=== PATIENT | female | born 1965 | race Caucasian/White ===

== ENCOUNTER 2023-11-15 08:50 | Outpatient (OUT) | payer OTHER, SELFPAY ==
--- NOTE | 2023-11-15 09:02 | XR_ITS ---
[address] [address] Patient Name: CARLINE MATTSON MRN: [id number] date: 1965 Sex: F Assigned Patient Location: [facility] Current Patient Location: [facility] Accession/Order Number: [id number] Exam Date: 11/15/2023 09:15 Report Date: 11/15/2023 09:47 At the request of: DELVIS JAMESON Procedure: XR DEXA axial skeleton EXAM: XR DEXA axial skeleton HISTORY: Age related osteoporosis. COMPARISON: 10/17/2020, 09/18/2017, 04/14/2015 and 10/29/2006. TECHNIQUE: Routine DEXA scan lumbar spine and bilateral hips. FINDINGS: L1-L4: Bone mineral density 1.041 g/sq cm and T score -1.2. Bone mineral density change versus previous -7.5% (statistically significant change). Left femoral neck: Bone mineral density 0.999 g/sq cm and T score -0.3. Left hip total: Bone mineral density 1.065 g/sq cm and T score 0.5. Right femoral neck: Bone mineral density 0.945 g/sq cm and T score -0.7. Right hip total: Bone mineral density 1.023 g/sq cm and T score 0.1. Dual femur neck mean percent change versus previous 2.7%. Dual femur trochanter mean change versus previous 2.0%. Dual femur total mean change versus previous 2.3%. XR/XR DEXA axial skeleton IMPRESSION: Osteopenia. Electronically authenticated by: LENCHO LAI Date: 11/15/2023 09:47
--- NOTE | 2023-11-15 09:18 | MM_ITS ---
Patient Name: CARLINE MATTSON MR#: [id number] : 1965 Exam Date: 11/15/2023 Ordering Doctor: DR Tramaine Lr . RADIOLOGY REPORT PROCEDURE: MM TOMOSYNTHESIS SCREENING BI COMPARISON: MG MAMM SCREEN 3D JOSE CAD, 10/26/2021. MG MAMM SCREEN 3D JOSE CAD, 10/29/2022. INDICATIONS: Screening Calculator Name NCI Breast Cancer Risk Assessment Tool 5 Year Breast Cancer Risk 1.00% Lifetime Breast Cancer Risk 6.30% Personal Breast Cancer No Personal Ovarian Cancer No Treatments None Family Cancers Mother with glioblastoma cancer at age 73; Father with skin cancer at age ~70. LOCATION: [facility] BREAST COMPOSITION: Scattered areas fibroglandular density. FINDINGS: DIAGNOSTIC CATEGORY 1--NEGATIVE. NO CHANGE FROM COMPARISON ASSESSMENT. Scattered benign-appearing lymph nodes are present. RIGHT BREAST: No significant suspicious finding. LEFT BREAST: No significant suspicious finding. RECOMMENDATIONS: ROUTINE MAMMOGRAM AND CLINICAL EVALUATION IN 12 MONTHS. PLEASE NOTE: A NORMAL MAMMOGRAM DOES NOT EXCLUDE THE POSSIBILITY OF BREAST CANCER. A CLINICALLY SUSPICIOUS PALPABLE LUMP SHOULD BE BIOPSIED. Dictated by: Daniel Mercado MD on 11/15/2023 at 12:02 Approved by: Daniel Mercado MD on 11/15/2023 at 12:06
== END 2023-11-15 08:51 | disposition home or self-care (01) ==
LOC: MAMMO 08:50
PROVIDERS: PCP Family Medicine; Visit Provider Family Medicine
DX: Z12.31 Encounter for screening mammogram for malignant neoplasm of breast (principal); M85.80 Other specified disorders of bone density and structure, unspecified site; M81.0 Age-related osteoporosis without current pathological fracture; Z80.8 Family history of malignant neoplasm of other organs or systems
CPT/HCPCS: 77063; 77067; 77080

== ENCOUNTER 2023-12-10 20:31 | Emergency (ER) | payer OTHER, SELFPAY ==
--- OUTSIDE RECORDS SUMMARY | 2023-12-10 20:36 | XMS_ITS | CCD ---
Author Name Unknown Address [id number] [place] [address] Organization [facility] Care Team Providers Care Petrography Teacher Name Role Phone TRINO, DR EDMONDSON Consulting Unavailable TRINO, DR EDMONDSON Primary Care Unavailable TRINO, DR EDMONDSON Admitting Unavailable CHRISTIANEY, DR EDMONDSON Attending Unavailable BENTLEY MONDRAGON Unavailable TRINO, DR EDMONDSON Primary Care Unavailable TRINO, DR EDMONDSON Admitting Unavailable TRINO, DR EDMONDSON Attending Unavailable CHRISTIANEY, DR EDMONDSON Consulting Unavailable ABHINAV, DR BENTLEY Mcnally Consulting Unavailable TRINO, DR EDMONDSON Primary Care Unavailable TRINO, DR EDMONDSON Admitting Unavailable CHRISTIANEY, DR EDMONDSON Attending Unavailable CHRISTIANEY, DR EDMONDSON Consulting Unavailable Wisam Mix Unavailable DELVIS JAMESON Primary Care Unavailable BRYSON GRANDE Attending Unavailable Medications Current Medications Medication Drug Class(es) Dates Sig (Normalized) Sig (Original) liothyronine sodium 0.05 mg oral tablet (1 source) l-Triiodothyronine take 1 tablet by mouth every twenty-four hours Liothyronine Sodium 50 MCG 1 tablet on an empty stomach Orally Once a day Active Problems Active Problems Problem Classification Problem Date Documented Da te Episodic/Chronic Administrative/social admission (1 source) Encounter for pre-employment examination Episodic Calculus of urinary tract (1 source) Calculus of ureter; Translations: [Calculus of ureter] Onset: 11-09-2023 Episodic Other screening for suspected conditions (not mental disorders or infectious disease) (4 sources) Encounter for screening mammogram for malignant neoplasm of breast; Translations: [ENC SCR MAMMO MALIG NEOPLASM BREAST] Onset: 10-29-2022 Episodic Residual codes; unclassified (1 source) Family history of malignant neoplasm of other organs or systems; Translations: [FAM HX MALIG NEOPLASM OTH ORGN/SYS] Onset: 10-31-2022 Episodic Unclassified (3 sources) COUGH, UNSPECIFIED; Translations: [COUGH, UNSPECIFIED] Onset: 12-03-2022 Past or Other Problems Problem Classification Problem Date Documented Da te Episodic/Chronic Unclassified (1 source) COUGH, UNSPECIFIED; Translations: [COUGH, UNSPECIFIED] Onset: 11-30-2022 Results Test Name Value Interpretation Reference Range Facil ity CBCon 11-09-2023 ABSOLUTE BAS 0.1 10*3/uL Normal 0.0-0.2 [facility] Comment on above: Performed By: #### C MPF, ACBC, LIPA2 #### Testing performed at [address] [address] ABSOLUTE EOS 0.2 10*3/uL Normal 0.0-0.7 [facility] Comment on above: Performed By: #### C MPF, ACBC, LIPA2 #### Testing performed at [address] [address] ABSOLUTE NEUTROPHIL COUNT 5.3 10*3/uL Normal 1.4-6.5 [facility] Comment on above: Performed By: #### C MPF, ACBC, LIPA2 #### Testing performed at [address] [address] Basophils/100 WBC (Bld) 0.9 % Normal 0.0-2.0 [facility] Comment on above: Performed By: #### C MPF, ACBC, LIPA2 #### Testing performed at [address] [address] DTYPE AUTO DIFF Normal [facility] Comment on above: Performed By: #### C MPF, ACBC, LIPA2 #### Testing performed at [address] [address] Eosinophils/100 WBC (Bld) 1.9 % Normal 0.0-11.0 [facility] Comment on above: Performed By: #### C MPF, ACBC, LIPA2 #### Testing performed at [address] [address] Lymphocytes (Bld) [#/Vol] 2.6 10*3/uL Normal 1.2-3.4 [facility] Comment on above: Performed By: #### C MPF, ACBC, LIPA2 #### Testing performed at [address] [address] Lymphocytes/100 WBC (Bld) 29.1 % Normal 20.0-55.0 [facility] Comment on above: Performed By: #### C MPF, ACBC, LIPA2 #### Testing performed at [address] [address] Monocytes (Bld) [#/Vol] 0.9 10*3/uL High 0.0-0.7 [facility] Comment on above: Performed By: #### C MPF, ACBC, LIPA2 #### Testing performed at [address] [address] Monocytes/100 WBC (Bld) 10.1 % High 0.0-10.0 [facility] Comment on above: Performed By: #### C MPF, ACBC, LIPA2 #### Testing performed at [address] [address] Neutrophils/100 WBC (Bld) 58.0 % Normal 37.0-75.0 [facility] Comment on above: Performed By: #### C MPF, ACBC, LIPA2 #### Testing performed at [address] [address] Erythrocyte distribution width (RBC) [Ratio] 14.0 % Normal 11.5-14.5 [facility] Comment on above: Performed By: #### C MPF, ACBC, LIPA2 #### Testing performed at [address] [address] Hematocrit (Bld) [Volume fraction] 41.4 % Normal 36.0-48.0 [facility] Comment on above: Performed By: #### C MPF, ACBC, LIPA2 #### Testing performed at [address] [address] Hemoglobin (Bld) [Mass/Vol] 13.3 g/dL Normal 12.0-16.0 [facility] Comment on above: Performed By: #### C MPF, ACBC, LIPA2 #### Testing performed at [address] [address] MCH (RBC) [Entitic mass] 27.3 pg Normal 26.0-35.0 [facility] Comment on above: Performed By: #### C MPF, ACBC, LIPA2 #### Testing performed at [address] [address] MCHC (RBC) [Mass/Vol] 32.2 g/dL Normal 27.0-37.0 [facility] Comment on above: Performed By: #### C MPF, ACBC, LIPA2 #### Testing performed at [address] [address] MCV (RBC) [Entitic vol] 84.7 fL Normal 80.0-100.0 [facility] Comment on above: Performed By: #### C MPF, ACBC, LIPA2 #### Testing performed at [address] [address] Platelet mean volume (Bld) [Entitic vol] 6.9 fL Low 7.4-11.0 [facility] Comment on above: Performed By: #### C MPF, ACBC, LIPA2 #### Testing performed at [address] [address] Platelets (Bld) [#/Vol] 333 10*3/uL Normal 130-400 [facility] Comment on above: Performed By: #### C MPF, ACBC, LIPA2 #### Testing performed at [address] [address] RBC (Bld) [#/Vol] 4.89 10*6/uL Normal 4.0-5.4 [facility] Comment on above: Performed By: #### C MPF, ACBC, LIPA2 #### Testing performed at [address] [address] WBC (Bld) [#/Vol] 9.1 10*3/uL Normal 3.6-11.0 [facility] Comment on above: Performed By: #### C MPF, ACBC, LIPA2 #### Testing performed at [address] [address] CMP FASTINGon 11-09-2023 A:G RATIO 1.4 RATIO Normal [facility] Comment on above: Performed By: #### C MPF, ACBC, LIPA2 #### Testing performed at [address] [address] ALBUMIN 4.5 G/dl Normal 3.5-5.0 [facility] Comment on above: Performed By: #### C MPF, ACBC, LIPA2 #### Testing performed at [address] [address] ALP [Catalytic activity/Vol] 92 U/L Normal 38-126 [facility] Comment on above: Performed By: #### C MPF, ACBC, LIPA2 #### Testing performed at [address] [address] ALT [Catalytic activity/Vol] 64 U/L High <35 [facility] Comment on above: Performed By: #### C MPF, ACBC, LIPA2 #### Testing performed at [address] [address] AST [Catalytic activity/Vol] 51 U/L High 14-36 [facility] Comment on above: Performed By: #### C MPF, ACBC, LIPA2 #### Testing performed at [address] [address] Bilirubin [Mass/Vol] 0.2 mg/dL Normal 0.2-1.3 [facility] Comment on above: Performed By: #### C MPF, ACBC, LIPA2 #### Testing performed at [address] [address] Calcium [Mass/Vol] 9.8 mg/dL Normal 8.4-10.2 [facility] Comment on above: Performed By: #### C MPF, ACBC, LIPA2 #### Testing performed at [address] [address] Chloride [Moles/Vol] 103 mmol/L Normal 98-107 [facility] Comment on above: Result Comment: Ayana pathak note: Triglyceride levels of 600mg/dL or higher may positively bias chloride results by approximately 2.1 mmol Performed By: #### C MPF, ACBC, LIPA2 #### Testing performed at [address] [address] CO2 [Moles/Vol] 24 mmol/L Normal 22-30 [facility] Comment on above: Performed By: #### C MPF, ACBC, LIPA2 #### Testing performed at [address] [address] Creatinine [Mass/Vol] 1.00 mg/dL Normal 0.70-1.20 [facility] Comment on above: Performed By: #### C MPF, ACBC, LIPA2 #### Testing performed at [address] [address] EST. GFR, 73 ml/min/1.73sq.m [facility] Comment on above: Performed By: #### C MPF, ACBC, LIPA2 #### Testing performed at [address] [address] EST. GFR,Non 61 ml/min/1.73sq.m [facility] Comment on above: Performed By: #### C MPF, ACBC, LIPA2 #### Testing performed at [address] [address] GFR Information Average GFR for 50-59 years old = 93. Normal [facility] Comment on above: Result Comment: Manager Steel bren Kidney disease, GFR = <60. Kidney failure, GFR = <15. The GFR estimate is not adjusted for extreme body surface area or acute process, nor has it been validated for women or ethnic groups other than and . Performed By: #### C MPF, ACBC, LIPA2 #### Testing performed at [address] [address] Glucose [Mass/Vol] 121 mg/dL High 70-100 [facility] Comment on above: Result Comment: NORMAL <100 mg/dL PREDIABETES 101-126 mg/dL DIABETES 126 mg/dL or higher Performed By: #### C MPF, ACBC, LIPA2 #### Testing performed at [address] [address] Potassium [Moles/Vol] 3.7 mmol/L Normal 3.5-5.1 [facility] Comment on above: Performed By: #### C MPF, ACBC, LIPA2 #### Testing performed at [address] [address] Protein [Mass/Vol] 7.8 g/dL Normal 6.3-8.2 [facility] Comment on above: Performed By: #### C MPF, ACBC, LIPA2 #### Testing performed at [address] [address] Sodium [Moles/Vol] 137 mmol/L Normal 137-145 [facility] Comment on above: Performed By: #### C MPF, ACBC, LIPA2 #### Testing performed at [address] [address] Urea nitrogen [Mass/Vol] 17 mg/dL Normal 7-20 [facility] Comment on above: Performed By: #### C MPF, ACBC, LIPA2 #### Testing performed at [address] [address] [address] ABDOMEN/PELVIS WITHOUT CO NTRASTon 11-09-2023 CT ABDOMEN/PELVIS WITHOUT CONTRAST EXAMINATION: CT ABDOMEN/PELVIS WITHOUT CONTRAST, 11/09/2023 7:13 PM EST HISTORY: Left flank pain COMPARISON: None. TECHNIQUE: CT scan of the abdomen and pelvis was performed without IV contrast. CT dose reduction technique was used, including Automated Exposure Control. FINDINGS: Lower thorax: Lung bases are clear. No effusions. Liver: Normal. Spleen: Normal. STOMACH: Normal. Gallbladder and bile ducts: Normal. Bowel: No obstruction, free air, or ascites. There is no mucosal thickening. Appendix: Not visualized. Kidneys: There is mild left-sided hydronephrosis due to a 3 mm UPJ stone. No additional renal stones. Incidental note made of a 13 mm right renal cyst. Adrenal glands: Normal. Pancreas: Normal. Lymph nodes: No lymphadenopathy. Vascular: Normal aorta and IVC. CT PELVIS: Normal bladder. Hysterectomy. No adnexal masses. Skeletal: No lytic or sclerotic lesions. There are no fractures. IMPRESSION: 1. Mild left-sided hydronephrosis due to a 3 mm UPJ stone. 2. Small right renal cyst. Normal [facility] LACTATE,BLOODon 11-09-2023 Lactate [Moles/Vol] 3.1 mmol/L Critically high 0.7-2.0 [facility] Comment on above: Result Comment: AYANA PATHAK REPEAT INITIAL CRITICAL IN 3 HOURS IF ED OR INPATIENT SEPSIS PATIENT Result called to read back by: MEL 11/09/2023 @ 19:39 by MARK Performed By: #### L ACTAC #### Testing performed at [address] [address] LIPASE,SERUMon 11-09-2023 LIPASE,SERUM 198 U/L Normal 23-300 [facility] Comment on above: Performed By: #### C MPF, ACBC, LIPA2 #### Testing performed at [address] [address] URINE CULTUREon 11-09-2023 Bacteria identified Cx Nom (U) SPECIMEN DESCRIPTION URINE CLEAN CATCH UA DIPSTICK LEUKOCYTE POSITIVE * Result Note: NITRITE NEGATIVE * CULTURE NO PATHOGENS ISOLATED * Result Note: Testing performed at [place] [address] * REPORT STATUS 11/12/2023 * Result Note: FINAL * Normal [facility] Comment on above: Performed By: #### A URNC #### Testing performed at [address] [place] [address] Testing performed at [address] [address] URINE MACROSCOPICon 11-09-19 24 Bilirubin Ql (U) Negative Normal NEGATIVE [facility] Comment on above: Performed By: #### U MARA, UMAC #### Testing performed at [address] [address] Clarity (U) CLOUDY Abnormal CLEAR [facility] Comment on above: Performed By: #### U MARA, UMAC #### Testing performed at [address] [place] [address] Color (U) YELLOW Normal YELLOW [facility] Comment on above: Performed By: #### U MARA, UMAC #### Testing performed at [address] [address] Glucose Ql (U) Negative Normal NEGATIVE [facility] Comment on above: Performed By: #### U MARA, UMAC #### Testing performed at [address] [address] pH (U) 7.0 [pH] Normal 5.0-7.0 [facility] Comment on above: Performed By: #### U MARA, UMAC #### Testing performed at [address] [address] URINE HEMOGLOBIN LARGE Abnormal NEGATIVE [facility] Comment on above: Performed By: #### U MARA, UMAC #### Testing performed at [address] [address] URINE KETONE Negative Normal NEGATIVE [facility] Comment on above: Performed By: #### U MARA, UMAC #### Testing performed at [address] [address] URINE LEUKOTEST TRACE Abnormal NEGATIVE [facility] Comment on above: Performed By: #### U MARA, UMAC #### Testing performed at [address] [address] URINE NITRATES Negative Normal NEGATIVE [facility] Comment on above: Performed By: #### U MARA, UMAC #### Testing performed at [address] [address] URINE SPEC GRAVITY 1.020 Normal 1.010-1.025 [facility] Comment on above: Performed By: #### U MARA, UMAC #### Testing performed at [address] [address] URINE TOTAL PROTEIN Negative Normal NEGATIVE [facility] Comment on above: Performed By: #### U MARA, UMAC #### Testing performed at [address] [address] Urobilinogen Qn (U) 0.2 {Daphne'U}/dL Normal 0.2-1.0 [facility] Comment on above: Performed By: #### U MARA, UMAC #### Testing performed at [address] [address] URINE MICROSCOPICon 11-09-19 24 BACTERIA 1+ Abnormal NEGATIVE [facility] Comment on above: Performed By: #### U MARA, UMAC #### Testing performed at [address] [address] CASTS NONE Normal NONE [facility] Comment on above: Performed By: #### U MARA, UMAC #### Testing performed at [address] [place] [address] CRYSTAL RARE Abnormal NONE [facility] Comment on above: Result Comment: SUDHA PHOUS URATES Performed By: #### U MARA, UMAC #### Testing performed at [address] [address] Epithelial cells LM Ql (Urine sed) 1 TO 5 Normal [facility] Comment on above: Performed By: #### U MARA, UMAC #### Testing performed at [address] [address] Mucus Ql (Urine sed) TRACE Abnormal NEGATIVE [facility] Comment on above: Performed By: #### U MARA, UMAC #### Testing performed at [address] [address] URINE COMMENT REFLEX CULTURE PER ESTABLISHED CRITERIA. Normal [facility] Comment on above: Performed By: #### U MARA, UMAC #### Testing performed at [address] [address] URINE RBC'S 20 TO 30 Normal NEGATIVE [facility] Comment on above: Performed By: #### U MARA, UMAC #### Testing performed at [address] [address] URINE WBC'S 1 TO 5 Normal NEGATIVE [facility] Comment on above: Performed By: #### U MARA, UMAC #### Testing performed at [address] [address] XR CHEST 2 Von 11-30-2022 XR CHEST 2 V EXAM: XR CHEST 2 V HISTORY: . Persistent cough . COMPARISON: None. TECHNIQUE: Frontal and lateral chest FINDINGS: Heart and vascularity are unremarkable. Lungs are expanded and free of focal infiltrates. No acute bony abnormality is appreciated. IMPRESSION: No acute heart or lung disease identified. Electronically authenticated by: BENTLEY MONDRAGON Date: 2022-11-30 11:45 Normal [facility] MG MAMM SCREEN 3D JOSE CADon 10-29-2022 MG MAMM SCREEN 3D JOSE CAD Patient: CARLINE MATTSON Exam Date: 10/29/2022 : 1965 Gender:F Ordering : DR DELVIS JAMESON . Admission #: [id number] Family : Order #: [id number] CLICK HERE TO VIEW EXAM RADIOLOGY REPORT PROCEDURE: MAMMOGRAM SCREENING 3D BILATERAL CAD COMPARISON: MG MAMM SCREEN 3D JOSE CAD, 10/26/2021. MG MAMM SCREEN JOSE W CAD, 10/17/2020. INDICATIONS: Screening mammography Calculator Name NCI Breast Cancer Risk Assessment Tool 5 Year Breast Cancer Risk 1.00% Lifetime Breast Cancer Risk 6.40% Personal Breast Cancer No Personal Ovarian Cancer No Treatments None Family Cancers Mother with glioblastoma cancer at age 73; Father with skin cancer at age 70. LOCATION: [facility] BREAST COMPOSITION: Scattered areas fibroglandular density. FINDINGS: DIAGNOSTIC CATEGORY 1--NEGATIVE. NO CHANGE FROM COMPARISON ASSESSMENT. Scattered benign-appearing lymph nodes are present. RIGHT BREAST: No significant suspicious finding. LEFT BREAST: No significant suspicious finding. RECOMMENDATIONS: ROUTINE MAMMOGRAM AND CLINICAL EVALUATION IN 12 MONTHS. PLEASE NOTE: A NORMAL MAMMOGRAM DOES NOT EXCLUDE THE POSSIBILITY OF BREAST CANCER. A CLINICALLY SUSPICIOUS PALPABLE LUMP SHOULD BE BIOPSIED. Dictated by: Bentley Mercado MD on 10/30/2022 at 11:12 Approved by: Bentley Mercado MD on 10/30/2022 at 11:13 Normal [facility] CBC AUTO DIFFon 06-21-2022 BASO # 0.1 103/ul Normal 0.0-0.1 [facility] Comment on above: Performed By: #### H FPFCBC #### [facility] [address] [place] [address] Dr. Sonya Strickland Basophils/100 WBC (Bld) 0.7 % Normal 0.2-2.0 [facility] Comment on above: Performed By: #### H FPFCBC #### [facility] [address] [place] [address] Dr. Sonya Strickland EO # 0.1 103/ul Normal 0.0-0.7 [facility] Comment on above: Performed By: #### H FPFCBC #### [facility] [address] [place] [address] Dr. Sonya Strickland Eosinophils/100 WBC (Bld) 1.9 % Normal 0.9-7.0 [facility] Comment on above: Performed By: #### H FPFCBC #### [facility] [address] [place] [address] Dr. Sonya Strickland Erythrocyte distribution width (RBC) [Ratio] 13.1 % Normal 11.0-15.0 [facility] Comment on above: Performed By: #### H FPFCBC #### [facility] [address] [place] [address] Dr. Sonya Strickland Hematocrit (Bld) [Volume fraction] 41.6 % Normal 36.0-48.0 [facility] Comment on above: Performed By: #### H FPFCBC #### [facility] [address] [place] [address] Dr. Sonya Strickland Hemoglobin (Bld) [Mass/Vol] 13.2 g/dL Normal 12.0-16.0 [facility] Comment on above: Performed By: #### H FPFCBC #### [facility] [address] [place] [address] Dr. Sonya Strickland IG # 0.01 10e3/ul Normal 0.00-0.03 [facility] Comment on above: Performed By: #### H FPFCBC #### [facility] [address] [place] [address] Dr. Sonya Strickland IG % 0.1 % Normal 0.0-0.5 [facility] Comment on above: Performed By: #### H FPFCBC #### [facility] [address] [place] [address] Dr. Sonya Strickland LYMPH # 2.2 103/ul Normal 1.2-3.8 [facility] Comment on above: Performed By: #### H FPFCBC #### [facility] [address] [place] [address] Dr. Sonya Strickland Lymphocytes/100 WBC (Bld) 31.3 % Normal 20.5-60.0 [facility] Comment on above: Performed By: #### H FPFCBC #### [facility] [address] [place] [address] Dr. Sonya Strickland MCH (RBC) [Entitic mass] 28.0 pg Normal 26.7-34.0 [facility] Comment on above: Performed By: #### H FPFCBC #### [facility] [address] [address] [address] Sonya Strickland MCHC (RBC) [Mass/Vol] 31.7 g/dL Normal 29.9-35.2 [facility] Comment on above: Performed By: #### H FPFCBC #### [facility] [address] [place] [address] Dr. Sonya Strickland MCV (RBC) [Entitic vol] 88.1 fL Normal 81.0-99.0 [facility] Comment on above: Performed By: #### H FPFCBC #### [facility] [address] [place] [address] Dr. Sonya Strickland MONO # 0.7 103/ul Normal 0.3-0.8 [facility] Comment on above: Performed By: #### H FPFCBC #### [facility] [address] [place] [address] Dr. Sonya Strickland Monocytes/100 WBC (Bld) 9.9 % Normal 1.7-12.0 [facility] Comment on above: Performed By: #### H FPFCBC #### [facility] [address] [place] [address] Dr. Sonya Strickland NEUT # 3.9 103/ul Normal 1.4-6.5 [facility] Comment on above: Performed By: #### H FPFCBC #### [facility] [address] [place] [address] Dr. Soyna Strickland Neutrophils/100 WBC (Bld) 56.1 % Normal 43.0-75.0 [facility] Comment on above: Performed By: #### H FPFCBC #### [facility] [address] [place] [address] Dr. Sonya Strickland Platelet mean volume (Bld) [Entitic vol] 9.7 fL Normal 9.5-13.5 [facility] Comment on above: Performed By: #### H FPFCBC #### [facility] [address] [place] [address] Dr. Sonya Strickland PLT 313 103/ul Normal 150-450 [facility] Comment on above: Performed By: #### H FPFCBC #### [facility] [address] [place] [address] Dr. Sonya Strickland RBC 4.72 106/ul Normal 4.20-5.40 [facility] Comment on above: Performed By: #### H FPFCBC #### [facility] [address] [place] [address] Dr. Sonya Strickland WBC 7.0 103/ul Normal 4.0-11.0 [facility] Comment on above: Performed By: #### H FPFCBC #### [facility] [address] [place] [address] Dr. Sonya Strickland [employer]ALTH[employer] PROFILEon 022 Albumin [Mass/Vol] 3.8 g/dL Normal 3.4-5.0 [facility] Comment on above: Performed By: #### H FPF #### [facility] [address] [place] [address] Dr. Sonya Strickland Albumin/Globulin [Mass ratio] 1.0 {ratio} Normal [facility] Comment on above: Performed By: #### H FPF #### [facility] [address] [place] [address] Dr. Sonya Strickland ALP [Catalytic activity/Vol] 87 U/L Normal 46-116 [facility] Comment on above: Performed By: #### H FPF #### [facility] [address] [place] [address] Dr. Sonya Strickland ALT [Catalytic activity/Vol] 25 U/L Normal 14-59 [facility] Comment on above: Performed By: #### H FPF #### [facility] [address] [place] [address] Dr. Sonya Strickland AST [Catalytic activity/Vol] 14 U/L Critically low 15-37 [facility] Comment on above: Performed By: #### H FPF #### [facility] [address] [place] [address] Dr. Sonya Strickland Bilirubin [Mass/Vol] 0.2 mg/dL Normal 0.2-1.0 [facility] Comment on above: Performed By: #### H FPF #### [facility] [address] [address] [address] Sonya Strickland Calcium [Mass/Vol] 8.8 mg/dL Normal 8.5-10.1 [facility] Comment on above: Performed By: #### H FPF #### [facility] [address] [address] [address] Sonya Strickland Chloride [Moles/Vol] 104 mmol/L Normal 98-107 [facility] Comment on above: Performed By: #### H FPF #### [facility] [address] [address] [address] Sonya Strickalnd CHOL-HDL RATIO NORM SEE BELOW Normal [facility] Comment on above: Result Comment: 3.3 - 4.4 LOW RISK 4.4 - 7.1 AVERAGE RISK 7.1 - 11.0 MODERATE RISK >11.0 HIGH RISK Performed By: #### H FPF #### [facility] [address] [address] [address] Sonya Strickland Cholesterol [Mass/Vol] 207 mg/dL Critically high <=200 [facility] Comment on above: Performed By: #### H FPF #### [facility] [address] [address] [address] Sonya Strickland Cholesterol in HDL [Mass/Vol] 63 mg/dL Critically high 40-60 [facility] Comment on above: Performed By: #### H FPF #### [facility] [address] [address] [address] Sonya Strickland Cholesterol in LDL [Mass/Vol] 121.6 mg/dL Normal [facility] Comment on above: Performed By: #### H FPF #### [facility] [address] [address] [address] Sonya Strickland Cholesterol.total/Ch olesterol in HDL [Mass ratio] 3.3 {ratio} Normal [facility] Comment on above: Performed By: #### H FPF #### [facility] [address] [address] [address] Sonya Strickland CO2 [Moles/Vol] 26.0 mmol/L Normal 21.0-32.0 [facility] Comment on above: Performed By: #### H FPF #### [facility] [address] [address] [address] Sonya Strickland Creatinine [Mass/Vol] 0.85 mg/dL Normal 0.55-1.02 [facility] Comment on above: Performed By: #### H FPF #### [facility] [address] [address] [address] Sonya Strickland Globulin (S) [Mass/Vol] 3.7 g/dL Normal [facility] Comment on above: Performed By: #### H FPF #### [facility] [address] [address] [address] Sonya Strickland Glucose [Mass/Vol] 87 mg/dL Normal 74-106 [facility] Comment on above: Performed By: #### H FPF #### [facility] [address] [address] [address] Sonya Strickland HDL NORMAL > or = 60 mg/dl - LOW CARDIOVASCULAR RISK <40 mg/dl - HIGH CARDIOVASCULAR RISK Normal [facility] Comment on above: Performed By: #### H FPF #### [facility] [address] [address] [address] Sonya Strickland LDL CALC NORMAL SEE BELOW Normal [facility] Comment on above: Result Comment: <100 mg/dl OPTIMAL 100 - 129 mg/dl NEAR OR ABOVE OPTIMAL 130 - 159 mg/dl BORDERLINE HIGH 160 - 189 mg/dl HIGH >190 mg/dl VERY HIGH Performed By: #### H FPF #### [facility] [address] [address] [address] Sonya Strickland Potassium [Moles/Vol] 4.3 mmol/L Normal 3.5-5.1 [facility] Comment on above: Performed By: #### H FPF #### [facility] [address] [address] [address] Sonya Strickland Protein [Mass/Vol] 7.5 g/dL Normal 6.4-8.2 [facility] Comment on above: Performed By: #### H FPF #### [facility] [address] [address] [address] Sonya Strickland Sodium [Moles/Vol] 140 mmol/L Normal 136-145 [facility] Comment on above: Performed By: #### H FPF #### [facility] [address] [address] [address] Sonya Strickland Triglyceride [Mass/Vol] 112 mg/dL Normal <=150 [facility] Comment on above: Performed By: #### H FPF #### [facility] [address] [address] [address] Sonya Strickland TSH 1.111 uIU/mL Normal 0.358-3.[address] [facility] Comment on above: Performed By: #### H FPF #### [facility] [address] [place] [address] Dr. Sonya Strickland Urea nitrogen [Mass/Vol] 21.0 mg/dL Critically high 7.0-18.0 [facility] Comment on above: Performed By: #### H FPF #### [facility] [address] [address] [address] Sonya Strickland Urea nitrogen/Creatinine [Mass ratio] 24.7 mg/mg Normal [facility] Comment on above: Performed By: #### H FPF #### [facility] [address] [place] [address] Dr. Sonya Strickland VLDL CALC 22.4 mg/dL Normal [facility] Comment on above: Performed By: #### H FPF #### [facility] [address] [address] [address] Sonya Strickland Vital Signs Date Time Vital Sign Value Performing Clinician Facility 05-17-2023 11:30-0400 Body height 162.56 cm [facility] Other [facility] Other 05-17-2023 11:30-0400 Body mass index (BMI) [Ratio] 28.9 kg/m2 [facility] Other [facility] Other 05-17-2023 11:30-0400 Body weight 76.39 kg [facility] Other [facility] Other 05-17-2023 11:30-0400 Diastolic blood pressure 84 mm[Hg] [facility] Other [facility] Other 05-17-2023 11:30-0400 Respiratory rate 12 /min [facility] Other [facility] Other 05-17-2023 11:30-0400 Systolic blood pressure 130 mm[Hg] [facility] Other [facility] Other Encounters Encounter Date Encounter Type Care Provider Facility Start: 11-09-2023 End: 11-09-2023 Emergency department patient visit DELVIS JAMESON [facility] Start: 05-17-2023 End: 05-17-2023 ambulatory [facility] Other [facility] Other Start: 05-17-2023 Office outpatient vi sit 10 minutes [facility] Start: 11-30-2022 End: 12-01-[address] DELVIS JAMESON Facility:[facility] Start: 10-29-2022 End: 10-30-[address] DELVIS JAMESON Facility:[facility] Start: 06-21-2022 End: 06-22-[address] DELVIS JAMESON Facility:[facility] Payers Date Payer Category Payer Unknown [id number] 2.16.84 [id number] 1965 Unknown [id number] [id number] [id number] 1965 Unknown [id number] [id number] 1959 Self-pay 1959 Unknown [id number] Unknown [id number] 2.16.84 [id number] Unknown [id number] Social History Date Type Detail Facility Sex Assigned At [facility] Other Evaluation note 05-17-2023 Note Date & Type Note Facility 05-17-2023 Evaluation note Encounter Date Diagnosis Assessment Notes May, Physical exam, pre-employme nt (ICD-10 - Z02.1) 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 [facility] Other History general Narrative - Reported 05-01-2018 Note Date & Type Note Facility 05-01-2018 History general N arrative - Reported Type Medical History Autoimmune thyroiditis Surgical History Appendectomy, JASVIR 05/01/2018 Hospitalization History see surgical history [facility] Other Summary Purpose Family History No Family History Records FoundNo Family History Records Found Advance Directives No Advanced Directives Records FoundNo Advanced Directives Records Found Additional Source Comments INFORMATION SOURCE (unrecogn ized section and content) DATE CREATED AUTHOR 12/04/2022 [facility] DATE CREATED AUTHOR AUTHOR'S ORGANIZ ATION 11/13/2023 [facility] [place] REASON FOR VISIT (unrecogniz ed section and content) [employer] FOR RECORDS PERTAINING TO PATIENTS WHO ARE OR HAVE BEEN ENROLLED IN A CHEMICAL DEPENDENCY/SUBSTANCEABUSE PROGRAM, SOME INFORMATION MAY BE OMITTED. This clinical summary was aggregated from multiple sources. Caution should be exercised in using it in the provision of clinical care. This summary normalizes information from multiple sources, and as a consequence, information in this document may materially change the coding, format and clinical context of patient data. In addition, data may be omitted in some cases. CLINICAL DECISIONS SHOULD BE BASED ON THE PRIMARY CLINICAL RECORDS. [employer] provides no warranty or guarantee of the accuracy or completeness of information in this document.
== END 2023-12-10 20:34 | disposition left against medical advice (07) ==
LOC: ER 20:33
PROVIDERS: Emergency Provider Internal Medicine; PCP Family Medicine
DX: Z53.21 Procedure and treatment not carried out due to patient leaving prior to being seen by health care provider (principal)

== ENCOUNTER 2024-01-22 09:13 | Outpatient (OUT) | payer OTHER, SELFPAY ==
--- NOTE | 2024-01-22 09:16 | US_ITS ---
[id number] Patient Name: CARLINE MATTSON MRN: [id number] date: 1965 Sex: F Assigned Patient Location: [place] Current Patient Location: [place] Accession/Order Number: [id number] Exam Date: 01/22/2024 09:20 Report Date: 01/22/2024 11:17 At the request of: DELVIS JAMESON Procedure: US arterial duplex UE BI EXAMINATION: US arterial duplex UE BI HISTORY: peripheral arterial disease I73.9 COMPARISON: No relevant comparison available. TECHNIQUE: Color duplex Doppler ultrasound evaluation analysis was performed in the usual manner. FINDINGS: LEFT UPPER EXTREMITY ARTERIAL Normal triphasic waveform throughout Subclavian Proximal PSV: 142.7 cm/s Subclavian Proximal EDV: 0.0 cm/s Axillary PSV: 75.3 cm/s Axillary EDV: 0.0 cm/s Brachial Proximal PSV: 81.2 cm/s Proximal EDV: 0.0 cm/s Distal PSV: 87.1 cm/s Distal EDV: 14.2 cm/s Radial Proximal PSV: 63.5 cm/s Proximal PSV: 16.2 cm/s Distal PSV: 53.6 cm/s Distal EDV: 6.3 cm/s Ulnar Proximal PSV: 53.6 cm/s Proximal PSV: 14.2 cm/s Distal PSV: 67.3 cm/s Distal EDV: 18.1 cm/s RIGHT UPPER EXTREMITY ARTERIAL Triphasic waveform in the axillary and proximal brachial artery. Biphasic waveform distal brachial, antecubital radial and ulnar arteries Subclavian Proximal PSV: 143 Subclavian Proximal EDV: 0 Axillary PSV: 75 Axillary EDV: 0 Brachial Proximal PSV: 81 Proximal EDV: 0 Distal PSV: 87 Distal EDV: 14 Radial Proximal PSV:64 Proximal EDV: 16 Distal PSV: 54 Distal EDV: 6 Ulnar Proximal PSV: 54 Proximal EDV: 14 Distal PSV: 67 Distal EDV: 18 VESSEL LUMEN: No significant narrowing or atherosclerotic disease. FLOW VELOCITY: No significantly increased or decreased flow velocity. US/US arterial duplex UE BI IMPRESSION: Normal right arm arterial tree Mild left arm ischemia evidenced by biphasic waveform Electronically authenticated by: BENTLEY [place] Date: 01/22/2024 11:17
--- OUTSIDE RECORDS SUMMARY | 2024-01-22 09:23 | XMS_ITS | CCD ---
Author Organization [facility] Care Team Providers Care Belly Packer Name Role Phone DR DELVIS LR Consulting Unavailable TRINO, DR EDMONDSON Primary Care Unavailable TRINO, DR EDMONDSON Admitting Unavailable TRINO, DR EDMONDSON Attending Unavailable BENTLEY MONDRAGON Consulting Unavailable TRINO, DR EDMONDSON Primary Care Unavailable CHRISTIANEY, DR EDMONDSON Admitting Unavailable TRINO, DR EDMONDSON Attending Unavailable TRINO, DR EDMONDSON Consulting Unavailable ABHINAV, DR BENTLEY Mcnally Consulting Unavailable TRINO, DR EDMONDSON Primary Care Unavailable TRINO, DR EDMONDSON Admitting Unavailable TRINO, DR EDMONDSON Attending Unavailable CHRISTIANEY, DR EDMONDSON Consulting Unavailable Wisam Mix Unavailable DELVIS LR Primary Care Unavailable BRYSON GRANDE Attending Unavailable JINA FOREMAN Attending Unavailable Delvis Lr Referring Unavailable Allergies Allergy Classification Reported Allergen(s) Allergy Type Date of Onset Reaction(s) Facility (1 source) No Known Medication Allergies; Translations: [No Known Medication Allergies] Propensity to adverse reactions (disorder) [facility] Repository Medications Current Medications Medication Drug Class(es) Dates [...] 11-09-2023 ABSOLUTE BAS 0.1 10*3/uL Normal 0.0-0.2 [facility] Comment on above: Performed By: #### C MPF, ACBC, LIPA2 #### Testing performed at [address] [address] ABSOLUTE EOS 0.2 10*3/uL Normal 0.0-0.7 [facility] Comment on above: Performed By: #### C MPF, ACBC, LIPA2 #### Testing performed at [address] [address] ABSOLUTE NEUTROPHIL COUNT 5.3 10*3/uL Normal 1.4-6.5 [facility] Comment on above: Performed By: #### C MPF, ACBC, LIPA2 #### Testing performed at [address] [address] Basophils/100 WBC (Bld) 0.9 % Normal 0.0-2.0 [facility] Comment on above: Performed By: #### C MPF, ACBC, LIPA2 #### Testing performed at [address] [address] DTYPE AUTO DIFF Normal [facility] Comment on above: Performed By: #### C MPF, ACBC, LIPA2 #### Testing performed at [address] [address] Eosinophils/100 WBC (Bld) 1.9 % Normal 0.0-11.0 [facility] Comment on above: Performed By: #### C MPF, ACBC, LIPA2 #### Testing performed at [address] [address] Lymphocytes (Bld) [#/Vol] 2.6 10*3/uL Normal 1.2-3.4 [facility] Comment on above: Performed By: #### C MPF, ACBC, LIPA2 #### Testing performed at [address] [address] Lymphocytes/100 WBC (Bld) 29.1 % Normal 20.0-55.0 [facility] Comment on above: Performed By: #### C MPF, ACBC, LIPA2 #### Testing performed at [address] [address] Monocytes (Bld) [#/Vol] 0.9 10*3/uL High 0.0-0.7 [facility] Comment on above: Performed By: #### C MPF, ACBC, LIPA2 #### Testing performed at [address] [address] Monocytes/100 WBC (Bld) 10.1 % High 0.0-10.0 [facility] Comment on above: Performed By: #### C MPF, ACBC, LIPA2 #### Testing performed at [address] [address] Neutrophils/100 WBC (Bld) 58.0 % Normal 37.0-75.0 [facility] Comment on above: Performed By: #### C MPF, ACBC, LIPA2 #### Testing performed at [address] [address] Erythrocyte distribution width (RBC) [Ratio] 14.0 % Normal 11.5-14.5 [facility] Comment on above: Performed By: #### C MPF, ACBC, LIPA2 #### Testing performed at [address] [address] Hematocrit (Bld) [Volume fraction] 41.4 % Normal 36.0-48.0 [facility] Comment on above: Performed By: #### C MPF, ACBC, LIPA2 #### Testing performed at [address] [address] Hemoglobin (Bld) [Mass/Vol] 13.3 g/dL Normal 12.0-16.0 [facility] Comment on above: Performed By: #### C MPF, ACBC, LIPA2 #### Testing performed at [address] [address] MCH (RBC) [Entitic mass] 27.3 pg Normal 26.0-35.0 [facility] Comment on above: Performed By: #### C MPF, ACBC, LIPA2 #### Testing performed at [address] [address] MCHC (RBC) [Mass/Vol] 32.2 g/dL Normal 27.0-37.0 [facility] Comment on above: Performed By: #### C MPF, ACBC, LIPA2 #### Testing performed at [address] [address] MCV (RBC) [Entitic vol] 84.7 fL Normal 80.0-100.0 [facility] Comment on above: Performed By: #### C MPF, ACBC, LIPA2 #### Testing performed at [address] [address] Platelet mean volume (Bld) [Entitic vol] 6.9 fL Low 7.4-11.0 [facility] Comment on above: Performed By: #### C MPF, ACBC, LIPA2 #### Testing performed at [address] [address] Platelets (Bld) [#/Vol] 333 10*3/uL Normal 130-400 [facility] Comment on above: Performed By: #### C MPF, ACBC, LIPA2 #### Testing performed at [address] [address] RBC (Bld) [#/Vol] 4.89 10*6/uL Normal 4.0-5.4 [facility] Comment on above: Performed By: #### C MPF, ACBC, LIPA2 #### Testing performed at [address] [address] WBC (Bld) [#/Vol] 9.1 10*3/uL Normal 3.6-11.0 [facility] Comment on above: Performed By: #### C MPF, ACBC, LIPA2 #### Testing performed at [address] [address] CMP FASTINGon 11-09-2023 A:G RATIO 1.4 RATIO Normal [facility] Comment on above: Performed By: #### C MPF, ACBC, LIPA2 #### Testing performed at [address] [address] ALBUMIN 4.5 G/dl Normal 3.5-5.0 [facility] Comment on above: Performed By: #### C MPF, ACBC, LIPA2 #### Testing performed at [address] [address] ALP [Catalytic activity/Vol] 92 U/L Normal 38-126 [facility] Comment on above: Performed By: #### C MPF, ACBC, LIPA2 #### Testing performed at [address] [address] ALT [Catalytic activity/Vol] 64 U/L High <35 [facility] Comment on above: Performed By: #### C MPF, ACBC, LIPA2 #### Testing performed at [address] [address] AST [Catalytic activity/Vol] 51 U/L High 14-36 [facility] Comment on above: Performed By: #### C MPF, ACBC, LIPA2 #### Testing performed at [address] [address] Bilirubin [Mass/Vol] 0.2 mg/dL Normal 0.2-1.3 [facility] Comment on above: Performed By: #### C MPF, ACBC, LIPA2 #### Testing performed at [address] [address] Calcium [Mass/Vol] 9.8 mg/dL Normal 8.4-10.2 [facility] Comment on above: Performed By: #### C MPF, ACBC, LIPA2 #### Testing performed at [address] [address] Chloride [Moles/Vol] 103 mmol/L Normal 98-107 [facility] Comment on above: Result Comment: Plea se note: Triglyceride levels of 600mg/dL or higher may positively bias chloride results by approximately 2.1 mmol Performed By: #### C MPF, ACBC, LIPA2 #### [place] [address] CO2 [Moles/Vol] 24 mmol/L Normal 22-30 [facility] Comment on above: Performed By: #### C MPF, ACBC, LIPA2 #### Testing performed at [place] [id number] Creatinine [Mass/Vol] 1.00 mg/dL Normal 0.70-1.20 [facility] Comment on above: Performed By: #### C MPF, ACBC, LIPA2 #### Testing performed at [place] [id number] EST. GFR, 73 ml/min/1.73sq.m [facility] Comment on above: Performed By: #### C MPF, ACBC, LIPA2 #### Testing performed at [place] [id number] EST. GFR,Non 61 ml/min/1.73sq.m [facility] Comment on above: Performed By: #### C MPF, ACBC, LIPA2 #### [place] [address] GFR Information Average GFR for 50-59 years old = 93. Normal [facility] Comment on above: Result Comment: Vice President Of Operations bren Kidney disease, GFR = <60. Kidney failure, GFR = <15. The GFR estimate is not adjusted for extreme body surface area or acute process, nor has it been validated for women or ethnic groups other than and . Performed By: #### C MPF, ACBC, LIPA2 #### Testing performed at [place] [id number] Glucose [Mass/Vol] 121 mg/dL High 70-100 [facility] Comment on above: Result Comment: NORMAL <100 mg/dL PREDIABETES 101-126 mg/dL DIABETES 126 mg/dL or higher Performed By: #### C MPF, ACBC, LIPA2 #### Testing performed at [place] [id number] [place] [address] Potassium [Moles/Vol] 3.7 mmol/L Normal 3.5-5.1 [facility] Comment on above: Performed By: #### C MPF, ACBC, LIPA2 #### Testing performed at [address] [address] Protein [Mass/Vol] 7.8 g/dL Normal 6.3-8.2 [facility] Comment on above: Performed By: #### C MPF, ACBC, LIPA2 #### Testing performed at [address] [address] Sodium [Moles/Vol] 137 mmol/L Normal 137-145 [facility] Comment on above: Performed By: #### C MPF, ACBC, LIPA2 #### Testing performed at [address] [address] Urea nitrogen [Mass/Vol] 17 mg/dL Normal 7-20 [facility] Comment on above: Performed By: #### C MPF, ACBC, LIPA2 #### Testing performed at [address] [address] [address] ABDOMEN/PELVIS WITHOUT CO NTRASTon 11-09-2023 CT [...] stone. 2. Small right renal cyst. Normal [facility] LACTATE,BLOODon 11-09-2023 Lactate [Moles/Vol] 3.1 mmol/L Critically high 0.7-2.0 [facility] Comment on above: Result Comment: AYANA NORMAN REPEAT INITIAL CRITICAL IN 3 HOURS IF ED OR INPATIENT SEPSIS PATIENT Result called to read back by: MEL 11/09/2023 @ 19:39 by MARK Performed By: #### L ACTAC #### Testing performed at [address] [address] LIPASE,SERUMon 11-09-2023 LIPASE,SERUM 198 U/L Normal 23-300 [facility] Comment on above: Performed By: #### C MPF, ACBC, LIPA2 #### Testing performed at [address] [address] URINE CULTUREon 11-09-2023 Bacteria identified Cx Nom (U) SPECIMEN DESCRIPTION URINE CLEAN CATCH UA DIPSTICK LEUKOCYTE POSITIVE * Result Note: NITRITE NEGATIVE * CULTURE NO PATHOGENS ISOLATED * Result Note: Testing performed at [place] [address] * REPORT STATUS 11/12/2023 * Result Note: FINAL * Normal [facility] Comment on above: Performed By: #### A URNC #### Testing performed at [address] [place] [address] Testing performed at [address] [address] URINE MACROSCOPICon 11-09-19 24 Bilirubin Ql (U) Negative Normal NEGATIVE [facility] Comment on above: Performed By: #### U MARA, UMAC #### Testing performed at [address] [address] Clarity (U) CLOUDY Abnormal CLEAR [facility] Comment on above: Performed By: #### U MARA, UMAC #### Testing performed at [address] [address] Color (U) YELLOW Normal YELLOW [facility] Comment on above: Performed By: #### U MARA, UMAC #### Testing performed at [address] [address] Glucose Ql (U) Negative Normal NEGATIVE [facility] Comment on above: Performed By: #### U MARA, UMAC #### Testing performed at [address] [place] [address] pH (U) 7.0 [pH] Normal 5.0-7.0 [facility] Comment on above: Performed By: #### U MARA, UMAC #### Testing performed at [address] [place] [address] URINE HEMOGLOBIN LARGE Abnormal NEGATIVE [facility] Comment on above: Performed By: #### U MARA, UMAC #### Testing performed at [address] [place] [address] URINE KETONE Negative Normal NEGATIVE [facility] Comment on above: Performed By: #### U MARA, UMAC #### Testing performed at [address] [place] [address] URINE LEUKOTEST TRACE Abnormal NEGATIVE [facility] Comment on above: Performed By: #### U MARA, UMAC #### Testing performed at [address] [address] URINE NITRATES Negative Normal NEGATIVE [facility] Comment on above: Performed By: #### U MARA, UMAC #### Testing performed at [address] [address] URINE SPEC GRAVITY 1.020 Normal 1.010-1.025 [facility] Comment on above: Performed By: #### U MARA, UMAC #### Testing performed at [address] [address] URINE TOTAL PROTEIN Negative Normal NEGATIVE [facility] Comment on above: Performed By: #### U MARA, UMAC #### Testing performed at [address] [place] [address] Urobilinogen Qn (U) 0.2 {Daphne'U}/dL Normal 0.2-1.0 [facility] Comment on above: Performed By: #### U MARA, UMAC #### Testing performed at [address] [place] [address] URINE MICROSCOPICon 11-09-19 24 BACTERIA 1+ Abnormal NEGATIVE [facility] Comment on above: Performed By: #### U MARA, UMAC #### Testing performed at [address] [address] CASTS NONE Normal NONE [facility] Comment on above: Performed By: #### U MARA, UMAC #### Testing performed at [address] [address] CRYSTAL RARE Abnormal NONE [facility] Comment on above: Result Comment: SUDHA PHOUS URATES Performed By: #### U MARA, UMAC #### Testing performed at [address] [address] Epithelial cells LM Ql (Urine sed) 1 TO 5 Normal [facility] Comment on above: Performed By: #### U MARA, UMAC #### Testing performed at [address] [address] Mucus Ql (Urine sed) TRACE Abnormal NEGATIVE [facility] Comment on above: Performed By: #### U MARA, UMAC #### Testing performed at [address] [address] URINE COMMENT REFLEX CULTURE PER ESTABLISHED CRITERIA. Normal [facility] Comment on above: Performed By: #### U MARA, UMAC #### Testing performed at [address] [address] URINE RBC'S 20 TO 30 Normal NEGATIVE [facility] Comment on above: Performed By: #### U MARA, UMAC #### Testing performed at [address] [address] URINE WBC'S 1 TO 5 Normal NEGATIVE [facility] Comment on above: Performed By: #### U MARA, UMAC #### Testing performed at [address] [address] XR CHEST 2 Von 11-30-2022 XR CHEST 2 V EXAM: XR CHEST 2 V HISTORY: . Persistent cough . COMPARISON: None. TECHNIQUE: Frontal and lateral chest FINDINGS: Heart and vascularity are unremarkable. Lungs are expanded and free of focal infiltrates. No acute bony abnormality is appreciated. IMPRESSION: No acute heart or lung disease identified. Electronically authenticated by: BENTLEY MONDRAGON Date: 2022-11-30 11:45 Normal [facility] MG MAMM SCREEN 3D JOSE CADon 10-29-2022 MG MAMM SCREEN 3D JOSE CAD Patient: MATTSON CARLINE L. Exam Date: 10/29/2022 : 1965 Gender:F Ordering : DR DELVIS LR . Admission #: [id number] Family : Order #: [id number] CLICK HERE TO VIEW EXAM RADIOLOGY REPORT [...] skin cancer at age 70. LOCATION: [facility] BREAST COMPOSITION: Scattered areas fibroglandular density. [...] MD on 10/30/2022 at 11:13 Normal [facility] CBC AUTO DIFFon 06-21-2022 BASO # 0.1 103/ul Normal 0.0-0.1 [facility] Comment on above: Performed By: #### H FPFCBC #### [facility] [address] [place] [address] Dr. Sonya Strickland Basophils/100 WBC (Bld) 0.7 % Normal 0.2-2.0 [facility] Comment on above: Performed By: #### H FPFCBC #### [facility] [address] [place] [address] [address] Sonya Strickland EO # 0.1 103/ul Normal 0.0-0.7 [facility] Comment on above: Performed By: #### H FPFCBC #### [facility] [address] [place] [address] [address] Sonya Strickland Eosinophils/100 WBC (Bld) 1.9 % Normal 0.9-7.0 [facility] Comment on above: Performed By: #### H FPFCBC #### [facility] [address] [place] [address] Dr. Sonya Strickland Erythrocyte distribution width (RBC) [Ratio] 13.1 % Normal 11.0-15.0 [facility] Comment on above: Performed By: #### H FPFCBC #### [facility] [address] [place] [address] Dr. Sonya Strickland Hematocrit (Bld) [Volume fraction] 41.6 % Normal 36.0-48.0 [facility] Comment on above: Performed By: #### H FPFCBC #### [facility] [address] [place] [address] Dr. Sonya Strickland Hemoglobin (Bld) [Mass/Vol] 13.2 g/dL Normal 12.0-16.0 [facility] Comment on above: Performed By: #### H FPFCBC #### [facility] [address] [place] [address] Dr. Sonya Striclkand IG # 0.01 10e3/ul Normal 0.00-0.03 [facility] Comment on above: Performed By: #### H FPFCBC #### [facility] [address] [place] [address] Dr. Sonya Strickland IG % 0.1 % Normal 0.0-0.5 [facility] Comment on above: Performed By: #### H FPFCBC #### [facility] [address] [place] [address] Dr. Sonya Strickland LYMPH # 2.2 103/ul Normal 1.2-3.8 [facility] Comment on above: Performed By: #### H FPFCBC #### [facility] [address] [place] [address] Dr. Sonya Strickland Lymphocytes/100 WBC (Bld) 31.3 % Normal 20.5-60.0 [facility] Comment on above: Performed By: #### H FPFCBC #### [facility] [address] [place] [address] Dr. Sonya Strickland MCH (RBC) [Entitic mass] 28.0 pg Normal 26.7-34.0 [facility] Comment on above: Performed By: #### H FPFCBC #### [facility] [address] [place] [address] Dr. Sonya Strickland MCHC (RBC) [Mass/Vol] 31.7 g/dL Normal 29.9-35.2 [facility] Comment on above: Performed By: #### H FPFCBC #### [facility] [address] [place] [address] Dr. Sonya Strickland MCV (RBC) [Entitic vol] 88.1 fL Normal 81.0-99.0 [facility] Comment on above: Performed By: #### H FPFCBC #### [facility] [address] [place] [address] Dr. Sonya Strickland MONO # 0.7 103/ul Normal 0.3-0.8 [facility] Comment on above: Performed By: #### H FPFCBC #### [facility] [address] [place] [address] Dr. Sonya Strickland Monocytes/100 WBC (Bld) 9.9 % Normal 1.7-12.0 [facility] Comment on above: Performed By: #### H FPFCBC #### [facility] [address] [place] [address] Dr. Sonya Strickland NEUT # 3.9 103/ul Normal 1.4-6.5 [facility] Comment on above: Performed By: #### H FPFCBC #### [facility] [address] [place] [address] Dr. Sonya Strickland Neutrophils/100 WBC (Bld) 56.1 % Normal 43.0-75.0 [facility] Comment on above: Performed By: #### H FPFCBC #### [facility] [address] [place] [address] Dr. Sonya Strickland Platelet mean volume (Bld) [Entitic vol] 9.7 fL Normal 9.5-13.5 [facility] Comment on above: Performed By: #### H FPFCBC #### [facility] [address] [place] [address] Dr. Sonya Strickland PLT 313 103/ul Normal 150-450 [facility] Comment on above: Performed By: #### H FPFCBC #### [facility] [address] [place] [address] Dr. Sonya Strickland RBC 4.72 106/ul Normal 4.20-5.40 [facility] Comment on above: Performed By: #### H FPFCBC #### [facility] [address] [place] [address] Dr. Sonya Strickland WBC 7.0 103/ul Normal 4.0-11.0 [facility] Comment on above: Performed By: #### H FPFCBC #### [facility] [address] [place] [address] Dr. Sonya Strickland [employer]ALTH[employer] PROFILEon 022 Albumin [Mass/Vol] 3.8 g/dL Normal 3.4-5.0 [facility] Comment on above: Performed By: #### H FPF #### [facility] [address] [place] [address] Dr. Sonya Strickland Albumin/Globulin [Mass ratio] 1.0 {ratio} Normal [facility] Comment on above: Performed By: #### H FPF #### [facility] [address] [place] [address] Dr. Sonya Strickland ALP [Catalytic activity/Vol] 87 U/L Normal 46-116 [facility] Comment on above: Performed By: #### H FPF #### [facility] [address] [place] [address] Dr. Sonya Strickland ALT [Catalytic activity/Vol] 25 U/L Normal 14-59 [facility] Comment on above: Performed By: #### H FPF #### [facility] [address] [place] [address] Dr. Sonya Strickland AST [Catalytic activity/Vol] 14 U/L Critically low 15-37 [facility] Comment on above: Performed By: #### H FPF #### [facility] [address] [place] [address] Dr. Sonya Strickland Bilirubin [Mass/Vol] 0.2 mg/dL Normal 0.2-1.0 [facility] Comment on above: Performed By: #### H FPF #### [facility] [address] [place] [address] [address] Sonya Strickland Calcium [Mass/Vol] 8.8 mg/dL Normal 8.5-10.1 [facility] Comment on above: Performed By: #### H FPF #### [facility] [address] [address] [address] Sonya Strickland Chloride [Moles/Vol] 104 mmol/L Normal 98-107 [facility] Comment on above: Performed By: #### H FPF #### [facility] [address] [place] [address] Dr. Sonya Strickland CHOL-HDL RATIO NORM SEE BELOW Normal [facility] Comment on above: Result Comment: 3.3 - 4.4 LOW RISK 4.4 - 7.1 AVERAGE RISK 7.1 - 11.0 MODERATE RISK >11.0 HIGH RISK Performed By: #### H FPF #### [facility] [address] [address] [address] Sonya Strickland Cholesterol [Mass/Vol] 207 mg/dL Critically high <=200 [facility] Comment on above: Performed By: #### H FPF #### [facility] [address] [place] [address] Dr. Sonya Strickland Cholesterol in HDL [Mass/Vol] 63 mg/dL Critically high 40-60 [facility] Comment on above: Performed By: #### H FPF #### [facility] [address] [address] [address] Sonya Strickland Cholesterol in LDL [Mass/Vol] 121.6 mg/dL Normal [facility] Comment on above: Performed By: #### H FPF #### [facility] [address] [address] [address] Sonya Strickland Cholesterol.total/Ch olesterol in HDL [Mass ratio] 3.3 {ratio} Normal [facility] Comment on above: Performed By: #### H FPF #### [facility] [address] [address] [address] Sonya Strickland CO2 [Moles/Vol] 26.0 mmol/L Normal 21.0-32.0 [facility] Comment on above: Performed By: #### H FPF #### [facility] [address] [address] [address] Sonya Strickland Creatinine [Mass/Vol] 0.85 mg/dL Normal 0.55-1.02 [facility] Comment on above: Performed By: #### H FPF #### [facility] [address] [address] [address] Sonya Strickland Globulin (S) [Mass/Vol] 3.7 g/dL Normal [facility] Comment on above: Performed By: #### H FPF #### [facility] [address] [place] [address] Dr. Sonya Strickland Glucose [Mass/Vol] 87 mg/dL Normal 74-106 [facility] Comment on above: Performed By: #### H FPF #### [facility] [address] [address] [address] Sonya Strickland HDL NORMAL > or = 60 mg/dl - LOW CARDIOVASCULAR RISK <40 mg/dl - HIGH CARDIOVASCULAR RISK Normal [facility] Comment on above: Performed By: #### H FPF #### [facility] [address] [place] [address] Dr. Sonya Strickland LDL CALC NORMAL SEE BELOW Normal [facility] Comment on above: Result Comment: <100 mg/dl OPTIMAL 100 - 129 mg/dl NEAR OR ABOVE OPTIMAL 130 - 159 mg/dl BORDERLINE HIGH 160 - 189 mg/dl HIGH >190 mg/dl VERY HIGH Performed By: #### H FPF #### [facility] [address] [address] [address] Sonya Strickland Potassium [Moles/Vol] 4.3 mmol/L Normal 3.5-5.1 [facility] Comment on above: Performed By: #### H FPF #### [facility] [address] [address] [address] Sonya Strickland Protein [Mass/Vol] 7.5 g/dL Normal 6.4-8.2 [facility] Comment on above: Performed By: #### H FPF #### [facility] [address] [address] [address] Sonya Strickland Sodium [Moles/Vol] 140 mmol/L Normal 136-145 [facility] Comment on above: Performed By: #### H FPF #### [facility] [address] [address] [address] Sonya Strickland Triglyceride [Mass/Vol] 112 mg/dL Normal <=150 [facility] Comment on above: Performed By: #### H FPF #### [facility] [address] [address] [address] Sonya Strickland TSH 1.111 uIU/mL Normal 0.358-3.740 [facility] Comment on above: Performed By: #### H FPF #### [facility] [address] [address] [address] Sonya Strickland Urea nitrogen [Mass/Vol] 21.0 mg/dL Critically high 7.0-18.0 [facility] Comment on above: Performed By: #### H FPF #### [facility] [address] [address] [address] Sonya Strickland Urea nitrogen/Creatinine [Mass ratio] 24.7 mg/mg Normal [facility] Comment on above: Performed By: #### H FPF #### [facility] [address] [address] [address] Sonya Strickland VLDL CALC 22.4 mg/dL Normal [facility] Comment on above: Performed By: #### H FPF #### [facility] [address] [address] [address] Sonya Strickland Vital Signs Date Time Vital Sign Value Performing Clinician Facility 05-17-2023 11:30-0400 Body height 162.56 cm [facility] Other 05-17-2023 11:30-0400 Body mass index (BMI) [Ratio] 28.9 kg/m2 [facility] Other 05-17-2023 11:30-0400 Body weight 76.39 kg [facility] Other 05-17-2023 11:30-0400 Diastolic blood pressure 84 mm[Hg] [facility] Other 05-17-2023 11:30-0400 Respiratory rate 12 /min [facility] Other 05-17-2023 11:30-0400 Systolic blood pressure 130 mm[Hg] [facility] Other Encounters Encounter Date Encounter Type Care Provider Facility Start: 04-07-2024 ambulatory [facility] Start: 12-12-2023 ambulatory JINA FOREMAN Facility :[facility] Start: 11-09-2023 End: 11-09-2023 Emergency department patient visit [facility] Start: 05-17-2023 End: 05-17-2023 ambulatory [facility] Other [facility] Other Start: 05-17-2023 Office outpatient vi sit 10 minutes [facility] Start: 11-30-2022 End: 12-01-[address] [facility] LR Facility[facility] Start: 10-29-2022 End: 10-30-[address] [facility] LR [facility] Start: 06-21-2022 End: 06-22-[address] [facility] Facility:[facility] Payers Date Payer Category Payer Unknown [id number] [id number] 1965 Unknown [id number] 1965 Unknown [id number] 1959 Self-pay 1959 Unknown [id number] Unknown [id number] [id number] Unknown [id number] Social History Date Type Detail Facility Sex Assigned At [facility] Other Evaluation note 05-17-2023 Note Date & Type Note Facility 05-17-2023 Evaluation note Encounter Date Diagnosis Assessment Notes May, Physical exam, pre-employme nt (ICD-10 - Z02.1) 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 [facility] Other History general Narrative - Reported 05-01-2018 Note Date & Type Note Facility 05-01-2018 History general N arrative - Reported Type Medical History Autoimmune thyroiditis Surgical History Appendectomy, JASVIR 05/01/2018 Hospitalization History see surgical history [facility] Other Summary Purpose Family History No Family History Records FoundNo Family History Records FoundNo Family History Records Found Advance Directives No Advanced Directives Records FoundNo Advanced Directives Records FoundNo Advanced Directives Records Found Additional Source Comments INFORMATION SOURCE (unrecogn ized section and content) DATE CREATED AUTHOR 12/04/2022 [facility] DATE CREATED AUTHOR AUTHOR'S ORGANIZ ATION 11/13/2023 [facility] DATE CREATED AUTHOR AUTHOR'S ORGANIZ ATION 12/13/2023 [facility] REASON FOR VISIT (unrecogniz ed section and content) Vertical Punch Operator Physical FOR RECORDS PERTAINING TO PATIENTS WHO [...] BE BASED ON THE PRIMARY CLINICAL RECORDS. [facility] provides no warranty or guarantee of the accuracy or completeness of information in this document.
== END 2024-01-22 09:14 | disposition home or self-care (01) ==
LOC: US 09:13
PROVIDERS: PCP Family Medicine; Visit Provider Family Medicine
DX: I73.9 Peripheral vascular disease, unspecified (principal)
CPT/HCPCS: 93930

== ENCOUNTER 2024-05-27 12:52 | Outpatient (RCR) | payer OTHER, SELFPAY | END 2024-06-09 13:48 | disposition home or self-care (01) | LOC: OT 12:52 | PROVIDERS: PCP Family Medicine | DX: G56.21 Lesion of ulnar nerve, right upper limb (principal) | CPT/HCPCS: 97140; 97165 ==

== ENCOUNTER 2024-09-12 11:00 | Outpatient (OUT) | payer OTHER, SELFPAY ==
--- NOTE | 2024-09-12 11:03 | US_ITS ---
[address] [address] Patient Name: CARLINE MATTSON MRN: [id number] date: 1965 Sex: F Assigned Patient Location: US Current Patient Location: Accession/Order Number: [id number] Exam Date: 09/12/2024 11:10 Report Date: 09/15/2024 07:31 At the request of: NON-STAFF PHYSICIAN Procedure: US extremity nonvascular RT EXAM: US extremity nonvascular RT HISTORY: ULNAR NEURITIS, RIGHT G56.21 COMPARISON: None. TECHNIQUE: Grayscale and color FINDINGS: Normal appearance of the skin, subcutaneous fat and muscle. No focal ultrasound abnormality US/US extremity nonvascular RT IMPRESSION: No ultrasound abnormality observed Electronically authenticated by: BENTLEY LA Date: 09/15/2024 07:31
--- OUTSIDE RECORDS SUMMARY | 2024-09-12 11:03 | XMS_ITS | CCD ---
Author Organization [facility] Care Team Providers Care Spool Carrier Name Role Phone DR DELVIS LR Consulting Unavailable TRINO, DR EDMONDSON Primary Care Unavailable TRINO, DR EDMONDSON Admitting Unavailable TRINO, DR EDMONDSON Attending Unavailable BENTLEY MONDRAGON Consulting Unavailable TRINO, DR EDMONDSON Primary Care Unavailable HOY, DR EDMONDSON Admitting Unavailable CHRISTIANEY, DR EDMONDSON Attending Unavailable CHRISTIANEY, DR EDMONDSON Consulting Unavailable WEST, DR BENTLEY Mcnally Consulting Unavailable TRINO, DR EDMONDSON Primary Care Unavailable CHRISTIANEY, DR EDMONDSON Admitting Unavailable TRINO, DR EDMONDSON Attending Unavailable CHRISTIANEY, DR EDMONDSON Consulting Unavailable Wisam Mix Unavailable DELVIS LR Primary Care Unavailable BRYSON GRANDE Attending Unavailable JINA FOREMAN Attending Unavailable Delvis Lr Referring Unavailable Delvis Lr MD Unavailable Delvis Lr MD Primary Care Provider Delvis Lr MD Primary Care Provider CHAMP TOTH Referring Unavailable DELVIS LR Primary Care Unavailable CHAMP TOTH Attending Unavailable DELVIS LR Primary Care Unavailable TYLER LEVINE Attending UnavailCHAMP Aiken Referring Unavailable DELVIS LR M Primary Care Unavailable TYLER LEVINE Referring UnavailDELVIS Benítez Primary Care Unavailable CHAMP TOTH Attending Unavailable DELVIS LR Primary Care Unavailable CHAMP TOTH Referring Unavailable DELVIS LR Primary Care Unavailable Allergies Allergy Classification Reported Allergen(s) Allergy Type Date of Onset Reaction(s) Facility (1 source) No Known Medication Allergies; Translations: [No Known Medication Allergies] Propensity to adverse reactions (disorder) [facility] Repository (14 sources) Sulfamethoxazole / Trimethoprim; Translations: [SULFAMETHOXAZOLE-TR IMETHOPRIM] Drug Allergy 02-11-20 24 [facility] Medications Current Medications Medication Drug Class(es) Dates Sig (Normalized) Sig (Original) Calcium Carbonate / vitamin D3 (12 sources) calcium carbonate/vitamin D3 (CALCIUM 500 + D ORAL) Take by mouth. Active calcium carbonat e/vitamin D3 (CALCIUM 500 + D ORAL) Take by mouth. 0 Active Comment on above: Take by mouth. levothyroxine sodium 0.075 mg oral capsule (12 sources) l-Thyroxine take 1 capsule by mouth once daily before breakfast levothyroxine 75 mcg cap Take 75 mcg by mouth daily before breakfast. Active Comment on above: Take 75 mcg by mouth daily before breakfast. liothyronine sodium 0.025 mg oral tablet (13 sources) l-Triiodothyronin e liothyronine (CYTOME L) 25 mcg tablet Take 12.5 mcg by mouth once daily. Active take 1 tablet by isi th every twenty-four hours Liothyronine Sodium 50 MCG 1 tablet on a n empty stomach Orally Once a day Active Comment on above: Take 12.5 mcg by isi th once daily. meloxicam 15 mg oral tablet (3 sources) Nonsteroidal Anti-inflammatory Drug Start: take 1 tablet by mouth once daily at mealtime meloxicam (MOBIC) 15 mg tablet Take 1 tablet by mouth once daily. with food 30 tablet 1 09/08/2024 Active omega-3/dha/epa/dpa /fish oil (OMEGA-3, WITH DPA, ORAL) (12 sources) omega-3/dha/epa/ dp a/fish oil (OMEGA-3, WITH DPA, ORAL) Take by mouth. Active omega-3/dha/epa/ dpa/fish oil (OMEGA-3, WITH DPA, ORAL) Take by mouth. 0 Active Comment on above: Take by mouth. TURMERIC, BULK, MISC (12 sources) TURMERIC, BULK, MISC Active TURMERIC, BULK, MISC vit A/vit C/vit E/zinc/coppe r (ICAPS AREDS ORAL) (12 sources) vit A/vit C/vit E/zinc/copper (ICAPS AREDS ORAL) Take by mouth. Active vit A/vit C/vit E/zinc/copper (ICAPS AREDS ORAL) Take by mouth. 0 Active Comment on above: Take by mouth. Problems Active Problems Problem Classification Problem Date Documented Da te Episodic/Chronic Administrative/social admission (3 sources) Encounter for pre-employment examination; Translations: [Patient encounter status] Episodic Calculus of urinary tract (1 source) Calculus of ureter; Translations: [Calculus of ureter] Onset: 11-09-2023 Episodic Nonmalignant breast conditions (12 sources) Fibrocystic disease of breast; Translations: [Diffuse cystic mastopathy of unspecified breast] Onset: 02-11-2024 02-11-2024 Chronic Other nervous system disorders (2 sources) Ulnar neuropathy of right arm; Translations: [Lesion of ulnar nerve, right upper limb] 03-31-2024 Chronic Other nervous system disorders (2 sources) Entrapment of right ulnar nerve; Translations: [Lesion of ulnar nerve, right upper limb] 03-31-2024 Chronic Other nervous system disorders (3 sources) Lesion of ulnar nerve, right upper limb; Translations: [Ulnar neuropathy of right upper extremity] Onset: 03-31-2024 Chronic Other nervous system disorders (2 sources) Neuritis of right ulnar nerve; Translations: [Lesion of ulnar nerve, right upper limb] 05-21-2024 Chronic Other nervous system disorders (2 sources) Numbness; Translations: [Anesthesia of skin] 02-11-2024 Episodic Other nervous system disorders (1 source) Paresthesia; Translations: [Paresthesia of skin] 05-19-2024 Episodic Other screening for suspected conditions (not mental disorders or infectious disease) (4 sources) Encounter for screening mammogram for malignant neoplasm of breast; Translations: [ENC SCR MAMMO MALIG NEOPLASM BREAST] Onset: 10-29-2022 Episodic Peripheral and visceral atherosclerosis (14 sources) Peripheral vascular disease, unspecified; Translations: [Peripheral vascular disease, unspecified] Onset: 02-11-2024 02-11-2024 Chronic Residual codes; unclassified (1 source) Family history of malignant neoplasm of other organs or systems; Translations: [FAM HX MALIG NEOPLASM OTH ORGN/SYS] Onset: 10-31-2022 Episodic Retinal detachments; defects; vascular occlusion; and retinopathy (12 sources) Degenerative disorder of macula ; Translations: [Unspecified macular degeneration] Onset: 02-11-2024 02-11-2024 Chronic Thyroid disorders (14 sources) Hypothyroidism; Translations: [Hypothyroidism, unspecified] Onset: 02-11-2024 02-11-2024 Chronic Unclassified (3 sources) COUGH, UNSPECIFIED; Translations: [COUGH, UNSPECIFIED] Onset: 12-03-2022 Past or Other Problems Problem Classification Problem Date Documented Date Episodic/Chronic Conditions associated with dizziness or vertigo (12 sources) Peripheral vertigo; Translations: [Other peripheral vertigo, unspecified ear] Onset: 02-11-2024 02-11-2024 Episodic Other lower respiratory disease (12 sources) Cough; Translations: [Cough, unspecified] Onset: 11-30-2022 02-11-2024 Episodic Other nervous system disorders (2 sources) Anesthesia of skin; Translations: [Hand numbness] Onset: 03-31-2024 Episodic Spondylosis; intervertebral disc disorders; other back problems (12 sources) Sciatica; Translations: [Sciatica, unspecified side] Onset: 02-11-2024 02-11-2024 Episodic Unclassified (1 source) COUGH, UNSPECIFIED; Translations: [COUGH, UNSPECIFIED] Onset: 11-30-2022 Urinary tract infections (12 sources) Emphysematous pyelonephritis; Translations: [Tubulo-interstitial nephritis, not specified as acute or chronic] Onset: 02-11-2024 02-11-2024 Episodic Results Test Name Value Interpretation Reference Range Facility [facility] 09-08-2024 [facility] Telephone ([facility]) PAT KNOTT ([id number]) 1965 F Date Time Provider Department 09/08/24 TYLER LEVINE During your visit today, we recorded the following information about you: Miller Araya OCCA 09/08/2024 10:14 AM Signed ----- Message from Tyler Levine PA-C sent at 09/08/2024 9:33 AM EST ----- Pt self scheduled with us tomorrow for evaluation. If symptoms are worsening I would like to obtain US of the elbow to evaluate the nerve. I also do not see that the patient scheduled OT as we discussed at her last appointment. Please have her call to schedule OT and US at her earliest convenience. I can reach out to her and guide her on further treatment once I have the results of the US and if she does not improve from the OT. Thanks! Miller Araya OCCA 09/08/2024 10:18 AM Signed Called patient and let her know all this information, patient stated she did therapy outside the clinic and it is scanned into the scanned documents. Patient is aware of the medication at the pharmacy as well that the provider sent over. Patient is inquiring with the hospital next to her in her city to see if she can get the US done there. Patient wants to keep appointment for now, I advised patient that provider is wanting the results of the US so we may need to push the appointment out. Allergies As of Date: 09/08/2024 Noted Allergy Reaction BACTRIM (SULFAMETHOXAZOLE-TRI METH*02/11/2024 4 - Hives Date Reviewed: 05/21/2024 Reviewed by: Miller Araya OCCA - Fully Assessed Prescriptions as of 09/08/2024 - meloxicam (MOBIC) 15 mg tablet Take 1 tablet by mouth once daily. with food - vit A/vit C/vit E/zinc/copper (ICAPS AREDS ORAL) Take by mouth. - omega-3/dha/epa/dpa/f radha oil (OMEGA-3, WITH DPA, ORAL) Take by mouth. - TURMERIC, BULK, MISC - levothyroxine 75 mcg cap Take 75 mcg by mouth daily before breakfast. - liothyronine (CYTOMEL) 25 mcg tablet Take 12.5 mcg by mouth once daily. - calcium carbonate/vitamin D3 (CALCIUM 500 + D ORAL) Take by mouth. Problem List As Of Date 09/08/2024 Noted Resolved Cough, unspecified [R05.9] 11/30/2022 Diagnosed: 02/11/2024 Emphysematous pyelonephritis [N12] 02/11/2024 Diagnosed: 02/11/2024 Fibrocystic breast changes [N60.19] 02/11/2024 Diagnosed: 02/11/2024 Hypothyroidisms [E03.9] 02/11/2024 Diagnosed: 02/11/2024 Macular degeneration [H35.30] 02/11/2024 Diagnosed: 02/11/2024 Peripheral arterial disease (HCC) [I73.9] 02/11/2024 Diagnosed: 02/11/2024 Peripheral vertigo [H81.399] 02/11/2024 Diagnosed: 02/11/2024 Sciatica [M54.30] 02/11/2024 Diagnosed: 02/11/2024 Encounter Status:Closed by MILLER ARAYA on 09/08/24 [facility] CNOVon 05-21-2024 CNOV Office Visit (ORTHAL ) PAT KNOTT ([id number]) 1965 F Date Time Provider Department 05/21/24 2:45 PM TYLER LEVINE During your visit today, we recorded the following information about you: Tyler Levine PA-C 05/21/2024 2:52 PM Signed DEPARTMENT OF ORTHOPAEDICS SUBJECTIVE Pat Knott is a 58 year old female Worker's Compensation and legal considerations: none. Ms. Knott presents for an initial visit for right arm pain Patient reports: Patient presents the office today for evaluation of right arm pain. Patient states she will notice pain, discomfort, numbness/tingling from the right elbow to the fourth and fifth fingers of the right hand. Denies any known direct mechanism of injury to the right upper extremity but states this has been ongoing for many years . On discussion may be related to the patient sleeping with elbow and wrist flexed frequently. Review of Systems: All were reviewed and found to be negative except those present in HPI. Past medical history: ACTIVE PROBLEM LIST Cough, Unspecified Emphysematous Pyelonephritis Fibrocystic Breast Changes Hypothyroidisms Macular Degeneration Peripheral Arterial Disease (Hcc) Peripheral Vertigo Sciatica Past surgical history: No past surgical history on file. Family history: No family history on file. Social History: Medications: Current Outpatient Medications on File Prior to Visit Medication Sig vit A/vit C/vit E/zinc/copper (ICAPS AREDS ORAL) Take by mouth. omega-3/dha/epa/dpa/f radha oil (OMEGA-3, WITH DPA, ORAL) Take by mouth. TURMERIC, BULK, MISC levothyroxine 75 mcg cap Take 75 mcg by mouth daily before breakfast. liothyronine (CYTOMEL) 25 mcg tablet Take 12.5 mcg by mouth once daily. calcium carbonate/vitamin D3 (CALCIUM 500 + D ORAL) Take by mouth. No current facility-administered medications on file prior to visit. Allergies: ALLERGIES Allergen Reactions Bactrim [Sulfametho* Hives OBJECTIVE GENERAL: no acute distress Right Elbow(s): SKIN: intact SWELLING: negative EFFUSION: negative WARMTH: negative TENDERNESS: Mild tenderness over the ulnar groove Pain with use of ECRB: Negative ROM: full ROM STRENGTH: 5/5 him specialist CREPITUS: negative NEUROLOGICAL EXAM: Sensory: sensation intact to light touch Atrophy: none seen in thenar, hypothenar, or first dorsal interosseous. Tinel sign: ulnar nerve negative VASCULAR EXAM: warm with good color, and radial AND brachial pulses present Review of Additional Data/Studies: Study Interpretation Extensive electrodiagnostic study of the right upper extremity is normal. The study performed showed no evidence for median entrapment neuropathy, ulnar entrapment neuropathy, or cervical radiculopathy in the right upper extremity. All images AND studies were reviewed with the patient. ASSESSMENT (G56.21) Ulnar neuritis, right (primary encounter diagnosis) PLAN The following plan was agreed upon: Discussed use of a bath towel to create an ulnar elbow block/cubital tunnel block at nighttime to prevent sleeping with the bent elbow. Start occupational therapy program 1-2 times per week for 4 weeks to instruct ulnar nerve glides and work on him specialist strength and mobility. Follow-up should symptoms persist. Tyler Levine PA-C This note is created with the assistance of a speech-recognition program. Referring Provider: CHAMP TOTH [[id number]] Allergies As of Date: 05/21/2024 Noted Allergy Reaction BACTRIM (SULFAMETHOXAZOLE-TRI METH*02/11/2024 4 - Hives Date Reviewed: 05/21/2024 Reviewed by: Miller Araya OCCA - Fully Assessed Primary Visit Diagnosis:Ulnar neuritis, right [G56.21] Order(s):CONSULT PANEL TO ORTHOPAEDICS [551394] Order #: [id number]: 1 CONSULT TO MISSILE INSPECTOR [347087] Order #: [id number]: 1 FUTURE Prescriptions as of 05/21/2024 - vit A/vit C/vit E/zinc/copper (ICAPS AREDS ORAL) Take by mouth. - omega-3/dha/epa/dpa/f radha oil (OMEGA-3, WITH DPA, ORAL) Take by mouth. - TURMERIC, BULK, MISC - levothyroxine 75 mcg cap Take 75 mcg by mouth daily before breakfast. - liothyronine (CYTOMEL) 25 mcg tablet Take 12.5 mcg by mouth once daily. - calcium carbonate/vitamin D3 (CALCIUM 500 + D ORAL) Take by mouth. Problem List As Of Date 05/21/2024 Noted Resolved Cough, unspecified [R05.9] 11/30/2022 Emphysematous pyelonephritis [N12] 02/11/2024 Fibrocystic breast changes [N60.19] 02/11/2024 Hypothyroidisms [E03.9] 02/11/2024 Macular degeneration [H35.30] 02/11/2024 Peripheral arterial disease (HCC) [I73.9] 02/11/2024 Peripheral vertigo [H81.399] 02/11/2024 Sciatica [M54.30] 02/11/2024 Encounter Status:Closed by TYLER LEVINE on 05/21/24 Normal [facility] EMG(NEURO/NI)on 05-19-2024 Results can be seen in attached scanned documents. If you are a patient reviewing this test result, call the doctor who ordered the test with any questions. [facility] CNOVon 03-31-2024 CNOV Office Visit (VASSAV ) PAT KNOTT ([id number]) 1965 F Date Time Provider Department 03/31/24 1:30 PM CHAMP TOTH During your visit today, we recorded the following information about you: Blood pressure Weight Height 149/97 90.7 kg 1.626 m Champ Toth MD 03/31/2024 2:07 PM Signed [facility] DEPARTMENT OF VASCULAR SURGERY OUTPATIENT VISIT DATE March 31, 2024 OUTPATIENT VISIT TYPE ESTABLISHED SERVICE DATE: 03/31/2024 SERVICE TIME: 1:55 PM PRIMARY CARE PHYSICIAN: Delvis Lr MD HISTORY OF PRESENT ILLNESS: Ms. Knott is a 58 year old female who presents today for a vascular surgery follow-up visit Lif[facility] screen for subclavian disease Complained of RUE digit 4/5 numbness and feelingo f tightness in proximal R forearm.. PMH: Subclavian stenosis PSH: none SOCIAL HISTORY MEDICATIONS: vit A/vit C/vit E/zinc/copper (ICAPS AREDS ORAL) Take by mouth. omega-3/dha/epa/dpa/f radha oil (OMEGA-3, WITH DPA, ORAL) Take by mouth. TURMERIC, BULK, MISC levothyroxine 75 mcg cap Take 75 mcg by mouth daily before breakfast. liothyronine (CYTOMEL) 25 mcg tablet Take 12.5 mcg by mouth once daily. calcium carbonate/vitamin D3 (CALCIUM 500 + D ORAL) Take by mouth. ALLERGIES: ALLERGIES Allergen Reactions Bactrim [Sulfametho* Hives PHYSICAL EXAM: BP 149/97 (BP Site: Left Arm, BP Position: Sitting, BP Cuff Size: Large Adult) Ht 162.6 cm (5' 4 ) Wt 90.7 kg (200 lb) BMI 34.33 kg/m? General: Alert and oriented Vascular: palp bl radial/non palp bl ulnar Diagnostic tests reviewed for today's visit: Most recent labs Most recent imaging 03/31/24 duplex: NAVJOT 0-19%, patent/atengrade vert, LICA 0-19%, patent/antegrade vert 01/22/24 duplex: LUE subclavian ps 142.7, read as mild left arm ischemia evidenced by biphasic waveform . RUE normal right arm arterial tree. IMPRESSION: Ms. Knott is a 58 year old female LUE biphasic waveforms thorughout . PLAN and RECOMMENDATIONS: Referral to hand surgery for ulnar distribution numbness starting in elbow down digits 4/5. This is out of my area of expertise and scope of practice . Ulnar entrapment? Cont optimal medical mgmt Prn fu SIGNATURE: Champ Toth MD PATIENT NAME: Pat Knott DATE: March 31, 2024 TIME: 1:55 PM Nanette Caruso RN 03/31/2024 2:04 PM Signed Consult hand surgery for ulnar neuropathy Referring Provider: SELF [[id number]] Allergies As of Date: 03/31/2024 Noted Allergy Reaction BACTRIM (SULFAMETHOXAZOLE-TRI METH*02/11/2024 4 - Hives Date Reviewed: 03/31/2024 Reviewed by: Nanette Caruso RN - Fully Assessed Reason for Visit: Follow Up [171] Primary Visit Diagnosis:Peripheral arterial disease (HCC) [I73.9] Prescriptions as of 03/31/2024 - vit A/vit C/vit E/zinc/copper (ICAPS AREDS ORAL) Take by mouth. - omega-3/dha/epa/dpa/f radha oil (OMEGA-3, WITH DPA, ORAL) Take by mouth. - TURMERIC, BULK, MISC - levothyroxine 75 mcg cap Take 75 mcg by mouth daily before breakfast. - liothyronine (CYTOMEL) 25 mcg tablet Take 12.5 mcg by mouth once daily. - calcium carbonate/vitamin D3 (CALCIUM 500 + D ORAL) Take by mouth. Problem List As Of Date 03/31/2024 Noted Resolved Cough, unspecified [R05.9] 11/30/2022 Emphysematous pyelonephritis [N12] 02/11/2024 Fibrocystic breast changes [N60.19] 02/11/2024 Hypothyroidisms [E03.9] 02/11/2024 Macular degeneration [H35.30] 02/11/2024 Peripheral arterial disease (HCC) [I73.9] 02/11/2024 Peripheral vertigo [H81.399] 02/11/2024 Sciatica [M54.30] 02/11/2024 Other instructions from your clinician: Consult hand surgery for ulnar neuropathy Disposition: Return if symptoms worsen or fail to improve. Follow-up and Disposition History for Encounter Date Provider Department Center 03/31/2024 [id number] [facility] Encounter Status:Closed by CHAMP TOTH on 03/31/24 Normal [facility] US CAROTID ARTERIES [facility] 03-31-2024 US CAROTID ARTERIES [facility] Non-Invasive Vascular Laboratory [facility] Carotid Duplex Bilateral/Complete Date of service/time: 03/31/2024 12:40:44 PM Name: PAT KNOTT Date of : 1965 Age: 58 years Gender: F Clinical Indication Numbness. TECHNIQUE -------- A carotid duplex ultrasound examination was performed, including grayscale imaging and color Doppler and spectral Doppler examination of the below mentioned arteries. FINDINGS -------- RIGHT SIDE Common carotid artery: Origin: PSV: 140 cm/s. EDV: 23 cm/s. Proximal: PSV: 97 cm/s. EDV: 26 cm/s. Mid: PSV: 76 cm/s. EDV: 26 cm/s. Distal: PSV: 74 cm/s. EDV: 25 cm/s. Internal carotid artery: Origin: PSV: 66 cm/s. EDV: 20 cm/s. Proximal: PSV: 54 cm/s. EDV: 24 cm/s. Mid: PSV: 59 cm/s. EDV: 26 cm/s. Distal: PSV: 52 cm/s. EDV: 26 cm/s. ICA/CCA Ratio: 0.9 External carotid artery: Origin: PSV: 67 cm/s. EDV: 15 cm/s. Subclavian artery: Origin: PSV: 125 cm/s. EDV: 0 cm/s. Innominate artery: PSV: 66 cm/s. EDV: 10 cm/s. Vertebral artery: PSV: 40 cm/s. EDV: 16 cm/s. LEFT SIDE Common carotid artery: Proximal: PSV: 96 cm/s. EDV: 26 cm/s. Mid: PSV: 72 cm/s. EDV: 21 cm/s. Distal: PSV: 64 cm/s. EDV: 26 cm/s. Internal carotid artery: Origin: PSV: 43 cm/s. EDV: 21 cm/s. Proximal: PSV: 65 cm/s. EDV: 27 cm/s. Mid: PSV: 78 cm/s. EDV: 32 cm/s. Distal: PSV: 71 cm/s. EDV: 36 cm/s. ICA/CCA Ratio: 1.2 External carotid artery: Origin: PSV: 49 cm/s. EDV: 14 cm/s. Subclavian artery: Proximal: PSV: 106 cm/s. EDV: 0 cm/s. Vertebral artery: PSV: 52 cm/s. EDV: 21 cm/s. IMPRESSION RIGHT SIDE Internal carotid artery: 0-19% stenosis. Vertebral artery: Patent and antegrade flow noted. LEFT SIDE Internal carotid artery: 0-19% stenosis. Vertebral artery: Patent and antegrade flow noted. Technologist: Jackson Echeverria RVT, [facility] Ordering physician: CHAMP TOTH Interpreting physician: Bentley Whatley MD, RPVI Final CC [employer] : [id number] See Link below for Image Normal [facility] XR HAND 3V PA/LAT/OBL RTon 0 03-31-2024 XR HAND 3V PA/LAT/OBL RT * * *Final Report* * * DATE OF EXAM: Mar 31 2024 2:43PM VHX [id number] - XR HAND 3V PA/LAT/OBL RT / PROCEDURE REASON: multiple diagnoses * * * * Physician Interpretation * * * * HISTORY: 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, right . numbness in her fingers TECHNIQUE: XR HAND 3V PA/LAT/OBL RT Laterality: RIGHT Number of different views (projections): 3 COMPARISON: None RESULT: No acute fracture or dislocation. Joint spaces and alignment are maintained. Tiny triscaphe and first CMC osteophytes. Small first MCP osteophytes. Tiny second and third MCP osteophytes tiny first IP and fifth DIP osteophytes. No marginal erosion. Soft tissues are unremarkable. IMPRESSION: Minimal degenerative changes. Commercial Lawn Specialist: PSCB Transcribe Date/Time: Mar 31 2024 4:36P Dictated by : ALEKSANDR BONDS MD This examination was interpreted and the report reviewed and electronically signed by: AELKSANDR BONDS MD on Mar 31 2024 4:36PM EST [id number] Normal [facility] XR Hand - right PA and Later al and Obliqueon 03-31-2024 IMPRESSION: Minimal degenerative changes. Commercial Lawn Specialist: PSCB Transcribe Date/Time: Mar 31 2024 4:36P Dictated by : ALEKSANDR BONDS MD This examination was interpreted and the report reviewed and electronically signed by: ALEKSANDR BONDS MD on Mar 31 2024 4:36PM EST [facility] * * *Final Report* * * DATE OF EXAM: Mar 31 2024 2:43PM [id number] - XR HAND 3V PA/LAT/OBL RT / PROCEDURE REASON: multiple diagnoses * * * * Physician Interpretation * * * * HISTORY: 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, right . numbness in her fingers TECHNIQUE: XR HAND 3V PA/LAT/OBL RT Laterality: RIGHT Number of different views (projections): 3 COMPARISON: None RESULT: No acute fracture or dislocation. Joint spaces and alignment are maintained. Tiny triscaphe and first CMC osteophytes. Small first MCP osteophytes. Tiny second and third MCP osteophytes tiny first IP and fifth DIP osteophytes. No marginal erosion. Soft tissues are unremarkable. [facility] Provider, [facility] - 03/31/2024 * * *Final Report* * * DATE OF EXAM: Mar 31 2024 2:43PM VHX [id number] - XR HAND 3V PA/LAT/OBL RT / PROCEDURE REASON: multiple diagnoses * * * * Physician Interpretation * * * * HISTORY: 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, right . numbness in her fingers TECHNIQUE: XR HAND 3V PA/LAT/OBL RT Laterality: RIGHT Number of different views (projections): 3 COMPARISON: None RESULT: No acute fracture or dislocation. Joint spaces and alignment are maintained. Tiny triscaphe and first CMC osteophytes. Small first MCP osteophytes. Tiny second and third MCP osteophytes tiny first IP and fifth DIP osteophytes. No marginal erosion. Soft tissues are unremarkable. IMPRESSION IMPRESSION: Minimal degenerative changes. Commercial Lawn Specialist: PSCIsidro Transcribe Date/Time: Mar 31 2024 4:36P Dictated by : ALEKSANDR BONDS MD This examination was interpreted and the report reviewed and electronically signed by: ALEKSANDR BONDS MD on Mar 31 2024 4:36PM EST [facility] Radiology Study observation (narrative) [facility] XR Hand - right PA and Later al and ObliqueOrdered By: [facility] Provider on 03-31-2024 [facility]CO[facility] 02-11-2024 CNCO Letter Text Normal [facility] 02-11-2024 CNOV Office Visit (VASSAV ) PAT KNOTT ([id number]) 1965 F Date Time Provider Department 02/11/24 10:45 AM CHAMP TOTH During your visit today, we recorded the following information about you: Weight Height 89.4 kg 1.626 m Champ Toth MD 02/11/2024 11:26 AM Signed [facility] DEPART[facility] OF VASCULAR SURGERY OUTPATIENT VISIT DATE February 11, 2024 OUTPATIENT VISIT TYPE CONSULTATION SERVICE DATE: 02/11/2024 SERVICE TIME: 11:05 AM PRIMARY CARE PHYSICIAN: Delvis Lr MD REFERRING PROVIDER: No referring provider defined for this encounter. Consult requested for an opinion regarding the evaluation and treatment of the above. My final impression and recommendations will be communicated back to the requesting physician by way of the shared medical record or letter via US mail. CHIEF COMPLAINT: [facility] screen HISTORY OF PRESENT ILLNESS: Vascular consultation at the request of . A copy of this consultation note will be provided to the requesting physician by way of shared Medical record or letter to requesting physician via US mail. Ms. Knott is a 58 year old female who is seen today for [facility] screen for subclavian disease Complained of RUE digit 4/5 numbness and feelingo f tightness in proximal R forearm. No past medical history on file. No past surgical history on file. SOCIAL HISTORY: No family history on file. MEDICATIONS: vit A/vit C/vit E/zinc/copper (ICAPS AREDS ORAL) Take by mouth. omega-3/dha/epa/dpa/f radha oil (OMEGA-3, WITH DPA, ORAL) Take by mouth. TURMERIC, BULK, MISC levothyroxine 75 mcg cap Take 75 mcg by mouth daily before breakfast. liothyronine (CYTOMEL) 25 mcg tablet Take 12.5 mcg by mouth once daily. calcium carbonate/vitamin D3 (CALCIUM 500 + D ORAL) Take by mouth. ALLERGIES: ALLERGIES Allergen Reactions Bactrim [Sulfametho* Hives REVIEW OF SYSTEM: Constitutional: No weight loss, malaise or fevers. HEENT: Negative for frequent or significant headaches Respiratory: Negative for cough, wheezing, or shortness of breath Cardiovascular: Negative for chest pain, leg swelling or palpitations Gatrointestinal: Negative for abdominal discomfort, blood in stools or black stools or change in bowel habits Genitourinary: No history of dysuria, frequency, or incontinence Musculoskeletal: Negative for joint pain or swelling, back pain or muscle pain Endocrine: Negative for cold or heat intolerance, polyuria, polydipsia and goiter Hematology/Lymphatic: Negative for prolonged bleeding, bruising easily or swollen nodes Neurologic: No history or headaches, syncope, paralysis, seizures or tremors Integumentary: Negative for lesions, rash, and itching. PHYSICAL EXAM: VITALS: Ht 5' 4 (1.63m) Wt 197 lb (89.4kg) BMI 33.80 kg/(m2). General: Alert and oriented Integumentary: Normal color, no rash, no lesions. HEENT: EOM, pupils equal, round and reactive. Cardiovascular: Pulse regular. Lungs: No chest deformities or chest wall tenderness. Abdomen: Soft, non-tender, no rigidity. Extremities: No deformity, no edema or tenderness, no joint swelling or clubbing. Neurological: Normal cognition and motor skills. Vascular: palp bl radial/non palp bl ulnar Diagnostic tests reviewed for today's visit: Most recent labs Most recent imaging 01/22/24 duplex: MELBA subclavian ps 142.7, read as mild left arm ischemia evidenced by biphasic waveform . RUE normal right arm arterial tree. IMPRESSION: Ms. Knott is a 58 year old female LUE biphasic waveforms . PLAN and RECOMMENDATIONS: Will get high quality carotid duplex to assess any stenosis contributing to biphasic waveforms in LUE Referral to hand surgery for ulnar distribution numbness. This is out of my area of expertise and scope of practice SIGNATURE: Champ Toth MD PATIENT NAME: Pat Knott DATE: February 11, 2024 TIME: 11:05 AM Nanette Caruso RN 02/11/2024 11:22 AM Signed Carotid duplex follow up with lida Consult hand surgery Allergies As of Date: 02/11/2024 Noted Allergy Reaction BACTRIM (SULFAMETHOXAZOLE-TRI METH*02/11/2024 4 - Hives Date Reviewed: 02/11/2024 Reviewed by: Nanette Caruso RN - Fully Assessed Reason for Visit: New Patient [172] Primary Visit Diagnosis:Peripheral arterial disease (HCC) [I73.9] Prescriptions as of 02/11/2024 - vit A/vit C/vit E/zinc/copper (ICAPS AREDS ORAL) Take by mouth. - omega-3/dha/epa/dpa/f radha oil (OMEGA-3, WITH DPA, ORAL) Take by mouth. - TURMERIC, BULK, MISC - levothyroxine 75 mcg cap Take 75 mcg by mouth daily before breakfast. - liothyronine (CYTOMEL) 25 mcg tablet Take 12.5 mcg by mouth once daily. - calcium carbonate/vitamin D3 (CALCIUM 500 + D ORAL) Take by mouth. Problem List As Of Date 02/11/2024 Noted Resolved Cough, unspecified [R05.9] 11/30/2022 Emphysematous pyelonephritis (more content not included)... Normal [facility] CNPNon 02-07-2024 CNPN Telephone (CARDMN) KNOTTCHARBELPAT ([id number]) 1965 F Date Time Provider Department 02/07/24 SHARLA MCDOWELL (PSS) CARDMN During your visit today, we recorded the following information about you: Sharla Servin 02/07/2024 3:01 PM Signed RP Patient already scheduled with Dr. Champ Moreira at [facility]. Case closed. Allergies As of Date: 02/07/2024 (Not on File) Date Reviewed: Never Reviewed Reason for Visit: Appointment [[id number]] Problem List As Of Date: 02/07/2024 (None) Encounter Status:Closed by SHARLA SERVIN on 02/07/24 Normal [facility] CBCon 11-09-2023 ABSOLUTE BAS 0.1 10*3/uL Normal 0.0-0.2 [facility] Comment on above: Performed By: #### C MPF, ACBC, LIPA2 #### Testing performed at [address] [address] ABSOLUTE EOS 0.2 10*3/uL Normal 0.0-0.7 [facility] Comment on above: Performed By: #### C MPF, ACBC, LIPA2 #### Testing performed at [address] [address] ABSOLUTE NEUTROPHIL COUNT 5.3 10*3/uL Normal 1.4-6.5 [facility] Comment on above: Performed By: #### C MPF, ACBC, LIPA2 #### Testing performed at [address] [address] Basophils/100 WBC (Bld) 0.9 % Normal 0.0-2.0 [facility] Comment on above: Performed By: #### C MPF, ACBC, LIPA2 #### Testing performed at [address] [address] DTYPE AUTO DIFF Normal [facility] Comment on above: Performed By: #### C MPF, ACBC, LIPA2 #### Testing performed at [address] [address] Eosinophils/100 WBC (Bld) 1.9 % Normal 0.0-11.0 [facility] Comment on above: Performed By: #### C MPF, ACBC, LIPA2 #### Testing performed at [address] [address] Lymphocytes (Bld) [#/Vol] 2.6 10*3/uL Normal 1.2-3.4 [facility] Comment on above: Performed By: #### C MPF, ACBC, LIPA2 #### Testing performed at [address] [address] Lymphocytes/100 WBC (Bld) 29.1 % Normal 20.0-55.0 [facility] Comment on above: Performed By: #### C MPF, ACBC, LIPA2 #### Testing performed at [address] [address] Monocytes (Bld) [#/Vol] 0.9 10*3/uL High 0.0-0.7 [facility] Comment on above: Performed By: #### C MPF, ACBC, LIPA2 #### Testing performed at [address] [address] Monocytes/100 WBC (Bld) 10.1 % High 0.0-10.0 [facility] Comment on above: Performed By: #### C MPF, ACBC, LIPA2 #### Testing performed at [address] [address] Neutrophils/100 WBC (Bld) 58.0 % Normal 37.0-75.0 [facility] Comment on above: Performed By: #### C MPF, ACBC, LIPA2 #### Testing performed at [address] [address] Erythrocyte distribution width (RBC) [Ratio] 14.0 % Normal 11.5-14.5 [facility] Comment on above: Performed By: #### C MPF, ACBC, LIPA2 #### Testing performed at [address] [address] Hematocrit (Bld) [Volume fraction] 41.4 % Normal 36.0-48.0 [facility] Comment on above: Performed By: #### C MPF, ACBC, LIPA2 #### Testing performed at [address] [address] Hemoglobin (Bld) [Mass/Vol] 13.3 g/dL Normal 12.0-16.0 [facility] Comment on above: Performed By: #### C MPF, ACBC, LIPA2 #### Testing performed at [address] [address] MCH (RBC) [Entitic mass] 27.3 pg Normal 26.0-35.0 [facility] Comment on above: Performed By: #### C MPF, ACBC, LIPA2 #### Testing performed at [address] [address] MCHC (RBC) [Mass/Vol] 32.2 g/dL Normal 27.0-37.0 [facility] Comment on above: Performed By: #### C MPF, ACBC, LIPA2 #### Testing performed at [address] [address] MCV (RBC) [Entitic vol] 84.7 fL Normal 80.0-100.0 [facility] Comment on above: Performed By: #### C MPF, ACBC, LIPA2 #### Testing performed at [address] [address] Platelet mean volume (Bld) [Entitic vol] 6.9 fL Low 7.4-11.0 [facility] Comment on above: Performed By: #### C MPF, ACBC, LIPA2 #### Testing performed at [address] [address] Platelets (Bld) [#/Vol] 333 10*3/uL Normal 130-400 [facility] Comment on above: Performed By: #### C MPF, ACBC, LIPA2 #### Testing performed at [address] [address] RBC (Bld) [#/Vol] 4.89 10*6/uL Normal 4.0-5.4 [facility] Comment on above: Performed By: #### C MPF, ACBC, LIPA2 #### Testing performed at [address] [address] WBC (Bld) [#/Vol] 9.1 10*3/uL Normal 3.6-11.0 [facility] Comment on above: Performed By: #### C MPF, ACBC, LIPA2 #### Testing performed at [address] [address] CMP FASTINGon 11-09-2023 A:G RATIO 1.4 RATIO Normal [facility] Comment on above: Performed By: #### C MPF, ACBC, LIPA2 #### Testing performed at [address] [address] ALBUMIN 4.5 G/dl Normal 3.5-5.0 [facility] Comment on above: Performed By: #### C MPF, ACBC, LIPA2 #### Testing performed at [address] [address] ALP [Catalytic activity/Vol] 92 U/L Normal 38-126 [facility] Comment on above: Performed By: #### C MPF, ACBC, LIPA2 #### Testing performed at [address] [address] ALT [Catalytic activity/Vol] 64 U/L High <35 [facility] Comment on above: Performed By: #### C MPF, ACBC, LIPA2 #### Testing performed at [address] [address] AST [Catalytic activity/Vol] 51 U/L High 14-36 [facility] Comment on above: Performed By: #### C MPF, ACBC, LIPA2 #### Testing performed at [address] [address] Bilirubin [Mass/Vol] 0.2 mg/dL Normal 0.2-1.3 [facility] Comment on above: Performed By: #### C MPF, ACBC, LIPA2 #### Testing performed at [address] [address] Calcium [Mass/Vol] 9.8 mg/dL Normal 8.4-10.2 [facility] Comment on above: Performed By: #### C MPF, ACBC, LIPA2 #### Testing performed at [address] [address] Chloride [Moles/Vol] 103 mmol/L Normal 98-107 [facility] Comment on above: Result Comment: Ayana norman note: Triglyceride levels of 600mg/dL or higher may positively bias chloride results by approximately 2.1 mmol Performed By: #### C MPF, ACBC, LIPA2 #### Testing performed at [address] [address] CO2 [Moles/Vol] 24 mmol/L Normal 22-30 [facility] Comment on above: Performed By: #### C MPF, ACBC, LIPA2 #### Testing performed at [address] [address] Creatinine [Mass/Vol] 1.00 mg/dL Normal 0.70-1.20 [facility] Comment on above: Performed By: #### C MPF, ACBC, LIPA2 #### Testing performed at [address] [address] EST. GFR, 73 ml/min/1.73sq.m [facility] Comment on above: Performed By: #### C MPF, ACBC, LIPA2 #### Testing performed at [address] [address] EST. GFR,Non 61 ml/min/1.73sq.m [facility] Comment on above: Performed By: #### C MPF, ACBC, LIPA2 #### Testing performed at [address] [address] GFR Information Average GFR for 50-5 9 years old = 93. Normal [facility] Comment on above: Result Comment: Cdc Associate bren Kidney disease, GFR = <60. Kidney failure, GFR = <15. The GFR estimate is not adjusted for extreme body surface area or acute process, nor has it been validated for women or ethnic groups other than and . Performed By: #### C MPF, ACBC, LIPA2 #### Testing performed at [address] [address] Glucose [Mass/Vol] 121 mg/dL High 70-100 [facility] Comment on above: Result Comment: NORMAL <100 mg/dL PREDIABETES 101-126 mg/dL DIABETES 126 mg/dL or higher Performed By: #### C MPF, ACBC, LIPA2 #### Testing performed at [address] [address] Potassium [Moles/Vol] 3.7 mmol/L Normal 3.5-5.1 [facility] Comment on above: Performed By: #### C MPF, ACBC, LIPA2 #### Testing performed at [address] [address] Protein [Mass/Vol] 7.8 g/dL Normal 6.3-8.2 [facility] Comment on above: Performed By: #### C MPF, ACBC, LIPA2 #### Testing performed at [address] [address] Sodium [Moles/Vol] 137 mmol/L Normal 137-145 [facility] Comment on above: Performed By: #### C MPF, ACBC, LIPA2 #### Testing performed at [address] [address] Urea nitrogen [Mass/Vol] 17 mg/dL Normal 7-20 [facility] Comment on above: Performed By: #### C MPF, ACBC, LIPA2 #### Testing performed at [address] [address] [address] ABDOMEN/PELVIS WITHOUT CO NTRASTon 11-09-2023 CT [...] stone. 2. Small right renal cyst. Normal [facility] LACTATE,BLOODon 11-09-2023 Lactate [Moles/Vol] 3.1 mmol/L Critically high 0.7-2.0 [facility] Comment on above: Result Comment: AYANA NORMAN REPEAT INITIAL CRITICAL IN 3 HOURS IF ED OR INPATIENT SEPSIS PATIENT Result called to read back by: MEL 11/09/2023 @ 19:39 by MARK Performed By: #### L ACTAC #### Testing performed at [address] [address] LIPASE,SERUMon 11-09-2023 LIPASE,SERUM 198 U/L Normal 23-300 [facility] Comment on above: Performed By: #### C MPF, ACBC, LIPA2 #### Testing performed at [address] [address] URINE CULTUREon 11-09-2023 Bacteria identified Cx Nom (U) SPECIMEN DESCRIPTION URINE CLEAN CATCH UA DIPSTICK LEUKOCYTE POSITIVE * Result Note: NITRITE NEGATIVE * CULTURE NO PATHOGENS ISOLATED * Result Note: Testing performed at [place] [address] * REPORT STATUS 11/12/2023 * Result Note: FINAL * Normal [facility] Comment on above: Performed By: #### A URNC #### Testing performed at [address] [address] Testing performed at [address] [address] URINE MACROSCOPICon 11-09-19 24 Bilirubin Ql (U) Negative Normal NEGATIVE [facility] Comment on above: Performed By: #### U MARA, UMAC #### Testing performed at [address] [address] Clarity (U) CLOUDY Abnormal CLEAR [facility] Comment on above: Performed By: #### U MARA, UMAC #### Testing performed at [address] [place] [address] Color (U) YELLOW Normal YELLOW [facility] Comment on above: Performed By: #### U MARA, UMAC #### Testing performed at [address] [address] Glucose Ql (U) Negative Normal NEGATIVE [facility] Comment on above: Performed By: #### U MARA, UMAC #### Testing performed at [address] [address] pH (U) 7.0 [pH] Normal 5.0-7.0 [facility] Comment on above: Performed By: #### U MARA, UMAC #### Testing performed at [address] [address] URINE HEMOGLOBIN LARGE Abnormal NEGATIVE [facility] Comment on above: Performed By: #### U MARA, UMAC #### Testing performed at [address] [address] URINE KETONE Negative Normal NEGATIVE [facility] Comment on above: Performed By: #### U MARA, UMAC #### Testing performed at [address] [address] URINE LEUKOTEST TRACE Abnormal NEGATIVE [facility] Comment on above: Performed By: #### U MARA, UMAC #### Testing performed at [address] [address] URINE NITRATES Negative Normal NEGATIVE [facility] Comment on above: Performed By: #### U MARA, UMAC #### Testing performed at [address] [address] URINE SPEC GRAVITY 1.020 Normal 1.010-1.025 [facility] Comment on above: Performed By: #### U MARA, UMAC #### Testing performed at [address] [address] URINE TOTAL PROTEIN Negative Normal NEGATIVE [facility] Comment on above: Performed By: #### U MRAA, UMAC #### Testing performed at [address] [address] Urobilinogen Qn (U) 0.2 {Daphne'U}/dL Normal 0.2-1.0 [facility] Comment on above: Performed By: #### U MARA, UMAC #### Testing performed at [address] [address] URINE MICROSCOPICon 11-09-19 24 BACTERIA 1+ Abnormal NEGATIVE [facility] Comment on above: Performed By: #### U MARA, UMAC #### Testing performed at [address] [address] CASTS NONE Normal NONE [facility] Comment on above: Performed By: #### U MARA, UMAC #### Testing performed at [address] [address] CRYSTAL RARE Abnormal NONE [facility] Comment on above: Result Comment: SUDHA PHOUS URATES Performed By: #### U MARA, UMAC #### Testing performed at [address] [address] Epithelial cells LM Ql (Urine sed) 1 TO 5 Normal [facility] Comment on above: Performed By: #### U MARA, UMAC #### Testing performed at [address] [address] Mucus Ql (Urine sed) TRACE Abnormal NEGATIVE [facility] Comment on above: Performed By: #### U MARA, UMAC #### Testing performed at [address] [address] URINE COMMENT REFLEX CULTURE PER ESTABLISHED CRITERIA. Normal [facility] Comment on above: Performed By: #### U MARA, UMAC #### Testing performed at [address] [address] URINE RBC'S 20 TO 30 Normal NEGATIVE [facility] Comment on above: Performed By: #### U MARA, UMAC #### Testing performed at [address] [address] URINE WBC'S 1 TO 5 Normal NEGATIVE [facility] Comment on above: Performed By: #### U MARA, UMAC #### Testing performed at [address] [address] XR CHEST 2 Von 11-30-2022 XR CHEST 2 V EXAM: XR CHEST 2 V HISTORY: . Persistent cough . COMPARISON: None. TECHNIQUE: Frontal and lateral chest FINDINGS: Heart and vascularity are unremarkable. Lungs are expanded and free of focal infiltrates. No acute bony abnormality is appreciated. IMPRESSION: No acute heart or lung disease identified. Electronically authenticated by: BENTLEY MONDRAGON Date: 2022-11-30 11:45 Normal [facility] MAMM SCREEN 3D JOSE CADon 10-29-2022 MG MAMM SCREEN 3D JOSE CAD Patient: PAT KNOTT Exam Date: 10/29/2022 : 1965 Gender:F Ordering : DR DELVIS LR . Admission #: [id number] Family : Order #: [id number] CLICK HERE TO VIEW EXAM RADIOLOGY REPORT [...] skin cancer at age 70. LOCATION: [facility] BREAST COMPOSITION: Scattered areas fibroglandular density. FINDINGS: [...] MD on 10/30/2022 at 11:13 Normal [facility] CBC AUTO DIFFon 06-21-2022 BASO # 0.1 103/ul Normal 0.0-0.1 [facility] Comment on above: Performed By: #### H FPFCBC #### [facility] [address] [address] [address] Sonya Strickland Basophils/100 WBC (Bld) 0.7 % Normal 0.2-2.0 [facility] Comment on above: Performed By: #### H FPFCBC #### [facility] [address] [address] [address] Sonya Strickland EO # 0.1 103/ul Normal 0.0-0.7 [facility] Comment on above: Performed By: #### H FPFCBC #### [facility] [address] [place] [address] Dr. Sonya Strickland Eosinophils/100 WBC (Bld) 1.9 % Normal 0.9-7.0 [facility] Comment on above: Performed By: #### H FPFCBC #### [facility] [address] [place] [address] Dr. Sonya Strickland Erythrocyte distribution width (RBC) [Ratio] 13.1 % Normal 11.0-15.0 [facility] Comment on above: Performed By: #### H FPFCBC #### [facility] [address] [place] [address] Dr. Sonya Strickland Hematocrit (Bld) [Volume fraction] 41.6 % Normal 36.0-48.0 [facility] Comment on above: Performed By: #### H FPFCBC #### [facility] [address] [place] [address] Dr. Sonya Strickland Hemoglobin (Bld) [Mass/Vol] 13.2 g/dL Normal 12.0-16.0 [facility] Comment on above: Performed By: #### H FPFCBC #### [facility] [address] [place] [address] Dr. Sonya Stricklnad IG # 0.01 10e3/ul Normal 0.00-0.03 [facility] Comment on above: Performed By: #### H FPFCBC #### [facility] [address] [place] [address] Dr. Sonya Strickland IG % 0.1 % Normal 0.0-0.5 [facility] Comment on above: Performed By: #### H FPFCBC #### [facility] [address] [place] [address] Dr. Sonya Strickland LYMPH # 2.2 103/ul Normal 1.2-3.8 [facility] Comment on above: Performed By: #### H FPFCBC #### [facility] [address] [place] [address] Dr. Sonya Strickland Lymphocytes/100 WBC (Bld) 31.3 % Normal 20.5-60.0 [facility] Comment on above: Performed By: #### H FPFCBC #### [facility] [address] [place] [address] Dr. Sonya Strickland MCH (RBC) [Entitic mass] 28.0 pg Normal 26.7-34.0 [facility] Comment on above: Performed By: #### H FPFCBC #### [facility] [address] [place] [address] Dr. Sonya Strickland MCHC (RBC) [Mass/Vol] 31.7 g/dL Normal 29.9-35.2 [facility] Comment on above: Performed By: #### H FPFCBC #### [facility] [address] [place] [address] Dr. Sonya Strickland MCV (RBC) [Entitic vol] 88.1 fL Normal 81.0-99.0 [facility] Comment on above: Performed By: #### H FPFCBC #### [facility] [address] [place] [address] Dr. Sonya Strickland MONO # 0.7 103/ul Normal 0.3-0.8 [facility] Comment on above: Performed By: #### H FPFCBC #### [facility] [address] [place] [address] Dr. Sonya Strickland Monocytes/100 WBC (Bld) 9.9 % Normal 1.7-12.0 [facility] Comment on above: Performed By: #### H FPFCBC #### [facility] [address] [place] [address] Dr. Sonya Strickland NEUT # 3.9 103/ul Normal 1.4-6.5 [facility] Comment on above: Performed By: #### H FPFCBC #### [facility] [address] [place] [address] Dr. Sonya Strickland Neutrophils/100 WBC (Bld) 56.1 % Normal 43.0-75.0 [facility] Comment on above: Performed By: #### H FPFCBC #### [facility] [address] [place] [address] Dr. Sonya Strickland Platelet mean volume (Bld) [Entitic vol] 9.7 fL Normal 9.5-13.5 [facility] Comment on above: Performed By: #### H FPFCBC #### [facility] [address] [place] [address] Dr. Sonya Strickland PLT 313 103/ul Normal 150-450 [facility] Comment on above: Performed By: #### H FPFCBC #### [facility] [address] [place] [address] Dr. Sonya Strickland RBC 4.72 106/ul Normal 4.20-5.40 [facility] Comment on above: Performed By: #### H FPFCBC #### [facility] [address] [place] [address] Dr. Sonya Strickland WBC 7.0 103/ul Normal 4.0-11.0 [facility] Comment on above: Performed By: #### H FPFCBC #### [facility] [address] [place] [address] Dr. Sonya Strickland [employer]ALTH[employer] PROFILEon 022 Albumin [Mass/Vol] 3.8 g/dL Normal 3.4-5.0 [facility] Comment on above: Performed By: #### H FPF #### [facility] [address] [place] [address] Dr. Sonya Strickland Albumin/Globulin [Mass ratio] 1.0 {ratio} Normal [facility] Comment on above: Performed By: #### H FPF #### [facility] [address] [place] [address] Dr. Sonya Strickland ALP [Catalytic activity/Vol] 87 U/L Normal 46-116 [facility] Comment on above: Performed By: #### H FPF #### [facility] [address] [place] [address] Dr. Sonya Strickland ALT [Catalytic activity/Vol] 25 U/L Normal 14-59 [facility] Comment on above: Performed By: #### H FPF #### [facility] [address] [address] [address] Sonya Strickland AST [Catalytic activity/Vol] 14 U/L Critically low 15-37 [facility] Comment on above: Performed By: #### H FPF #### [facility] [address] [address] [address] Sonay Strickland Bilirubin [Mass/Vol] 0.2 mg/dL Normal 0.2-1.0 [facility] Comment on above: Performed By: #### H FPF #### [facility] [address] [address] [address] Sonya Strickland Calcium [Mass/Vol] 8.8 mg/dL Normal 8.5-10.1 [facility] Comment on above: Performed By: #### H FPF #### [facility] [address] [place] [address] Dr. Sonya Strickland Chloride [Moles/Vol] 104 mmol/L Normal 98-107 [facility] Comment on above: Performed By: #### H FPF #### [facility] [address] [address] [address] Sonya Strickland CHOL-HDL RATIO NORM SEE BELOW Normal [facility] Comment on above: Result Comment: 3.3 - 4.4 LOW RISK 4.4 - 7.1 AVERAGE RISK 7.1 - 11.0 MODERATE RISK >11.0 HIGH RISK Performed By: #### H FPF #### [facility] [address] [address] [address] Sonya Strickland Cholesterol [Mass/Vol] 207 mg/dL Critically high <=200 [facility] Comment on above: Performed By: #### H FPF #### [facility] [address] [address] [address] Sonya Strickland Cholesterol in HDL [Mass/Vol] 63 mg/dL Critically high 40-60 [facility] Comment on above: Performed By: #### H FPF #### [facility] [address] [address] [address] Sonya Strickland Cholesterol in LDL [Mass/Vol] 121.6 mg/dL Normal [facility] Comment on above: Performed By: #### H FPF #### [facility] [address] [address] [address] Sonya Strickland Cholesterol.total/C holesterol in HDL [Mass ratio] 3.3 {ratio} Normal [facility] Comment on above: Performed By: #### H FPF #### [facility] [address] [address] [address] Sonya Strickland CO2 [Moles/Vol] 26.0 mmol/L Normal 21.0-32.0 [facility] Comment on above: Performed By: #### H FPF #### [facility] [address] [address] [address] Sonya Strickland Creatinine [Mass/Vol] 0.85 mg/dL Normal 0.55-1.02 [facility] Comment on above: Performed By: #### H FPF #### [facility] [address] [address] [address] Sonya Strickland Globulin (S) [Mass/Vol] 3.7 g/dL Normal [facility] Comment on above: Performed By: #### H FPF #### [facility] [address] [address] [address] Sonya Strickland Glucose [Mass/Vol] 87 mg/dL Normal 74-106 [facility] Comment on above: Performed By: #### H FPF #### [facility] [address] [address] [address] Sonya Strickland HDL NORMAL > or = 60 mg/dl - LO W CARDIOVASCULAR RISK <40 mg/dl - HIGH CARDIOVASCULAR RISK Normal [facility] Comment on above: Performed By: #### H FPF #### [facility] [address] [address] [address] Sonya Strickland LDL CALC NORMAL SEE BELOW Normal [facility] Comment on above: Result Comment: <100 mg/dl OPTIMAL 100 - 129 mg/dl NEAR OR ABOVE OPTIMAL 130 - 159 mg/dl BORDERLINE HIGH 160 - 189 mg/dl HIGH >190 mg/dl VERY HIGH Performed By: #### H FPF #### [facility] [address] [address] [address] Sonya Strickland Potassium [Moles/Vol] 4.3 mmol/L Normal 3.5-5.1 [facility] Comment on above: Performed By: #### H FPF #### [facility] [address] [address] [address] Sonya Strickland Protein [Mass/Vol] 7.5 g/dL Normal 6.4-8.[address] [facility] Comment on above: Performed By: #### H FPF #### [facility] [address] [address] [address] Sonya Strickland Sodium [Moles/Vol] 140 mmol/L Normal 136-[address] [facility] Comment on above: Performed By: #### H FPF #### [facility] [address] [address] [address] Snoya Strickland Triglyceride [Mass/Vol] 112 mg/dL Normal <=150 [facility] Comment on above: Performed By: #### H FPF #### [facility] [address] [address] [address] Sonya Strickland TSH 1.111 uIU/mL Normal 0.358-3.740 [facility] Comment on above: Performed By: #### H FPF #### [facility] [address] [address] [address] Sonya Strickland Urea nitrogen [Mass/Vol] 21.0 mg/dL Critically high 7.0-18.0 [facility] Comment on above: Performed By: #### H FPF #### [facility] [address] [address] [address] Sonya Strickland Urea nitrogen/Creatinine [Mass ratio] 24.7 mg/mg Normal [facility] Comment on above: Performed By: #### H FPF #### [facility] [address] [address] [address] Sonya Strickland VLDL CALC 22.4 mg/dL Normal [facility] Comment on above: Performed By: #### H FPF #### [facility] [address] [address] [address] Sonya Striclkand Vital Signs Date Time Vital Sign Value Performing Clinician Facility 05-06-2024 09:[id number] Body height 162.56 cm [facility] 05-06-2024 09:23-0400 Body mass index (BMI) [Ratio] 34.7 kg/m2 [facility] 05-06-2024 [id number] Body weight 91.85 kg [facility] 05-06-2024 09:23-0400 Diastolic blood pressure 90 mm[Hg] [facility] 05-06-2024 09:23-0400 Heart rate 80 /min [facility] 05-06-2024 09:23-0400 Respiratory rate 12 /min [facility] 05-06-2024 09:23-0400 Systolic blood pressure 129 mm[Hg] [facility] 03-31-2024 13:49-0400 Body height 162.6 cm Champ Toth MD Work Phone: [facility] 03-31-2024 13:49-0400 Body mass index (BMI) [Ratio] 34.33 kg/m2 Champ Toth MD Work Phone: [facility] 03-31-2024 13:49-0400 Body weight 90.72 kg Champ Toth MD Work Phone: [facility] 03-31-2024 13:49-0400 Diastolic blood pressure 97 mm[Hg] Champ Toth MD Work Phone: [facility] 03-31-2024 13:49-0400 Systolic blood pressure 149 mm[Hg] Champ Toth MD Work Phone: [facility] 02-11-2024 11:02-0400 Body height 162.6 cm Champ Toth MD Work Phone: [facility] 02-11-2024 11:02-0400 Body weight 89.36 kg Champ Toth MD Work Phone: [facility] 05-17-2023 11:30-0400 Body height 162.56 cm Wisam Ball Other [employer] Other 05-17-2023 11:30-0400 Body mass index (BMI) [Ratio] 28.9 kg/m2 Wisam Ball Other [employer] Other 05-17-2023 11:30-0400 Body weight 76.39 kg Wisam Ball Other [employer] Other 05-17-2023 11:30-0400 Diastolic blood pressure 84 mm[Hg] Wisam Ball Other [employer] Other 05-17-2023 11:30-0400 Respiratory rate 12 /min Wisam Ball Other [employer] Other 05-17-2023 11:30-0400 Systolic blood pressure 130 mm[Hg] Wisam Ball Other [employer] Other Encounters Encounter Date Encounter Type Care Provider Facility Start: 09-08-2024 End: 09-09-2024 Orders Only Tyler Leivne PA-C Work Phone: Orthopaedics Comment on above: Regarding ultrasound Ulnar neuritis, righ t (Primary Dx) Start: 05-21-2024 End: 05-21-2024 ambulatory TYLER LEVINE Facility:[facility] Start: 05-21-2024 End: 05-21-2024 Patient encounter procedure Tyler Levine PA-C Work Phone: Orthopaedics Comment on above: Ulnar neuritis, righ t (Primary Dx) Start: 05-19-2024 End: 05-19-2024 ambulatory TYLER LEVINE Neurology Comment on above: EMG Start: 05-19-2024 End: 05-19-2024 Patient encounter procedure Emg 2 Neur [facility] (Max Weight:400) Work Phone: Neurology Start: 05-06-2024 End: 05-06-2024 ambulatory [facility] Work Phone: Start: 05-06-2024 End: 05-06-2024 Patient encounter procedure [facility] Work Phone: Start: 04-07-2024 ambulatory JINA FOREMAN Facili ty:[facility] Start: 04-01-2024 E-mail encounter luan m caregiver Tyler Levine PA-C Work Phone: Orthopaedics Start: 04-01-2024 Patient encounter procedure Tyler Levine PA-C Work Phone: Orthopaedics Comment on above: Regarding EMG Start: 03-31-2024 ambulatory [facility] Facility:[facility] Start: 03-31-2024 End: 03-31-2024 Subsequent hospital visit by physician Zara [facility] Work Phone: [facility] General Comment on above: 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] Start: 03-31-2024 End: 03-31-2024 Patient encounter procedure Champ Toth MD Work Phone: Vascular Surgery Comment on above: Peripheral arterial disease (HCC) (Primary Dx) 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); Ulnar nerve compression, right Start: 03-31-2024 End: 03-31-2024 ambulatory [facility] Facility:[facility] Start: 02-11-2024 End: 02-11-2024 Orders Only Champ Toth MD Work Phone: Vascular Surgery Comment on above: Numbness (Primary Dx ) Peripheral arterial disease (HCC) (Primary Dx) Start: 02-07-2024 Telephone encounter Sharla (Pss) [facility] Cardiology Comment on above: Appointment Start: 12-12-2023 ambulatory JINA FOREMAN Facility :[facility] Start: 11-09-2023 End: 11-09-2023 Emergency department patient visit DEL[facility] Start: 05-17-2023 End: 05-17-2023 ambulatory Wisam Mix Other [employer] Other Start: 05-17-2023 Office outpatient visit 10 minutes Wisam Mix [facility] Start: 11-30-2022 End: 12-01-[address] DELVIS LR Facility:[facility] Start: 10-29-2022 End: 10-30-[address] DELVIS LR Facility:[facility] Start: 06-21-2022 End: 06-22-[address] DELVIS LR Facility:[facility] Procedures Date Procedure Procedure Detail Performing Clinician Start: 05-19-2024 Nerve conduction мария dies 5-6 studies Tyler Levine PA-C Work Phone: Start: 03-31-2024 Radex hand minimum 3 views Champ Toth MD Work Phone: Plan of Treatment Date Care Activity Detail Author Start: 11-09-2026 Diabetes Screening Diabetes Screenin g [facility] Start: 07-05-2024 Covid-19 Vaccine ( season) Covid-19 Vaccine ( season) [facility] Start: 07-05-2024 Influenza vaccination [facility] Start: 05-21-2024 End: 05-21-2024 Patient encounter procedure 05/21/2024 2:45 PM EDT Office Visit Orthopaedics [address] [place] [address] Tylre Levine PA-C [address] [place] [address] 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] (EMG NORMAL) Orthopaedics Comment on above: 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] (EMG NORMAL) Start: 04-15-2024 End: 04-15-2024 Patient encounter procedure 04/15/2024 1:00 PM EDT Office Visit Orth[facility]ics [address] [place] [address] Tyler Levine PA-C [address] [place] [address] 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] (EMG order placed) Orthopaedics Comment on above: 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] (EMG order placed) Start: 11-04-2023 Behavioral Health Screening Behavioral Health Screening [facility] Start: 07-05-2023 Covid-19 Vaccine ( season) Covid-19 Vaccine () [facility] Start: 2015 Shingrix Vaccine (1 of 2) Shingrix Vaccine (1 of 2) [facility] Start: 2010 Diabetes Screening Diabetes Screenin g [facility] Start: 2010 Lipid panel Lipid Screening [facility] Start: 2010 Screening for malign ant neoplasm of colon [facility] Start: 2005 Screening for malign ant neoplasm of breast Mammogram Screening [facility] Start: 1995 Screening for malign ant neoplasm of cervix HPV Testing [facility] Start: 1986 Screening for malign ant neoplasm of cervix [facility] Start: 1984 Hepatitis B Vaccine (1 of 3 - 19+ 3-dose series) Hepatitis B Vaccine (1 of 3 - 19+ 3-dose series) [facility] Start: 1984 Urine microalbumin profile DTaP,Tdap,Td Vaccine (1 - Tdap) [facility] Start: 1983 Annual PCP Team Cdc Associate bren Disease Visit Annual PCP Team Chronic Disease Visit [facility] Start: 1983 Anxiety Screening Anxiety Screening [facility] Start: 1983 Depression Screening Depression Scre ening [facility] Start: 1983 Hepatitis C screening Hepatitis C Sc gracie [facility] Start: 1983 HIV screening HIV Screening [facility] Unlisted procedure hands/fingers HAND/FINGER SURGERY UNLISTED Procedures Routine Numbness Ordered: 02/11/2024 [facility] Work Phone: Comment on above: Ordered: 02/11/2024 End: 02-10-2025 US Carotid arteries - bilateral US CAROTID ARTERIES [facility] V[facility] Lab Routine Numbness 1 Occurrences starting 02/11/2024 until 02/10/2025 [facility] Work Phone: Comment on above: 1 Occurrences starti ng 02/11/2024 until 02/10/2025 End: 10-08-2025 US Upper extremity - right US ELBOW RIGHT Radiology Routine Ulnar neuritis, right 1 Occurrences starting 09/09/2024 until 10/08/2025 [facility] Work Phone: Comment on above: 1 Occurrences starti ng 09/09/2024 until 10/08/2025 [facility] Immunization Date Immunization Notes Care Provider Sameer paula 07-25-2023 influenza virus vacc ine, unspecified formulation Emg Weight:400) Work Phone: [facility] Payers Date Payer Category Payer Unknown MMO MMO [employer] PPO [id number] 2023-Present [phone] [address] [place] [address] PPO [id number] 1965 Unknown [id number] 1965 Unknown [id number] 1965 Unknown [id number] 1959 Self-pay 1959 Unknown [id number] Unknown [id number] Unknown [id number] Unknown MMO [id number] Unknown [facility] [id number] Social History Date Type Detail Facility Start: 02-11-2024 End: 05-14-2024 Sex Assigned At [facility] consumption unknown [facility] Start: 1965 Sex Assigned At Female [facility] Start: 02-06-2024 Gender identity Identifies as female gender (finding) [facility] Start: 02-06-2024 Sexual orientation Heterosexual (melchor rosemarie) [facility] Start: 02-11-2024 End: 05-14-2024 History of Social function [facility] National Score (1-10 0), lower number is lower risk 60 [facility] Goals Date Patient Goal Desired Activity /State Personal health goal Clinical Notes 05-01-2018 to 09-08-2024 Telephone Encounter - Miller Araya OCCA - 09/08/2024 10:15 AM ESTTelephone Encounter - Miller Araya OCCA - 09/08/2024 10:15 AM Tyler Sharp PA-C - 05/21/2024 2:49 PM EDT Note Date & Type Note Facility 09-08-2024 Telephone encounter Note Called patient and let her know all this information, patient stated she did therapy outside the clinic and it is scanned into the scanned documents. Patient is aware of the medication at the pharmacy as well that the provider sent over. Patient is inquiring with the hospital next to her in her city to see if she can get the US done there. Patient wants to keep appointment for now, I advised patient that provider is wanting the results of the US so we may need to push the appointment out. [facility] 09-08-2024 Miscellaneous Notes Called patient and let her know all this information, patient stated she did therapy outside the clinic and it is scanned into the scanned documents. Patient is aware of the medication at the pharmacy as well that the provider sent over. Patient is inquiring with the hospital next to her in her city to see if she can get the US done there. Patient wants to keep appointment for now, I advised patient that provider is wanting the results of the US so we may need to push the appointment out. ----- Message from Tyler Levine PA-C sent at 09/08/2024 9:33 AM EST ----- Pt self scheduled with us tomorrow for evaluation. If symptoms are worsening I would like to obtain US of the elbow to evaluate the nerve. I also do not see that the patient scheduled OT as we discussed at her last appointment. Please have her call to schedule OT and US at her earliest convenience. I can reach out to her and guide her on further treatment once I have the results of the US and if she does not improve from the OT. Thanks! documented in this encounter [facility] 09-08-2024 Telephone encounter Note ----- Message from Tyler Levine PA-C sent at 09/08/2024 9:33 AM EST ----- Pt self scheduled with us tomorrow for evaluation. If symptoms are worsening I would like to obtain US of the elbow to evaluate the nerve. I also do not see that the patient scheduled OT as we discussed at her last appointment. Please have her call to schedule OT and US at her earliest convenience. I can reach out to her and guide her on further treatment once I have the results of the US and if she does not improve from the OT. Thanks! [facility] 05-21-2024 Note HNO ID: [id number] Author: TYLER LEVINE PA-C Service: ? Author Type: [employer] Type: Progress Notes Filed: 05/21/2024 14:52 Note Text: DEPARTMENT OF ORTHOPAEDICS SUBJECTIVE Pat Knott is a 58 year old female Worker's Compensation and legal considerations: none. Ms. Knott presents for an initial visit for right arm pain Patient reports: Patient presents the office today for evaluation of right arm pain. Patient states she will notice pain, discomfort, numbness/tingling from the right elbow to the fourth and fifth fingers of the right hand. Denies any known direct mechanism of injury to the right upper extremity but states this has been ongoing for many years . On discussion may be related to the patient sleeping with elbow and wrist flexed frequently. Review of Systems: All were reviewed and found to be negative except those present in HPI. Past medical history: ACTIVE PROBLEM LIST Cough, Unspecified Emphysematous Pyelonephritis Fibrocystic Breast Changes Hypothyroidisms Macular Degeneration Peripheral Arterial Disease (Hcc) Peripheral Vertigo Sciatica Past surgical history: No past surgical history on file. Family history: No family history on file. Social History: Medications: Current Outpatient Medications on File Prior to Visit Medication Sig vit A/vit C/vit E/zinc/copper (ICAPS AREDS ORAL) Take by mouth. omega-3/dha/epa/dpa/fish oil (OMEGA-3, WITH DPA, ORAL) Take by mouth. TURMERIC, BULK, MISC levothyroxine 75 mcg cap Take 75 mcg by mouth daily before breakfast. liothyronine (CYTOMEL) 25 mcg tablet Take 12.5 mcg by mouth once daily. calcium carbonate/vitamin D3 (CALCIUM 500 + D ORAL) Take by mouth. No current facility-administered medications on file prior to visit. Allergies: ALLERGIES Allergen Reactions Bactrim [Sulfametho* Hives OBJECTIVE GENERAL: no acute distress Right Elbow(s): SKIN: intact SWELLING: negative EFFUSION: negative WARMTH: negative TENDERNESS: Mild tenderness over the ulnar groove Pain with use of ECRB: Negative ROM: full ROM STRENGTH: 5/5 him specialist CREPITUS: negative NEUROLOGICAL EXAM: Sensory: sensation intact to light touch Atrophy: none seen in thenar, hypothenar, or first dorsal interosseous. Tinel sign: ulnar nerve negative VASCULAR EXAM: warm with good color, and radial AND brachial pulses present Review of Additional Data/Studies: Study Interpretation Extensive electrodiagnostic study of the right upper extremity is normal. The study performed showed no evidence for median entrapment neuropathy, ulnar entrapment neuropathy, or cervical radiculopathy in the right upper extremity. All images AND studies were reviewed with the patient. ASSESSMENT (G56.21) Ulnar neuritis, right (primary encounter diagnosis) PLAN The following plan was agreed upon: Discussed use of a bath towel to create an ulnar elbow block/cubital tunnel block at nighttime to prevent sleeping with the bent elbow. Start occupational therapy program 1-2 times per week for 4 weeks to instruct ulnar nerve glides and work on him specialist strength and mobility. Follow-up should symptoms persist. Tyler Levine PA-C This note is created with the assistance of a speech-recognition program. [facility] 05-21-2024 History of Presen t illness Narrative Images from the original note were not included. DEPARTMENT OF ORTHOPAEDICS SUBJECTIVE Pat Knott is a 58 year old female Worker's Compensation and legal considerations: none. Ms. Knott presents for an initial visit for right arm pain Patient reports: Patient presents the office today for evaluation of right arm pain. Patient states she will notice pain, discomfort, numbness/tingling from the right elbow to the fourth and fifth fingers of the right hand. Denies any known direct mechanism of injury to the right upper extremity but states this has been ongoing for many years . On discussion may be related to the patient sleeping with elbow and wrist flexed frequently. Review of Systems: All were reviewed and found to be negative except those present in HPI. Past medical history: ACTIVE PROBLEM LIST Cough, Unspecified Emphysematous Pyelonephritis Fibrocystic Breast Changes Hypothyroidisms Macular Degeneration Peripheral Arterial Disease (Hcc) Peripheral Vertigo Sciatica Past surgical history: No past surgical history on file. Family history: No family history on file. Social History: Medications: Current Outpatient Medications on File Prior to Visit Medication Sig vit A/vit C/vit E/zinc/copper (ICAPS AREDS ORAL) Take by mouth. omega-3/dha/epa/dpa/fish oil (OMEGA-3, WITH DPA, ORAL) Take by mouth. TURMERIC, BULK, MISC levothyroxine 75 mcg cap Take 75 mcg by mouth daily before breakfast. liothyronine (CYTOMEL) 25 mcg tablet Take 12.5 mcg by mouth once daily. calcium carbonate/vitamin D3 (CALCIUM 500 + D ORAL) Take by mouth. No current facility-administered medications on file prior to visit. Allergies: ALLERGIES Allergen Reactions Bactrim [Sulfametho* Hives OBJECTIVE GENERAL: no acute distress Right Elbow(s): SKIN: intact SWELLING: negative EFFUSION: negative WARMTH: negative TENDERNESS: Mild tenderness over the ulnar groove Pain with use of ECRB: Negative ROM: full ROM STRENGTH: 5/5 him specialist CREPITUS: negative NEUROLOGICAL EXAM: Sensory: sensation intact to light touch Atrophy: none seen in thenar, hypothenar, or first dorsal interosseous. Tinel sign: ulnar nerve negative VASCULAR EXAM: warm with good color, and radial & brachial pulses present Review of Additional Data/Studies: Study Interpretation Extensive electrodiagnostic study of the right upper extremity is normal. The study performed showed no evidence for median entrapment neuropathy, ulnar entrapment neuropathy, or cervical radiculopathy in the right upper extremity. All images & studies were reviewed with the patient. ASSESSMENT (G56.21) Ulnar neuritis, right (primary encounter diagnosis) PLAN The following plan was agreed upon: Discussed use of a bath towel to create an ulnar elbow block/cubital tunnel block at nighttime to prevent sleeping with the bent elbow. Start occupational therapy program 1-2 times per week for 4 weeks to instruct ulnar nerve glides and work on him specialist strength and mobility. Follow-up should symptoms persist. Tyler Levine PA-C This note is created with the assistance of a speech-recognition program. documented in this encounter [facility] 05-19-2024 Note HNO ID: [id number] Author: VAN GARCIA MD Service: ? Author Type: Physician Type: Progress Notes Filed: 05/19/2024 14:04 Note Text: UNIVERSAL PROTOCOL / SAFETY CHECKLIST Procedure to be Performed: EMG Sign In: A Moment of CARE was completed. Personnel directly involved with the procedure wore the appropriate PPE (Personal Protective Equipment). Patient/Surrogate Stated/Verified: PATIENT VERIFIED(optional for EMERGENT procedures): Patient name, Date of , Relevant allergies, and The intended procedure Time Out Communication: Intended patient and procedure match the source documents. Correct side/site marked and visible. Sign Out: SIGN OUT (optional for EMERGENT procedures): Post-procedure follow-up management communicated and Plan of Care Visit completed when applicable. Emilia Ortiz EMG Tech Van Garcia MD (sign out) [facility] 05-19-2024 History of Presen t illness Narrative UNIVERSAL PROTOCOL / SAFETY CHECKLIST Procedure to be Performed: EMG Sign In: A Moment of CARE was completed. Personnel directly involved with the procedure wore the appropriate PPE (Personal Protective Equipment). Patient/Surrogate Stated/Verified: PATIENT VERIFIED(optional for EMERGENT procedures): Patient name, Date of , Relevant allergies, and The intended procedure Time Out Communication: Intended patient and procedure match the source documents. Correct side/site marked and visible. Sign Out: SIGN OUT (optional for EMERGENT procedures): Post-procedure follow-up management communicated and Plan of Care Visit completed when applicable. Emilia Ortiz [facility] Van Garcia MD (sign out) documented in this encounter [facility] 04-01-2024 Telephone encounter Note Patient was working and didn't have anything to write with so they wanted a mychart message instead. [facility] 04-01-2024 Miscellaneous Notes Patient was working and didn't have anything to write with so they wanted a mychart message instead. documented in this encounter [facility] 03-31-2024 Note HNO ID: [id number] Author: DEBI OCAMPO RT(Yonatan) Service: Radiology Author Type: Technologist Type: Progress Notes Filed: 03/31/2024 14:45 Note Text: Radiology Service Progress Note PATIENT NAME: Pat Knott DATE OF SERVICE: March 31, 2024 TIME: 2:44 PM PATIENT IDENTITY VERIFICATION COMPLETED USING TWO (2) IDENTIFIERS: Name and Date of confirmed by patient verbally. FALL SCREENING: Has the patient had 2 falls in the last year or 1 fall with injury or currently using an Ambulatory Assistive Device (Walker, Cane, Wheelchair, Crutches, etc.)? No PATIENT GENDER DATA: Female. status: : No status: NO. PATIENT RELEVANT IMPLANT DATA REVIEWED: Not Applicable PATIENT PRESENTS WITH AN IMPLANTABLE OR ATTACHED CHIEF CLERK SHELTER: No RADIOLOGY DEPARTMENT: General X-ray: Exam(s) Completed: Upper Extremity X-Ray(s): Hand, right PERIPHERAL IV DATA: Not applicable SIGNED BY: RT Rosalie(R) March 31, 2024 2:44 PM [facility] 03-31-2024 History of Presen t illness Narrative Radiology Service Progress Note PATIENT NAME: Pat Knott DATE OF SERVICE: March 31, 2024 TIME: 2:44 PM PATIENT IDENTITY VERIFICATION COMPLETED USING TWO (2) IDENTIFIERS: Name and Date of confirmed by patient verbally. FALL SCREENING: Has the patient had 2 falls in the last year or 1 fall with injury or currently using an Ambulatory Assistive Device (Walker, Cane, Wheelchair, Crutches, etc.)? No PATIENT GENDER DATA: Female. status: : No status: NO. PATIENT RELEVANT IMPLANT DATA REVIEWED: Not Applicable PATIENT PRESENTS WITH AN IMPLANTABLE OR ATTACHED CHIEF CLERK SHELTER: No RADIOLOGY DEPARTMENT: General X-ray: Exam(s) Completed: Upper Extremity X-Ray(s): Hand, right PERIPHERAL IV DATA: Not applicable SIGNED BY: RT Rosalie(R) March 31, 2024 2:44 PM documented in this encounter [facility] 03-31-2024 Instructions Nanette Caruso RN - 03/31/2024 2:04 PM EDT Consult hand surgery for ulnar neuropathy documented in this encounter [facility] 03-31-2024 Note HNO ID: [id number] Author: CHAMP TOTH MD Service: ? Author Type: Physician Type: Progress Notes Filed: 03/31/2024 14:07 Note Text: [facility] DEPARTMENT OF VASCULAR SURGERY OUTPATIENT VISIT DATE March 31, 2024 OUTPATIENT VISIT TYPE ESTABLISHED SERVICE DATE: 03/31/2024 SERVICE TIME: 1:55 PM PRIMARY CARE PHYSICIAN: Delvis Lr MD HISTORY OF PRESENT ILLNESS: Ms. Knott is a 58 year old female who presents today for a vascular surgery follow-up visit Lif[facility] screen for subclavian disease Complained of RUE digit 4/5 numbness and feelingo f tightness in proximal R forearm.. PMH: Subclavian stenosis PSH: none SOCIAL HISTORY MEDICATIONS: vit A/vit C/vit E/zinc/copper (ICAPS AREDS ORAL) Take by mouth. omega-3/dha/epa/dpa/fish oil (OMEGA-3, WITH DPA, ORAL) Take by mouth. TURMERIC, BULK, MISC levothyroxine 75 mcg cap Take 75 mcg by mouth daily before breakfast. liothyronine (CYTOMEL) 25 mcg tablet Take 12.5 mcg by mouth once daily. calcium carbonate/vitamin D3 (CALCIUM 500 + D ORAL) Take by mouth. ALLERGIES: ALLERGIES Allergen Reactions Bactrim [Sulfametho* Hives PHYSICAL EXAM: BP 149/97 (BP Site: Left Arm, BP Position: Sitting, BP Cuff Size: Large Adult) Ht 162.6 cm (5' 4 ) Wt 90.7 kg (200 lb) BMI 34.33 kg/m? General: Alert and oriented Vascular: palp bl radial/non palp bl ulnar Diagnostic tests reviewed for today's visit: Most recent labs Most recent imaging 03/31/24 duplex: NAVJOT 0-19%, patent/atengrade vert, LICA 0-19%, patent/antegrade vert 01/22/24 duplex: LUE subclavian ps 142.7, read as mild left arm ischemia evidenced by biphasic waveform . RUE normal right arm arterial tree. IMPRESSION: Ms. Knott is a 58 year old female LUE biphasic waveforms thorughout . PLAN and RECOMMENDATIONS: Referral to hand surgery for ulnar distribution numbness starting in elbow down digits 4/5. This is out of my area of expertise and scope of practice . Ulnar entrapment? Cont optimal medical mgmt Prn fu SIGNATURE: Champ Toth MD PATIENT NAME: Pat Knott DATE: March 31, 2024 TIME: 1:55 PM [facility] 03-31-2024 History of Presen t illness Narrative Images from the original note were not included. [facility] DEPARTMENT OF VASCULAR SURGERY OUTPATIENT VISIT DATE March 31, 2024 OUTPATIENT VISIT TYPE ESTABLISHED SERVICE DATE: 03/31/2024 SERVICE TIME: 1:55 PM PRIMARY CARE PHYSICIAN: Delvis Lr MD HISTORY OF PRESENT ILLNESS: Ms. Knott is a 58 year old female who presents today for a vascular surgery follow-up visit Lifeline screen for subclavian disease Complained of RUE digit 4/5 numbness and feelingo f tightness in proximal R forearm.. PMH: Subclavian stenosis PSH: none SOCIAL HISTORY MEDICATIONS: vit A/vit C/vit E/zinc/copper (ICAPS AREDS ORAL) Take by mouth. omega-3/dha/epa/dpa/fish oil (OMEGA-3, WITH DPA, ORAL) Take by mouth. TURMERIC, BULK, MISC levothyroxine 75 mcg cap Take 75 mcg by mouth daily before breakfast. liothyronine (CYTOMEL) 25 mcg tablet Take 12.5 mcg by mouth once daily. calcium carbonate/vitamin D3 (CALCIUM 500 + D ORAL) Take by mouth. ALLERGIES: ALLERGIES Allergen Reactions Bactrim [Sulfametho* Hives PHYSICAL EXAM: BP 149/97 (BP Site: Left Arm, BP Position: Sitting, BP Cuff Size: Large Adult) Ht 162.6 cm (5' 4 ) Wt 90.7 kg (200 lb) BMI 34.33 kg/m General: Alert and oriented Vascular: palp bl radial/non palp bl ulnar Diagnostic tests reviewed for today's visit: Most recent labs Most recent imaging 03/31/24 duplex: NAVJOT 0-19%, patent/atengrade vert, LICA 0-19%, patent/antegrade vert 01/22/24 duplex: LUE subclavian ps 142.7, read as mild left arm ischemia evidenced by biphasic waveform . RUE normal right arm arterial tree. IMPRESSION: Ms. Knott is a 58 year old female LUE biphasic waveforms thorughout . PLAN and RECOMMENDATIONS: Referral to hand surgery for ulnar distribution numbness starting in elbow down digits 4/5. This is out of my area of expertise and scope of practice . Ulnar entrapment? Cont optimal medical mgmt Prn fu SIGNATURE: Champ Toth MD PATIENT NAME: Pat Knott DATE: March 31, 2024 TIME: 1:55 PM documented in this encounter [facility] 02-11-2024 Instructions Nanette Caruso RN - 02/11/2024 11:22 AM EDT Carotid duplex follow up with lida Consult hand surgery documented in this encounter [facility] 02-11-2024 Note HNO ID: [id number] Author: CHAMP TOTH MD Service: ? Author Type: Physician Type: Progress Notes Filed: 02/11/2024 11:26 Note Text: [facility] DEPARTMENT OF VASCULAR SURGERY OUTPATIENT VISIT DATE February 11, 2024 OUTPATIENT VISIT TYPE CONSULTATION SERVICE DATE: 02/11/2024 SERVICE TIME: 11:05 AM PRIMARY CARE PHYSICIAN: Delvis Lr MD REFERRING PROVIDER: No referring provider defined for this encounter. Consult requested for an opinion regarding the evaluation and treatment of the above. My final impression and recommendations will be communicated back to the requesting physician by way of the shared medical record or letter via US mail. CHIEF COMPLAINT: [facility] screen HISTORY OF PRESENT ILLNESS: Vascular consultation at the request of . A copy of this consultation note will be provided to the requesting physician by way of shared Medical record or letter to requesting physician via US mail. Ms. Knott is a 58 year old female who is seen today for Lif[facility] screen for subclavian disease Complained of RUE digit 4/5 numbness and feelingo f tightness in proximal R forearm. No past medical history on file. No past surgical history on file. SOCIAL HISTORY: No family history on file. MEDICATIONS: vit A/vit C/vit E/zinc/copper (ICAPS AREDS ORAL) Take by mouth. omega-3/dha/epa/dpa/fish oil (OMEGA-3, WITH DPA, ORAL) Take by mouth. TURMERIC, BULK, MISC levothyroxine 75 mcg cap Take 75 mcg by mouth daily before breakfast. liothyronine (CYTOMEL) 25 mcg tablet Take 12.5 mcg by mouth once daily. calcium carbonate/vitamin D3 (CALCIUM 500 + D ORAL) Take by mouth. ALLERGIES: ALLERGIES Allergen Reactions Bactrim [Sulfametho* Hives REVIEW OF SYSTEM: Constitutional: No weight loss, malaise or fevers. HEENT: Negative for frequent or significant headaches Respiratory: Negative for cough, wheezing, or shortness of breath Cardiovascular: Negative for chest pain, leg swelling or palpitations Gatrointestinal: Negative for abdominal discomfort, blood in stools or black stools or change in bowel habits Genitourinary: No history of dysuria, frequency, or incontinence Musculoskeletal: Negative for joint pain or swelling, back pain or muscle pain Endocrine: Negative for cold or heat intolerance, polyuria, polydipsia and goiter Hematology/Lymphatic: Negative for prolonged bleeding, bruising easily or swollen nodes Neurologic: No history or headaches, syncope, paralysis, seizures or tremors Integumentary: Negative for lesions, rash, and itching. PHYSICAL EXAM: VITALS: Ht 5' 4 (1.63m) Wt 197 lb (89.4kg) BMI 33.80 kg/(m2). General: Alert and oriented Integumentary: Normal color, no rash, no lesions. HEENT: EOM, pupils equal, round and reactive. Cardiovascular: Pulse regular. Lungs: No chest deformities or chest wall tenderness. Abdomen: Soft, non-tender, no rigidity. Extremities: No deformity, no edema or tenderness, no joint swelling or clubbing. Neurological: Normal cognition and motor skills. Vascular: palp bl radial/non palp bl ulnar Diagnostic tests reviewed for today's visit: Most recent labs Most recent imaging 01/22/24 duplex: LUE subclavian ps 142.7, read as mild left arm ischemia evidenced by biphasic waveform . RUE normal right arm arterial tree. IMPRESSION: Ms. Knott is a 58 year old female LUE biphasic waveforms . PLAN and RECOMMENDATIONS: Will get high quality carotid duplex to assess any stenosis contributing to biphasic waveforms in LUE Referral to hand surgery for ulnar distribution numbness. This is out of my area of expertise and scope of practice SIGNATURE: Champ Toth MD PATIENT NAME: Pat Knott DATE: February 11, 2024 TIME: 11:05 AM [facility] 02-11-2024 History of Presen t illness Narrative Images from the original note were not included. [facility] DEPARTMENT OF VASCULAR SURGERY OUTPATIENT VISIT DATE February 11, 2024 OUTPATIENT VISIT TYPE CONSULTATION SERVICE DATE: 02/11/2024 SERVICE TIME: 11:05 AM PRIMARY CARE PHYSICIAN: Delvis Lr MD REFERRING PROVIDER: No referring provider defined for this encounter. Consult requested for an opinion regarding the evaluation and treatment of the above. My final impression and recommendations will be communicated back to the requesting physician by way of the shared medical record or letter via US mail. CHIEF COMPLAINT: [facility] screen HISTORY OF PRESENT ILLNESS: Vascular consultation at the request of . A copy of this consultation note will be provided to the requesting physician by way of shared Medical record or letter to requesting physician via US mail. Ms. Knott is a 58 year old female who is seen today for [facility] screen for subclavian disease Complained of RUE digit 4/5 numbness and feelingo f tightness in proximal R forearm. No past medical history on file. No past surgical history on file. SOCIAL HISTORY: No family history on file. MEDICATIONS: vit A/vit C/vit E/zinc/copper (ICAPS AREDS ORAL) Take by mouth. omega-3/dha/epa/dpa/fish oil (OMEGA-3, WITH DPA, ORAL) Take by mouth. TURMERIC, BULK, MISC levothyroxine 75 mcg cap Take 75 mcg by mouth daily before breakfast. liothyronine (CYTOMEL) 25 mcg tablet Take 12.5 mcg by mouth once daily. calcium carbonate/vitamin D3 (CALCIUM 500 + D ORAL) Take by mouth. ALLERGIES: ALLERGIES Allergen Reactions Bactrim [Sulfametho* Hives REVIEW OF SYSTEM: Constitutional: No weight loss, malaise or fevers. HEENT: Negative for frequent or significant headaches Respiratory: Negative for cough, wheezing, or shortness of breath Cardiovascular: Negative for chest pain, leg swelling or palpitations Gatrointestinal: Negative for abdominal discomfort, blood in stools or black stools or change in bowel habits Genitourinary: No history of dysuria, frequency, or incontinence Musculoskeletal: Negative for joint pain or swelling, back pain or muscle pain Endocrine: Negative for cold or heat intolerance, polyuria, polydipsia and goiter Hematology/Lymphatic: Negative for prolonged bleeding, bruising easily or swollen nodes Neurologic: No history or headaches, syncope, paralysis, seizures or tremors Integumentary: Negative for lesions, rash, and itching. PHYSICAL EXAM: VITALS: Ht 5' 4 (1.63m) Wt 197 lb (89.4kg) BMI 33.80 kg/(m^2). General: Alert and oriented Integumentary: Normal color, no rash, no lesions. HEENT: EOM, pupils equal, round and reactive. Cardiovascular: Pulse regular. Lungs: No chest deformities or chest wall tenderness. Abdomen: Soft, non-tender, no rigidity. Extremities: No deformity, no edema or tenderness, no joint swelling or clubbing. Neurological: Normal cognition and motor skills. Vascular: palp bl radial/non palp bl ulnar Diagnostic tests reviewed for today's visit: Most recent labs Most recent imaging 01/22/24 duplex: MELBA subclavian ps 142.7, read as mild left arm ischemia evidenced by biphasic waveform . RUE normal right arm arterial tree. IMPRESSION: Ms. Knott is a 58 year old female LUE biphasic waveforms . PLAN and RECOMMENDATIONS: Will get high quality carotid duplex to assess any stenosis contributing to biphasic waveforms in LUE Referral to hand surgery for ulnar distribution numbness. This is out of my area of expertise and scope of practice SIGNATURE: Champ Toth MD PATIENT NAME: Pat Knott DATE: February 11, 2024 TIME: 11:05 AM documented in this encounter [facility] 02-07-2024 Miscellaneous Notes RP Patient already scheduled with Dr. Champ Moreira at [facility]. Case closed. 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[employer] Other 06-28-2018 History general Narrative - Reported* Type Description Date Medical History Autoimmune thyroiditis Surgical History Appendectomy, JASVIR 05/01/2018 Hospitalization History see surgical history [employer] Other Evaluation note* Diagnosis Numbness- Primary Disturbance of skin sensation [facility] Diagnosis Peripheral arterial disease (HCC)- Primary Peripheral vascular disease, unspecified [facility] Diagnosis Peripheral arterial disease (HCC)- Primary Peripheral vascular disease, unspecified [facility] [place] [facility] Diagnosis 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 Lesion of ulnar nerve Ulnar nerve compression, right Ulnar neuropathy of right upper extremity Lesion of ulnar nerve Ulnar nerve compression, right [facility] [place] [facility]* Diagnosis Ulnar neuropathy of right upper extremity Lesion of ulnar nerve Ulnar nerve compression, right [facility] [place] [facility]* Diagnosis Onset Date Resolution Status Hypothyroid acute Pre-employment examination a [facility] Work Phone: Evaluation note* Diagnosis Numbness- Primary Disturbance of skin sensation Tingling Disturbance of skin sensation [facility] [place] [facility] Diagnosis Ulnar neuritis, right- Primary [facility] [place] [facility]* Diagnosis Ulnar neuritis, right- Primary documented in this encounter [facility] for referral (narrative)* Outpatient Procedure (Routine) - Authorized Specialty Diagnoses / Procedures Referred By Nathan lomax Referred To [facility] Diagnoses Numbness Procedures US CAROTID ARTERIES JOSE VAS LAB DUPLEX SCAN EXTRACRANIAL [place] [id number] [place] [address] [facility] [address] [place], [place] [id number] Referral ID Status Reason Start Date Expiration Date Visits Requested Visits Authorized [id number] Authorized Auto-Generat ed Referral 02/11/2024 02/10/2025 1 1 [facility] for referral (narrative)* Diagnostic Procedure Only (Routine) - Closed Specialty Diagnoses / Procedures Referred By Nathan lomax Referred To Contact XR IMAGING Diagnoses 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, right Procedures XR HAND GENERAL 3V PA/LAT/OBL RIGHT RADEX HAND MINIMUM [address] [place] [address] [place] [address] [place] [address] Referral ID Status Reason Start Date Expiration Date V isits Requested Visits Authorized [id number] Closed Auto-Generate d Referral 03/31/2024 04/30/2025 1 1 [facility] for referral (narrative)* Diagnostic Procedure Only (Routine) - New Request Specialty Diagnoses / Procedures Referred By Nathan lomax Referred To Contact US IMAGING Diagnoses Ulnar neuritis, right Procedures US ELBOW RIGHT US LMTD JOINT/OTH NONVASC XTR STRUX R-T W/IMG Tyler Levine PA-C [address] [place] [address] [place] [address] Referral ID Status Reason Start Date Expiration Date Visits Requested Visits Authorized [id number] New Request Auto-Generat ed Referral 09/09/2024 10/08/2025 1 1 [facility] for visit Narrative* Diagnostic Procedure Only (Routine) - Closed Specialty Diagnoses / Procedures Referred By Nathan lomax Referred To Contact XR IMAGING Diagnoses 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, right Procedures XR HAND GENERAL 3V PA/LAT/OBL RIGHT RADEX HAND MINIMUM [address] [place] [address] [place] [address] [place] [address] Referral ID Status Reason Start Date Expiration Date V isits Requested Visits Authorized [id number] Closed Auto-Generate d Referral 03/31/2024 04/30/2025 1 1 [facility] Summary Purpose Family History Relationship Condition Age at Onset Recorded Date/T marcy father Arthritis Unknown Advance Directives Advance Directive Response Recorded Date/ Time Advance Directives No May 06 8:58am Reason for Referral Specialty Diagnoses / Procedures Referred By Nathan lomax Referred To Contact [facility] Diagnoses Ulnar neuritis, right Procedures CONSULT TO MISSILE INSPECTOR OCCUPATIONAL THERAPY EVAL HIGH COMPLEX 60 MINS Tyler Levine PA-C [address] [place] [address] [facility] [address] [place] [address] Referral ID Status Reason Start Date Expiration Date Visits Requested Visits Authorized [id number] Pending Review Auto-Generat ed Referral 05/21/2024 05/21/2025 1 1 Specialty Diagnoses / Procedures Referred By Nathan lomax Referred To Contact Orthopedics Diagnoses Ulnar neuropathy of right upper extremity Procedures CONSULT PANEL TO ORTHOPAEDICS OFFICE/OUTPATIENT NEW HIGH MDM 60 [place] [address] [place] [address] Referral ID Status Reason Start Date Expiration Date Visits Requested Visits Authorized [id number] Authorized PCP Requested Referral 03/31/2024 03/31/2025 1 1 Specialty Diagnoses / Procedures Referred By Contac t Referred To Contact XR IMAGING Diagnoses 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, right Procedures XR HAND GENERAL 3V PA/LAT/OBL RIGHT RADEX HAND MINIMUM [address] [place] [address] [place] [address] [place] [address] Referral ID Status Reason Start Date Expiration Date V isits Requested Visits Authorized [id number] Closed Auto-Generate d Referral 03/31/2024 04/30/2025 1 1 Chief Complaint and Reason for Visit 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 Hypothyroid Pre-employment examination Additional Source Comments INFORMATION SOURCE (unrecogn ized section and content) DATE CREATED AUTHOR 12/04/2022 [facility] DATE CREATED AUTHOR AUTHOR'S ORGANIZ ATION 11/13/2023 [facility] DATE CREATED AUTHOR AUTHOR'S ORGANIZ ATION 12/13/2023 [facility] DATE CREATED AUTHOR AUTHOR'S ORGANIZ ATION 04/01/2024 [facility] DATE CREATED AUTHOR AUTHOR'S ORGANIZ ATION 09/09/2024 [facility] REASON FOR VISIT (unrecogniz ed section and content) Reason Comments Appointment Reason Comments New Patient Reason Comments Follow Up Reason Onset Date Comments EMG 05/19/2024 Specialty Diagnoses / Procedures Referred By Contact Referred To Contact [facility] Diagnoses Hand numbness Procedures EMG(NEURO/NI) NERVE CONDUCTION STUDIES 9-10 STUDIES Tyler Levine, PA-C [address] [place] [address] [facility] [address] [place] [address] Referral ID Status Reason Start Date Expiration Date V isits Requested Visits Authorized [id number] Closed Auto-Generate d Referral 03/31/2024 03/31/2025 1 1 Specialty Diagnoses / Procedures Referred By Contac t Referred To Contact Orthopedics Diagnoses Ulnar neuropathy of right upper extremity Procedures CONSULT PANEL TO ORTHOPAEDICS OFFICE/OUTPATIENT [facility] [address] [place] [id number] [place] [address] Referral ID Status Reason Start Date Expiration Date V isits Requested Visits Authorized [id number] Closed PCP Requested Referral 03/31/2024 03/31/2025 1 1 Source Comments (unrecognize d section and content) In the event this informatio n is protected by the Federal Confidentiality of Alcohol and Drug Abuse Patient Records regulations: The Federal rules restrict any use of the information to criminally investigate or prosecute any alcohol or drug abuse patient.[facility] Center[facility] the event this information is protected by the Federal Confidentiality of Alcohol and Drug Abuse Patient Records regulations: The Federal rules restrict any use of the information to criminally investigate or prosecute any alcohol or drug abuse patient.[facility] CenterIn the event this information is protected by the Federal Confidentiality of Alcohol and Drug Abuse Patient Records regulations: The Federal rules restrict any use of the information to criminally investigate or prosecute any alcohol or drug abuse patient.[facility] CenterIn the event this information is protected by the Federal Confidentiality of Alcohol and Drug Abuse Patient Records regulations: The Federal rules restrict any use of the information to criminally investigate or prosecute any alcohol or drug abuse patient.[facility] CenterIn the event this information is protected by the Federal Confidentiality of Alcohol and Drug Abuse Patient Records regulations: The Federal rules restrict any use of the information to criminally investigate or prosecute any alcohol or drug abuse patient.[facility] CenterIn the event this information is protected by the Federal Confidentiality of Alcohol and Drug Abuse Patient Records regulations: The Federal rules restrict any use of the information to criminally investigate or prosecute any alcohol or drug abuse patient.[facility] CenterIn the event this information is protected by the Federal Confidentiality of Alcohol and Drug Abuse Patient Records regulations: The Federal rules restrict any use of the information to criminally investigate or prosecute any alcohol or drug abuse patient.[facility] CenterIn the event this information is protected by the Federal Confidentiality of Alcohol and Drug Abuse Patient Records regulations: The Federal rules restrict any use of the information to criminally investigate or prosecute any alcohol or drug abuse patient.[facility] CenterIn the event this information is protected by the Federal Confidentiality of Alcohol and Drug Abuse Patient Records regulations: The Federal rules restrict any use of the information to criminally investigate or prosecute any alcohol or drug abuse patient.[facility] CenterIn the event this information is protected by the Federal Confidentiality of Alcohol and Drug Abuse Patient Records regulations: The Federal rules restrict any use of the information to criminally investigate or prosecute any alcohol or drug abuse patient.[facility] CenterIn the event this information is protected by the Federal Confidentiality of Alcohol and Drug Abuse Patient Records regulations: The Federal rules restrict any use of the information to criminally investigate or prosecute any alcohol or drug abuse patient.[facility] CenterIn the event this information is protected by the Federal Confidentiality of Alcohol and Drug Abuse Patient Records regulations: The Federal rules restrict any use of the information to criminally investigate or prosecute any alcohol or drug abuse patient.[facility] CenterIn the event this information is protected by the Federal Confidentiality of Alcohol and Drug Abuse Patient Records regulations: The Federal rules restrict any use of the information to criminally investigate or prosecute any alcohol or drug abuse patient.[facility] Care Teams (unrecognized sec tion and content) Spool Carrier Relationship Specialty Start Date End Date Delvis Lr MD [address] [id number] PCP - General Family Medicine 02/07/24 Delvis Lr MD [address] [place] [address] Referring Family Medicine 01/27/24 Spool Carrier Relationship Specialty Start Date End Date Delvis Lr MD [address] [place] [address] PCP - General Family Medicine 02/07/24 Delvis Lr MD [address] [facility] [address] Referring Family Medicine 01/27/24 Spool Carrier Relationship Specialty Start Date End Date Delvis Lr MD [address] [facility] [place] [address] PCP - General Family Medicine 02/07/24 Delvis Lr MD [address] [facility] [place] [address] Referring Family Medicine 01/27/24 Spool Carrier Relationship Specialty Start Date End Date Delvis Lr MD [address] [facility] [place] [address] PCP - General Family Medicine 02/07/24 Delvis Lr MD [address] [facility] [place] [address] Referring Family Medicine 01/27/24 Spool Carrier Relationship Specialty Start Date End Date Delvis Lr MD [address] [facility] [place] [address] PCP - General Family Medicine 02/07/24 Delvis Lr MD [address] [facility] [place] [address] Referring Family Medicine 01/27/24 Spool Carrier Relationship Specialty Start Date End Date Delvis Lr MD [address] [facility] [place] [address] PCP - General Family Medicine 02/07/24 Delvis Lr MD [address] [facility] [place] [address] Referring Family Medicine 01/27/24 Spool Carrier Relationship Specialty Start Date End Date Delvis Lr MD [address] [facility] [place] [address] PCP - General Family Medicine 02/07/24 Delvis Lr MD [address] [facility] [place] [address] Referring Family Medicine 01/27/24 Team Status: Active Member Role Status Dates Delvis Lr MD Primary Care Provider Active Team Status: Inactive Member Role Status Dates Delvis Lr MD Primary Care Provider Active Start: May 06, 2024 End: May 06, 2024 Wisam Mix DO Attending Provider Active Sta rt: May 06, 2024 End: May 06, 2024 Spool Carrier Relationship Specialty Start Date End Date Delvis Lr MD [address] [facility] [address] PCP - General Family Medicine 02/07/24 Delvis Lr MD [address] [facility] [place] [address] Referring Family Medicine 01/27/24 Spool Carrier Relationship Specialty Start Date End Date Delvis Lr MD [address] [facility] [place] [address] PCP - General Family Medicine 02/07/24 Delvis Lr MD [address] [facility] [place] [address] Referring Family Medicine 01/27/24 Spool Carrier Relationship Specialty Start Date End Date Delvis Lr MD [address] [place] [address] PCP - General Family Medicine 02/07/24 Delvis Lr MD [address] [place] [address] Referring Family Medicine 01/27/24 Spool Carrier Relationship Specialty Start Date End Date Delvis Lr MD [address] [place] [address] PCP - General Family Medicine 02/07/24 Delvis Lr MD [address] [place] [address] Referring Family Medicine 01/27/24 Goals (unrecognized section and content) Goals may be documented in a n alternate section FOR RECORDS PERTAINING TO PATIENTS WHO ARE [...] BE BASED ON THE PRIMARY CLINICAL RECORDS. [employer] provides no warranty or guarantee of the accuracy or completeness of information in this document.
== END 2024-09-12 11:01 | disposition home or self-care (01) ==
LOC: US 11:00
PROVIDERS: PCP Family Medicine
DX: G56.21 Lesion of ulnar nerve, right upper limb (principal)
CPT/HCPCS: 76882

== ENCOUNTER 2024-12-01 20:38 | Outpatient (OUT) | payer OTHER, SELFPAY ==
--- OUTSIDE RECORDS SUMMARY | 2024-12-01 20:41 | XMS_ITS | CCD ---
Author Organization [facility] [place] [facility] Care Team Providers Care Furnace Converter Name Role Phone DR DELVIS LR Consulting Unavailable TRINO, DR EDMONDSON Primary Care Unavailable TRINO, DR EDMONDSON Admitting Unavailable CHRISTIANEY, DR EDMONDSON Attending Unavailable BENTLEY MONDRAGON Consulting [...] LR Primary Care Unavailable TYLER LEVINE Attending Unavaila CHAMP Childers Referring Unavailable DELVIS LR Primary Care Unavailable TYLER LEVINE Referring Unavaila DELVIS Patino Primary Care Unavailable CHAMP TOTH Attending Unavailable DELVIS LR Primary Care Unavailable CHAMP TOTH Referring Unavailable DELVIS LR Primary Care Unavailable Allergies Allergy Classification Reported Allergen(s) Allergy Type Date of Onset Reaction(s) Facility (1 source) No Known Medication Allergies; Translations: [No Known Medication Allergies] Propensity to adverse reactions (disorder) [facility] Repository (16 sources) Sulfamethoxazole / Trimethoprim; Translations: [SULFAMETHOXAZOLE-TR IMETHOPRIM] Drug Allergy 02-11-20 [facility] Medications Current Medications Medication Drug Class(es) Dates Sig (Normalized) Sig (Original) Calcium Carbonate / vitamin D3 (14 sources) calcium carbonate/vitamin D3 (CALCIUM 500 + D ORAL) Take by mouth. Active calcium carbonat e/vitamin D3 (CALCIUM 500 + D ORAL) Take by mouth. 0 Active Comment on above: Take by mouth. levothyroxine sodium 0.075 mg oral capsule (14 sources) l-Thyroxine take 1 capsule by mouth once daily before breakfast levothyroxine 75 mcg cap Take 75 mcg by mouth daily before breakfast. Active Comment on above: Take 75 mcg by mouth daily before breakfast. liothyronine sodium 0.025 mg oral tablet (15 sources) l-Triiodothyronin e liothyronine (CYTOME L) 25 mcg tablet Take 12.5 mcg by mouth once daily. Active take 1 tablet by isi th every twenty-four hours Liothyronine Sodium 50 MCG 1 tablet on a n empty stomach Orally Once a day Active Comment on above: Take 12.5 mcg by isi th once daily. meloxicam 15 mg oral tablet (5 sources) Nonsteroidal Anti-inflammatory Drug Start: take 1 tablet by mouth once daily at mealtime meloxicam (MOBIC) 15 mg tablet Take 1 tablet by mouth once daily. with food 30 tablet 1 09/08/2024 Active omega-3/dha/epa/dpa /fish oil (OMEGA-3, WITH DPA, ORAL) (14 sources) omega-3/dha/epa/ dp a/fish oil (OMEGA-3, WITH DPA, ORAL) Take by mouth. Active omega-3/dha/epa/ dpa/fish oil (OMEGA-3, WITH DPA, ORAL) Take by mouth. 0 Active Comment on above: Take by mouth. TURMERIC, BULK, MISC (14 sources) TURMERIC, BULK, MISC Active TURMERIC, BULK, MISC vit A/vit C/vit E/zinc/coppe r (ICAPS AREDS ORAL) (14 sources) vit A/vit C/vit E/zinc/copper (ICAPS AREDS [...] ureter] Onset: 11-09-2023 Episodic Nonmalignant breast conditions (14 sources) Fibrocystic disease of breast; Translations: [Diffuse [...] Onset: 10-29-2022 Episodic Peripheral and visceral atherosclerosis (16 sources) Peripheral vascular disease, unspecified; Translations: [Peripheral vascular disease, unspecified] Onset: 02-11-2024 02-11-2024 Chronic Residual codes; unclassified (1 source) Family history of malignant neoplasm of other organs or systems; Translations: [FAM HX MALIG NEOPLASM OTH ORGN/SYS] Onset: 10-31-2022 Episodic Retinal detachments; defects; vascular occlusion; and retinopathy (14 sources) Degenerative disorder of macula ; Translations: [Unspecified macular degeneration] Onset: 02-11-2024 02-11-2024 Chronic Thyroid disorders (16 sources) Hypothyroidism; Translations: [Hypothyroidism, unspecified] Onset: 02-11-2024 02-11-2024 Chronic Unclassified (3 sources) COUGH, UNSPECIFIED; Translations: [COUGH, UNSPECIFIED] Onset: 12-03-2022 Past or Other Problems Problem Classification Problem Date Documented Date Episodic/Chronic Conditions associated with dizziness or vertigo (14 sources) Peripheral vertigo; Translations: [Other peripheral vertigo, unspecified ear] Onset: 02-11-2024 02-11-2024 Episodic Other lower respiratory disease (14 sources) Cough; Translations: [Cough, unspecified] Onset: 11-30-2022 02-11-2024 Episodic Other nervous system disorders (2 sources) Anesthesia of skin; Translations: [Hand numbness] Onset: 03-31-2024 Episodic Spondylosis; intervertebral disc disorders; other back problems (14 sources) Sciatica; Translations: [Sciatica, unspecified side] Onset: 02-11-2024 02-11-2024 Episodic Unclassified (1 source) COUGH, UNSPECIFIED; Translations: [COUGH, UNSPECIFIED] Onset: 11-30-2022 Urinary tract infections (14 sources) Emphysematous pyelonephritis; Translations: [Tubulo-interstitial nephritis, not specified as acute or chronic] Onset: 02-11-2024 02-11-2024 Episodic Results Test Name Value Interpretation Reference Range Facility [facility] 09-21-2024 [facility] Telephone (ORQ) PAT KNOTT ([id number]) 1965 F Date Time Provider Department 09/21/24 TYLER LEVINE ORHarvey During your visit today, we recorded the following information about you: Jocelyn Schaeffer 09/21/2024 12:07 PM Signed Miller Araya OCCA 09/22/2024 8:05 AM Signed I called and left messages in regards to receiving the patients ultrasound. It was normal and the provider wants the patient to get set up with a hand specialist due to the ongoing pain. She can schedule with Pat Ashraf PA-C or Flora Valente PA-C Allergies As of Date: 09/21/2024 Noted Allergy Reaction BACTRIM (SULFAMETHOXAZOLE-TRI METH*02/11/2024 4 - Hives Date Reviewed: 05/21/2024 Reviewed by: Miller Araya OCCA - Fully Assessed Reason for Visit: Type Mapper - Other [[id number]] Cmt: [facility] IMAGING REPORT Prescriptions as of 09/22/2024 - meloxicam (MOBIC) 15 mg tablet Take [...] by mouth. 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] 02/11/2024 Diagnosed: 02/11/2024 Fibrocystic breast changes [N60.19] 02/11/2024 Diagnosed: 02/11/2024 Hypothyroidisms [E03.9] 02/11/2024 Diagnosed: 02/11/2024 Macular degeneration [H35.30] 02/11/2024 Diagnosed: 02/11/2024 Peripheral arterial disease (HCC) [I73.9] 02/11/2024 Diagnosed: 02/11/2024 Peripheral vertigo [H81.399] 02/11/2024 Diagnosed: 02/11/2024 Sciatica [M54.30] 02/11/2024 Diagnosed: 02/11/2024 Encounter Status:Closed by JOCELYN SCHAEFFER on 09/21/24 Normal [facility] Telephone ([facility]) PAT KNOTT ([id number]) 1965 F Date Time Provider Department 09/21/24 TYLER LEVINE During your visit today, we recorded the following information about you: Miller Araya OCCA 09/21/2024 4:17 PM Signed I called and left messages in regards to receiving the patients ultrasound. It was normal and the provider wants the patient to get set up with a hand specialist due to the ongoing pain. She can schedule with Pat Ashraf PA-C or Flora Valente PA-C Allergies As of Date: 09/21/2024 Noted Allergy Reaction BACTRIM (SULFAMETHOXAZOLE-TRI METH*02/11/2024 4 - Hives Date Reviewed: 05/21/2024 Reviewed by: Miller Araya OCCA - Fully Assessed Reason for Visit: Appointment [186] Cmt: Scheduling with a hand specialist. Prescriptions as of 09/21/2024 - meloxicam (MOBIC) 15 mg tablet Take [...] by mouth. 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] 02/11/2024 Diagnosed: 02/11/2024 Fibrocystic breast changes [N60.19] 02/11/2024 Diagnosed: 02/11/2024 Hypothyroidisms [E03.9] 02/11/2024 Diagnosed: 02/11/2024 Macular degeneration [H35.30] 02/11/2024 Diagnosed: 02/11/2024 Peripheral arterial disease (HCC) [I73.9] 02/11/2024 Diagnosed: 02/11/2024 Peripheral vertigo [H81.399] 02/11/2024 Diagnosed: 02/11/2024 Sciatica [M54.30] 02/11/2024 Diagnosed: 02/11/2024 Encounter Status:Closed by MILLER ARAYA on 09/21/24 [facility] [place] 09-08-2024 [facility] Telephone (GUS) PAT KNOTT ([id number]) 1965 F Date Time Provider Department 09/08/24 [...] Encounter Status:Closed by MILLER ARAYA on 09/08/24 [facility] CNOVon 05-21-2024 CNOV Office Visit (ORTHAL ) PAT KNOTT ([id number]) 1965 F Date Time Provider Department 05/21/24 2:45 PM TYLER LEVINE ORTHAL During your visit today, we recorded the [...] ECRB: Negative ROM: full ROM STRENGTH: 5/5 physiologist CREPITUS: negative NEUROLOGICAL EXAM: Sensory: sensation intact [...] instruct ulnar nerve glides and work on physiologist strength and mobility. Follow-up should symptoms persist. Tyler Levine PA-C This note is created with the assistance of a speech-recognition program. Referring Provider: CHAMP TOTH [[id number]] Allergies As of Date: 05/21/2024 Noted Allergy Reaction BACTRIM (SULFAMETHOXAZOLE-TRI METH*02/11/2024 4 - Hives Date Reviewed: 05/21/2024 Reviewed by: Miller Araya OCCA - Fully Assessed Primary Visit Diagnosis:Ulnar neuritis, right [G56.21] Order(s):CONSULT PANEL TO ORTHOPAEDICS [387215] Order #: [id number]: 1 CONSULT TO DEFENSE ANALYST [513634] Order #: [id number]: 1 FUTURE Prescriptions as of 05/21/2024 - [...] Status:Closed by TYLER LEVINE on 05/21/24 Normal [facility] EMG(NEURO/NI)on 05-19-2024 Results can be seen in attached scanned documents. If you are a patient reviewing this test result, call the doctor who ordered the test with any questions. [facility] [place] [facility] CNOVon 03-31-2024 CNOV Office Visit (STEPHANE ) PAT KNOTT ([id number]) 1965 F Date Time Provider Department 03/31/24 1:30 PM CHAMP TOTH During your visit today, we recorded the following information about you: Blood pressure Weight Height 149/97 90.7 kg 1.626 m Champ Toth MD 03/31/2024 2:07 PM Signed [facility] [place] DEPARTMENT OF VASCULAR SURGERY OUTPATIENT VISIT DATE [...] for Encounter Date Provider Department Center 03/31/2024 [id number]-DEARUCHAMP TOTH [facility] Encounter Status:Closed by CHAMP TOTH on 03/31/24 Normal [facility] CAROTID ARTERIES [facility]SE [facility]AS LABon 03-31-2024 US CAROTID ARTERIES JOSE [facility] LAB Non-Invasive Vascular Laboratory [facility] Carotid Duplex Bilateral/Complete Date of service/time: 03/31/2024 [...] antegrade flow noted. Technologist: Jackson Echeverria RVT, [facility] Ordering physician: CHAMP TOTH Interpreting physician: Bentley Whatley MD, RPVI Final CC [facility] Image : [id number] See Link below for Image Normal [facility] XR HAND 3V PA/LAT/OBL RTon 0 [...] tissues are unremarkable. IMPRESSION: Minimal degenerative changes. Layout Operator: SHE Transcribe Date/Time: Mar 31 2024 4:36P Dictated by : ALEKSANDR BONDS MD This examination was interpreted and the report reviewed and electronically signed by: ALEKSANDR BONDS MD on Mar 31 2024 4:36PM EST [id number] Normal [facility] XR Hand - right PA and Later al and Obliqueon 05-28-2024 IMPRESSION: Minimal degenerative changes. Layout Operator: SHE Transcribe Date/Time: Mar 31 2024 4:36P Dictated by : ALESKANDR BONDS MD This examination was interpreted and the report reviewed and electronically signed by: ALEKSANDR BONDS MD on Mar 31 2024 4:36PM EST [facility] * * *Final Report* * * [...] No marginal erosion. Soft tissues are unremarkable. [facility] Provider, [facility] - 03/31/2024 * * *Final Report* [...] are unremarkable. IMPRESSION IMPRESSION: Minimal degenerative changes. Layout Operator: SHE Transcribe Date/Time: Mar 31 2024 4:36P Dictated by : ALEKSANDR BONDS MD This examination was interpreted and the report reviewed and electronically signed by: ALEKSANDR BONDS MD on Mar 31 2024 4:36PM EST [facility] Radiology Study observation (narrative) [facility] XR Hand - right PA and Later al and ObliqueOrdered By: Ccf Provider on 03-31-2024 [facility] CNCOon 02-11-2024 CNCO Letter Text Normal [place] [facility] [place] CNOVon 02-11-2024 CNOV Office Visit (VASSAV ) NIKOSPAT ([id number]) 1965 F Date Time Provider Department 02/11/24 10:45 AM CHAMP TOTH During your visit today, we recorded the following information about you: Weight Height 89.4 kg 1.626 m Champ Toth MD 02/11/2024 11:26 AM Signed [facility] [place] DEPARTMENT OF VASCULAR SURGERY OUTPATIENT VISIT DATE [...] AM Signed Carotid duplex follow up with [facility] surgery Allergies As of Date: 02/11/2024 Noted [...] Emphysematous pyelonephritis (more content not included)... Normal [facility] CNPNon 02-07-2024 CNPN Telephone (CARDMN) PAT KNOTT ([id number]) 1965 F Date Time Provider Department 02/07/24 SHARLA MCDOWELL ([facility]) CARDMN During your visit today, we recorded the following information about you: Sharla Servin 02/07/2024 3:01 PM Signed RP Patient already scheduled with Dr. Champ Moreira at [facility]. Case closed. Allergies As of Date: 02/07/2024 (Not on File) Date Reviewed: Never Reviewed Reason for Visit: Appointment [186] Problem List As Of Date: 02/07/2024 (None) Encounter Status:Closed by SHARLA SERVIN on 02/07/24 Normal [facility] CBCon 11-09-2023 ABSOLUTE BAS 0.1 10*3/uL Normal 0.0-0.2 [facility] Comment on above: Performed By: #### C MPF, ACBC, LIPA2 #### Testing performed at [address] [address] ABSOLUTE EOS 0.2 10*3/uL Normal 0.0-0.7 [facility] Comment on above: Performed By: #### C MPF, ACBC, LIPA2 #### Testing performed at [address] [address] ABSOLUTE NEUTROPHIL COUNT 5.3 10*3/uL Normal 1.4-6.5 [facility] Comment on above: Performed By: #### C MPF, ACBC, LIPA2 #### Testing performed at [address] [address] Basophils/100 WBC (Bld) 0.9 % Normal 0.0-2.0 [facility] Comment on above: Performed By: #### C MPF, ACBC, LIPA2 #### Testing performed at [address] [address] DTYPE AUTO DIFF Normal [facility] Comment on above: Performed By: #### C MPF, ACBC, LIPA2 #### Testing performed at [address] [address] Eosinophils/100 WBC (Bld) 1.9 % Normal 0.0-11.0 [facility] Comment on above: Performed By: #### C MPF, ACBC, LIPA2 #### Testing performed at [address] [address] Lymphocytes (Bld) [#/Vol] 2.6 10*3/uL Normal 1.2-3.4 [facility] Comment on above: Performed By: #### C MPF, ACBC, LIPA2 #### Testing performed at [address] [address] Lymphocytes/100 WBC (Bld) 29.1 % Normal 20.0-55.0 [facility] Comment on above: Performed By: #### C MPF, ACBC, LIPA2 #### Testing performed at [address] [address] Monocytes (Bld) [#/Vol] 0.9 10*3/uL High 0.0-0.7 [facility] Comment on above: Performed By: #### C MPF, ACBC, LIPA2 #### Testing performed at [address] [address] Monocytes/100 WBC (Bld) 10.1 % High 0.0-10.0 [facility] Comment on above: Performed By: #### C MPF, ACBC, LIPA2 #### Testing performed at [address] [address] Neutrophils/100 WBC (Bld) 58.0 % Normal 37.0-75.0 [facility] Comment on above: Performed By: #### C MPF, ACBC, LIPA2 #### Testing performed at [address] [address] Erythrocyte distribution width (RBC) [Ratio] 14.0 % Normal 11.5-14.5 [facility] Comment on above: Performed By: #### C MPF, ACBC, LIPA2 #### Testing performed at [address] [address] Hematocrit (Bld) [Volume fraction] 41.4 % Normal 36.0-48.0 [facility] Comment on above: Performed By: #### C MPF, ACBC, LIPA2 #### Testing performed at [address] [address] Hemoglobin (Bld) [Mass/Vol] 13.3 g/dL Normal 12.0-16.0 [facility] Comment on above: Performed By: #### C MPF, ACBC, LIPA2 #### Testing performed at [address] [address] MCH (RBC) [Entitic mass] 27.3 pg Normal 26.0-35.0 [facility] Comment on above: Performed By: #### C MPF, ACBC, LIPA2 #### Testing performed at [address] [address] MCHC (RBC) [Mass/Vol] 32.2 g/dL Normal 27.0-37.0 [facility] Comment on above: Performed By: #### C MPF, ACBC, LIPA2 #### Testing performed at [address] [address] MCV (RBC) [Entitic vol] 84.7 fL Normal 80.0-100.0 [facility] Comment on above: Performed By: #### C MPF, ACBC, LIPA2 #### Testing performed at [address] [address] Platelet mean volume (Bld) [Entitic vol] 6.9 fL Low 7.4-11.0 [facility] Comment on above: Performed By: #### C MPF, ACBC, LIPA2 #### Testing performed at [address] [address] Platelets (Bld) [#/Vol] 333 10*3/uL Normal 130-400 [facility] Comment on above: Performed By: #### C MPF, ACBC, LIPA2 #### Testing performed at [address] [address] RBC (Bld) [#/Vol] 4.89 10*6/uL Normal 4.0-5.4 [facility] Comment on above: Performed By: #### C MPF, ACBC, LIPA2 #### Testing performed at [address] [address] WBC (Bld) [#/Vol] 9.1 10*3/uL Normal 3.6-11.0 [facility] Comment on above: Performed By: #### C MPF, ACBC, LIPA2 #### Testing performed at [address] [address] CMP FASTINGon 11-09-2023 A:G RATIO 1.4 RATIO Normal [facility] Comment on above: Performed By: #### C MPF, ACBC, LIPA2 #### Testing performed at [address] [address] ALBUMIN 4.5 G/dl Normal 3.5-5.0 [facility] Comment on above: Performed By: #### C MPF, ACBC, LIPA2 #### Testing performed at [address] [address] ALP [Catalytic activity/Vol] 92 U/L Normal 38-126 [facility] Comment on above: Performed By: #### C MPF, ACBC, LIPA2 #### Testing performed at [address] [address] ALT [Catalytic activity/Vol] 64 U/L High <35 [facility] Comment on above: Performed By: #### C MPF, ACBC, LIPA2 #### Testing performed at [address] [address] AST [Catalytic activity/Vol] 51 U/L High 14-36 [facility] Comment on above: Performed By: #### C MPF, ACBC, LIPA2 #### Testing performed at [address] [address] Bilirubin [Mass/Vol] 0.2 mg/dL Normal 0.2-1.3 [facility] Comment on above: Performed By: #### C MPF, ACBC, LIPA2 #### Testing performed at [address] [address] Calcium [Mass/Vol] 9.8 mg/dL Normal 8.4-10.2 [facility] Comment on above: Performed By: #### C MPF, ACBC, LIPA2 #### Testing performed at [address] [address] Chloride [Moles/Vol] 103 mmol/L Normal 98-107 [facility] Comment on above: Result Comment: Chato pathak note: Triglyceride levels of 600mg/dL or higher may positively bias chloride results by approximately 2.1 mmol Performed By: #### C MPF, ACBC, LIPA2 #### Testing performed at [address] [address] CO2 [Moles/Vol] 24 mmol/L Normal 22-30 [facility] Comment on above: Performed By: #### C MPF, ACBC, LIPA2 #### Testing performed at [address] [address] Creatinine [Mass/Vol] 1.00 mg/dL Normal 0.70-1.20 [facility] Comment on above: Performed By: #### C MPF, ACBC, LIPA2 #### Testing performed at [address] [address] EST. GFR, 73 ml/min/1.73sq.m [facility] Comment on above: Performed By: #### C MPF, ACBC, LIPA2 #### Testing performed at [address] [address] EST. GFR,Non 61 ml/min/1.73sq.m [facility] Comment on above: Performed By: #### C MPF, ACBC, LIPA2 #### Testing performed at [address] [address] GFR Information Average GFR for 50-5 9 years old = 93. Normal [facility] Comment on above: Result Comment: Knurling Machine Operator bren Kidney disease, GFR = <60. Kidney failure, GFR = <15. The GFR estimate is not adjusted for extreme body surface area or acute process, nor has it been validated for women or ethnic groups other than and . Performed By: #### C MPF, ACBC, LIPA2 #### Testing performed at [address] [address] Glucose [Mass/Vol] 121 mg/dL High 70-100 [facility] Comment on above: Result Comment: NORMAL <100 mg/dL PREDIABETES 101-126 mg/dL DIABETES 126 mg/dL or higher Performed By: #### C MPF, ACBC, LIPA2 #### Testing performed at [address] [address] Potassium [Moles/Vol] 3.7 mmol/L Normal 3.5-5.1 [facility] Comment on above: Performed By: #### C MPF, ACBC, LIPA2 #### Testing performed at [facility] [address] [place] [address] Protein [Mass/Vol] 7.8 g/dL Normal 6.3-8.2 [facility] Comment on above: Performed By: #### C MPF, ACBC, LIPA2 #### Testing performed at [facility] [address] [place] [address] Sodium [Moles/Vol] 137 mmol/L Normal 137-145 [facility] Comment on above: Performed By: #### C MPF, ACBC, LIPA2 #### Testing performed at [address] [address] Urea nitrogen [Mass/Vol] 17 mg/dL Normal 7-20 [facility] Comment on above: Performed By: #### C MPF, ACBC, LIPA2 #### Testing performed at [address] [address] [address] ABDOMEN/PELVIS WITHOUT CO NTRASTon 11-09-2023 CT [...] stone. 2. Small right renal cyst. Normal [facility] LACTATE,BLOODon 11-09-2023 Lactate [Moles/Vol] 3.1 mmol/L Critically high 0.7-2.0 [facility] Comment on above: Result Comment: PLEA SE REPEAT INITIAL CRITICAL IN 3 HOURS IF ED OR INPATIENT SEPSIS PATIENT Result called to read back by: MEL 11/09/2023 @ 19:39 by MARK Performed By: #### L ACTAC #### Testing performed at [address] [address] LIPASE,SERUMon 11-09-2023 LIPASE,SERUM 198 U/L Normal 23-300 [facility] Comment on above: Performed By: #### C MPF, ACBC, LIPA2 #### Testing performed at [address] [place] [address] URINE CULTUREon 11-09-2023 Bacteria identified Cx Nom (U) SPECIMEN DESCRIPTION URINE CLEAN CATCH UA DIPSTICK LEUKOCYTE POSITIVE * Result Note: NITRITE NEGATIVE * CULTURE NO PATHOGENS ISOLATED * Result Note: Testing performed at [place] [address] * REPORT STATUS 11/12/2023 * Result Note: FINAL * Normal [facility] Comment on above: Performed By: #### A URNC #### Testing performed at [address] [place] [address] Testing performed at [address] [address] URINE MACROSCOPICon 11-09-19 24 Bilirubin Ql (U) Negative Normal NEGATIVE [facility] Comment on above: Performed By: #### U MARA, UMAC #### Testing performed at [address] [place] [address] Clarity (U) CLOUDY Abnormal CLEAR [facility] Comment on above: Performed By: #### U MARA, UMAC #### Testing performed at [address] [place] [address] Color (U) YELLOW Normal YELLOW [facility] Comment on above: Performed By: #### U MARA, UMAC #### Testing performed at [address] [address] Glucose Ql (U) Negative Normal NEGATIVE [facility] Comment on above: Performed By: #### U MARA, UMAC #### Testing performed at [address] [place] [address] pH (U) 7.0 [pH] Normal 5.0-7.0 [facility] Comment on above: Performed By: #### U MARA, UMAC #### Testing performed at [address] [place] [address] URINE HEMOGLOBIN LARGE Abnormal NEGATIVE [facility] Comment on above: Performed By: #### U MARA, UMAC #### Testing performed at [address] [place] [address] URINE KETONE Negative Normal NEGATIVE [facility] Comment on above: Performed By: #### U MARA, UMAC #### Testing performed at [address] [place] [address] URINE LEUKOTEST TRACE Abnormal NEGATIVE [facility] Comment on above: Performed By: #### U MARA, UMAC #### Testing performed at [address] [place] [address] URINE NITRATES Negative Normal NEGATIVE [facility] Comment on above: Performed By: #### U MARA, UMAC #### Testing performed at [address] [place] [address] URINE SPEC GRAVITY 1.020 Normal 1.010-1.025 [facility] Comment on above: Performed By: #### U MARA, UMAC #### Testing performed at [address] [place] [address] URINE TOTAL PROTEIN Negative Normal NEGATIVE [facility] Comment on above: Performed By: #### U MARA, UMAC #### Testing performed at [address] [place] [address] Urobilinogen Qn (U) 0.2 {Daphne'U}/dL Normal 0.2-1.0 [facility] Comment on above: Performed By: #### U MARA, UMAC #### Testing performed at [address] [place] [address] URINE MICROSCOPICon 11-09-19 24 BACTERIA 1+ Abnormal NEGATIVE [facility] Comment on above: Performed By: #### U MARA, UMAC #### Testing performed at [address] [place] [address] CASTS NONE Normal NONE [facility] Comment on above: Performed By: #### U MARA, UMAC #### Testing performed at [address] [place] [address] CRYSTAL RARE Abnormal NONE [facility] Comment on above: Result Comment: SUDHA PHOUS URATES Performed By: #### U MARA, UMAC #### Testing performed at [address] [address] Epithelial cells LM Ql (Urine sed) 1 TO 5 Normal [facility] Comment on above: Performed By: #### U MARA, UMAC #### Testing performed at [address] [address] Mucus Ql (Urine sed) TRACE Abnormal NEGATIVE [facility] Comment on above: Performed By: #### U MARA, UMAC #### Testing performed at [address] [address] URINE COMMENT REFLEX CULTURE PER ESTABLISHED CRITERIA. Normal [facility] Comment on above: Performed By: #### U MARA, UMAC #### [place] [address] URINE RBC'S 20 TO 30 Normal NEGATIVE [facility] Comment on above: Performed By: #### U MARA, UMAC #### Testing performed at [address] [address] URINE WBC'S 1 TO 5 Normal NEGATIVE [facility] Comment on above: Performed By: #### U MARA, UMAC #### Testing performed at [address] [address] XR CHEST 2 Von 11-30-2022 XR CHEST 2 V EXAM: XR CHEST 2 V HISTORY: . Persistent cough . COMPARISON: None. TECHNIQUE: Frontal and lateral chest FINDINGS: Heart and vascularity are unremarkable. Lungs are expanded and free of focal infiltrates. No acute bony abnormality is appreciated. IMPRESSION: No acute heart or lung disease identified. Electronically authenticated by: BENTLEY MONDRAGON Date: 2022-11-30 11:45 Normal [facility] MG MAMM SCREEN 3D JOSE CADon 10-29-2022 MG MAMM SCREEN 3D JOSE CAD Patient: PAT KNOTT Exam Date: 10/29/2022 : 1965 Gender:F Ordering : DR DELVIS LR . Admission #: [id number] Family : Order #: [id number] CLICK HERE TO VIEW EXAM RADIOLOGY REPORT [...] skin cancer at age 70. LOCATION: [facility] BREAST COMPOSITION: Scattered areas fibroglandular density. [...] MD on 10/30/2022 at 11:13 Normal [facility] CBC AUTO DIFFon 06-21-2022 BASO # 0.1 103/ul Normal 0.0-0.1 [facility] Comment on above: Performed By: #### H FPFCBC #### [facility] [address] [place] [address] Dr. Sonya Strickland Basophils/100 WBC (Bld) 0.7 % Normal 0.2-2.0 [facility] Comment on above: Performed By: #### H FPFCBC #### [facility] [address] [place] [address] Dr. Sonya Strickland EO # 0.1 103/ul Normal 0.0-0.7 [facility] Comment on above: Performed By: #### H FPFCBC #### [facility] [address] [place] [address] Dr. Sonya Strickland Eosinophils/100 WBC (Bld) 1.9 % Normal 0.9-7.0 [facility] Comment on above: Performed By: #### H FPFCBC #### [facility] [address] [place] [address] Dr. Sonya Strickland Erythrocyte distribution width (RBC) [Ratio] 13.1 % Normal 11.0-15.0 [facility] Comment on above: Performed By: #### H FPFCBC #### [facility] [address] [place] [address] Dr. Sonya Strickland Hematocrit (Bld) [Volume fraction] 41.6 % Normal 36.0-48.0 [facility] Comment on above: Performed By: #### H FPFCBC #### [facility] [address] [place] [address] Dr. Sonya Strickland Hemoglobin (Bld) [Mass/Vol] 13.2 g/dL Normal 12.0-16.0 [facility] Comment on above: Performed By: #### H FPFCBC #### [facility] [address] [place] [address] Dr. Sonya Strickland IG # 0.01 10e3/ul Normal 0.00-0.03 [facility] Comment on above: Performed By: #### H FPFCBC #### [facility] [address] [place] [address] Dr. Sonya Strickland IG % 0.1 % Normal 0.0-0.5 [facility] Comment on above: Performed By: #### H FPFCBC #### [facility] [address] [place] [address] Dr. Sonya Strickland LYMPH # 2.2 103/ul Normal 1.2-3.8 [facility] Comment on above: Performed By: #### H FPFCBC #### [facility] [address] [place] [address] Dr. Sonya Strickland Lymphocytes/100 WBC (Bld) 31.3 % Normal 20.5-60.0 [facility] Comment on above: Performed By: #### H FPFCBC #### [facility] [address] [place] [address] Dr. Sonya Strickland MCH (RBC) [Entitic mass] 28.0 pg Normal 26.7-34.0 [facility] Comment on above: Performed By: #### H FPFCBC #### [facility] [address] [place] [address] Dr. Sonya Strickland MCHC (RBC) [Mass/Vol] 31.7 g/dL Normal 29.9-35.2 [facility] Comment on above: Performed By: #### H FPFCBC #### [facility] [address] [address] [address] Sonya Strickland MCV (RBC) [Entitic vol] 88.1 fL Normal 81.0-99.0 [facility] Comment on above: Performed By: #### H FPFCBC #### [facility] [address] [address] [address] Sonya Strickland MONO # 0.7 103/ul Normal 0.3-0.8 [facility] Comment on above: Performed By: #### H FPFCBC #### [facility] [address] [place] [address] Dr. Sonya Strickland Monocytes/100 WBC (Bld) 9.9 % Normal 1.7-12.0 [facility] Comment on above: Performed By: #### H FPFCBC #### [facility] [address] [place] [address] Dr. Sonya Strickland NEUT # 3.9 103/ul Normal 1.4-6.5 [facility] Comment on above: Performed By: #### H FPFCBC #### [facility] [address] [place] [address] Dr. Sonya Strickland Neutrophils/100 WBC (Bld) 56.1 % Normal 43.0-75.0 [facility] Comment on above: Performed By: #### H FPFCBC #### [facility] [address] [address] [address] Sonya Strickland Platelet mean volume (Bld) [Entitic vol] 9.7 fL Normal 9.5-13.5 [facility] Comment on above: Performed By: #### H FPFCBC #### [facility] [address] [place] [address] Dr. Sonya Strickland PLT 313 103/ul Normal 150-450 [facility] Comment on above: Performed By: #### H FPFCBC #### [facility] [address] [place] [address] Dr. Sonya Strickland RBC 4.72 106/ul Normal 4.20-5.40 [facility] Comment on above: Performed By: #### H FPFCBC #### [facility] [address] [place] [address] Dr. Sonya Strickland WBC 7.0 103/ul Normal 4.0-11.0 [facility] Comment on above: Performed By: #### H FPFCBC #### [facility] [address] [place] [address] Dr. Sonya Strickland [facility] PROFILEon 022 Albumin [Mass/Vol] 3.8 g/dL Normal 3.4-5.0 [facility] Comment on above: Performed By: #### H FPF #### [facility] [address] [place] [address] Dr. Sonya Strickland Albumin/Globulin [Mass ratio] 1.0 {ratio} Normal [facility] Comment on above: Performed By: #### H FPF #### [facility] [address] [place] [address] Dr. Sonya Strickland ALP [Catalytic activity/Vol] 87 U/L Normal 46-116 [facility] Comment on above: Performed By: #### H FPF #### [facility] [address] [place] [address] Dr. Sonya Strickland ALT [Catalytic activity/Vol] 25 U/L Normal 14-59 [facility] Comment on above: Performed By: #### H FPF #### [facility] [address] [place] [address] Dr. Sonya Strickland AST [Catalytic activity/Vol] 14 U/L Critically low 15-37 [facility] Comment on above: Performed By: #### H FPF #### [facility] [address] [place] [address] Dr. Sonya Strickland Bilirubin [Mass/Vol] 0.2 mg/dL Normal 0.2-1.0 [facility] Comment on above: Performed By: #### H FPF #### [facility] [address] [address] [address] Sonya Strickland Calcium [Mass/Vol] 8.8 mg/dL Normal 8.5-10.1 [facility] Comment on above: Performed By: #### H FPF #### [facility] [address] [address] [address] Sonya Strickland Chloride [Moles/Vol] 104 mmol/L Normal 98-107 [facility] Comment on above: Performed By: #### H FPF #### [facility] [address] [address] [address] Sonya Strickland CHOL-HDL RATIO NORM SEE BELOW Normal [facility] Comment on above: Result Comment: 3.3 - 4.4 LOW RISK 4.4 - 7.1 AVERAGE RISK 7.1 - 11.0 MODERATE RISK >11.0 HIGH RISK Performed By: #### H FPF #### [facility] [address] [place] [address] Dr. Sonya Strickland Cholesterol [Mass/Vol] 207 mg/dL Critically high <=200 [facility] Comment on above: Performed By: #### H FPF #### [facility] [address] [address] [address] Sonya Strickland Cholesterol in HDL [Mass/Vol] 63 mg/dL Critically high 40-60 [facility] Comment on above: Performed By: #### H FPF #### [facility] [address] [address] [address] Sonya Strickland Cholesterol in LDL [Mass/Vol] 121.6 mg/dL Normal [facility] Comment on above: Performed By: #### H FPF #### [facility] [address] [address] [address] Sonya Strickland Cholesterol.total/C holesterol in HDL [Mass ratio] 3.3 {ratio} Normal [facility] Comment on above: Performed By: #### H FPF #### [facility] [address] [address] [address] Sonya Strickland CO2 [Moles/Vol] 26.0 mmol/L Normal 21.0-32.0 [facility] Comment on above: Performed By: #### H FPF #### [facility] [address] [address] [address] Sonya Strickland Creatinine [Mass/Vol] 0.85 mg/dL Normal 0.55-1.02 [facility] Comment on above: Performed By: #### H FPF #### [facility] [address] [address] [address] Sonya Strickland Globulin (S) [Mass/Vol] 3.7 g/dL Normal [facility] Comment on above: Performed By: #### H FPF #### [facility] [address] [address] [address] Sonya Strickland Glucose [Mass/Vol] 87 mg/dL Normal 74-106 [facility] Comment on above: Performed By: #### H FPF #### [facility] [address] [place] [address] Dr. Sonya Strickland HDL NORMAL > or = 60 mg/dl - LO W CARDIOVASCULAR RISK <40 mg/dl - HIGH CARDIOVASCULAR RISK Normal [facility] Comment on above: Performed By: #### H FPF #### [facility] [address] [address] [address] Sonya Strickland LDL CALC NORMAL SEE BELOW Normal [facility] Comment on above: Result Comment: <100 mg/dl OPTIMAL 100 - 129 mg/dl NEAR OR ABOVE OPTIMAL 130 - 159 mg/dl BORDERLINE HIGH 160 - 189 mg/dl HIGH >190 mg/dl VERY HIGH Performed By: #### H FPF #### [facility] [address] [address] [address] Sonya Strickland Potassium [Moles/Vol] 4.3 mmol/L Normal 3.5-5.1 [facility] Comment on above: Performed By: #### H FPF #### [facility] [address] [address] [address] Sonya Strickland Protein [Mass/Vol] 7.5 g/dL Normal 6.4-8.2 [facility] Comment on above: Performed By: #### H FPF #### [facility] [address] [address] [address] Sonya Strickland Sodium [Moles/Vol] 140 mmol/L Normal 136-145 [facility] Comment on above: Performed By: #### H FPF #### [facility] [address] [address] [address] Sonya Strickland Triglyceride [Mass/Vol] 112 mg/dL Normal <=150 [facility] Comment on above: Performed By: #### H FPF #### [facility] [address] [address] [address] Sonya Strickland TSH 1.111 uIU/mL Normal 0.358-3.740 [facility] Comment on above: Performed By: #### H FPF #### [facility] [address] [address] [address] Sonya Strickland Urea nitrogen [Mass/Vol] 21.0 mg/dL Critically high 7.0-18.0 [facility] Comment on above: Performed By: #### H FPF #### [facility] [address] [address] [address] Sonya Strickland Urea nitrogen/Creatinine [Mass ratio] 24.7 mg/mg Normal [facility] Comment on above: Performed By: #### H FPF #### [facility] [address] [address] [address] Sonya Strickland VLDL CALC 22.4 mg/dL Normal [facility] Comment on above: Performed By: #### H FPF #### [facility] [address] [place] [address] Dr. Sonya Strickland Vital Signs Date Time Vital Sign Value Performing Clinician Facility 05-06-2024 09: Body height 162.56 cm [facility] 05-06-2024 09: Body mass index (BMI) [Ratio] 34.7 kg/m2 [facility] 05-06-2024 09: Body weight 91.85 kg [facility] 05-06-2024 09:040 Diastolic blood pressure 90 mm[Hg] [facility] 05-06-2024 09: Heart rate 80 /min [facility] 05-06-2024 09:23-0400 Respiratory rate 12 /min [facility] 05-06-2024 09:23-0400 Systolic blood pressure 129 mm[Hg] [facility] 03-31-2024 13:49-0400 Body height 162.6 cm Champ Toth MD Work Phone: [facility] 03-31-2024 13:49-0400 Body mass index (BMI) [Ratio] 34.33 kg/m2 Champ Toth MD Work Phone: [facility] 03-31-2024 13:49-0400 Body weight 90.72 kg Champ Toth MD Work Phone: [facility] 03-31-2024 13:49-0400 Diastolic blood pressure 97 mm[Hg] Champ Toth MD Work Phone: [facility] 03-31-2024 13:49-0400 Systolic blood pressure 149 mm[Hg] Champ Toth MD Work Phone: [facility] 02-11-2024 11:02-0400 Body height 162.6 cm Champ Toth MD Work Phone: [facility] 02-11-2024 11:02-0400 Body weight 89.36 kg Champ Toth MD Work Phone: [facility] 05-17-2023 11:30-0400 Body height 162.56 cm Wisam Ball Other [facility] Other 05-17-2023 11:30-0400 Body mass index (BMI) [Ratio] 28.9 kg/m2 Wisam Ball Other [facility] Other 05-17-2023 11:30-0400 Body weight 76.39 kg Wisam Ball Other [facility] Other 05-17-2023 11:30-0400 Diastolic blood pressure 84 mm[Hg] Wisam Ball Other [facility] Other 05-17-2023 11:30-0400 Respiratory rate 12 /min Wisam Mix Other [facility] Other 05-17-2023 11:30-0400 Systolic blood pressure 130 mm[Hg] Wisam Mix Other [facility] Other Encounters Encounter Date Encounter Type Care Provider Facility Start: 09-21-2024 End: 09-21-2024 Telephone encounter Tyler Levine PA-C Work Phone: [facility] [place] Comment on above: Type Mapper - O keron ([facility]) Appointment (Schedul ing with a hand specialist. ) Start: 09-08-2024 End: 09-09-2024 Orders Only Tyler EASON-C Work Phone: Orthopaedics Comment on above: Regarding ultrasound Ulnar neuritis, righ t (Primary Dx) Start: 05-21-2024 End: 05-21-2024 ambulatory TYLER LEVINE Facility:[facility] Start: 05-21-2024 End: 05-21-2024 Patient encounter procedure Tyler Levine PA-C Work Phone: Orthopaedics Comment on above: Ulnar neuritis, righ t (Primary Dx) Start: 05-19-2024 End: 05-19-2024 ambulatory TYLER LEVINE Neurology Comment on above: EMG Start: 05-19-2024 End: 05-19-2024 Patient encounter procedure Emg 2 Neur [facility] (Max Weight:400) Work Phone: Neurology Start: 05-06-2024 End: 05-06-2024 ambulatory [facility] Work Phone: Start: 05-06-2024 End: 05-06-2024 Patient encounter procedure [facility] Work Phone: Start: 04-07-2024 ambulatory JINA Gunn ty:[place] Deleon Start: 04-01-2024 E-mail encounter fro m caregiver Tyler Levine PA-C Work Phone: Orthopaedics Start: 04-01-2024 Patient encounter procedure Tyler Levine PA-C Work Phone: Orthopaedics Comment on above: Regarding EMG Start: 03-31-2024 ambulatory CHAMP TOTH Facility:[facility] Start: 03-31-2024 End: 03-31-2024 Subsequent hospital visit by physician [facility] Work Phone: [facility] General Comment on above: 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] Start: 03-31-2024 End: 03-31-2024 Patient encounter procedure Champ Toth MD Work Phone: Vascular Surgery Comment on above: Peripheral arterial disease (HCC) (Primary Dx) 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); Ulnar nerve compression, right Start: 03-31-2024 End: 03-31-2024 [facility] Start: 02-11-2024 End: 02-11-2024 Orders Only Champ Toth MD Work Phone: Vascular Surgery Comment on above: Numbness (Primary Dx ) Peripheral arterial disease (HCC) (Primary Dx) Start: 02-07-2024 Telephone encounter Sharla (Pss) Mi tra Cardiology Comment on above: Appointment Start: 12-12-2023 ambulatory JINA FOREMAN Facility :[facility] [place] Start: 11-09-2023 End: 11-09-2023 Emergency department patient visit DELVIS LR [facility] Start: 05-17-2023 End: 05-17-2023 ambulatory Wisam Mix Other [facility] Other Start: 05-17-2023 Office outpatient visit 10 minutes [facility] Start: 11-30-2022 End: 12-01-[address] DELVIS LR Facility:[facility] Start: 10-29-2022 End: 10-30-[address] DELVIS LR Facility:[facility] Start: 06-21-2022 End: 06-22-[address] DELVIS HOY Facility:[facility] Procedures Date Procedure Procedure Detail Performing Clinician Start: 05-19-2024 Nerve conduction мария dies 5-6 studies Tyler Levine PA-C Work Phone: Start: 03-31-2024 Radex hand minimum 3 views Champ Toth MD Work Phone: Plan of Treatment Date Care Activity Detail Author Start: 11-09-2026 Diabetes Screening Diabetes Screenin g [facility] Start: 07-05-2024 Covid-19 Vaccine ( season) Covid-19 Vaccine ( season) [facility] Start: 07-05-2024 Influenza vaccination C [facility] Start: 05-21-2024 End: 05-21-2024 Patient encounter procedure 05/21/2024 2:45 PM EDT Office Visit Orthopaedics [address] [place] [address] Tyler Levine PA-C [address] [place] [address] 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] (EMG NORMAL) Orthopaedics Comment on above: 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] (EMG NORMAL) Start: 04-15-2024 End: 04-15-2024 Patient encounter procedure 04/15/2024 1:00 PM EDT Office Visit Orthopaedics [address] [place] [id number] Tyler Levine PA-C [address] [place] [address] 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] (EMG order placed) Orthopaedics Comment on above: 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] (EMG order placed) Start: 11-04-2023 Behavioral Health Screening Behavioral Health Screening [facility] Start: 07-05-2023 Covid-19 Vaccine ( season) Covid-19 Vaccine ( season) [facility] Start: 2015 Shingrix Vaccine (1 of 2) Shingrix Vaccine (1 of 2) [facility] Start: 2010 Diabetes Screening Diabetes Screenin g [facility] Start: 2010 Lipid panel Lipid Screening [facility] Start: 2010 Screening for malign ant neoplasm of colon [facility] Start: 2005 Screening for malign ant neoplasm of breast Mammogram Screening [facility] Start: 1995 Screening for malign ant neoplasm of cervix HPV Testing [facility] Start: 1986 Screening for malign ant neoplasm of cervix [facility] Start: 1984 Hepatitis B Vaccine (1 of 3 - 19+ 3-dose series) Hepatitis B Vaccine (1 of 3 - 19+ 3-dose series) [facility] Start: 1984 Urine microalbumin profile DTaP,Tdap,Td Vaccine (1 - Tdap) [facility] Start: 1983 Annual PCP Team [employer] bren Disease Visit Annual PCP Team Chronic Disease Visit [facility] Start: 1983 Anxiety Screening Anxiety Screening [facility] Start: 1983 Depression Screening Depression Scre ening [facility] Start: 1983 Hepatitis C screening Hepatitis C Sc reening [facility] Start: 1983 HIV screening HIV Screening [facility] Unlisted procedure hands/fingers HAND/FINGER SURGERY UNLISTED Procedures Routine Numbness Ordered: 02/11/2024 [facility] Work Phone: Comment on above: Ordered: 02/11/2024 End: 02-10-2025 US Carotid arteries - bilateral US CAROTID ARTERIES [facility] V[facility] Lab Routine Numbness 1 Occurrences starting 02/11/2024 until 02/10/2025 [facility] Work Phone: Comment on above: 1 Occurrences starti ng 02/11/2024 until 02/10/2025 End: 10-08-2025 US Upper extremity - right US ELBOW RIGHT Radiology Routine Ulnar neuritis, right 1 Occurrences starting 09/09/2024 until 10/08/2025 [facility] Work Phone: Comment on above: 1 Occurrences starti ng 09/09/2024 until 10/08/2025 [facility] Immunizations Immunization Date Immunization Notes Care Provider Sameer paula 07-25-2023 influenza virus vacc ine, unspecified formulation Emg Weight:400) Work Phone: [facility] Payers Date Payer Category Payer Unknown [employer]MO [employer] PPO [id number] 2023-Present [phone] [address] [place] [address] PPO [id number] 1965 Unknown [id number] 1965 Unknown [id number] 1965 Unknown [id number] 1959 Self-pay 1959 Unknown [id number] Unknown [id number] Unknown [id number] Unknown MMO [id number] Unknown [facility] [id number] Social History Date Type Detail Facility Start: 02-11-2024 End: 05-14-2024 Sex Assigned At [facility] Start: 1965 Sex Assigned At Female [facility] Start: 02-06-2024 Gender identity Identifies as female gender (finding) [facility] Start: 02-06-2024 Sexual orientation Heterosexual (fin rosemarie) [facility] Start: 02-11-2024 End: 05-14-2024 History of Social function [facility] National Score (1-10 0), lower number is lower risk 60 [facility] Goals Date Patient Goal Desired Activity /State Personal health goal Clinical Notes 05-01-2018 to 09-21-2024 Telephone Encounter - Miller Araya OCCA - 09/21/2024 4:15 PM ESTTelephone Encounter - Miller Araya OCCA - 09/21/2024 4:15 PM ESTTelephone Encounter - Jocelyn Schaeffer - 09/21/2024 12:05 PM EST Note Date & Type Note Facility 09-21-2024 Telephone encounter Note I called and left messages in regards to receiving the patients ultrasound. It was normal and the provider wants the patient to get set up with a hand specialist due to the ongoing pain. She can schedule with Pat Ashraf PA-C or Flora Valente PA-C [facility] 09-21-2024 Miscellaneous Notes I called and left messages in regards to receiving the patients ultrasound. It was normal and the provider wants the patient to get set up with a hand specialist due to the ongoing pain. She can schedule with Pat Ashraf PA-C or Flora Valente PA-C documented in this encounter [facility] 09-21-2024 Telephone encounter Note Images from the original note were not included. [facility] 09-21-2024 Miscellaneous Notes Images from the original note were not included. documented in this encounter [facility] 09-08-2024 Telephone encounter Note Called patient and [...] may need to push the appointment out. [facility] 09-08-2024 Miscellaneous Notes Called patient and let [...] the OT. Thanks! documented in this encounter [facility] 09-08-2024 Telephone encounter Note ----- Message from [...] does not improve from the OT. Thanks! [facility] 05-21-2024 Note HNO ID: [id number] Author: TYLER LEVINE PA-C Service: ? Author Type: Physician Manual Control Auger Press Operator Type: Progress Notes Filed: 05/21/2024 14:52 Note [...] ECRB: Negative ROM: full ROM STRENGTH: 5/5 physiologist CREPITUS: negative NEUROLOGICAL EXAM: Sensory: sensation intact [...] instruct ulnar nerve glides and work on physiologist strength and mobility. Follow-up should symptoms persist. Tyler Levine PA-C This note is created with the assistance of a speech-recognition program. [facility] 05-21-2024 History of Presen t illness [...] ECRB: Negative ROM: full ROM STRENGTH: 5/5 physiologist CREPITUS: negative NEUROLOGICAL EXAM: Sensory: sensation intact [...] instruct ulnar nerve glides and work on physiologist strength and mobility. Follow-up should symptoms persist. Tyler Levine PA-C This note is created with the assistance of a speech-recognition program. documented in this encounter [facility] 05-19-2024 Note HNO ID: [id number] Author: VAN GARCIA MD Service: ? Author [...] EMG Tech Van Garcia MD (sign out) [facility] 05-19-2024 History of Presen t illness [...] Visit completed when applicable. Emilia Ortiz EMG Nery Garcia MD (sign out) documented in this encounter [facility] 04-01-2024 Telephone encounter Note Patient was working and didn't have anything to write with so they wanted a mychart message instead. [facility] 04-01-2024 Miscellaneous Notes Patient was working and didn't have anything to write with so they wanted a mychart message instead. documented in this encounter [facility] 03-31-2024 Note HNO ID: [id number] Author: DEBI OCAMPO RT(Yonatan) Service: Radiology Author [...] PATIENT PRESENTS WITH AN IMPLANTABLE OR ATTACHED GENERAL FOREMAN: No RADIOLOGY DEPARTMENT: General X-ray: Exam(s) Completed: Upper Extremity X-Ray(s): Hand, right PERIPHERAL IV DATA: Not applicable SIGNED BY: RT Rosalie(Yonatan) March 31, 2024 2:44 PM [facility] 03-31-2024 History of Presen t [...] PATIENT PRESENTS WITH AN IMPLANTABLE OR ATTACHED GENERAL FOREMAN: No RADIOLOGY DEPARTMENT: General X-ray: Exam(s) Completed: Upper Extremity X-Ray(s): Hand, right PERIPHERAL IV DATA: Not applicable SIGNED BY: RT Rosalie(Yonatan) March 31, 2024 2:44 PM documented in this encounter [facility] 03-31-2024 Instructions Nanette Caruso RN - 03/31/2024 2:04 PM EDT Consult hand surgery for ulnar neuropathy documented in this encounter [facility] 03-31-2024 Note HNO ID: [id number] Author: CHAMP TOTH MD Service: ? Author Type: Physician Type: Progress Notes Filed: 03/31/2024 14:07 Note Text: [facility] [place] [facility]PARTMENT OF VASCULAR SURGERY OUTPATIENT VISIT DATE [...] DATE: March 31, 2024 TIME: 1:55 PM [facility] 03-31-2024 History of Presen t illness Narrative Images from the original note were not included. [facility] [place] [facility]PARTMENT OF VASCULAR SURGERY OUTPATIENT VISIT DATE [...] TIME: 1:55 PM documented in this encounter [facility] 02-11-2024 Instructions Nanette Caruso RN - 02/11/2024 11:22 AM EDT Carotid duplex follow up with lida Consult hand surgery documented in this encounter [facility] 02-11-2024 Note HNO ID: [id number] Author: CHAMP TOTH MD Service: ? Author Type: Physician Type: Progress Notes Filed: 02/11/2024 11:26 Note Text: [facility] [place] DEPARTMENT OF VASCULAR SURGERY OUTPATIENT VISIT DATE [...] DATE: February 11, 2024 TIME: 11:05 AM [facility] 02-11-2024 History of Presen t illness Narrative Images from the original note were not included. [facility] [place] DEPARTMENT OF VASCULAR SURGERY OUTPATIENT VISIT DATE [...] TIME: 11:05 AM documented in this encounter [facility] 02-07-2024 Miscellaneous Notes RP Patient already scheduled with Dr. Champ Moreira at [facility]. Case closed. 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[employer] Other 06-28-2018 History general Narrative - Reported* Type Description Date Medical History Autoimmune thyroiditis Surgical History Appendectomy, JASVIR 05/01/2018 Hospitalization History see surgical history [employer] Other Evaluation note* Diagnosis Numbness- Primary Disturbance of skin sensation [facility] Diagnosis Peripheral arterial disease (HCC)- Primary Peripheral vascular disease, unspecified documented in this encounter [facility] note* Diagnosis Peripheral arterial disease (HCC)- Primary Peripheral vascular disease, unspecified [facility] Diagnosis 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 Lesion of ulnar nerve Ulnar nerve compression, right Ulnar neuropathy of right upper extremity Lesion of ulnar nerve Ulnar nerve compression, right [facility] Diagnosis Ulnar neuropathy of right upper extremity Lesion of ulnar nerve Ulnar nerve compression, right [facility] Diagnosis Onset Date Resolution Status Hypothyroid acute Pre-employment examination a [employer] Work Phone: Evaluation note* Diagnosis Numbness- Primary Disturbance of skin sensation Tingling Disturbance of skin sensation [facility] Diagnosis Ulnar neuritis, right- Primary [facility]* Diagnosis Ulnar neuritis, right- Primary [facility] Outpatient Procedure (Routine) - Authorized Specialty Diagnoses / Procedures Referred By Nathan t Referred To Contact [facility] Diagnoses Numbness Procedures US CAROTID ARTERIES JOSE VAS LAB DUPLEX SCAN EXTRACRANIAL [place] [address] [place] [address] [facility] [place] [address] [place] [address] Referral ID Status Reason Start Date Expiration Date Visits Requested Visits Authorized [id number] Authorized Auto-Generat ed Referral 02/11/2024 02/10/2025 1 1 [facility] for referral (narrative)* Diagnostic Procedure Only (Routine) - Closed Specialty Diagnoses / Procedures Referred By Nathan lomax Referred To Contact XR IMAGING Diagnoses 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, right Procedures XR HAND GENERAL 3V PA/LAT/OBL RIGHT RADEX HAND MINIMUM [address] [place] [address] [place] [address] [place] [address] Referral ID Status Reason Start Date Expiration Date V isits Requested Visits Authorized [id number] Closed Auto-Generate d Referral 03/31/2024 04/30/2025 1 1 [facility] for referral (narrative)* Diagnostic Procedure Only (Routine) - New Request Specialty Diagnoses / Procedures Referred By Nathan lomax Referred To Contact US IMAGING Diagnoses Ulnar neuritis, right Procedures US ELBOW RIGHT US LMTD JOINT/OTH NONVASC XTR STRUX R-T W/IMG Tyler Levine PA-C [address] [place] [address] [place] [address] Referral ID Status Reason Start Date Expiration Date Visits Requested Visits Authorized [id number] New Request Auto-Generat ed Referral 09/09/2024 10/08/2025 1 1 [facility] for visit Narrative* Diagnostic Procedure Only (Routine) - Closed Specialty Diagnoses / Procedures Referred By Nathan t Referred To Contact XR IMAGING Diagnoses 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, right Procedures XR HAND GENERAL 3V PA/LAT/OBL RIGHT RADEX HAND MINIMUM [address] [place] [address] [place] [address] [place] [address] Referral ID Status Reason Start Date Expiration Date V isits Requested Visits Authorized [id number] Closed Auto-Generate d Referral 03/31/2024 04/30/2025 1 1 [facility] Summary Purpose Family History No Family History Records Found Relationship Condition Age at Onset Recorded Date/T marcy father Arthritis Unknown Advance Directives No Advanced Directives Records Found Advance Directive Response Recorded Date/ Time Advance Directives No May 06 8:58am Reason for Referral Specialty Diagnoses / Procedures Referred By Contac t Referred To Contact [facility] Diagnoses Ulnar neuritis, right Procedures CONSULT TO DEFENSE ANALYST OCCUPATIONAL THERAPY [facility] 60 MINS Tyler Levine PA-C [address] [place] [address] [facility] [place] [address] [place] [address] Referral ID Status Reason Start Date Expiration Date Visits Requested Visits Authorized [id number] Pending Review Auto-Generat ed Referral 05/21/2024 05/21/2025 1 1 Specialty Diagnoses / Procedures Referred By Contac t Referred To Contact Orthopedics Diagnoses Ulnar neuropathy of right upper extremity Procedures CONSULT PANEL TO ORTHOPAEDICS OFFICE/OUTPATIENT [facility] MDM [address] [place] [address] [place] [address] Referral ID Status Reason Start Date Expiration Date Visits Requested Visits Authorized [id number] Authorized PCP Requested Referral 03/31/2024 03/31/2025 1 1 Specialty Diagnoses / Procedures Referred By Contac t Referred To Contact XR IMAGING Diagnoses 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, right Procedures XR HAND GENERAL 3V PA/LAT/OBL RIGHT RADEX HAND MINIMUM [address] [place] [address] [place] [address] Xr Imaging [facility] Referral ID Status Reason Start Date Expiration Date V isits Requested Visits Authorized [id number] Closed Auto-Generate d Referral 03/31/2024 04/30/2025 1 1 Chief Complaint and Reason for Visit 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 Reason for Visit Hypothyroid Pre-employment examination Additional Source Comments INFORMATION SOURCE (unrecogn ized section and content) DATE CREATED AUTHOR 12/04/2022 [facility] DATE CREATED AUTHOR AUTHOR'S ORGANIZ ATION 11/13/2023 [facility] DATE CREATED AUTHOR AUTHOR'S ORGANIZ ATION 12/13/2023 Bryce Hussein [facility] DATE CREATED AUTHOR AUTHOR'S ORGANIZ ATION 04/01/2024 [facility] DATE CREATED AUTHOR AUTHOR'S ORGANIZ ATION 09/23/2024 [facility] REASON FOR VISIT (unrecogniz ed section and content) Reason Comments Appointment Reason Comments New Patient Reason Comments Follow Up Reason Onset Date Comments [facility] 05/19/2024 Specialty Diagnoses / Procedures Referred By Contact Referred To Contact [facility] Diagnoses Hand numbness Procedures [facility](NEURO/NI) NERVE CONDUCTION STUDIES 9-10 STUDIES Tyler Levine, [place]LO [address] [place] [address] [facility] [place] [address] [place] [address] Referral ID Status Reason Start Date Expiration Date V isits Requested Visits Authorized [id number] Closed Auto-Generate d Referral 03/31/2024 03/31/2025 1 1 Specialty Diagnoses / Procedures Referred By Contac t Referred To Contact Orthopedics Diagnoses Ulnar neuropathy of right upper extremity Procedures CONSULT PANEL TO ORTHOPAEDICS OFFICE/OUTPATIENT [facility] [address] [place] [address] [place] [address] Referral ID Status Reason Start Date Expiration Date V isits Requested Visits Authorized [id number] Closed PCP Requested Referral 03/31/2024 03/31/2025 1 1 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 Source Comments (unrecognize d section and content) In the event this informatio n is protected by the Federal Confidentiality of Alcohol and Drug Abuse Patient Records regulations: The Federal rules restrict any use of the information to criminally investigate or prosecute any alcohol or drug abuse patient.[facility] the event this information is protected by the Federal Confidentiality of Alcohol and Drug Abuse Patient Records regulations: The Federal rules restrict any use of the information to criminally investigate or prosecute any alcohol or drug abuse patient.[facility] the event this information is protected by the Federal Confidentiality of Alcohol and Drug Abuse Patient Records regulations: The Federal rules restrict any use of the information to criminally investigate or prosecute any alcohol or drug abuse patient.[facility] the event this information is protected by the Federal Confidentiality of Alcohol and Drug Abuse Patient Records regulations: The Federal rules restrict any use of the information to criminally investigate or prosecute any alcohol or drug abuse patient.[facility] the event this information is protected by the Federal Confidentiality of Alcohol and Drug Abuse Patient Records regulations: The Federal rules restrict any use of the information to criminally investigate or prosecute any alcohol or drug abuse patient.[facility] the event this information is protected by the Federal Confidentiality of Alcohol and Drug Abuse Patient Records regulations: The Federal rules restrict any use of the information to criminally investigate or prosecute any alcohol or drug abuse patient.[facility] the event this information is protected by the Federal Confidentiality of Alcohol and Drug Abuse Patient Records regulations: The Federal rules restrict any use of the information to criminally investigate or prosecute any alcohol or drug abuse patient.[facility] the event this information is protected by the Federal Confidentiality of Alcohol and Drug Abuse Patient Records regulations: The Federal rules restrict any use of the information to criminally investigate or prosecute any alcohol or drug abuse patient.[facility] the event this information is protected by the Federal Confidentiality of Alcohol and Drug Abuse Patient Records regulations: The Federal rules restrict any use of the information to criminally investigate or prosecute any alcohol or drug abuse patient.[facility] the event this information is protected by the Federal Confidentiality of Alcohol and Drug Abuse Patient Records regulations: The Federal rules restrict any use of the information to criminally investigate or prosecute any alcohol or drug abuse patient.[facility] the event this information is protected by the Federal Confidentiality of Alcohol and Drug Abuse Patient Records regulations: The Federal rules restrict any use of the information to criminally investigate or prosecute any alcohol or drug abuse patient.[facility] the event this information is protected by the Federal Confidentiality of Alcohol and Drug Abuse Patient Records regulations: The Federal rules restrict any use of the information to criminally investigate or prosecute any alcohol or drug abuse patient.[facility] the event this information is protected by the Federal Confidentiality of Alcohol and Drug Abuse Patient Records regulations: The Federal rules restrict any use of the information to criminally investigate or prosecute any alcohol or drug abuse patient.[facility] the event this information is protected by the Federal Confidentiality of Alcohol and Drug Abuse Patient Records regulations: The Federal rules restrict any use of the information to criminally investigate or prosecute any alcohol or drug abuse patient.[facility] the event this information is protected by the Federal Confidentiality of Alcohol and Drug Abuse Patient Records regulations: The Federal rules restrict any use of the information to criminally investigate or prosecute any alcohol or drug abuse patient.[facility] Care Teams (unrecognized sec tion and content) Furnace Converter Relationship Specialty Start Date End Date Delvis Lr MD [address] [place] [address] PCP - General Family Medicine 02/07/24 Delvis Lr MD [address] [place] [address] Referring Family Medicine 01/27/24 Furnace Converter Relationship Specialty Start Date End Date Delvis Lr MD [address] [place] [place] [place] [address] PCP - General Family Medicine 02/07/24 Delvis Lr MD [address] [place] [place] [address] Referring Family Medicine 01/27/24 Furnace Converter Relationship Specialty Start Date End Date Delvis Lr MD [address] [place] [place] [address] PCP - General Family Medicine 02/07/24 Delvis Lr MD [address] [place] [place] [address] Referring Family Medicine 01/27/24 Furnace Converter Relationship Specialty Start Date End Date Delvis Lr MD [address] [place] [place] [address] PCP - General Family Medicine 02/07/24 Delvis Lr MD [address] [place] [place] [address] Referring Family Medicine 01/27/24 Furnace Converter Relationship Specialty Start Date End Date Delvis Lr MD [address] [place] [address] PCP - General Family Medicine 02/07/24 Delvis Lr MD [address] [place] [place] [address] Referring Family Medicine 01/27/24 Furnace Converter Relationship Specialty Start Date End Date Delvis Lr MD [address] [place] [address] PCP - General Family Medicine 02/07/24 Delvis Lr MD [address] [place] [address] Referring Family Medicine 01/27/24 Furnace Converter Relationship Specialty Start Date End Date Delvis Lr MD [address] [place] [address] PCP - General Family Medicine 02/07/24 Delvis Lr MD [address] [place] [address] Referring Family Medicine 01/27/24 Team Status: Active Member Role Status Dates Delvis Lr MD Primary Care Provider Active Team Status: Inactive Member Role Status Dates Delvis Lr MD Primary Care Provider Active Start: May 06, 2024 End: May 06, 2024 Wisam Mix DO Attending Provider Active Sta rt: May 06, 2024 End: May 06, 2024 Furnace Converter Relationship Specialty Start Date End Date Delvis Lr MD [address] [place] [id number] PCP - General Family Medicine 02/07/24 Delvis Lr MD [address] [place] [address] Referring Family Medicine 01/27/24 Furnace Converter Relationship Specialty Start Date End Date Delvis Lr MD [address] [place] [address] PCP - General Family Medicine 02/07/24 Delvis Lr MD [address] [place] [address] Referring Family Medicine 01/27/24 Furnace Converter Relationship Specialty Start Date End Date Delvis Lr MD [address] [place] [address] PCP - General Family Medicine 02/07/24 Delvis Lr MD [address] [place] [address] Referring Family Medicine 01/27/24 Furnace Converter Relationship Specialty Start Date End Date Delvis Lr MD [address] [place] [address] PCP - General Family Medicine 02/07/24 Delvis Lr MD [address] [place] [id number] Referring Family Medicine 01/27/24 Furnace Converter Relationship Specialty Start Date End Date Delvis Lr MD [address] [place] [address] PCP - General Family Medicine 02/07/24 Delvis Lr MD [address] [place] [id number] Referring Family Medicine 01/27/24 Goals (unrecognized section [...] BE BASED ON THE PRIMARY CLINICAL RECORDS. [facility] [employer] [facility]. provides no warranty or guarantee of the accuracy or completeness of information in this document.
== END 2024-12-01 20:39 | disposition home or self-care (01) ==
LOC: SLEEP 20:39
PROVIDERS: PCP Family Medicine; Visit Provider Family Medicine
DX: G47.33 Obstructive sleep apnea (adult) (pediatric) (principal)
CPT/HCPCS: 95810

== ENCOUNTER 2024-12-21 20:47 | Outpatient (OUT) | payer OTHER, SELFPAY ==
--- OUTSIDE RECORDS SUMMARY | 2024-12-21 20:49 | XMS_ITS | CCD ---
Author Organization [facility] Care Team Providers Care Millinery Worker Name Role Phone DR DELVIS LR Consulting [...] Medication Allergies] Propensity to adverse reactions (disorder) [facility] Repository (16 sources) Sulfamethoxazole / Trimethoprim; Translations: [SULFAMETHOXAZOLE-TR IMETHOPRIM] Drug All[facility] 02-[facility]-20 [facility] Medications Current Medications Medication Drug Class(es) Dates [...] Test Name Value Interpretation Reference Range Facility [facility] 09-21-2024 [facility] Telephone (ORQ) PAT KNOTT ([id number]) 1965 F Date Time Provider Department 09/21/24 [...] OCCA - Fully Assessed Reason for Visit: Rehabilitation Technician - Other [3602] Cmt: [facility] IMAGING REPORT Prescriptions as of 09/22/2024 [...] Status:Closed by JOCELYN SCHAEFFER on 09/21/24 Normal [facility] Telephone ([facility]) PAT KNOTT ([id number]) 1965 F Date Time Provider Department 09/21/24 [...] Encounter Status:Closed by MILLER ARAYA on 09/21/24 [facility] 09-08-2024 [facility] Telephone (GUS) PAT KNOTT ([id number]) 1965 F Date Time Provider Department 09/08/24 [...] Encounter Status:Closed by MILLER ARAYA on 09/08/24 [facility] CNOVon 05-21-2024 CNOV Office Visit (ORTHAL ) PAT KNOTT ([id number]) 1965 F Date Time Provider Department 05/21/24 [...] ECRB: Negative ROM: full ROM STRENGTH: 5/5 certified teacher assistant CREPITUS: negative NEUROLOGICAL EXAM: Sensory: sensation intact [...] instruct ulnar nerve glides and work on certified teacher assistant strength and mobility. Follow-up should symptoms persist. Tyler Levine PA-C This note is created with the assistance of a speech-recognition program. Referring Provider: CHAMP TOTH [[id number]] Allergies As of Date: 05/21/2024 Noted Allergy Reaction BACTRIM (SULFAMETHOXAZOLE-TRI METH*02/11/2024 4 - Hives Date Reviewed: 05/21/2024 Reviewed by: Miller Araya OCCA - Fully Assessed Primary Visit Diagnosis:Ulnar neuritis, right [G56.21] Order(s):CONSULT PANEL TO ORTHOPAEDICS [[id number]] Order #: [id number]: 1 CONSULT TO WINDOWS AND DOORS INSTALLER [[id number]] Order #: [id number]: 1 FUTURE Prescriptions as of 05/21/2024 - [...] Status:Closed by TYLER LEVINE on 05/21/24 Normal [facility] EMG(NEURO/NI)on 05-19-2024 Results can be seen in attached scanned documents. If you are a patient reviewing this test result, call the doctor who ordered the test with any questions. [facility] CNOVon 03-31-2024 CNOV Office Visit (STEPHANE ) PAT KNOTT ([id number]) 1965 F Date Time Provider Department 03/31/24 1:30 PM CHAMP TOTH During your visit today, we recorded the following information about you: Blood pressure Weight Height 149/97 90.7 kg 1.626 m Champ Toth MD 03/31/2024 2:07 PM Signed [facility] [place] DEPARTMENT OF VASCULAR SURGERY OUTPATIENT VISIT DATE [...] for Encounter Date Provider Department Center 03/31/2024 [id number] TOTH [facility] Encounter Status:Closed by CHAMP TOTH on 03/31/24 Normal [facility] CAROTID ARTERIES [facility] 03-31-2024 US CAROTID ARTERIES [facility] Non-Invasive Vascular Laboratory [facility] Carotid Duplex Bilateral/Complete Date of service/time: [...] antegrade flow noted. Technologist: Jackson Echeverria RVT, [facility] Ordering physician: CHAMP TOTH Interpreting physician: Bentley Whatley MD, RPVI Final CC [employer] Medical Image : [id number] See Link below for Image Normal [facility] XR HAND 3V PA/LAT/OBL RTon 0 [...] tissues are unremarkable. IMPRESSION: Minimal degenerative changes. Sap Basis: SHE Transcribe Date/Time: Mar 31 2024 4:36P Dictated by : ALEKSANDR BONDS MD This examination was interpreted and the report reviewed and electronically signed by: ALEKSANDR BONDS MD on Mar 31 2024 4:36PM EST [id number] Normal [facility] XR Hand - right PA and Later al and Obliqueon 05-28-2024 IMPRESSION: Minimal degenerative changes. Sap Basis: SHE Transcribe Date/Time: Mar 31 2024 4:36P Dictated by : ALEKSANDR BONDS MD This examination was interpreted and the report reviewed and electronically signed by: ALEKSANDR BONDS MD on Mar 31 2024 4:36PM EST [facility] * * *Final Report* * * [...] Soft tissues are unremarkable. [facility] Provider, [facility] - 03/31/2024 * * *Final Report* * [...] are unremarkable. IMPRESSION IMPRESSION: Minimal degenerative changes. Sap Basis: SEH Transcribe Date/Time: Mar 31 2024 4:36P Dictated by : ALEKSANDR BONDS MD This examination was interpreted and the report reviewed and electronically signed by: ALEKSANDR BONDS MD on Mar 31 2024 4:36PM EST [facility] Radiology Study observation (narrative) [facility] XR Hand - right PA and Later al and ObliqueOrdered By: Ccf Provider on 03-31-2024 [facility] CNCOon 02-11-2024 CNCO Letter Text Normal [facility] [place] CNOVon 02-11-2024 CNOV Office Visit (VASSAV ) NIKOSPAT ([id number]) 1965 F Date Time Provider Department 02/11/24 10:45 AM CHAMP TOTH During your visit today, we recorded the following information about you: Weight Height 89.4 kg 1.626 m Champ Toth MD 02/11/2024 11:26 AM Signed [facility] [place] DEPARTMENT OF VASCULAR SURGERY OUTPATIENT VISIT DATE [...] normal right arm arterial tree. IMPRESSION: Ms. Kntot is a 58 year old female LUE [...] AM Signed Carotid duplex follow up with [facility] surgery Allergies As of Date: 02/11/2024 Noted [...] Emphysematous pyelonephritis (more content not included)... Normal [facility] CNPNon 02-07-2024 CNPN Telephone (CARDMN) PAT KNOTT ([id number]) 1965 F Date Time Provider Department 02/07/24 SHARLA MCDOWELL ([facility]) CARDMN During your visit today, we recorded the following information about you: Sharla Servin 02/07/2024 3:01 PM Signed RP Patient already scheduled with Dr. Champ Moreira at [facility]. Case closed. Allergies As of Date: 02/07/2024 (Not on File) Date Reviewed: Never Reviewed Reason for Visit: Appointment [[id number]] Problem List As Of Date: 02/07/2024 (None) Encounter Status:Closed by SHARLA SERVIN on 02/07/24 Normal [facility] CBCon 11-09-2023 ABSOLUTE BAS 0.1 10*3/uL Normal 0.0-0.2 [facility] Comment on above: Performed By: #### C MPF, ACBC, LIPA2 #### Testing performed at [address] [address] ABSOLUTE EOS 0.2 10*3/uL Normal 0.0-0.7 [facility] Comment on above: Performed By: #### C MPF, ACBC, LIPA2 #### Testing performed at [address] [address] ABSOLUTE NEUTROPHIL COUNT 5.3 10*3/uL Normal 1.4-6.5 [facility] Comment on above: Performed By: #### C MPF, ACBC, LIPA2 #### Testing performed at [address] [address] Basophils/100 WBC (Bld) 0.9 % Normal 0.0-2.0 [facility] Comment on above: Performed By: #### C MPF, ACBC, LIPA2 #### Testing performed at [address] [address] DTYPE AUTO DIFF Normal [facility] Comment on above: Performed By: #### C MPF, ACBC, LIPA2 #### Testing performed at [address] [address] Eosinophils/100 WBC (Bld) 1.9 % Normal 0.0-11.0 [facility] Comment on above: Performed By: #### C MPF, ACBC, LIPA2 #### Testing performed at [address] [address] Lymphocytes (Bld) [#/Vol] 2.6 10*3/uL Normal 1.2-3.4 [facility] Comment on above: Performed By: #### C MPF, ACBC, LIPA2 #### Testing performed at [address] [address] Lymphocytes/100 WBC (Bld) 29.1 % Normal 20.0-55.0 [facility] Comment on above: Performed By: #### C MPF, ACBC, LIPA2 #### Testing performed at [address] [address] Monocytes (Bld) [#/Vol] 0.9 10*3/uL High 0.0-0.7 [facility] Comment on above: Performed By: #### C MPF, ACBC, LIPA2 #### Testing performed at [address] [address] Monocytes/100 WBC (Bld) 10.1 % High 0.0-10.0 [facility] Comment on above: Performed By: #### C MPF, ACBC, LIPA2 #### Testing performed at [address] [address] Neutrophils/100 WBC (Bld) 58.0 % Normal 37.0-75.0 [facility] Comment on above: Performed By: #### C MPF, ACBC, LIPA2 #### Testing performed at [address] [address] Erythrocyte distribution width (RBC) [Ratio] 14.0 % Normal 11.5-14.5 [facility] Comment on above: Performed By: #### C MPF, ACBC, LIPA2 #### Testing performed at [address] [address] Hematocrit (Bld) [Volume fraction] 41.4 % Normal 36.0-48.0 [facility] Comment on above: Performed By: #### C MPF, ACBC, LIPA2 #### Testing performed at [address] [address] Hemoglobin (Bld) [Mass/Vol] 13.3 g/dL Normal 12.0-16.0 [facility] Comment on above: Performed By: #### C MPF, ACBC, LIPA2 #### Testing performed at [address] [address] MCH (RBC) [Entitic mass] 27.3 pg Normal 26.0-35.0 [facility] Comment on above: Performed By: #### C MPF, ACBC, LIPA2 #### Testing performed at [address] [address] MCHC (RBC) [Mass/Vol] 32.2 g/dL Normal 27.0-37.0 [facility] Comment on above: Performed By: #### C MPF, ACBC, LIPA2 #### Testing performed at [address] [address] MCV (RBC) [Entitic vol] 84.7 fL Normal 80.0-100.0 [facility] Comment on above: Performed By: #### C MPF, ACBC, LIPA2 #### Testing performed at [address] [address] Platelet mean volume (Bld) [Entitic vol] 6.9 fL Low 7.4-11.0 [facility] Comment on above: Performed By: #### C MPF, ACBC, LIPA2 #### Testing performed at [address] [address] Platelets (Bld) [#/Vol] 333 10*3/uL Normal 130-400 [facility] Comment on above: Performed By: #### C MPF, ACBC, LIPA2 #### Testing performed at [address] [address] RBC (Bld) [#/Vol] 4.89 10*6/uL Normal 4.0-5.4 [facility] Comment on above: Performed By: #### C MPF, ACBC, LIPA2 #### Testing performed at [address] [address] WBC (Bld) [#/Vol] 9.1 10*3/uL Normal 3.6-11.0 [facility] Comment on above: Performed By: #### C MPF, ACBC, LIPA2 #### Testing performed at [address] [address] CMP FASTINGon 11-09-2023 A:G RATIO 1.4 RATIO Normal [facility] Comment on above: Performed By: #### C MPF, ACBC, LIPA2 #### Testing performed at [address] [address] ALBUMIN 4.5 G/dl Normal 3.5-5.0 [facility] Comment on above: Performed By: #### C MPF, ACBC, LIPA2 #### Testing performed at [address] [address] ALP [Catalytic activity/Vol] 92 U/L Normal 38-126 [facility] Comment on above: Performed By: #### C MPF, ACBC, LIPA2 #### Testing performed at [address] [address] ALT [Catalytic activity/Vol] 64 U/L High <35 [facility] Comment on above: Performed By: #### C MPF, ACBC, LIPA2 #### Testing performed at [address] [address] AST [Catalytic activity/Vol] 51 U/L High 14-36 [facility] Comment on above: Performed By: #### C MPF, ACBC, LIPA2 #### Testing performed at [address] [address] Bilirubin [Mass/Vol] 0.2 mg/dL Normal 0.2-1.3 [facility] Comment on above: Performed By: #### C MPF, ACBC, LIPA2 #### Testing performed at [address] [address] Calcium [Mass/Vol] 9.8 mg/dL Normal 8.4-10.2 [facility] Comment on above: Performed By: #### C MPF, ACBC, LIPA2 #### Testing performed at [address] [address] Chloride [Moles/Vol] 103 mmol/L Normal 98-107 [facility] Comment on above: Result Comment: Chato pathak note: Triglyceride levels of 600mg/dL or higher may positively bias chloride results by approximately 2.1 mmol Performed By: #### C MPF, ACBC, LIPA2 #### Testing performed at [address] [address] CO2 [Moles/Vol] 24 mmol/L Normal 22-30 [facility] Comment on above: Performed By: #### C MPF, ACBC, LIPA2 #### Testing performed at [address] [address] Creatinine [Mass/Vol] 1.00 mg/dL Normal 0.70-1.20 [facility] Comment on above: Performed By: #### C MPF, ACBC, LIPA2 #### Testing performed at [address] [address] EST. GFR, 73 ml/min/1.73sq.m [facility] Comment on above: Performed By: #### C MPF, ACBC, LIPA2 #### Testing performed at [address] [address] EST. GFR,Non 61 ml/min/1.73sq.m [facility] Comment on above: Performed By: #### C MPF, ACBC, LIPA2 #### Testing performed at [address] [address] GFR Information Average GFR for 50-5 9 years old = 93. Normal [facility] Comment on above: Result Comment: Solder Making Supervisor bren Kidney disease, GFR = <60. Kidney failure, GFR = <15. The GFR estimate is not adjusted for extreme body surface area or acute process, nor has it been validated for women or ethnic groups other than and . Performed By: #### C MPF, ACBC, LIPA2 #### Testing performed at [address] [address] Glucose [Mass/Vol] 121 mg/dL High 70-100 [facility] Comment on above: Result Comment: NORMAL <100 mg/dL PREDIABETES 101-126 mg/dL DIABETES 126 mg/dL or higher Performed By: #### C MPF, ACBC, LIPA2 #### Testing performed at [address] [address] Potassium [Moles/Vol] 3.7 mmol/L Normal 3.5-5.1 [facility] Comment on above: Performed By: #### C MPF, ACBC, LIPA2 #### Testing performed at [facility] [address] [place] [address] Protein [Mass/Vol] 7.8 g/dL Normal 6.3-8.2 [facility] Comment on above: Performed By: #### C MPF, ACBC, LIPA2 #### Testing performed at [facility] [address] [place] [address] Sodium [Moles/Vol] 137 mmol/L Normal 137-145 [facility] Comment on above: Performed By: #### C MPF, ACBC, LIPA2 #### Testing performed at [address] [address] Urea nitrogen [Mass/Vol] 17 mg/dL Normal 7-20 [facility] Comment on above: Performed By: #### C MPF, ACBC, LIPA2 #### Testing performed at [address] [address] [address] ABDOMEN/PELVIS WITHOUT CO NTRASTon 11-09-2023 CT [...] stone. 2. Small right renal cyst. Normal [facility] LACTATE,BLOODon 11-09-2023 Lactate [Moles/Vol] 3.1 mmol/L Critically high 0.7-2.0 [facility] Comment on above: Result Comment: PLEA SE REPEAT INITIAL CRITICAL IN 3 HOURS IF ED OR INPATIENT SEPSIS PATIENT Result called to read back by: MEL 11/09/2023 @ 19:39 by MARK Performed By: #### L ACTAC #### Testing performed at [address] [address] LIPASE,SERUMon 11-09-2023 LIPASE,SERUM 198 U/L Normal 23-300 [facility] Comment on above: Performed By: #### C MPF, ACBC, LIPA2 #### Testing performed at [address] [place] [address] URINE CULTUREon 11-09-2023 Bacteria identified Cx Nom (U) SPECIMEN DESCRIPTION URINE CLEAN CATCH UA DIPSTICK LEUKOCYTE POSITIVE * Result Note: NITRITE NEGATIVE * CULTURE NO PATHOGENS ISOLATED * Result Note: Testing performed at [place] [address] * REPORT STATUS 11/12/2023 * Result Note: FINAL * Normal [facility] Comment on above: Performed By: #### A URNC #### Testing performed at [address] [place] [address] Testing performed at [address] [address] URINE MACROSCOPICon 11-09-19 24 Bilirubin Ql (U) Negative Normal NEGATIVE [facility] Comment on above: Performed By: #### U MARA, UMAC #### Testing performed at [address] [place] [address] Clarity (U) CLOUDY Abnormal CLEAR [facility] Comment on above: Performed By: #### U MARA, UMAC #### Testing performed at [address] [place] [address] Color (U) YELLOW Normal YELLOW [facility] Comment on above: Performed By: #### U MARA, UMAC #### Testing performed at [address] [address] Glucose Ql (U) Negative Normal NEGATIVE [facility] Comment on above: Performed By: #### U MARA, UMAC #### Testing performed at [address] [place] [address] pH (U) 7.0 [pH] Normal 5.0-7.0 [facility] Comment on above: Performed By: #### U MARA, UMAC #### Testing performed at [address] [place] [address] URINE HEMOGLOBIN LARGE Abnormal NEGATIVE [facility] Comment on above: Performed By: #### U MARA, UMAC #### Testing performed at [address] [place] [address] URINE KETONE Negative Normal NEGATIVE [facility] Comment on above: Performed By: #### U MARA, UMAC #### Testing performed at [address] [place] [address] URINE LEUKOTEST TRACE Abnormal NEGATIVE [facility] Comment on above: Performed By: #### U MARA, UMAC #### Testing performed at [address] [place] [address] URINE NITRATES Negative Normal NEGATIVE [facility] Comment on above: Performed By: #### U MARA, UMAC #### Testing performed at [address] [place] [address] URINE SPEC GRAVITY 1.020 Normal 1.010-1.025 [facility] Comment on above: Performed By: #### U MARA, UMAC #### Testing performed at [address] [place] [address] URINE TOTAL PROTEIN Negative Normal NEGATIVE [facility] Comment on above: Performed By: #### U MARA, UMAC #### Testing performed at [address] [place] [address] Urobilinogen Qn (U) 0.2 {Daphne'U}/dL Normal 0.2-1.0 [facility] Comment on above: Performed By: #### U MARA, UMAC #### Testing performed at [address] [place] [address] URINE MICROSCOPICon 11-09-19 24 BACTERIA 1+ Abnormal NEGATIVE [facility] Comment on above: Performed By: #### U MARA, UMAC #### Testing performed at [address] [place] [address] CASTS NONE Normal NONE [facility] Comment on above: Performed By: #### U MARA, UMAC #### Testing performed at [address] [place] [address] CRYSTAL RARE Abnormal NONE [facility] Comment on above: Result Comment: SUDHA PHOUS URATES Performed By: #### U MARA, UMAC #### Testing performed at [address] [address] Epithelial cells LM Ql (Urine sed) 1 TO 5 Normal [facility] Comment on above: Performed By: #### U MARA, UMAC #### Testing performed at [address] [address] Mucus Ql (Urine sed) TRACE Abnormal NEGATIVE [facility] Comment on above: Performed By: #### U MARA, UMAC #### Testing performed at [address] [address] URINE COMMENT REFLEX CULTURE PER ESTABLISHED CRITERIA. Normal [facility] Comment on above: Performed By: #### U MARA, UMAC #### [place] [address] URINE RBC'S 20 TO 30 Normal NEGATIVE [facility] Comment on above: Performed By: #### U MARA, UMAC #### Testing performed at [address] [address] URINE WBC'S 1 TO 5 Normal NEGATIVE [facility] Comment on above: Performed By: #### U MARA, UMAC #### Testing performed at [address] [address] XR CHEST 2 Von 11-30-2022 XR CHEST 2 V EXAM: XR CHEST 2 V HISTORY: . Persistent cough . COMPARISON: None. TECHNIQUE: Frontal and lateral chest FINDINGS: Heart and vascularity are unremarkable. Lungs are expanded and free of focal infiltrates. No acute bony abnormality is appreciated. IMPRESSION: No acute heart or lung disease identified. Electronically authenticated by: BENTLEY MONDRAGON Date: 2022-11-30 11:45 Normal [facility] MG MAMM SCREEN 3D JOSE CADon 10-29-2022 MG MAMM SCREEN 3D JOSE CAD Patient: PAT KNOTT Exam Date: 10/29/2022 : 1965 Gender:F Ordering : DR DELVIS LR . Admission #: [id number] Family : Order #: [id number] CLICK HERE TO VIEW EXAM RADIOLOGY REPORT [...] skin cancer at age 70. LOCATION: [facility] BREAST COMPOSITION: Scattered areas fibroglandular density. [...] 06-21-2022 BASO # 0.1 103/ul Normal 0.0-0.1 [facility] Comment on above: Performed By: #### H FPFCBC #### [facility] [address] [place] [address] Dr. Sonya Strickland Basophils/100 WBC (Bld) 0.7 % Normal 0.2-2.0 [facility] Comment on above: Performed By: #### H FPFCBC #### [facility] [address] [place] [address] Dr. Sonya Strickland EO # 0.1 103/ul Normal 0.0-0.7 [facility] Comment on above: Performed By: #### H FPFCBC #### [facility] [address] [place] [address] Dr. Sonya Strickland Eosinophils/100 WBC (Bld) 1.9 % Normal 0.9-7.0 [facility] Comment on above: Performed By: #### H FPFCBC #### [facility] [address] [place] [address] Dr. Sonya Strickland Erythrocyte distribution width (RBC) [Ratio] 13.1 % Normal 11.0-15.0 [facility] Comment on above: Performed By: #### H FPFCBC #### [facility] [address] [place] [address] Dr. Sonya Strickland Hematocrit (Bld) [Volume fraction] 41.6 % Normal 36.0-48.0 [facility] Comment on above: Performed By: #### H FPFCBC #### [facility] [address] [place] [address] Dr. Sonya Strickland Hemoglobin (Bld) [Mass/Vol] 13.2 g/dL Normal 12.0-16.0 [facility] Comment on above: Performed By: #### H FPFCBC #### [facility] [address] [place] [address] Dr. Sonya Strickland IG # 0.01 10e3/ul Normal 0.00-0.03 [facility] Comment on above: Performed By: #### H FPFCBC #### [facility] [address] [place] [address] Dr. Sonya Strickland IG % 0.1 % Normal 0.0-0.5 [facility] Comment on above: Performed By: #### H FPFCBC #### [facility] [address] [place] [address] Dr. Sonya Strickland LYMPH # 2.2 103/ul Normal 1.2-3.8 [facility] Comment on above: Performed By: #### H FPFCBC #### [facility] [address] [place] [address] Dr. Sonya Strickland Lymphocytes/100 WBC (Bld) 31.3 % Normal 20.5-60.0 [facility] Comment on above: Performed By: #### H FPFCBC #### [facility] [address] [place] [address] Dr. Sonya Strickland MCH (RBC) [Entitic mass] 28.0 pg Normal 26.7-34.0 [facility] Comment on above: Performed By: #### H FPFCBC #### [facility] [address] [place] [address] Dr. Sonya Strickland MCHC (RBC) [Mass/Vol] 31.7 g/dL Normal 29.9-35.2 [facility] Comment on above: Performed By: #### H FPFCBC #### [facility] [address] [place] [address] [address] Sonya Strickland MCV (RBC) [Entitic vol] 88.1 fL Normal 81.0-99.0 [facility] Comment on above: Performed By: #### H FPFCBC #### [facility] [address] [place] [address] [address] Sonya Strickland MONO # 0.7 103/ul Normal 0.3-0.8 [facility] Comment on above: Performed By: #### H FPFCBC #### [facility] [address] [place] [address] Dr. Sonya Strickland Monocytes/100 WBC (Bld) 9.9 % Normal 1.7-12.0 [facility] Comment on above: Performed By: #### H FPFCBC #### [facility] [address] [place] [address] Dr. Sonya Strickland NEUT # 3.9 103/ul Normal 1.4-6.5 [facility] Comment on above: Performed By: #### H FPFCBC #### [facility] [address] [place] [address] Dr. Sonya Strickland Neutrophils/100 WBC (Bld) 56.1 % Normal 43.0-75.0 [facility] Comment on above: Performed By: #### H FPFCBC #### [facility] [address] [address] [address] Sonya Strickland Platelet mean volume (Bld) [Entitic vol] 9.7 fL Normal 9.5-13.5 [facility] Comment on above: Performed By: #### H FPFCBC #### [facility] [address] [place] [address] Dr. Sonya Strickland PLT 313 103/ul Normal 150-450 [facility] Comment on above: Performed By: #### H FPFCBC #### [facility] [address] [place] [address] Dr. Sonya Strickland RBC 4.72 106/ul Normal 4.20-5.40 [facility] Comment on above: Performed By: #### H FPFCBC #### [facility] [address] [place] [address] Dr. Sonya Strickland WBC 7.0 103/ul Normal 4.0-11.0 [facility] Comment on above: Performed By: #### H FPFCBC #### [facility] [address] [place] [address] Dr. Sonya Strickland [facility] PROFILEon 022 Albumin [Mass/Vol] 3.8 g/dL Normal 3.4-5.0 [facility] Comment on above: Performed By: #### H FPF #### [facility] [address] [place] [address] Dr. Sonya Strickland Albumin/Globulin [Mass ratio] 1.0 {ratio} Normal [facility] Comment on above: Performed By: #### H FPF #### [facility] [address] [place] [address] Dr. Sonya Strickland ALP [Catalytic activity/Vol] 87 U/L Normal 46-116 [facility] Comment on above: Performed By: #### H FPF #### [facility] [address] [place] [address] Dr. Sonya Strickland ALT [Catalytic activity/Vol] 25 U/L Normal 14-59 [facility] Comment on above: Performed By: #### H FPF #### [facility] [address] [place] [address] Dr. Sonya Strickland AST [Catalytic activity/Vol] 14 U/L Critically low 15-37 [facility] Comment on above: Performed By: #### H FPF #### [facility] [address] [place] [address] Dr. Sonya Strickland Bilirubin [Mass/Vol] 0.2 mg/dL Normal 0.2-1.0 [facility] Comment on above: Performed By: #### H FPF #### [facility] [address] [address] [address] Sonya Strickland Calcium [Mass/Vol] 8.8 mg/dL Normal 8.5-10.1 [facility] Comment on above: Performed By: #### H FPF #### [facility] [address] [address] [address] Sonya Strickland Chloride [Moles/Vol] 104 mmol/L Normal 98-107 [facility] Comment on above: Performed By: #### H FPF #### [facility] [address] [address] [address] Sonya Strickland CHOL-HDL RATIO NORM SEE BELOW Normal [facility] Comment on above: Result Comment: 3.3 - 4.4 LOW RISK 4.4 - 7.1 AVERAGE RISK 7.1 - 11.0 MODERATE RISK >11.0 HIGH RISK Performed By: #### H FPF #### [facility] [address] [place] [address] Dr. Sonya Strickland Cholesterol [Mass/Vol] 207 mg/dL Critically high <=200 [facility] Comment on above: Performed By: #### H FPF #### [facility] [address] [address] [address] Sonya Strickland Cholesterol in HDL [Mass/Vol] 63 mg/dL Critically high 40-60 [facility] Comment on above: Performed By: #### H FPF #### [facility] [address] [address] [address] Sonya Strickland Cholesterol in LDL [Mass/Vol] 121.6 mg/dL Normal [facility] Comment on above: Performed By: #### H FPF #### [facility] [address] [address] [address] Sonya Strickland Cholesterol.total/C holesterol in HDL [Mass ratio] 3.3 {ratio} Normal [facility] Comment on above: Performed By: #### H FPF #### [facility] [address] [address] [address] Sonya Strickland CO2 [Moles/Vol] 26.0 mmol/L Normal 21.0-32.0 [facility] Comment on above: Performed By: #### H FPF #### [facility] [address] [address] [address] Sonya Strickland Creatinine [Mass/Vol] 0.85 mg/dL Normal 0.55-1.02 [facility] Comment on above: Performed By: #### H FPF #### [facility] [address] [address] [address] Sonya Strickland Globulin (S) [Mass/Vol] 3.7 g/dL Normal [facility] Comment on above: Performed By: #### H FPF #### [facility] [address] [address] [address] Sonya Strickland Glucose [Mass/Vol] 87 mg/dL Normal 74-106 [facility] Comment on above: Performed By: #### H FPF #### [facility] [address] [place] [address] Dr. Sonya Strickland HDL NORMAL > or = 60 mg/dl - LO W CARDIOVASCULAR RISK <40 mg/dl - HIGH CARDIOVASCULAR RISK Normal [facility] Comment on above: Performed By: #### H FPF #### [facility] [address] [address] [address] Sonya Strickland LDL CALC NORMAL SEE BELOW Normal [facility] Comment on above: Result Comment: <100 mg/dl OPTIMAL 100 - 129 mg/dl NEAR OR ABOVE OPTIMAL 130 - 159 mg/dl BORDERLINE HIGH 160 - 189 mg/dl HIGH >190 mg/dl VERY HIGH Performed By: #### H FPF #### [facility] [address] [address] [address] Sonya Strickland Potassium [Moles/Vol] 4.3 mmol/L Normal 3.5-5.1 [facility] Comment on above: Performed By: #### H FPF #### [facility] [address] [address] [address] Sonya Strickland Protein [Mass/Vol] 7.5 g/dL Normal 6.4-8.2 [facility] Comment on above: Performed By: #### H FPF #### [facility] [address] [address] [address] Sonya Strickland Sodium [Moles/Vol] 140 mmol/L Normal 136-145 [facility] Comment on above: Performed By: #### H FPF #### [facility] [address] [address] [address] Sonya Strickland Triglyceride [Mass/Vol] 112 mg/dL Normal <=150 [facility] Comment on above: Performed By: #### H FPF #### [facility] [address] [address] [address] Sonya Strickland TSH 1.111 uIU/mL Normal 0.358-3.740 [facility] Comment on above: Performed By: #### H FPF #### [facility] [address] [address] [address] Sonya Strickland Urea nitrogen [Mass/Vol] 21.0 mg/dL Critically high 7.0-18.0 [facility] Comment on above: Performed By: #### H FPF #### [facility] [address] [address] [address] Sonya Strickland Urea nitrogen/Creatinine [Mass ratio] 24.7 mg/mg Normal [facility] Comment on above: Performed By: #### H FPF #### [facility] [address] [address] [address] Sonya Strickland VLDL CALC 22.4 mg/dL Normal [facility] Comment on above: Performed By: #### H FPF #### [facility] [address] [place] [address] Dr. Sonya Strickland Vital Signs Date Time Vital Sign Value Performing Clinician Facility 05-06-2024 09: Body height 162.56 cm [facility] 05-06-2024 09: Body mass index (BMI) [Ratio] 34.7 kg/m2 [facility] 05-06-2024 09: Body weight 91.85 kg [facility] 05-06-2024 09:040 Diastolic blood pressure 90 mm[Hg] [facility] 05-06-2024 09: Heart rate 80 /min [facility] 05-06-2024 09:23-0400 Respiratory rate 12 /min [facility] 05-06-2024 09:23-0400 Systolic blood pressure 129 mm[Hg] [facility] 03-31-2024 13:49-0400 Body height 162.6 cm Champ Toth MD Work Phone: [facility] 03-31-2024 13:49-0400 Body mass index (BMI) [Ratio] 34.33 kg/m2 Champ Toth MD Work Phone: [facility] 03-31-2024 13:49-0400 Body weight 90.72 kg Champ Toth MD Work Phone: [facility] 03-31-2024 13:49-0400 Diastolic blood pressure 97 mm[Hg] Champ Toth MD Work Phone: [facility] 03-31-2024 13:49-0400 Systolic blood pressure 149 mm[Hg] Champ Toth MD Work Phone: [facility] 02-11-2024 11:02-0400 Body height 162.6 cm Champ Toth MD Work Phone: [facility] 02-11-2024 11:02-0400 Body weight 89.36 kg Champ Toth MD Work Phone: [facility] 05-17-2023 11:30-0400 Body height 162.56 cm Wisam Ball Other depict Other 05-17-2023 11:30-0400 Body mass index (BMI) [Ratio] 28.9 kg/m2 Wisam Ball Other depict Other 05-17-2023 11:30-0400 Body weight 76.39 kg Wisam Ball Other depict Other 05-17-2023 11:30-0400 Diastolic blood pressure 84 mm[Hg] Wisam Ball Other depict Other 05-17-2023 11:30-0400 Respiratory rate 12 /min Wisam Mix Other depict Other 05-17-2023 11:30-0400 Systolic blood pressure 130 mm[Hg] Wisam Mix Other depict Other Encounters Encounter Date Encounter Type Care Provider Facility Start: 09-21-2024 End: 09-21-2024 Telephone encounter Tyler Levine PA-C Work Phone: [facility] [place] Comment on above: Rehabilitation Technician - O keron ([facility]) Appointment (Schedul ing with a hand specialist. ) Start: 09-08-2024 End: 09-09-2024 Orders Only Tyler EASON-C Work Phone: Orthopaedics Comment on above: Regarding ultrasound Ulnar neuritis, righ t (Primary Dx) Start: 05-21-2024 End: 05-21-2024 ambulatory TYLER LEVINE Facility:[facility] Start: 05-21-2024 End: 05-21-2024 Patient encounter procedure Tyler Levine PA-C Work Phone: Orthopaedics Comment on above: Ulnar neuritis, righ t (Primary Dx) Start: 05-19-2024 End: 05-19-2024 ambulatory TYLER LEVINE Neurology Comment on above: EMG Start: 05-19-2024 End: 05-19-2024 Patient encounter procedure Emg 2 Neur [facility] (Max Weight:400) Work Phone: Neurology Start: 05-06-2024 End: 05-06-2024 ambulatory [facility] Work Phone: Start: 05-06-2024 End: 05-06-2024 Patient encounter procedure [facility] Work Phone: Start: 04-07-2024 ambulatory JINA Gunn ty:DALLAS Deleon Start: 04-01-2024 E-mail encounter fro m caregiver Tyler Levine PA-C Work Phone: Orthopaedics Start: 04-01-2024 Patient encounter procedure Tyler Levine PA-C Work Phone: Orthopaedics Comment on above: Regarding EMG Start: 03-31-2024 ambulatory CHAMP TOTH Facility:[facility] Start: 03-31-2024 End: 03-31-2024 Subsequent hospital visit by physician Xr [facility] Work Phone: [facility] Comment on above: 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] Start: 03-31-2024 End: 03-31-2024 Patient encounter procedure Champ Toth MD Work Phone: Vascular Surgery Comment on above: Peripheral arterial disease (HCC) (Primary Dx) 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); Ulnar nerve compression, right Start: 03-31-2024 End: 03-31-2024 ambulatory [facility] Facility:[facility] Start: 02-11-2024 End: 02-11-2024 Orders Only Champ Toth MD Work Phone: Vascular Surgery Comment on above: Numbness (Primary Dx ) Peripheral arterial disease (HCC) (Primary Dx) Start: 02-07-2024 Telephone encounter Sharla (Pss) Mi tra Cardiology Comment on above: Appointment Start: 12-12-2023 ambulatory JINA FOREMAN Facility :[facility] Start: 11-09-2023 End: 11-09-2023 Emergency department patient visit DELVIS LR [facility] Start: 05-17-2023 End: 05-17-2023 ambulatory Wisam Mix Other depict Other Start: 05-17-2023 Office outpatient visit 10 minutes Wisam Mix [facility] Start: 11-30-2022 End: 12-01-[address] DELVIS [...] Start: 11-09-2026 Diabetes Screening Diabetes Screenin g [facility] Start: 07-05-2024 Covid-19 Vaccine ( season) Covid-19 Vaccine ( season) [facility] Start: 07-05-2024 Influenza vaccination [facility] Start: 05-21-2024 End: 05-21-2024 Patient encounter procedure 05/21/2024 2:45 PM EDT Office Visit Orthopaedics [address] [place] [address] Tyler Levine PA-C [address] [place] [address] 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] (EMG NORMAL) Orthopaedics Comment on above: 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] (EMG NORMAL) Start: 04-15-2024 End: 04-15-2024 Patient encounter procedure 04/15/2024 1:00 PM EDT Office Visit Orthopaedics [address] [place] [id number] Tyler Levine PA-C [address] [place] [address] 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] (EMG order placed) Orthopaedics Comment on above: 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] (EMG order placed) Start: 11-04-2023 Behavioral Health Screening Behavioral Health Screening [facility] Start: 07-05-2023 Covid-19 Vaccine ( season) Covid-19 Vaccine ( season) [facility] Start: 2015 Shingrix Vaccine (1 of 2) Shingrix Vaccine (1 of 2) [facility] Start: 2010 Diabetes Screening Diabetes Screenin g [facility] Start: 2010 Lipid panel Lipid Screening [facility] Start: 2010 Screening for malign ant neoplasm of colon [facility] Start: 2005 Screening for malign ant neoplasm of breast Mammogram Screening [facility] Start: 1995 Screening for malign ant neoplasm of cervix HPV Testing [facility] Start: 1986 Screening for malign ant neoplasm of cervix [facility] Start: 1984 Hepatitis B Vaccine (1 of 3 - 19+ 3-dose series) Hepatitis B Vaccine (1 of 3 - 19+ 3-dose series) [facility] Start: 1984 Urine microalbumin profile DTaP,Tdap,Td Vaccine (1 - Tdap) [facility] Start: 1983 Annual PCP Team Solder Making Supervisor bren Disease Visit Annual PCP Team Chronic Disease Visit [facility] Start: 1983 Anxiety Screening Anxiety Screening [facility] Start: 1983 Depression Screening Depression Scre ening [facility] Start: 1983 Hepatitis C screening Hepatitis C Sc reening [facility] Start: 1983 HIV screening HIV Screening [facility] Unlisted procedure hands/fingers HAND/FINGER SURGERY UNLISTED Procedures Routine Numbness Ordered: 02/11/2024 [facility] Work Phone: Comment on above: Ordered: 02/11/2024 End: 02-10-2025 US Carotid arteries - bilateral US CAROTID ARTERIES [facility] V[facility] Lab Routine Numbness 1 Occurrences starting 02/11/2024 until 02/10/2025 [facility] Work Phone: Comment on above: 1 Occurrences starti ng 02/11/2024 until 02/10/2025 End: 10-08-2025 US Upper extremity - right US ELBOW RIGHT Radiology Routine Ulnar neuritis, right 1 Occurrences starting 09/09/2024 until 10/08/2025 [facility] Work Phone: Comment on above: 1 Occurrences starti ng 09/09/2024 until 10/08/2025 [facility] Immunizations Immunization Date Immunization Notes Care Provider Sameer paula 07-25-2023 influenza virus vacc ine, unspecified formulation Emg Weight:400) Work Phone: [facility] Payers Date Payer Category Payer Unknown MMO M[employer] PPO [id number] 2023-Present [phone] [address] [place] [address] PPO [id number] 1965 Unknown [id number] 1965 Unknown [id number] 1965 Unknown [id number] 1959 Self-pay 1959 Unknown [id number] Unknown [id number] Unknown [id number] Unknown MMO [id number] Unknown [facility] [id number] Social History Date Type Detail Facility Start: 02-11-2024 End: 05-14-2024 [facility] Assigned At [facility] Start: 1965 Sex Assigned At Female [facility] Start: 02-06-2024 Gender identity Identifies as female gender (finding) [facility] Start: 02-06-2024 Sexual orientation Heterosexual (fin rosemarie) [facility] Start: 02-11-2024 End: 05-14-2024 History of Social function [facility] National Score (1-10 0), lower number is lower risk 60 [facility] Goals Date Patient Goal Desired Activity /State Personal health goal Clinical Notes 05-01-2018 to 09-21-2024 Telephone Encounter - Miller Araay OCCA - 09/21/2024 4:15 PM ESTTelephone Encounter [...] Pat Ashraf PA-C or Flora Valente PA-C [facility] 09-21-2024 Miscellaneous Notes I called and left messages in regards to receiving the patients ultrasound. It was normal and the provider wants the patient to get set up with a hand specialist due to the ongoing pain. She can schedule with Pat Ashraf PA-C or Flora Valente PA-C documented in this encounter [facility] 09-21-2024 Telephone encounter Note Images from the original note were not included. [facility] 09-21-2024 Miscellaneous Notes Images from the original note were not included. documented in this encounter [facility] 09-08-2024 Telephone encounter Note Called patient and [...] may need to push the appointment out. [facility] 09-08-2024 Miscellaneous Notes Called patient and let [...] the OT. Thanks! documented in this encounter [facility] 09-08-2024 Telephone encounter Note ----- Message from [...] does not improve from the OT. Thanks! [facility] 05-21-2024 Note HNO ID: [id number] Author: TYLER LEVINE PA-C Service: ? Author Type: Physician Assistant Director Type: Progress Notes Filed: 05/21/2024 14:52 Note [...] ECRB: Negative ROM: full ROM STRENGTH: 5/5 certified teacher assistant CREPITUS: negative NEUROLOGICAL EXAM: Sensory: sensation intact [...] instruct ulnar nerve glides and work on certified teacher assistant strength and mobility. Follow-up should symptoms persist. Tyler Levine PA-C This note is created with the assistance of a speech-recognition program. [facility] 05-21-2024 History of Presen t illness [...] ECRB: Negative ROM: full ROM STRENGTH: 5/5 certified teacher assistant CREPITUS: negative NEUROLOGICAL EXAM: Sensory: sensation intact [...] instruct ulnar nerve glides and work on certified teacher assistant strength and mobility. Follow-up should symptoms persist. Tyler Levine PA-C This note is created with the assistance of a speech-recognition program. documented in this encounter [facility] 05-19-2024 Note HNO ID: [id number] Author: VAN GARCIA MD Service: ? Author [...] EMG Tech Van Garcia MD (sign out) [facility] 05-19-2024 History of Presen t illness [...] MD (sign out) documented in this encounter [facility] 04-01-2024 Telephone encounter Note Patient was working and didn't have anything to write with so they wanted a mychart message instead. [facility] 04-01-2024 Miscellaneous Notes Patient was working and didn't have anything to write with so they wanted a mychart message instead. documented in this encounter [facility] 03-31-2024 Note HNO ID: [id number] Author: DEBI OCAMPO RT(Yonatan) Service: Radiology Author [...] PATIENT PRESENTS WITH AN IMPLANTABLE OR ATTACHED SHOOTER HELPER: No RADIOLOGY DEPARTMENT: General X-ray: Exam(s) Completed: Upper Extremity X-Ray(s): Hand, right PERIPHERAL IV DATA: Not applicable SIGNED BY: RT Rosalie(Yonatan) March 31, 2024 2:44 PM [facility] 03-31-2024 History of Presen t illness Narrative [...] PATIENT PRESENTS WITH AN IMPLANTABLE OR ATTACHED SHOOTER HELPER: No RADIOLOGY DEPARTMENT: General X-ray: Exam(s) Completed: Upper Extremity X-Ray(s): Hand, right PERIPHERAL IV DATA: Not applicable SIGNED BY: RT Rosalie(Yonatan) March 31, 2024 2:44 PM documented in this encounter [facility] 03-31-2024 Instructions Nanette Caruso RN - 03/31/2024 2:04 PM EDT Consult hand surgery for ulnar neuropathy documented in this encounter [facility] 03-31-2024 Note HNO ID: [id number] Author: CHAMP TOTH MD Service: ? Author Type: Physician Type: Progress Notes Filed: 03/31/2024 14:07 Note Text: [facility] [place] DEPARTMENT OF VASCULAR SURGERY OUTPATIENT VISIT DATE [...] DATE: March 31, 2024 TIME: 1:55 PM [facility] 03-31-2024 History of Presen t illness Narrative Images from the original note were not included. [facility] [place] DEPARTMENT OF VASCULAR SURGERY OUTPATIENT VISIT DATE [...] TIME: 1:55 PM documented in this encounter [facility] 02-11-2024 Instructions Nanette Caruso RN - 02/11/2024 11:22 AM EDT Carotid duplex follow up with liad Consult hand surgery documented in this encounter [facility] 02-11-2024 Note HNO ID: [id number] Author: CHAMP TOTH MD Service: ? Author Type: Physician Type: Progress Notes Filed: 02/11/2024 11:26 Note Text: [facility] [place] DEPARTMENT OF VASCULAR SURGERY OUTPATIENT VISIT DATE [...] DATE: February 11, 2024 TIME: 11:05 AM [facility] 02-11-2024 History of Presen t illness Narrative Images from the original note were not included. [facility] [place] DEPARTMENT OF VASCULAR SURGERY OUTPATIENT VISIT DATE [...] TIME: 11:05 AM documented in this encounter [facility] 02-07-2024 Miscellaneous Notes RP Patient already scheduled with Dr. Champ Moreira at [facility]. Case closed. 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 06-28-2018 History general Narrative - Reported* Type Description Date Medical History Autoimmune thyroiditis Surgical History Appendectomy, JASVIR 05/01/2018 Hospitalization History see surgical history depict Other Evaluation note* Diagnosis Numbness- Primary Disturbance of skin sensation [facility] Diagnosis Peripheral arterial disease (HCC)- Primary Peripheral vascular disease, unspecified documented in this encounter [facility] note* Diagnosis Peripheral arterial disease (HCC)- Primary Peripheral vascular disease, unspecified [facility]* Diagnosis 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 Lesion of ulnar nerve Ulnar nerve compression, right Ulnar neuropathy of right upper extremity Lesion of ulnar nerve Ulnar nerve compression, right [facility]* Diagnosis Ulnar neuropathy of right upper extremity Lesion of ulnar nerve Ulnar nerve compression, right [facility]* Diagnosis Onset Date Resolution Status Hypothyroid acute Pre-employment examination a [employer] Work Phone: Evaluation note* Diagnosis Numbness- Primary Disturbance of skin sensation Tingling Disturbance of skin sensation [facility]* Diagnosis Ulnar neuritis, right- Primary [facility]* Diagnosis Ulnar neuritis, right- Primary [facility] Outpatient Procedure (Routine) - Authorized Specialty Diagnoses / Procedures Referred By Nathan t Referred To [facility] Diagnoses Numbness Procedures US CAROTID ARTERIES [facility] DUPLEX SCAN EXTRACRANIAL [place] [address] [place] [address] [facility] [place] [address] [place] [address] Referral ID Status Reason Start Date Expiration Date Visits Requested Visits Authorized [id number] Authorized Auto-Generat ed Referral 02/11/2024 02/10/2025 1 1 [facility] referral (narrative)* Diagnostic Procedure Only (Routine) - Closed Specialty Diagnoses / Procedures Referred By Nathan lomax Referred To Contact XR IMAGING Diagnoses 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, right Procedures XR HAND GENERAL 3V PA/LAT/OBL RIGHT RADEX HAND MINIMUM [address] [place] [address] [place] [address] [place] [address] Referral ID Status Reason Start Date Expiration Date V isits Requested Visits Authorized [id number] Closed Auto-Generate d Referral 03/31/2024 04/30/2025 1 1 [facility] for referral (narrative)* Diagnostic Procedure Only (Routine) - New Request Specialty Diagnoses / Procedures Referred By Nathan lomax Referred To Contact US IMAGING Diagnoses Ulnar neuritis, right Procedures US ELBOW RIGHT US LMTD JOINT/OTH NONVASC XTR STRUX R-T W/IMG Tyler Levine PA-C [address] [place] [address] [place] [id number] Referral ID Status Reason Start Date Expiration Date Visits Requested Visits Authorized [id number] New Request Auto-Generat ed Referral 09/09/2024 10/08/2025 1 1 [facility] for visit Narrative* Diagnostic Procedure Only (Routine) - Closed Specialty Diagnoses / Procedures Referred By Nathan t Referred To Contact XR IMAGING Diagnoses 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, right Procedures XR HAND GENERAL 3V PA/LAT/OBL RIGHT RADEX HAND MINIMUM [address] [place] [address] [place] [address] [place] [id number] Referral ID Status Reason Start Date Expiration Date V isits Requested Visits Authorized [id number] Closed Auto-Generate d Referral 03/31/2024 04/30/2025 1 1 [facility] Summary Purpose Family History No Family History [...] Diagnoses Ulnar neuritis, right Procedures CONSULT TO WINDOWS AND DOORS INSTALLER OCC[facility]ATIONAL [facility]ERAPY [facility] 60 MINS Tyler Levine PA-C [address] [place] [address] [facility] [place] [address] [place] [address] Referral ID Status Reason Start Date Expiration Date Visits Requested Visits Authorized [id number] Pending Review Auto-Generat ed Referral 05/21/2024 05/21/2025 1 1 Specialty Diagnoses / Procedures Referred By Contac t Referred To Contact Orthopedics Diagnoses Ulnar neuropathy of right upper extremity Procedures CONSULT PANEL TO ORTHOPAEDICS OFFICE/OUTPATIENT [facility] MDM 60 [place] [address] [place] [address] Referral ID Status Reason Start Date Expiration Date Visits Requested Visits Authorized [id number] Authorized PCP Requested Referral 03/31/2024 03/31/2025 1 1 Specialty Diagnoses / Procedures Referred By Contac t Referred To Contact XR IMAGING Diagnoses 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, right Procedures XR HAND GENERAL 3V PA/LAT/OBL RIGHT RADEX HAND MINIMUM [address] [place] [address] [place] [address] Xr Imaging [facility] Referral ID Status Reason Start Date Expiration Date V isits Requested Visits Authorized [id number] Closed Auto-Generate d Referral 03/31/2024 04/30/2025 1 1 Chief Complaint and 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 Hypothyroid Pre-employment examination Additional Source Comments INFORMATION SOURCE (unrecogn ized section and content) DATE CREATED AUTHOR 12/04/2022 [facility] DATE CREATED AUTHOR AUTHOR'S ORGANIZ ATION 11/13/2023 [facility] DATE CREATED AUTHOR AUTHOR'S ORGANIZ ATION 12/13/2023 Bryce Hussein [facility] DATE CREATED AUTHOR AUTHOR'S ORGANIZ ATION 04/01/2024 [facility] DATE CREATED AUTHOR AUTHOR'S ORGANIZ ATION 09/23/2024 [facility] REASON FOR VISIT (unrecogniz ed section and content) Reason Comments Appointment Reason Comments New Patient Reason Comments Follow Up Reason Onset Date Comments EMG 05/19/2024 Specialty Diagnoses / Procedures Referred By Contact Referred To Contact [facility] Diagnoses Hand numbness Procedures EMG(NEURO/NI) NERVE CONDUCTION STUDIES 9-10 STUDIES Tyler Levine, ELO [address] [place] [address] [facility] [place] [address] [place] [address] Referral ID Status Reason Start Date Expiration Date V isits Requested Visits Authorized [id number] Closed Auto-Generate d Referral 03/31/2024 03/31/2025 1 1 Specialty Diagnoses / Procedures Referred By Contac t Referred To Contact Orthopedics Diagnoses Ulnar neuropathy of right upper extremity Procedures CONSULT PANEL TO ORTHOPAEDICS OFFICE/OUTPATIENT [facility] [address] [place] [address] [place] [address] Referral ID Status Reason Start Date Expiration Date V isits Requested Visits Authorized [id number] Closed PCP Requested Referral 03/31/2024 03/31/2025 1 1 Reason Comments Rehabilitation Technician - Other [facility] REPORT Reason Comments Appointment Scheduling with a souza nd specialist. Source Comments (unrecognize d section and content) In the event this informatio n is protected by the Federal Confidentiality of Alcohol and Drug Abuse Patient Records regulations: The Federal rules restrict any use of the information to criminally investigate or prosecute any alcohol or drug abuse patient.[facility] the event this information is protected by the Federal Confidentiality of Alcohol and Drug Abuse Patient Records regulations: The Federal rules restrict any use of the information to criminally investigate or prosecute any alcohol or drug abuse patient.[facility] the event this information is protected by the Federal Confidentiality of Alcohol and Drug Abuse Patient Records regulations: The Federal rules restrict any use of the information to criminally investigate or prosecute any alcohol or drug abuse patient.[facility] the event this information is protected by the Federal Confidentiality of Alcohol and Drug Abuse Patient Records regulations: The Federal rules restrict any use of the information to criminally investigate or prosecute any alcohol or drug abuse patient.[facility] the event this information is protected by the Federal Confidentiality of Alcohol and Drug Abuse Patient Records regulations: The Federal rules restrict any use of the information to criminally investigate or prosecute any alcohol or drug abuse patient.[facility] the event this information is protected by the Federal Confidentiality of Alcohol and Drug Abuse Patient Records regulations: The Federal rules restrict any use of the information to criminally investigate or prosecute any alcohol or drug abuse patient.[facility] the event this information is protected by the Federal Confidentiality of Alcohol and Drug Abuse Patient Records regulations: The Federal rules restrict any use of the information to criminally investigate or prosecute any alcohol or drug abuse patient.[facility] the event this information is protected by the Federal Confidentiality of Alcohol and Drug Abuse Patient Records regulations: The Federal rules restrict any use of the information to criminally investigate or prosecute any alcohol or drug abuse patient.[facility] the event this information is protected by the Federal Confidentiality of Alcohol and Drug Abuse Patient Records regulations: The Federal rules restrict any use of the information to criminally investigate or prosecute any alcohol or drug abuse patient.[facility] the event this information is protected by the Federal Confidentiality of Alcohol and Drug Abuse Patient Records regulations: The Federal rules restrict any use of the information to criminally investigate or prosecute any alcohol or drug abuse patient.[facility] the event this information is protected by the Federal Confidentiality of Alcohol and Drug Abuse Patient Records regulations: The Federal rules restrict any use of the information to criminally investigate or prosecute any alcohol or drug abuse patient.[facility] the event this information is protected by the Federal Confidentiality of Alcohol and Drug Abuse Patient Records regulations: The Federal rules restrict any use of the information to criminally investigate or prosecute any alcohol or drug abuse patient.[facility] the event this information is protected by the Federal Confidentiality of Alcohol and Drug Abuse Patient Records regulations: The Federal rules restrict any use of the information to criminally investigate or prosecute any alcohol or drug abuse patient.[facility] the event this information is protected by the Federal Confidentiality of Alcohol and Drug Abuse Patient Records regulations: The Federal rules restrict any use of the information to criminally investigate or prosecute any alcohol or drug abuse patient.[facility] the event this information is protected by the Federal Confidentiality of Alcohol and Drug Abuse Patient Records regulations: The Federal rules restrict any use of the information to criminally investigate or prosecute any alcohol or drug abuse patient.[facility] Care Teams (unrecognized sec tion and content) Millinery Worker Relationship Specialty Start Date End Date Delvis Lr MD [address] [place] [address] PCP - General Family Medicine 02/07/24 Delvis Lr MD [address] [place] [address] Referring Family Medicine 01/27/24 Millinery Worker Relationship Specialty Start Date End Date Delvis Lr MD [address] [place] [facility] [address] PCP - General Family Medicine 02/07/24 Delvis Lr MD [address] [place] [facility] [place] [address] Referring Family Medicine 01/27/24 Millinery Worker Relationship Specialty Start Date End Date Delvis Lr MD [address] [place] [facility] [place] [address] PCP - General Family Medicine 02/07/24 Delvis Lr MD [address] [place] [facility] [place] [address] Referring Family Medicine 01/27/24 Millinery Worker Relationship Specialty Start Date End Date Delvis Lr MD [address] [place] [facility] [place] [address] PCP - General Family Medicine 02/07/24 Delvis Lr MD [address] [place] [facility] [place] [address] Referring Family Medicine 01/27/24 Millinery Worker Relationship Specialty Start Date End Date Delvis Lr MD [address] [place] [facility] [place] [place] [address] PCP - General Family Medicine 02/07/24 Delvis Lr MD [address] [place] [facility] [place] [address] Referring Family Medicine 01/27/24 Millinery Worker Relationship Specialty Start Date End Date Delvis Lr MD [address] [place] [address] PCP - General Family Medicine 02/07/24 Delvis Lr MD [address] [place] [address] Referring Family Medicine 01/27/24 Millinery Worker Relationship Specialty Start Date End Date Delvis Lr MD [address] [place] [address] PCP - General Family Medicine 02/07/24 Delvis Lr MD [address] [place] [address] Referring Family Medicine 01/27/24 Team Status: Active Member Role Status Dates Delvis Lr MD Primary Care Provider Active Team Status: Inactive Member Role Status Dates Delvis Lr MD Primary Care Provider Active Start: May 06, 2024 End: May 06, 2024 Wisam Mix DO Attending Provider Active Sta rt: May 06, 2024 End: May 06, 2024 Millinery Worker Relationship Specialty Start Date End Date Delvis Lr MD [address] [place] [id number] PCP - General Family Medicine 02/07/24 Delvis Lr MD [address] [place] [address] Referring Family Medicine 01/27/24 Millinery Worker Relationship Specialty Start Date End Date Delvis Lr MD [address] [place] [address] PCP - General Family Medicine 02/07/24 Delvis Lr MD [address] [place] [address] Referring Family Medicine 01/27/24 Millinery Worker Relationship Specialty Start Date End Date Delvis Lr MD [address] [place] [address] PCP - General Family Medicine 02/07/24 Delvis Lr MD [address] [place] [address] Referring Family Medicine 01/27/24 Millinery Worker Relationship Specialty Start Date End Date Delvis Lr MD [address] [place] [address] PCP - General Family Medicine 02/07/24 Delvis Lr MD [address] [place] [id number] Referring Family Medicine 01/27/24 Millinery Worker Relationship Specialty Start Date End Date Delvis Lr MD [address] [place] [address] PCP - General Family Medicine 02/07/24 Delvis Lr MD [address] [place] [id number] Referring Family Medicine 01/27/24 Goals (unrecognized section [...] BE BASED ON THE PRIMARY CLINICAL RECORDS. [facility] [employer] [facility]. provides no warranty or guarantee of the accuracy or completeness of information in this document.
== END 2024-12-21 20:48 | disposition home or self-care (01) ==
LOC: SLEEP 20:47
PROVIDERS: PCP Family Medicine; Visit Provider Family Medicine
DX: G47.33 Obstructive sleep apnea (adult) (pediatric) (principal)
CPT/HCPCS: 95811

== ENCOUNTER 2025-01-26 09:52 | Outpatient (OUT) | payer OTHER, SELFPAY ==
--- NOTE | 2025-01-26 09:54 | MM_ITS ---
Patient Name: CARLINE MATSTON MR#: [id number] : 1965 Exam Date: 01/26/2025 Ordering Doctor: DR DELVIS JAMESON . RADIOLOGY REPORT PROCEDURE: MM TOMOSYNTHESIS SCREENING BI COMPARISON: MM TOMOSYNTHESIS SCREENING BI, 11/15/2023. MG MAMM SCREEN 3D JOSE CAD, 10/29/2022. MG MAMM SCREEN 3D JOSE CAD, 10/26/2021. MAMMO LT DX, 11/03/2012. INDICATIONS: Screening Calculator Name NCI Breast Cancer Risk Assessment Tool 5 Year Breast Cancer Risk 1.10% Lifetime Breast Cancer Risk 6.00% Personal Breast Cancer No Personal Ovarian Cancer No Treatments None Family Cancers Mother with glioblastoma cancer at age 73; Father with skin cancer at age ~70. LOCATION: [facility] BREAST COMPOSITION: There are scattered areas of fibroglandular density. FINDINGS: DIAGNOSTIC CATEGORY 1--NEGATIVE. RIGHT BREAST: No significant suspicious finding. LEFT BREAST: No significant suspicious finding. RECOMMENDATIONS: ROUTINE MAMMOGRAM AND CLINICAL EVALUATION IN 12 MONTHS. PLEASE NOTE: A NORMAL MAMMOGRAM DOES NOT EXCLUDE THE POSSIBILITY OF BREAST CANCER. A CLINICALLY SUSPICIOUS PALPABLE LUMP SHOULD BE BIOPSIED. Dictated by: Zoran Blanc DO on 01/26/2025 at 12:43 Approved by: Zoran Blanc DO on 01/26/2025 at 12:49
--- OUTSIDE RECORDS SUMMARY | 2025-01-26 10:10 | XMS_ITS | CCD ---
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 Name Role Phone DR DELVIS LR [...] Attending Unavailable TRINO, DR EDMONDSON Consulting Unavailable Wisam Mix Unavailable [...] Care Unavailable CHAMP TOTH Attending Unavailable DELVIS RL Primary Care Unavailable CHAMP TOTH Referring Unavailable DELVIS LR Primary Care Unavailable KENNETH ZEPEDA Attending Unavailable Allergies Allergy Classification Reported Allergen(s) Allergy Type Date of Onset Reaction(s) Facility (1 source) No Known Medication Allergies; Translations: [No Known Medication Allergies] Propensity to adverse reactions (disorder) [facility] Repository (16 sources) Sulfamethoxazole / Trimethoprim; Translations: [SULFAMETHOXAZOLE-TR IMETHOPRIM] Drug Allergy 02-11-20 [facility] Medications Current Medications Medication Drug Class(es) Dates [...] Test Name Value Interpretation Reference Range Facility [facility] 09-21-2024 [facility] Telephone (ORQ) PAT KNOTT ([id number]) 1965 F Date Time Provider Department 09/21/24 [...] OCCA - Fully Assessed 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 During your visit today, we recorded the [...] Encounter Status:Closed by MILLER ARAYA on 09/21/24 [facility] 09-08-2024 CNPN Telephone (NUBIAORRM) PAT KNOTT ([id number]) 1965 F Date Time Provider Department 09/08/24 [...] Encounter Status:Closed by MILLER ARAYA on 09/08/24 Normal [facility] CNOVon 05-21-2024 CNOV Office Visit (ORTHAL ) PAT KNOTT ([id number]) 1965 F Date Time Provider Department 05/21/24 [...] ECRB: Negative ROM: full ROM STRENGTH: 5/5 librarian head CREPITUS: negative NEUROLOGICAL EXAM: Sensory: sensation intact [...] instruct ulnar nerve glides and work on librarian head strength and mobility. Follow-up should symptoms persist. Tyler Levine PA-C This note is created with the assistance of a speech-recognition program. Referring Provider: CHAMP TOTH [[id number]] Allergies As of Date: 05/21/2024 Noted Allergy Reaction BACTRIM (SULFAMETHOXAZOLE-TRI METH*02/11/2024 4 - Hives Date Reviewed: 05/21/2024 Reviewed by: Miller Araya OCCA - Fully Assessed Primary Visit Diagnosis:Ulnar neuritis, right [G56.21] Order(s):CONSULT PANEL TO ORTHOPAEDICS [396742] Order #: [id number]: 1 CONSULT TO NURSE SANE [222922] Order #: [id number]: 1 FUTURE Prescriptions as of 05/21/2024 - [...] Status:Closed by TYLER LEVINE on 05/21/24 Normal [facility] EMG(NEURO/NI)on 05-19-2024 Results can be seen in attached scanned documents. If you are a patient reviewing this test result, call the doctor who ordered the test with any questions. [facility] CNOVon 03-31-2024 CNOV Office Visit (STEPHANE ) PAT KNOTT ([id number]) 1965 F Date Time Provider Department 03/31/24 1:30 PM CHAMP TOTH During your visit today, we recorded the following information about you: Blood pressure Weight Height 149/97 90.7 kg 1.626 m Champ Toth MD 03/31/2024 2:07 PM Signed [facility] [place] DEPARTMENT OF VASCULAR SURGERY OUTPATIENT VISIT DATE [...] for Encounter Date Provider Department Center 03/31/2024 [id number] TOTH Encounter Status:Closed by CHAMP TOTH on 03/31/24 Normal [facility] US CAROTID ARTERIES JOSE VAS LABon 03-31-2024 US CAROTID ARTERIES JOSE VAS LAB Non-Invasive Vascular Laboratory [facility] Carotid Duplex Bilateral/Complete Date of [...] antegrade flow noted. Technologist: Jackson Echeverria RVT, [facility] Ordering physician: CHAMP TOTH Interpreting physician: Bentley Whatley MD, SHRUTHI Final CC [employer] Medical Image : [id number] See Link below for Image Normal [facility] XR HAND 3V PA/LAT/OBL RTon 0 [...] tissues are unremarkable. IMPRESSION: Minimal degenerative changes. Hypoid Gear Generator: SHE Transcribe Date/Time: Mar 31 2024 4:36P Dictated by : ALEKSANDR BONDS MD This examination was interpreted and the report reviewed and electronically signed by: ALEKSANDR BONDS MD on Mar 31 2024 4:36PM EST [id number] Normal [facility] XR Hand - right PA and Later al and Obliqueon 03-31-2024 IMPRESSION: Minimal degenerative changes. Hypoid Gear Generator: SHE Transcribe Date/Time: Mar 31 2024 4:36P Dictated by : ALEKSANDR BONDS MD This examination was interpreted and the report reviewed and electronically signed by: ALEKSANDR BONDS MD on Mar 31 2024 4:36PM EST [facility] * * *Final Report* * * [...] No marginal erosion. Soft tissues are unremarkable. [facility] Provider, [facility] Sara [facility] - 03/31/2024 * * *Final Report* [...] are unremarkable. IMPRESSION IMPRESSION: Minimal degenerative changes. Hypoid Gear Generator: SHE Transcribe Date/Time: Mar 31 2024 4:36P Dictated by : ALEKSANDR BONDS MD This examination was interpreted and the report reviewed and electronically signed by: ALEKSANDR BONDS MD on Mar 31 2024 4:36PM EST [facility] Radiology Study observation (narrative) [facility] XR Hand - right PA and Later al and ObliqueOrdered By: Ccf Provider on 03-31-2024 [facility] CNCOon 02-11-2024 CNCO Letter Text Normal [facility] CNOVon 02-11-2024 CNOV Office Visit (VASSAV ) TWILAPAT ([id number]) 1965 F Date Time Provider Department 02/11/24 10:45 AM CHAMP TOTH During your visit today, we recorded the following information about you: Weight Height 89.4 kg 1.626 m Champ Toth MD 02/11/2024 11:26 AM Signed [facility] [place] DEPARTMENT OF VASCULAR SURGERY OUTPATIENT VISIT DATE [...] Emphysematous pyelonephritis (more content not included)... Normal [facility] 02-07-2024 CNPN Telephone (CARDMN) PAT KNOTT ([id number]) 1965 F Date Time Provider Department 02/07/[facility] CARDM[facility] During your visit today, we recorded the following information about you: Sharla Servin 02/07/2024 3:01 PM Signed RP Patient already scheduled with Dr. Champ Moreira at [facility]. Case closed. Allergies As of Date: 02/07/2024 (Not on File) Date Reviewed: Never Reviewed Reason for Visit: Appointment [186] Problem List As Of Date: 02/07/2024 (None) Encounter Status:Closed by SHARLA SERVIN on 02/07/24 [facility] ABSOLUTE BAS 0.1 10*3/uL Normal 0.0-0.2 [facility] Comment on above: Performed By: #### C MPF, ACBC, LIPA2 #### Testing performed at [address] [address] ABSOLUTE EOS 0.2 10*3/uL Normal 0.0-0.7 [facility] Comment on above: Performed By: #### C MPF, ACBC, LIPA2 #### Testing performed at [address] [address] ABSOLUTE NEUTROPHIL COUNT 5.3 10*3/uL Normal 1.4-6.5 [facility] Comment on above: Performed By: #### C MPF, ACBC, LIPA2 #### Testing performed at [address] [address] Basophils/100 WBC (Bld) 0.9 % Normal 0.0-2.0 [facility] Comment on above: Performed By: #### C MPF, ACBC, LIPA2 #### Testing performed at [address] [address] DTYPE AUTO DIFF Normal [facility] Comment on above: Performed By: #### C MPF, ACBC, LIPA2 #### Testing performed at [address] [address] Eosinophils/100 WBC (Bld) 1.9 % Normal 0.0-11.0 [facility] Comment on above: Performed By: #### C MPF, ACBC, LIPA2 #### Testing performed at [address] [address] Lymphocytes (Bld) [#/Vol] 2.6 10*3/uL Normal 1.2-3.4 [facility] Comment on above: Performed By: #### C MPF, ACBC, LIPA2 #### Testing performed at [address] [address] Lymphocytes/100 WBC (Bld) 29.1 % Normal 20.0-55.0 [facility] Comment on above: Performed By: #### C MPF, ACBC, LIPA2 #### Testing performed at [address] [address] Monocytes (Bld) [#/Vol] 0.9 10*3/uL High 0.0-0.7 [facility] Comment on above: Performed By: #### C MPF, ACBC, LIPA2 #### Testing performed at [address] [address] Monocytes/100 WBC (Bld) 10.1 % High 0.0-10.0 [facility] Comment on above: Performed By: #### C MPF, ACBC, LIPA2 #### Testing performed at [address] [address] Neutrophils/100 WBC (Bld) 58.0 % Normal 37.0-75.0 [facility] Comment on above: Performed By: #### C MPF, ACBC, LIPA2 #### Testing performed at [address] [address] Erythrocyte distribution width (RBC) [Ratio] 14.0 % Normal 11.5-14.5 [facility] Comment on above: Performed By: #### C MPF, ACBC, LIPA2 #### Testing performed at [address] [address] Hematocrit (Bld) [Volume fraction] 41.4 % Normal 36.0-48.0 [facility] Comment on above: Performed By: #### C MPF, ACBC, LIPA2 #### Testing performed at [address] [address] Hemoglobin (Bld) [Mass/Vol] 13.3 g/dL Normal 12.0-16.0 [facility] Comment on above: Performed By: #### C MPF, ACBC, LIPA2 #### Testing performed at [address] [address] MCH (RBC) [Entitic mass] 27.3 pg Normal 26.0-35.0 [facility] Comment on above: Performed By: #### C MPF, ACBC, LIPA2 #### Testing performed at [address] [address] MCHC (RBC) [Mass/Vol] 32.2 g/dL Normal 27.0-37.0 [facility] Comment on above: Performed By: #### C MPF, ACBC, LIPA2 #### Testing performed at [address] [address] MCV (RBC) [Entitic vol] 84.7 fL Normal 80.0-100.0 [facility] Comment on above: Performed By: #### C MPF, ACBC, LIPA2 #### Testing performed at [address] [address] Platelet mean volume (Bld) [Entitic vol] 6.9 fL Low 7.4-11.0 [facility] Comment on above: Performed By: #### C MPF, ACBC, LIPA2 #### Testing performed at [address] [address] Platelets (Bld) [#/Vol] 333 10*3/uL Normal 130-400 [facility] Comment on above: Performed By: #### C MPF, ACBC, LIPA2 #### Testing performed at [address] [address] RBC (Bld) [#/Vol] 4.89 10*6/uL Normal 4.0-5.4 [facility] Comment on above: Performed By: #### C MPF, ACBC, LIPA2 #### Testing performed at [address] [address] WBC (Bld) [#/Vol] 9.1 10*3/uL Normal 3.6-11.0 [facility] Comment on above: Performed By: #### C MPF, ACBC, LIPA2 #### Testing performed at [address] [address] CMP FASTINGon 01-06-2024 A:G RATIO 1.4 RATIO Normal [facility] Comment on above: Performed By: #### C MPF, ACBC, LIPA2 #### Testing performed at [address] [address] ALBUMIN 4.5 G/dl Normal 3.5-5.0 [facility] Comment on above: Performed By: #### C MPF, ACBC, LIPA2 #### Testing performed at [address] [address] ALP [Catalytic activity/Vol] 92 U/L Normal 38-126 [facility] Comment on above: Performed By: #### C MPF, ACBC, LIPA2 #### Testing performed at [address] [address] ALT [Catalytic activity/Vol] 64 U/L High <35 [facility] Comment on above: Performed By: #### C MPF, ACBC, LIPA2 #### Testing performed at [address] [address] AST [Catalytic activity/Vol] 51 U/L High 14-36 [facility] Comment on above: Performed By: #### C MPF, ACBC, LIPA2 #### Testing performed at [address] [address] Bilirubin [Mass/Vol] 0.2 mg/dL Normal 0.2-1.3 [facility] Comment on above: Performed By: #### C MPF, ACBC, LIPA2 #### Testing performed at [address] [address] Calcium [Mass/Vol] 9.8 mg/dL Normal 8.4-10.2 [facility] Comment on above: Performed By: #### C MPF, ACBC, LIPA2 #### Testing performed at [address] [address] Chloride [Moles/Vol] 103 mmol/L Normal 98-107 [facility] Comment on above: Result Comment: Ayana norman note: Triglyceride levels of 600mg/dL or higher may positively bias chloride results by approximately 2.1 mmol Performed By: #### C MPF, ACBC, LIPA2 #### Testing performed at [address] [address] CO2 [Moles/Vol] 24 mmol/L Normal 22-30 [facility] Comment on above: Performed By: #### C MPF, ACBC, LIPA2 #### Testing performed at [address] [address] Creatinine [Mass/Vol] 1.00 mg/dL Normal 0.70-1.20 [facility] Comment on above: Performed By: #### C MPF, ACBC, LIPA2 #### Testing performed at [address] [address] EST. GFR, 73 ml/min/1.73sq.m [facility] Comment on above: Performed By: #### C MPF, ACBC, LIPA2 #### Testing performed at [address] [address] EST. GFR,Non 61 ml/min/1.73sq.m [facility] Comment on above: Performed By: #### C MPF, ACBC, LIPA2 #### Testing performed at [address] [address] GFR Information Average GFR for 50-5 9 years old = 93. Normal [facility] Comment on above: Result Comment: Sweet Pickled Fruit Maker bren Kidney disease, GFR = <60. Kidney failure, GFR = <15. The GFR estimate is not adjusted for extreme body surface area or acute process, nor has it been validated for women or ethnic groups other than and . Performed By: #### C MPF, ACBC, LIPA2 #### Testing performed at [address] [address] Glucose [Mass/Vol] 121 mg/dL High 70-100 [facility] Comment on above: Result Comment: NORMAL <100 mg/dL PREDIABETES 101-126 mg/dL DIABETES 126 mg/dL or higher Performed By: #### C MPF, ACBC, LIPA2 #### Testing performed at [address] [address] Potassium [Moles/Vol] 3.7 mmol/L Normal 3.5-5.1 [facility] Comment on above: Performed By: #### C MPF, ACBC, LIPA2 #### Testing performed at [address] [address] Protein [Mass/Vol] 7.8 g/dL Normal 6.3-8.2 [facility] Comment on above: Performed By: #### C MPF, ACBC, LIPA2 #### Testing performed at [address] [address] Sodium [Moles/Vol] 137 mmol/L Normal 137-145 [facility] Comment on above: Performed By: #### C MPF, ACBC, LIPA2 #### Testing performed at [address] [address] Urea nitrogen [Mass/Vol] 17 mg/dL Normal 7-20 [facility] Comment on above: Performed By: #### C MPF, ACBC, LIPA2 #### Testing performed at [address] [address] [address] ABDOMEN/PELVIS WITHOUT CO NTRASTon 11-09-2023 CT [...] stone. 2. Small right renal cyst. Normal [facility] LACTATE,BLOODon 11-09-2023 Lactate [Moles/Vol] 3.1 mmol/L Critically high 0.7-2.0 [facility] Comment on above: Result Comment: AYANA NORMAN REPEAT INITIAL CRITICAL IN 3 HOURS IF ED OR INPATIENT SEPSIS PATIENT Result called to read back by: MEL 11/09/2023 @ 19:39 by MARK Performed By: #### L ACTAC #### Testing performed at [address] [address] LIPASE,SERUMon 11-09-2023 LIPASE,SERUM 198 U/L Normal 23-300 [facility] Comment on above: Performed By: #### C MPF, ACBC, LIPA2 #### Testing performed at [address] [address] URINE CULTUREon 11-09-2023 Bacteria identified Cx Nom (U) SPECIMEN DESCRIPTION URINE CLEAN CATCH UA DIPSTICK LEUKOCYTE POSITIVE * Result Note: NITRITE NEGATIVE * CULTURE NO PATHOGENS ISOLATED * Result Note: Testing performed at [place] [address] * REPORT STATUS 11/12/2023 * Result Note: FINAL * Normal [facility] Comment on above: Performed By: #### A URNC #### Testing performed at [address] [address] Testing performed at [address] [address] URINE MACROSCOPICon 11-09-19 24 Bilirubin Ql (U) Negative Normal NEGATIVE [facility] Comment on above: Performed By: #### U MARA, UMAC #### Testing performed at [address] [address] Clarity (U) CLOUDY Abnormal CLEAR [facility] Comment on above: Performed By: #### U MARA, UMAC #### Testing performed at [address] [place] [address] Color (U) YELLOW Normal YELLOW [facility] Comment on above: Performed By: #### U MARA, UMAC #### Testing performed at [address] [address] Glucose Ql (U) Negative Normal NEGATIVE [facility] Comment on above: Performed By: #### U MARA, UMAC #### Testing performed at [address] [address] pH (U) 7.0 [pH] Normal 5.0-7.0 [facility] Comment on above: Performed By: #### U MARA, UMAC #### Testing performed at [address] [address] URINE HEMOGLOBIN LARGE Abnormal NEGATIVE [facility] Comment on above: Performed By: #### U MARA, UMAC #### Testing performed at [address] [address] URINE KETONE Negative Normal NEGATIVE [facility] Comment on above: Performed By: #### U MARA, UMAC #### Testing performed at [address] [address] URINE LEUKOTEST TRACE Abnormal NEGATIVE [facility] Comment on above: Performed By: #### U MARA, UMAC #### Testing performed at [address] [address] URINE NITRATES Negative Normal NEGATIVE [facility] Comment on above: Performed By: #### U MARA, UMAC #### Testing performed at [address] [address] URINE SPEC GRAVITY 1.020 Normal 1.010-1.025 [facility] Comment on above: Performed By: #### U MARA, UMAC #### Testing performed at [address] [address] URINE TOTAL PROTEIN Negative Normal NEGATIVE [facility] Comment on above: Performed By: #### U MARA, UMAC #### Testing performed at [address] [address] Urobilinogen Qn (U) 0.2 {Daphne'U}/dL Normal 0.2-1.0 [facility] Comment on above: Performed By: #### U MARA, UMAC #### Testing performed at [address] [address] URINE MICROSCOPICon 11-09-19 24 BACTERIA 1+ Abnormal NEGATIVE [facility] Comment on above: Performed By: #### U MARA, UMAC #### Testing performed at [address] [address] CASTS NONE Normal NONE [facility] Comment on above: Performed By: #### U MARA, UMAC #### Testing performed at [address] [address] CRYSTAL RARE Abnormal NONE [facility] Comment on above: Result Comment: SUDHA PHOUS URATES Performed By: #### U MARA, UMAC #### Testing performed at [address] [address] Epithelial cells LM Ql (Urine sed) 1 TO 5 Normal [facility] Comment on above: Performed By: #### U MARA, UMAC #### Testing performed at [address] [address] Mucus Ql (Urine sed) TRACE Abnormal NEGATIVE [facility] Comment on above: Performed By: #### U MARA, UMAC #### Testing performed at [address] [address] URINE COMMENT REFLEX CULTURE PER ESTABLISHED CRITERIA. Normal [facility] Comment on above: Performed By: #### U MARA, UMAC #### Testing performed at [address] [address] URINE RBC'S 20 TO 30 Normal NEGATIVE [facility] Comment on above: Performed By: #### U MARA, UMAC #### Testing performed at [address] [address] URINE WBC'S 1 TO 5 Normal NEGATIVE [facility] Comment on above: Performed By: #### U MARA, UMAC #### Testing performed at [address] [address] XR CHEST 2 Von 11-30-2022 XR CHEST [...] MONDRAGON Date: 2022-11-30 11:45 Normal [facility] MG MAMM SCREEN 3D JOSE CADon 10-29-2022 MG MAMM SCREEN 3D JOSE CAD Patient: PAT KNOTT Exam Date: 10/29/2022 : 1965 Gender:F Ordering : DR DELVIS LR . Admission #: [id number] Family : Order #: [id number] CLICK HERE TO VIEW EXAM RADIOLOGY REPORT [...] skin cancer at age 70. LOCATION: [facility] BREAST COMPOSITION: Scattered areas fibroglandular density. [...] MD on 10/30/2022 at 11:13 Normal [facility] CBC AUTO DIFFon 06-21-2022 BASO # 0.1 103/ul Normal 0.0-0.1 [facility] Comment on above: Performed By: #### H FPFCBC #### [facility] [address] [place] [address] Dr. Sonya Strickland Basophils/100 WBC (Bld) 0.7 % Normal 0.2-2.0 [facility] Comment on above: Performed By: #### H FPFCBC #### [facility] [address] [place] [address] Dr. Sonya Strickland EO # 0.1 103/ul Normal 0.0-0.7 [facility] Comment on above: Performed By: #### H FPFCBC #### [facility] [address] [place] [address] Dr. Sonya Strickland Eosinophils/100 WBC (Bld) 1.9 % Normal 0.9-7.0 [facility] Comment on above: Performed By: #### H FPFCBC #### [facility] [address] [place] [address] Dr. Sonya Strickland Erythrocyte distribution width (RBC) [Ratio] 13.1 % Normal 11.0-15.0 [facility] Comment on above: Performed By: #### H FPFCBC #### [facility] [address] [place] [address] Dr. Sonya Strickland Hematocrit (Bld) [Volume fraction] 41.6 % Normal 36.0-48.0 [facility] Comment on above: Performed By: #### H FPFCBC #### [facility] [address] [place] [address] Dr. Sonya Strickland Hemoglobin (Bld) [Mass/Vol] 13.2 g/dL Normal 12.0-16.0 [facility] Comment on above: Performed By: #### H FPFCBC #### [facility] [address] [place] [address] Dr. Sonya Strickland IG # 0.01 10e3/ul Normal 0.00-0.03 [facility] Comment on above: Performed By: #### H FPFCBC #### [facility] [address] [place] [address] Dr. Sonya Strickland IG % 0.1 % Normal 0.0-0.5 [facility] Comment on above: Performed By: #### H FPFCBC #### [facility] [address] [place] [address] Dr. Sonya Strickland LYMPH # 2.2 103/ul Normal 1.2-3.8 [facility] Comment on above: Performed By: #### H FPFCBC #### [facility] [address] [place] [address] Dr. Sonya Strickland Lymphocytes/100 WBC (Bld) 31.3 % Normal 20.5-60.0 [facility] Comment on above: Performed By: #### H FPFCBC #### [facility] [address] [place] [address] Dr. Sonya Strickland MCH (RBC) [Entitic mass] 28.0 pg Normal 26.7-34.0 [facility] Comment on above: Performed By: #### H FPFCBC #### [facility] [address] [address] [address] Sonya Strickland MCHC (RBC) [Mass/Vol] 31.7 g/dL Normal 29.9-35.2 [facility] Comment on above: Performed By: #### H FPFCBC #### [facility] [address] [place] [address] Dr. Sonya Strickland MCV (RBC) [Entitic vol] 88.1 fL Normal 81.0-99.0 [facility] Comment on above: Performed By: #### H FPFCBC #### [facility] [address] [place] [address] Dr. Sonya Strickland MONO # 0.7 103/ul Normal 0.3-0.8 [facility] Comment on above: Performed By: #### H FPFCBC #### [facility] [address] [place] [address] Dr. Sonya Strickland Monocytes/100 WBC (Bld) 9.9 % Normal 1.7-12.0 [facility] Comment on above: Performed By: #### H FPFCBC #### [facility] [address] [place] [address] Dr. Sonya Strickland NEUT # 3.9 103/ul Normal 1.4-6.5 [facility] Comment on above: Performed By: #### H FPFCBC #### [facility] [address] [place] [address] Dr. Sonya Strickland Neutrophils/100 WBC (Bld) 56.1 % Normal 43.0-75.0 [facility] Comment on above: Performed By: #### H FPFCBC #### [facility] [address] [place] [address] Dr. Sonya Strickland Platelet mean volume (Bld) [Entitic vol] 9.7 fL Normal 9.5-13.5 [facility] Comment on above: Performed By: #### H FPFCBC #### [facility] [facility] [address] [place] [address] Dr. Sonya Strickland PLT 313 103/ul Normal 150-450 [facility] Comment on above: Performed By: #### H FPFCBC #### [facility] [address] [place] [address] Dr. Sonya Strickland RBC 4.72 106/ul Normal 4.20-5.40 [facility] Comment on above: Performed By: #### H FPFCBC #### [facility] [address] [place] [address] Dr. Sonya Strickland WBC 7.0 103/ul Normal 4.0-11.0 [facility] Comment on above: Performed By: #### H FPFCBC #### [facility] [address] [place] [address] Dr. Sonya Strickland [employer] PROFILEon 022 Albumin [Mass/Vol] 3.8 g/dL Normal 3.4-5.0 [facility] Comment on above: Performed By: #### H FPF #### [facility] [address] [place] [address] Dr. Sonya Strickland Albumin/Globulin [Mass ratio] 1.0 {ratio} Normal [facility] Comment on above: Performed By: #### H FPF #### [facility] [address] [place] [address] Dr. Sonya Strickland ALP [Catalytic activity/Vol] 87 U/L Normal 46-116 [facility] Comment on above: Performed By: #### H FPF #### [facility] [address] [place] [address] Dr. Sonya Strickland ALT [Catalytic activity/Vol] 25 U/L Normal 14-59 [facility] Comment on above: Performed By: #### H FPF #### [facility] [address] [place] [address] Dr. Sonya Strickland AST [Catalytic activity/Vol] 14 U/L Critically low 15-37 [facility] Comment on above: Performed By: #### H FPF #### [facility] [address] [place] [address] Dr. Sonya Strickland Bilirubin [Mass/Vol] 0.2 mg/dL Normal 0.2-1.0 [facility] Comment on above: Performed By: #### H FPF #### [facility] [address] [address] [address] Sonya Strickland Calcium [Mass/Vol] 8.8 mg/dL Normal 8.5-10.1 [facility] Comment on above: Performed By: #### H FPF #### [facility] [address] [address] [address] Sonya Strickland Chloride [Moles/Vol] 104 mmol/L Normal 98-107 [facility] Comment on above: Performed By: #### H FPF #### [facility] [address] [address] [address] Sonya Strickland CHOL-HDL RATIO NORM SEE BELOW Normal [facility] Comment on above: Result Comment: 3.3 - 4.4 LOW RISK 4.4 - 7.1 AVERAGE RISK 7.1 - 11.0 MODERATE RISK >11.0 HIGH RISK Performed By: #### H FPF #### [facility] [address] [address] [address] Sonya Strickland Cholesterol [Mass/Vol] 207 mg/dL Critically high <=200 [facility] Comment on above: Performed By: #### H FPF #### [facility] [address] [place] [address] Dr. Sonya Strickland Cholesterol in HDL [Mass/Vol] 63 mg/dL Critically high 40-60 [facility] Comment on above: Performed By: #### H FPF #### [facility] [address] [address] [address] Sonya Strickland Cholesterol in LDL [Mass/Vol] 121.6 mg/dL Normal [facility] Comment on above: Performed By: #### H FPF #### [facility] [address] [address] [address] Sonya Strickland Cholesterol.total/C holesterol in HDL [Mass ratio] 3.3 {ratio} Normal [facility] Comment on above: Performed By: #### H FPF #### [facility] [address] [address] [address] Sonya Strickland CO2 [Moles/Vol] 26.0 mmol/L Normal 21.0-32.0 [facility] Comment on above: Performed By: #### H FPF #### [facility] [address] [place] [address] Dr. Sonya Strickland Creatinine [Mass/Vol] 0.85 mg/dL Normal 0.55-1.02 [facility] Comment on above: Performed By: #### H FPF #### [facility] [address] [address] [address] Sonya Strickland Globulin (S) [Mass/Vol] 3.7 g/dL Normal [facility] Comment on above: Performed By: #### H FPF #### [facility] [address] [place] [address] Dr. Sonya Strickland Glucose [Mass/Vol] 87 mg/dL Normal 74-106 [facility] Comment on above: Performed By: #### H FPF #### [facility] [address] [place] [address] Dr. Sonya Strickland HDL NORMAL > or = 60 mg/dl - LO W CARDIOVASCULAR RISK <40 mg/dl - HIGH CARDIOVASCULAR RISK Normal [facility] Comment on above: Performed By: #### H FPF #### [facility] [address] [place] [address] Dr. Sonya Strickland LDL CALC NORMAL SEE BELOW Normal [facility] Comment on above: Result Comment: <100 mg/dl OPTIMAL 100 - 129 mg/dl NEAR OR ABOVE OPTIMAL 130 - 159 mg/dl BORDERLINE HIGH 160 - 189 mg/dl HIGH >190 mg/dl VERY HIGH Performed By: #### H FPF #### [facility] [address] [place] [address] Dr. Sonya Strickland Potassium [Moles/Vol] 4.3 mmol/L Normal 3.5-5.1 [facility] Comment on above: Performed By: #### H FPF #### [facility] [address] [place] [address] Dr. Sonay Strickland Protein [Mass/Vol] 7.5 g/dL Normal 6.4-8.2 [facility] Comment on above: Performed By: #### H FPF #### [facility] [address] [address] [address] Sonya Strickland Sodium [Moles/Vol] 140 mmol/L Normal 136-145 [facility] Comment on above: Performed By: #### H FPF #### [facility] [address] [address] [address] Sonya Strickland Triglyceride [Mass/Vol] 112 mg/dL Normal <=150 [facility] Comment on above: Performed By: #### H FPF #### [facility] [address] [address] [address] Sonya Strickland TSH 1.111 uIU/mL Normal 0.358-3.740 [facility] Comment on above: Performed By: #### H FPF #### [facility] [address] [address] [address] Sonya Strickland Urea nitrogen [Mass/Vol] 21.0 mg/dL Critically high 7.0-18.0 [facility] Comment on above: Performed By: #### H FPF #### [facility] [address] [address] [address] Sonya Strickland Urea nitrogen/Creatinine [Mass ratio] 24.7 mg/mg Normal [facility] Comment on above: Performed By: #### H FPF #### [facility] [address] [address] [address] Sonya Strickland VLDL CALC 22.4 mg/dL Normal [facility] Comment on above: Performed By: #### H FPF #### [facility] [address] [address] [address] Sonya Strickland Vital Signs Date Time Vital Sign Value Performing Clinician Facility 05-06-2024 09: Body height 162.56 cm [facility] 05-06-2024 09: Body mass index (BMI) [Ratio] 34.7 kg/m2 [facility] 05-06-2024 09: Body weight 91.85 kg [facility] 05-06-2024 09: Diastolic blood pressure 90 mm[Hg] [facility] 05-06-2024 09:23-0400 Heart rate 80 /min [facility] 05-06-2024 09:23-0400 Respiratory rate 12 /min [facility] 05-06-2024 09:23-0400 Systolic blood pressure 129 mm[Hg] [facility] 03-31-2024 13:49-0400 Body height 162.6 cm Champ Toth MD Work Phone: [facility] 03-31-2024 13:49-0400 Body mass index (BMI) [Ratio] 34.33 kg/m2 Champ Toth MD Work Phone: [facility] 03-31-2024 13:49-0400 Body weight 90.72 kg Champ Toth MD Work Phone: [facility] 03-31-2024 13:49-0400 Diastolic blood pressure 97 mm[Hg] Champ Toth MD Work Phone: [facility] 03-31-2024 13:49-0400 Systolic blood pressure 149 mm[Hg] Champ Toth MD Work Phone: [facility] 02-11-2024 11:02-0400 Body height 162.6 cm Champ Toth MD Work Phone: [facility] 02-11-2024 11:02-0400 Body weight 89.36 kg Champ Toth MD Work Phone: [facility] 05-17-2023 11:30-0400 Body height 162.56 cm Wisam Ball Other [facility] [employer] Other 05-17-2023 11:30-0400 Body mass index (BMI) [Ratio] 28.9 kg/m2 Wisam Ball Other [facility] [employer] Other 05-17-2023 11:30-0400 Body weight 76.39 kg Wisam Ball Other [facility] [employer] Other 05-17-2023 11:30-0400 Diastolic blood pressure 84 mm[Hg] [employer] Other [employer] Other 05-17-2023 11:30-0400 Respiratory rate 12 /min [employer] [facility] Other [employer] Other 05-17-2023 11:30-0400 Systolic blood pressure 130 mm[Hg] [employer] Other [employer] Other Encounters Encounter Date Encounter Type Care Provider Facility Start: 01-12-2025 End: 01-12-2025 ambulatory KENNETH ZEPEDA Not Available Start: 09-21-2024 End: 09-21-2024 Telephone encounter Tyler Levine PA-C Work Phone: [facility] Comment on above: Insurance Claims Representative - O ther ([facility]) Appointment (Schedul ing with a hand specialist. ) Start: 09-08-2024 End: 09-09-2024 Orders Only Tyler EASON-C Work Phone: Orthopaedics Comment on above: Regarding ultrasound Ulnar neuritis, righ t (Primary Dx) Start: 05-21-2024 End: 05-21-2024 ambulatory TYLER LEVINE Facility:[facility] [facility] Start: 05-21-2024 End: 05-21-2024 Patient encounter procedure Tyler EASON-C Work Phone: Orthopaedics Comment on above: Ulnar neuritis, righ t (Primary Dx) Start: 05-19-2024 End: 05-19-2024 ambulatory TYLER LEVINE Neurology Comment on above: EMG Start: 05-19-2024 End: 05-19-2024 Patient encounter procedure Emg 2 Neur [facility] (Max Weight:400) Work Phone: Neurology Start: 05-06-2024 End: 05-06-[address] [facility] Work Phone: Start: 05-06-2024 End: 05-06-2024 Patient encounter procedure [facility] Work Phone: Start: 04-07-2024 ambulatory JINA Enriquezi ty:[facility] Start: 04-01-2024 E-mail encounter fro m caregiver Tyler Levine PA-C Work Phone: Orthopaedics Start: 04-01-2024 Patient encounter procedure Tyler Levine PA-C Work Phone: Orthopaedics Comment on above: Regarding EMG Start: 03-31-2024 ambulatory [facility] Facility:[facility] Start: 03-31-2024 End: 03-31-2024 Subsequent hospital visit by physician [facility] Work Phone: [facility] General Comment on above: 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] Start: 03-31-2024 End: 03-31-2024 Patient encounter procedure Champ Toth MD Work Phone: Vascular Surgery Comment on above: Peripheral arterial disease (HCC) (Primary Dx) 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); Ulnar nerve compression, right Start: 03-31-2024 End: 03-31-2024 ambulatory [facility] Facility:[facility] Start: 02-11-2024 End: 02-11-2024 Orders Only Champ Toth MD Work Phone: Vascular Surgery Comment on above: Numbness (Primary Dx ) Peripheral arterial disease (HCC) (Primary Dx) Start: 02-07-2024 Telephone encounter Sharla (Pss) [facility] tra Cardiology Comment on above: Appointment Start: 12-12-2023 ambulatory JINA FOREMAN Facility :[facility] Start: 11-09-2023 End: 11-09-2023 Emergency department patient visit DELVIS LR [facility] Start: 05-17-2023 End: 05-17-2023 ambulatory [facility] Mix Other [employer] Other Start: 05-17-2023 Office outpatient visit 10 minutes [facility] Start: 11-30-2022 End: 12-01-[address] DELVIS LR Facility: Start: 10-29-2022 End: 10-30-[address] DELVIS [...] Start: 11-09-2026 Diabetes Screening Diabetes Screenin g [facility] Start: 07-05-2024 Covid-19 Vaccine () Covid-19 Vaccine () [facility] Start: 07-05-2024 Influenza vaccination [facility] Start: 05-21-2024 End: 05-21-2024 Patient encounter procedure 05/21/2024 2:45 PM EDT Office Visit Orthopaedics [address] [place] [address] Tyler Levine, PA-C [address] [place] [address] 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] (EMG NORMAL) Orthopaedics Comment on above: 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] (EMG NORMAL) Start: 04-15-2024 End: 04-15-2024 Patient encounter procedure 04/15/2024 1:00 PM EDT Office Visit Orthopaedics [address] [place] [address] Tyler Levine, PA-C [address] [place] [address] 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 Start: 2010 Screening for malign ant neoplasm of colon [facility] Start: 2005 Screening for malign ant neoplasm of breast Mammogram Screening [facility] Start: 1995 Screening for malign ant neoplasm of cervix HPV Testing [facility] Start: 1986 Screening for malign ant neoplasm of cervix [facility] Start: 1984 Hepatitis B Vaccine (1 of 3 - 19+ 3-dose series) Hepatitis B Vaccine (1 of 3 - 19+ 3-dose series) [facility] Start: 1984 Urine microalbumin profile DTaP,Tdap,Td Vaccine (1 - Tdap) [facility] Start: 1983 Annual PCP Team [employer] b[employer] Disease Visit Annual PCP Team Chronic Disease Visit [facility] Start: 1983 Anxiety Screening Anxiety Screening [facility] Start: 1983 Depression Screening Depression Scre ening [facility] Start: 1983 Hepatitis C screening Hepatitis C Sc reening [facility] Start: 1983 HIV screening HIV Screening [facility] Unlisted procedure hands/fingers HAND/FINGER SURGERY UNLISTED Procedures Routine Numbness Ordered: 02/11/2024 [facility] Work Phone: Comment on above: Ordered: 02/11/2024 End: 02-10-2025 US Carotid arteries - bilateral US CAROTID ARTERIES [facility] Routine Numbness 1 Occurrences starting 02/11/2024 until 02/10/2025 [facility] Work Phone: Comment on above: 1 Occurrences starti ng 02/11/2024 until 02/10/2025 End: 10-08-2025 US Upper extremity - right US ELBOW RIGHT Radiology Routine Ulnar neuritis, right 1 Occurrences starting 09/09/2024 until 10/08/2025 [facility] Work Phone: Comment on above: 1 Occurrences starti ng 09/09/2024 until 10/08/2025 [facility] Immunizations Immunization Date Immunization Notes Care Provider Sameer paula 07-25-2023 influenza virus vacc ine, unspecified formulation Emg Weight:400) Work Phone: [facility] Payers Date Payer Category Payer Unknown MMO [employer] PPO [id number] 2023-Present [phone] [address] [place] [address] PPO [id number] 1965 Unknown [id number] 1965 Unknown [id number] 1965 Unknown [id number] 1965 Unknown [id number] 1959 Self-pay 1959 Unknown [id number] Unknown [id number] Unknown [id number] Unknown MMO [id number] Unknown [facility] [id number] Social History Date Type Detail Facility Start: 02-11-2024 End: 05-14-2024 Sex Assigned At [facility] Start: 1965 Sex Assigned At Female [facility] Start: 02-06-2024 Gender identity Identifies as female gender (finding) [facility] Start: 02-06-2024 Sexual orientation Heterosexual (mel[place]) [facility] Start: 02-11-2024 End: 05-14-2024 History of Social function [facility] National Score (1-10 0), lower number is lower risk 60 [facility] Goals Date Patient Goal Desired Activity /State [...] Pat Ashraf PA-C or Flora Valente PA-C [facility] 09-21-2024 Miscellaneous Notes I called and left messages in regards to receiving the patients ultrasound. It was normal and the provider wants the patient to get set up with a hand specialist due to the ongoing pain. She can schedule with Pat Ashraf PA-C or Flora Valente PA-C documented in this encounter [facility] 09-21-2024 Telephone encounter Note Images from the original note were not included. [facility] 09-21-2024 Miscellaneous Notes Images from the original note were not included. documented in this encounter [facility] 09-08-2024 Telephone encounter Note Called patient and [...] may need to push the appointment out. [facility] 09-08-2024 Miscellaneous Notes Called patient and let [...] the OT. Thanks! documented in this encounter [facility] 09-08-2024 Telephone encounter Note ----- Message from [...] does not improve from the OT. Thanks! [facility] 05-21-2024 Note HNO ID: [id number] Author: TYLER LEVINE PA-C Service: ? Author Type: Physician Instrumentation Specialist Type: Progress Notes Filed: 05/21/2024 14:52 Note [...] ECRB: Negative ROM: full ROM STRENGTH: 5/5 librarian head CREPITUS: negative NEUROLOGICAL EXAM: Sensory: sensation intact [...] instruct ulnar nerve glides and work on librarian head strength and mobility. Follow-up should symptoms persist. Tyler Levine PA-C This note is created with the assistance of a speech-recognition program. [facility] 05-21-2024 History of Presen t illness [...] ECRB: Negative ROM: full ROM STRENGTH: 5/5 librarian head CREPITUS: negative NEUROLOGICAL EXAM: Sensory: sensation intact [...] instruct ulnar nerve glides and work on librarian head strength and mobility. Follow-up should symptoms persist. Tyler Levine PA-C This note is created with the assistance of a speech-recognition program. documented in this encounter [facility] 05-19-2024 Note HNO ID: [id number] Author: VAN GARCIA MD Service: ? Author [...] EMG Tech Van Garcia MD (sign out) [facility] 05-19-2024 History of Presen t illness [...] EMG Tech Van Garcia MD (sign out) documented in this encounter [facility] 04-01-2024 Telephone encounter Note Patient was working and didn't have anything to write with so they wanted a [employer] message instead. [facility] 04-01-2024 Miscellaneous Notes Patient was working and didn't have anything to write with so they wanted a [employer] message instead. documented in this encounter [facility] 03-31-2024 Note HNO ID: [id number] Author: DEBI OCAMPO RT(R) Service: Radiology Author Type: Technologist Type: Progress [...] PATIENT PRESENTS WITH AN IMPLANTABLE OR ATTACHED CERTIFIED OPHTHALMIC ASSISTANT: No RADIOLOGY DEPARTMENT: General X-ray: Exam(s) Completed: Upper Extremity X-Ray(s): Hand, right PERIPHERAL IV DATA: Not applicable SIGNED BY: RT Rosalie(R) March 31, 2024 2:44 PM [facility] 03-31-2024 History of Presen t illness [...] PATIENT PRESENTS WITH AN IMPLANTABLE OR ATTACHED CERTIFIED OPHTHALMIC ASSISTANT: No RADIOLOGY DEPARTMENT: General X-ray: Exam(s) Completed: Upper Extremity X-Ray(s): Hand, right PERIPHERAL IV DATA: Not applicable SIGNED BY: RT Rosalie(R) March 31, 2024 2:44 PM documented in this encounter [facility] 03-31-2024 Instructions Nanette Caruso RN - 03/31/2024 2:04 PM EDT Consult hand surgery for ulnar neuropathy documented in this encounter [facility] 03-31-2024 Note HNO ID: [id number] Author: CHAMP TOTH MD Service: ? Author Type: Physician Type: Progress Notes Filed: 03/31/2024 14:07 Note Text: [facility] DEPARTMENT OF VASCULAR SURGERY OUTPATIENT VISIT DATE [...] DATE: March 31, 2024 TIME: 1:55 PM [facility] 03-31-2024 History of Presen t illness Narrative Images from the original note were not included. [facility] DEPARTMENT OF VASCULAR SURGERY OUTPATIENT VISIT DATE [...] TIME: 1:55 PM documented in this encounter [facility] 02-11-2024 Instructions Nanette Caruso RN - 02/11/2024 11:22 AM EDT Carotid duplex follow up with lida Consult hand surgery documented in this encounter [facility] 02-11-2024 Note HNO ID: [id number] Author: CHAMP TOTH MD Service: ? Author Type: Physician Type: Progress Notes Filed: 02/11/2024 11:26 Note Text: [facility] DEPARTMENT OF VASCULAR SURGERY OUTPATIENT VISIT DATE [...] DATE: February 11, 2024 TIME: 11:05 AM [facility] 02-11-2024 History of Presen t illness Narrative Images from the original note were not included. [facility] DEPARTMENT OF VASCULAR SURGERY OUTPATIENT VISIT DATE [...] TIME: 11:05 AM documented in this encounter [facility] 02-07-2024 Miscellaneous Notes RP Patient already scheduled with Dr. Champ Moreira at [facility]. Case closed. 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[employer] Other 06-28-2018 History general Narrative - Reported* Type Description Date Medical History Autoimmune thyroiditis Surgical History Appendectomy, [facility] 05/01/2018 Hospitalization History see surgical history [employer] Other Evaluation note* Diagnosis Numbness- Primary Disturbance of skin sensation [facility] [place] [facility] Diagnosis Peripheral arterial disease (HCC)- Primary Peripheral vascular disease, unspecified [facility] [place] [facility] Diagnosis Peripheral arterial disease (HCC)- Primary Peripheral vascular disease, unspecified [facility] [place] [facility]* Diagnosis 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 Lesion of ulnar nerve Ulnar nerve compression, right Ulnar neuropathy of right upper extremity Lesion of ulnar nerve Ulnar nerve compression, right [facility] [place] [facility]* Diagnosis Ulnar neuropathy of right upper extremity Lesion of ulnar nerve Ulnar nerve compression, right documented [facility] [place] [facility]* Diagnosis Onset Date Resolution Status Hypothyroid acute Pre-employment examination a [facility] Work Phone: Evaluation note* Diagnosis Numbness- Primary Disturbance of skin sensation Tingling Disturbance of skin sensation [facility] [place] [facility]* Diagnosis Ulnar neuritis, right- Primary documented [facility] [place] [facility]* Diagnosis Ulnar neuritis, right- Primary documented in this encounter [facility] for referral (narrative)* Outpatient Procedure (Routine) - Authorized Specialty Diagnoses / Procedures [facility] Diagnoses Numbness Procedures US CAROTID ARTERIES [facility] DUPLEX SCAN EXTRACRANIAL [place] [address] [place] [address] [facility] [address] [place] [address] Referral ID Status Reason Start Date Expiration Date Visits Requested Visits Authorized [id number] Authorized Auto-Generat ed Referral 02/11/2024 02/10/2025 1 1 [facility] for referral (narrative)* Diagnostic Procedure Only (Routine) - Closed Specialty Diagnoses / Procedures Referred By Nathan t Referred To Contact XR IMAGING Diagnoses 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, right Procedures XR HAND GENERAL 3V PA/LAT/OBL RIGHT RADEX HAND MINIMUM [address] [place] [address] [place] [address] [place] [address] Referral ID Status Reason Start Date Expiration Date V isits Requested Visits Authorized [id number] Closed Auto-Generate d Referral 03/31/2024 04/30/2025 1 1 [facility] for referral (narrative)* Diagnostic Procedure Only (Routine) - New Request Specialty Diagnoses / Procedures Referred By Nathan t Referred To Contact US IMAGING Diagnoses Ulnar neuritis, right Procedures US ELBOW RIGHT US LMTD JOINT/OTH NONVASC XTR STRUX R-T W/IMG Tyler Levine PA-C [address] [place] [address] [place] [address] Referral ID Status Reason Start Date Expiration Date Visits Requested Visits Authorized [id number] New Request Auto-Generat ed Referral 09/09/2024 10/08/2025 1 1 [facility] for visit Narrative* Diagnostic Procedure Only (Routine) - Closed Specialty Diagnoses / Procedures Referred By Contac t Referred To Contact XR IMAGING Diagnoses 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, right Procedures XR HAND GENERAL 3V PA/LAT/OBL RIGHT RADEX HAND MINIMUM [address] [place] [address] [address] [place] [id number] Xr Imaging [facility] Referral ID Status Reason Start Date Expiration Date V isits Requested Visits Authorized [id number] Closed Auto-Generate d Referral 03/31/2024 04/30/2025 1 1 [facility] Summary Purpose Family History No Family History [...] Diagnoses Ulnar neuritis, right Procedures CONSULT TO NURSE [facility] OCC[facility] THERAPY [facility] COMPLEX 60 MINS Tyler Levine PA-C [address] [place] [address] [facility] [address] [place] [address] Referral ID Status Reason Start Date Expiration Date Visits Requested Visits Authorized [id number] Pending Review Auto-Generat ed Referral 05/21/2024 05/21/2025 1 1 Specialty Diagnoses / Procedures Referred By Contac t Referred To Contact Orthopedics Diagnoses Ulnar neuropathy of right upper extremity Procedures CONSULT PANEL TO ORTHOPAEDICS OFFICE/OUTPATIENT [facility] 60 [place] [address] [address] [place] [phone] Referral ID Status Reason Start Date Expiration Date Visits Requested Visits Authorized [id number] Authorized PCP Requested Referral 03/31/2024 03/31/2025 1 1 Specialty Diagnoses / Procedures Referred By Contac t Referred To Contact XR IMAGING Diagnoses 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, right Procedures XR HAND GENERAL 3V PA/LAT/OBL RIGHT RADEX HAND MINIMUM [address] [place] [address] [address] [place] [phone] [place] [address] Referral ID Status Reason Start Date Expiration Date V isits Requested Visits Authorized [id number] Closed Auto-Generate d Referral 03/31/2024 04/30/2025 1 1 Chief Complaint and Reason for Visit 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 dical Specialists EPIC REASON FOR VISIT (unrecogniz ed section and content) Reason Comments Appointment Reason Comments New Patient Reason Comments Follow Up Reason Onset Date Comments EMG 05/19/2024 Specialty Diagnoses / Procedures Referred By Contact Referred To Contact [facility] Diagnoses Hand numbness Procedures EMG(NEURO/NI) NERVE CONDUCTION STUDIES 9-10 STUDIES Tyler Levien, ELO [address] [place] [address] [facility] [address] [place] [address] Referral ID Status Reason Start Date Expiration Date V isits Requested Visits Authorized [id number] Closed Auto-Generate d Referral 03/31/2024 03/31/2025 1 1 Specialty Diagnoses / Procedures Referred By Contac t Referred To Contact Orthopedics Diagnoses Ulnar neuropathy of right upper extremity Procedures CONSULT PANEL TO ORTHOPAEDICS OFFICE/OUTPATIENT [facility] [address] [place] [address] [place] [address] Referral ID Status Reason Start Date Expiration Date V isits Requested Visits Authorized [id number] Closed PCP Requested Referral 03/31/2024 03/31/2025 1 1 Reason Comments Insurance Claims Representative - Other [facility]ING REPORT Reason Comments Appointment Scheduling with a souza nd specialist. Source Comments (unrecognize d section and content) In the event this informatio n is protected by the Federal Confidentiality of Alcohol and Drug Abuse Patient Records regulations: The Federal rules restrict any use of the information to criminally investigate or prosecute any alcohol or drug abuse patient.[facility] the event this information is protected by the Federal Confidentiality of Alcohol and Drug Abuse Patient Records regulations: The Federal rules restrict any use of the information to criminally investigate or prosecute any alcohol or drug abuse patient.[facility] the event this information is protected by the Federal Confidentiality of Alcohol and Drug Abuse Patient Records regulations: The Federal rules restrict any use of the information to criminally investigate or prosecute any alcohol or drug abuse patient.[facility] the event this information is protected by the Federal Confidentiality of Alcohol and Drug Abuse Patient Records regulations: The Federal rules restrict any use of the information to criminally investigate or prosecute any alcohol or drug abuse patient.[facility] the event this information is protected by the Federal Confidentiality of Alcohol and Drug Abuse Patient Records regulations: The Federal rules restrict any use of the information to criminally investigate or prosecute any alcohol or drug abuse patient.[facility] the event this information is protected by the Federal Confidentiality of Alcohol and Drug Abuse Patient Records regulations: The Federal rules restrict any use of the information to criminally investigate or prosecute any alcohol or drug abuse patient.[facility] the event this information is protected by the Federal Confidentiality of Alcohol and Drug Abuse Patient Records regulations: The Federal rules restrict any use of the information to criminally investigate or prosecute any alcohol or drug abuse patient.[facility] the event this information is protected by the Federal Confidentiality of Alcohol and Drug Abuse Patient Records regulations: The Federal rules restrict any use of the information to criminally investigate or prosecute any alcohol or drug abuse patient.[facility] the event this information is protected by the Federal Confidentiality of Alcohol and Drug Abuse Patient Records regulations: The Federal rules restrict any use of the information to criminally investigate or prosecute any alcohol or drug abuse patient.[facility] the event this information is protected by the Federal Confidentiality of Alcohol and Drug Abuse Patient Records regulations: The Federal rules restrict any use of the information to criminally investigate or prosecute any alcohol or drug abuse patient.[facility] the event this information is protected by the Federal Confidentiality of Alcohol and Drug Abuse Patient Records regulations: The Federal rules restrict any use of the information to criminally investigate or prosecute any alcohol or drug abuse patient.[facility] the event this information is protected by the Federal Confidentiality of Alcohol and Drug Abuse Patient Records regulations: The Federal rules restrict any use of the information to criminally investigate or prosecute any alcohol or drug abuse patient.[facility] the event this information is protected by the Federal Confidentiality of Alcohol and Drug Abuse Patient Records regulations: The Federal rules restrict any use of the information to criminally investigate or prosecute any alcohol or drug abuse patient.[facility] the event this information is protected by the Federal Confidentiality of Alcohol and Drug Abuse Patient Records regulations: The Federal rules restrict any use of the information to criminally investigate or prosecute any alcohol or drug abuse patient.[facility] the event this information is protected by the Federal Confidentiality of Alcohol and Drug Abuse Patient Records regulations: The Federal rules restrict any use of the information to criminally investigate or prosecute any alcohol or drug abuse patient.[facility] Care Teams (unrecognized sec tion and content) Dry Yard Worker Relationship Specialty Start Date End Date Delvis Lr MD [address] [place] [address] PCP - General Family Medicine 02/07/24 Delvis rL MD [address] [place] [address] Referring Family Medicine 01/27/24 Dry Yard Worker Relationship Specialty Start Date End Date Delvis Lr MD [address] [place] [address] PCP - General Family Medicine 02/07/24 Delvis Lr MD [address] [place] [address] Referring Family Medicine 01/27/24 Dry Yard Worker Relationship Specialty Start Date End Date Delvis Lr MD [address] [place] [address] PCP - General Family Medicine 02/07/24 Delvis Lr MD [address] [place] [address] Referring Family Medicine 01/27/24 Dry Yard Worker Relationship Specialty Start Date End Date Delvis Lr MD [address] [place] [address] PCP - General Family Medicine 02/07/24 Delvis Lr MD [address] [facility] [place] [address] Referring Family Medicine 01/27/24 Dry Yard Worker Relationship Specialty Start Date End Date Delvis Lr MD [address] [place] [address] PCP - General Family Medicine 02/07/24 Delvis Lr MD [address] [place] [address] Referring Family Medicine 01/27/24 Dry Yard Worker Relationship Specialty Start Date End Date Delvis Lr MD [address] [place] [id number] PCP - General Family Medicine 02/07/24 Delvis Lr MD [address] [place] [id number] Referring Family Medicine 01/27/24 Dry Yard Worker Relationship Specialty Start Date End Date Delvis Lr MD [address] [place] [id number] PCP - General Family Medicine 02/07/24 Delvis Lr MD [address] [place] [id number] Referring Family Medicine 01/27/24 Team Status: Active Member Role Status Dates Delvis Lr MD Primary Care Provider Active Team Status: Inactive Member Role Status Dates Delvis Lr MD Primary Care Provider Active Start: May 06, 2024 End: May 06, 2024 Wisam Mix DO Attending Provider Active Sta rt: May 06, 2024 End: May 06, 2024 Dry Yard Worker Relationship Specialty Start Date End Date Delvis Lr MD [address] [place] [id number] PCP - General Family Medicine 02/07/24 Delvis Lr MD [address] [place] [id number] Referring Family Medicine 01/27/24 Dry Yard Worker Relationship Specialty Start Date End Date Delvis Lr MD [address] [place] [address] PCP - General Family Medicine 02/07/24 Delvis Lr MD [address] [place] [address] Referring Family Medicine 01/27/24 Dry Yard Worker Relationship Specialty Start Date End Date Delvis Lr MD [address] [place] [address] PCP - General Family Medicine 02/07/24 Delvis Lr MD [address] [place] [address] Referring Family Medicine 01/27/24 Dry Yard Worker Relationship Specialty Start Date End Date Delvis Lr MD [address] [facility] [place] [address] PCP - General Family Medicine 02/07/24 Delvis Lr MD [address] [place] [address] Referring Family Medicine 01/27/24 Dry Yard Worker Relationship Specialty Start Date End Date Delvis Lr MD [address] [place] [address] PCP - General Family Medicine 02/07/24 Delvis Lr MD [address] [facility] [place] [address] Referring Family Medicine 01/27/24 Goals (unrecognized section [...] BE BASED ON THE PRIMARY CLINICAL RECORDS. [facility] [employer] [facility]. provides no warranty or guarantee of the accuracy or completeness of information in this document.
== END 2025-01-26 09:53 | disposition home or self-care (01) ==
LOC: MAMMO 09:52
PROVIDERS: PCP Family Medicine; Visit Provider Family Medicine
DX: Z12.31 Encounter for screening mammogram for malignant neoplasm of breast (principal); Z80.8 Family history of malignant neoplasm of other organs or systems
CPT/HCPCS: 77063; 77067

== ENCOUNTER 2025-06-28 09:06 | Outpatient (OUT) | payer OTHER, SELFPAY ==
--- OUTSIDE RECORDS SUMMARY | 2025-06-28 09:08 | XMS_ITS | Clinical Summary ---
Author Organization [facility] Healthcare Address [address] [place] [address] Care Team Providers Care Tube Roller Name Role Phone Tramaine Lr MD Primary Care Provider [phone] Allergies Active Allergy Reactions Criticality Noted Date Comments Sulfamethoxazole-Trimethoprim Hives,Rash Medium 2023 Medications levothyroxine (Synthroid, Levoxyl) 25 MCG tablet Take by mouth in the morning. Take before meals. Active liothyronine (Cytomel) 25 MCG tablet Take 12.5 mcg by mouth in the morning. Active omega-3 (FISH OIL) 300 MG capsule Take by mouth Daily Active Turmeric (QC TUMERIC COMPLEX PO) Take by mouth Active cyanocobalamin (Vitamin B-12) 100 MCG tablet Take 100 mcg by mouth Daily Active Calcium Carb-Cholecalcife rol (CALCIUM PLUS VITAMIN D PO) Take by mouth Ac tive fluticasone (Flonase) 50 MCG/ACT nasal sprayIndications: Chronic pansinusitis Administer 2 sprays into each nostril Daily Shake gently. Before first use, prime pump. After use, clean tip and replace cap. 48 g 3 5 01/13/20 26 Active cetirizine (ZyrTEC) 10 MG tabletIndications :Chronic pansinusitis Take 1 tablet (10 mg) by mouth Daily as needed for allergies 30 tablet 11 5 01/13/20 26 Active famotidine (Pepcid) 20 MG tabletIndications :LPRD (laryngopharyngea l reflux disease) Take 1 tablet (20 mg) by mouth at bedtime 90 tablet 5 Active omeprazole (PriLOSEC) [address] capsuleIndication s:LPRD (laryngopharyngea l reflux disease) Take 1 capsule (40 mg) by mouth in the morning. Take before meals. Do not crush or chew. 90 capsule Active Active Problems Problem Noted Date Diagnosed Date Hypothyroidism 02/11/2024 Macular degeneration 02/11/2024 Peripheral arterial disease 02/11/2024 Sciatica 02/11/2024 Peripheral vertigo 02/11/2024 Family History Medical History Relation Name Comments Diabetes Father Tiago Reardon Cancer Mother Gill Reardon Rashes / Skin problems Mother Gill Reardon Relation Name Status Comments Father Tiago Reardon Mother Gill Reardon Social History Tobacco Use Types Packs/Day Years Used Date Smoking Tobacco: Never Smokeless Tobacco: Never Tobacco Cessation:Counseling Given: Not Answered Alcohol Use Standard Drinks/Week Comments Never 0 (1 standard drink = 0.6 oz pur e alcohol) Comments Unknown Sex and Gender Information Value Date Recorded Sex Assigned at Not on file Legal Sex Female 8:42 AM EST Gender Identity Not on file Sexual Orientation Not on file Last Filed Vital Signs Vital Sign Reading Time Taken Comments Blood Pressure 152/97 02/16/2025 9:46 AM EDT Pulse 75 02/16/2025 9:46 AM EDT Temperature - - Respiratory Rate - - Oxygen Saturation - - Inhaled Oxygen Concentration - - Weight 91.2 kg (201 lb) 02/16/2025 9:46 AM EDT Height 162.6 cm (5' 4 ) 02/16/2025 9:46 AM EDT Body Mass Index 34.5 02/16/2025 9:46 AM EDT Plan of Treatment Not on file Insurance [employer] Care Teams Tube Roller Relationship Specialty Start Date End Date Tramaine Lr MD PCP - General Family Medicine 11/13/24
--- OUTSIDE RECORDS SUMMARY | 2025-06-28 09:08 | XMS_ITS | Encounter Summary ---
Author Organization [facility] Address [address] [place] [address] Care Team Providers Care Solder Making Laborer Name Role Phone Tramaine Lr MD Primary Care Provider [phone] Encounter Details Date Type Department Care Team (Late st Contact Info) Description 01/11/2025 Orders Only [facility] [address] [facility] [address] [place] [address] Tramaine Lr MD [address] [facility] [place] [address] Social History Tobacco Use Types Packs/Day Years Used Date Smoking Tobacco: Never Assessed Comments Unknown Sex and Gender Information Value Date Recorded Sex Assigned at Not on file Legal Sex Female 8:42 AM EST Gender Identity Not on file Sexual Orientation Not on file documented as of this encounter Plan of Treatment Not on file documented as of this encounter Procedures Procedure Name Priority Date/Time Associated Diagnosis Comments POLYSOMNOGRAPHY (PSG) SLEEP STUDY Routine 12/21/2024 3:42 PM EST POLYSOMNOGRAPHY (PSG) SLEEP STUDY Routine 12/21/2024 3:40 PM EST documented in this encounter Results * POLYSOMNOGRAPHY (PSG) SLEEP STUDY (12/21/2024 3:42 PM EST) Anatomical Region Laterality Modality Radiographic Yumiko ging us Tramaine Lr MD IMG XR PROCEDURES Final Result * POLYSOMNOGRAPHY (PSG) SLEEP STUDY (12/21/2024 3:40 PM EST) Anatomical Region Laterality Modality Radiographic Yumiko ging us Tramaine M Hoy MD IMG XR PROCEDURES Final Result documented in this encounter Visit Diagnoses Not on filedocumented in this encounter Care Teams Solder Making Laborer Relationship Specialty Start Date End Date Tramaine Lr MD PCP - General Family Medicine 11/13/24 documented as of this encounter
--- OUTSIDE RECORDS SUMMARY | 2025-06-28 09:08 | XMS_ITS | Clinical Summary ---
Author Organization [facility] Address [address] [place] [address] Care Team Providers Care Materials Development Engineer Name Role Phone Tramaine Lr MD Primary Care Provider [phone] Allergies Active Allergy Reactions Criticality Noted Date Comments Sulfamethoxazole-Trimethoprim Rash Medium 2023 Medications Levothyroxine 25 MCG tablet Take by mouth every morning before breakfast. Active hydroCODone-oscar taminophen 5-325 MG tabletIndicatio ns:Ureterolithi asis Take 1 tablet by mouth every 4 hours as needed for up to 3 days. 10 tablet 11/09/2023 Active Social History Tobacco Use Types Packs/Day Years Used Date Smoking Tobacco: Never Smokeless Tobacco: Never Tobacco Cessation:Counseling Given: Not Answered Alcohol Use Standard Drinks/Week Comments Never 0 (1 standard drink = 0.6 oz pur e alcohol) Comments Unknown Sex and Gender Information Value Date Recorded Sex Assigned at Not on file Legal Sex Female 6:52 PM EST Gender Identity Not on file Sexual Orientation Not on file Last Filed Vital Signs Vital Sign Reading Time Taken Comments Blood Pressure 169/96 11/09/2023 9:20 PM EST Pulse 64 11/09/2023 9:20 PM EST Temperature 35.8 C (96.5 F) 11/09/2023 6:58 PM EST Respiratory Rate 14 11/09/2023 9:20 PM EST Oxygen Saturation 97% 11/09/2023 9:20 PM EST Inhaled Oxygen Concentration - - Weight - - Height 162.6 cm (5' 4 ) 11/09/2023 7:00 PM EST Body Mass Index - - Plan of Treatment Health Maintenance Due Date Last Done Comments HEPATITIS C VIRUS SCREENING 1965 TETANUS 1965 TSH 1965 HIV SCREENING DISCUSSION 1980 HEP B VACCINE (1 of 3 - 19+ 3-dose series) 1984 TDAP (ADULT) 1984 CERVICAL CANCER SCREENING DISCUSSION 1986 LIPID SCREENING 2005 MAMMOGRAM SCREENING DISCUSSION 2005 COLORECTAL CANCER SCREENING DISCUSSION 2010 PNEUMOCOCCAL VACCINE SERIES (1 of 1 - PCV) 2015 ZOSTER (SHINGLES) VACCINE (1 of 2) 2015 COVID-19 VACCINE (1 - 2023- season) 2024 INFLUENZA VACCINE (#1) 2025 Insurance MMO Care Teams Materials Development Engineer Relationship Specialty Start Date End Date Tramaine Lr MD PCP - General Family Medicine 11/09/23
--- OUTSIDE RECORDS SUMMARY | 2025-06-28 09:08 | XMS_ITS | Encounter Summary ---
Author Organization [facility] Address [address] [place] [id number] Care Team Providers Care Charge Coordinator Name Role Phone Tramaine Lr MD Unavailable [phone] Tramaine Lr MD Primary Care Provider [phone] Source Comments In the event this information is protected by the Federal Confidentiality of Alcohol and Drug AbusePatient Records regulations: The Federal rules restrict any use of the information to criminally investigate or prosecute any alcohol or drug abuse patient.[facility] Encounter Details Date Type Department Care Team (Late st Contact Info) Description 05/19/2024 Patient Msg Orthopaedics [address] [place] [address] Jaziel Centeno PA-C [address] [address] EMG results Social History Tobacco Use Types Packs/Day Years Used Date Smoking Tobacco: Never Assessed PHQ-2 Answer Date Recorded PHQ-2 score 0 05/14/2024 Area Deprivation Index Answer Date Eber rded National Score (1-100), lower number is lower ri sk 60 02/11/2024 State Score (1-10), lower number is lower risk 4 02/11/2024 Data from: https://www.neighborhoodatlas.medicine.[facility]/. Last address used for calculation [address] 02/11/2024 Comments Unknown Sex and Gender Information Value Date Recorded Sex Assigned at Female 02/06/2024 1:17 PM EDT Legal Sex Female 12:50 PM EDT Gender Identity Female 02/06/2024 1:17 PM EDT Sexual Orientation Straight 02/06/2024 1: 17 PM EDT documented as of this encounter Plan of Treatment Not on file documented as of this encounter Goals Goal Patient Goal Type Associated Problems Recent Progress Patient-Stated? Author Blood Pressure < 140/90 Blood Pressure 149/97( 024 1:49 PM EDT) No Champ Morataya MD documented as of this encounter Visit Diagnoses Not on filedocumented in this encounter Care Teams Charge Coordinator Relationship Specialty Start Date End Date Tramaine Lr MD [address] [place] [address] PCP - General Family Medicine 02/07/24 Tramaine Lr MD [address] [place] [address] Referring Family Medicine 01/27/24 documented as of this encounter
--- OUTSIDE RECORDS SUMMARY | 2025-06-28 09:08 | XMS_ITS | Clinical Summary ---
Author Organization [facility] Address [address] [place] [address] Care Team Providers Care Automatic Dry Starch Operator Name Role Phone Tramaine Lr MD Unavailable [phone] Tramaine Lr MD Primary Care Provider [phone] Allergies Active Allergy Reactions Criticality Noted Date Comments Sulfamethoxazole-Trimethoprim Hives 2023 Medications vit A/vit C/vit E/zinc/copper (ICAPS AREDS ORAL) Take by mouth. Active omega-3/dha/epa/ dpa/fish oil (OMEGA-3, WITH DPA, ORAL) Take by mouth. Active TURMERIC, BULK, MISC Active levothyroxine 75 mcg cap Take 75 mcg by mouth daily before breakfast. Active liothyronine (CYTOMEL) 25 mcg tablet Take 12.5 mcg by mouth once daily. Active calcium carbonate/vitami n D3 (CALCIUM 500 + D ORAL) Take by mouth. Active meloxicam (MOBIC) 15 mg tablet Take 1 tablet by mouth once daily. with food 30 tablet 1 09/08/2024 Active Active Problems Problem Noted Date Diagnosed Date Emphysematous pyelonephritis 02/11/202407/2024 Fibrocystic breast changes 02/11/202402/10 Hypothyroidisms 02/11/2024 02/11/2024 Macular degeneration 02/11/2024 02/11/2024 Peripheral arterial disease 02/11/2024 04/0 07/2024 Peripheral vertigo 02/11/2024 02/11/2024 Sciatica 02/11/2024 02/11/2024 Cough, unspecified 11/30/2022 02/11/2024 Social History Tobacco Use Types Packs/Day Years Used Date Smoking Tobacco: Never Assessed PHQ-2 Answer Date Recorded PHQ-2 score 0 05/14/2024 Area Deprivation Index Answer Date Eber rded National Score (1-100), lower number is lower ri sk 60 02/11/2024 State Score (1-10), lower number is lower risk 4 02/11/2024 Data from: https://www.neighborhoodatlas.medicine.[facility].edu/. Last address used for calculation [address] 02/11/2024 Comments Unknown Sex and Gender Information Value Date Recorded Sex Assigned at Female 02/06/2024 1:17 PM EDT Legal Sex Female 12:50 PM EDT Gender Identity Female 02/06/2024 1:17 PM EDT Sexual Orientation Straight 02/06/2024 1: 17 PM EDT Last Filed Vital Signs Vital Sign Reading Time Taken Comments Blood Pressure 149/97 03/31/2024 1:49 PM EDT Pulse - - Temperature - - Respiratory Rate - - Oxygen Saturation - - Inhaled Oxygen Concentration - - Weight 90.7 kg (200 lb) 03/31/2024 1:49 PM EDT Height 162.6 cm (5' 4 ) 03/31/2024 1:49 PM EDT Body Mass Index 34.33 03/31/2024 1:49 PM EDT Plan of Treatment Health Maintenance Due Date Last Done Comments Annual PCP Team Chronic Disease Visit 1983 Anxiety Screening 1983 Depression Screening 1983 HIV Screening 1983 Hepatitis C Screening 1983 DTaP,Tdap,Td Vaccine (1 - Tdap) 1984 Cervical Cancer Screening [address] Colonography 2010 Cologuard (FIT-DNA) 2010 Colonoscopy 2010 Colorectal Cancer Screening 2010 Fecal Occult Blood 2010 Lipid Screening 2010 Sigmoidoscopy 2010 Pneumococcal Vaccine: 50+ (1 of 1 - PCV) 2015 Shingrix Vaccine (1 of 2) 2015 Influenza Vaccine (#1) 2025 3, 08/01/2022, 09/05/2020 Diabetes Screening 11/09/2026 11/09/2023 Goals Goal Patient Goal Type Associated Problems Recent Progress Patient-Stated? Author Blood Pressure < 140/90 Blood Pressure 149/97( 024 1:49 PM EDT) Champ Bhagat MD [address] [place] [address] [facility] PPO Care Teams Automatic Dry Starch Operator Relationship Specialty Start Date End Date Tramaine Lr MD [address] [place] [address] PCP - General Family Medicine 02/07/24 Tramaine Lr MD [address] [place] [address] Referring Family Medicine 01/27/24
--- OUTSIDE RECORDS SUMMARY | 2025-06-28 09:08 | XMS_ITS | Encounter Summary ---
Author Organization [facility] Address [address] [place] [address] Care Team Providers Care Culinary Internship Name Role Phone Tramaine Lr MD Unavailable [phone] Tramaine Lr MD Primary Care Provider [phone] Source Comments In the event this information is protected by the Federal Confidentiality of Alcohol and Drug AbusePatient Records regulations: The Federal rules restrict any use of the information to criminally investigate or prosecute any alcohol or drug abuse patient.[facility] Encounter Details Date Type Department Care Team (Late st Contact Info) Description 09/08/2024 Patient Msg Orthopaedics [address] [place] [address] Jaziel Centeno PA-C [address] [address] Appointment Request Social History Tobacco Use Types Packs/Day Years Used Date Smoking Tobacco: Never Assessed PHQ-2 Answer Date Recorded PHQ-2 score 0 05/14/2024 Area Deprivation Index Answer Date Eber rded National Score (1-100), lower number is lower ri sk 60 02/11/2024 State Score (1-10), lower number is lower risk 4 02/11/2024 Data from: https://www.neighborhoodatlas.medicine.[facility]/. Last address used for calculation [address] 02/11/2024 Comments Unknown Sex and [...] on filedocumented in this encounter Care Teams Culinary Internship Relationship Specialty Start Date End Date Tramaine Lr MD [address] [place] [address] PCP - General Family Medicine 02/07/24 Tramaine Lr MD [address] [place] [address] Referring Family Medicine 01/27/24 documented as of this encounter
--- OUTSIDE RECORDS SUMMARY | 2025-06-28 09:17 | XMS_ITS | CCD ---
Author Organization [facility] Care Team Providers Care 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 Name Role Phone DR DELVIS LR Consulting Unavailable TRINO, DR EDMONDSON Primary Care Unavailable TRINO, DR EDMONDSON Admitting Unavailable TRINO, DR EDMONDSON Attending Unavailable BENTLEY MONDRAGON Consulting Unavailable TRINO, DR EDMONDSON Primary Care Unavailable CHRISTIANEY, DR EDMONDSON Admitting Unavailable TRINO, DR EDMONDSON Attending Unavailable TRINO, DR EDMONDSON Consulting Unavailable WEST, DR BENTLEY Mcnally Consulting Unavailable TRINO, DR EDMONDSON Primary Care Unavailable TRINO, DR EDMONDSON Admitting Unavailable TRINO, DR EDMONDSON Attending Unavailable CHRISTIANEY, DR EDMONDSON Consulting Unavailable Wisam Mix Unavailable DELVIS LR Primary Care Unavailable BRYSON GRANDE Attending Unavailable Delvis Lr MD Unavailable Delvis Lr MD Primary Care Provider [phone] Delvis Lr MD Primary Care Provider [phone] AMBREEN TOTH Referring Unavailable DELVIS LR Primary Care Unavailable AMBREEN TOTH Attending Unavailable DELVIS LR Primary Care Unavailable TYLER LEVINE Attending Unavaila ble AMBREEN TOTH Referring Unavailable DELVIS LR M Primary Care Unavailable TYLER LEVINE Referring Unavaila ble DELVIS LR M Primary Care Unavailable AMBREEN TOTH Attending Unavailable DELVIS LR Primary Care Unavailable AMBREEN TOTH Referring Unavailable DELVIS LR Primary Care Unavailable Delvis Lr Primary Care Physician Delvis Lr MD Primary Care Provider MARENMIS, KENNETH H Attending Unavailable TIMMIS, KENNETH H Attending Unavailable Zoran BRODERICK Attending Unavailable JINA FOREMAN Attending Unavailable Delvis Lr Referring Unavailable Timmis, Kenneth H Referring Unavailable Timmis, Kenneth H Admitting Unavailable Kenneth Zepeda Attending Unavailable Allergies Allergy Classification Reported Allergen(s) Allergy Type Date of Onset Reaction(s) Facility (20 sources) Sulfamethoxazole / Trimethoprim; Translations: [SULFAMETHOXAZOLE-TR IMETHOPRIM] Drug Allergy 11-09-19 24 Hives, Rash [facility] (1 source) No Known Medication Allergies; Translations: [No Known Medication Allergies] Propensity to adverse reactions (disorder) [facility] Repository Medications Current Medications Medication Drug Class(es) Dates Sig (Normalized) Sig (Original) amoxicillin 875 mg / clavulanate 125 mg oral tablet (3 sources) Penicillin-class Antibacterial Start: 01-12-2025 End: 02-16-2025 take 1 tablet by mouth in the morning amoxicillin-clavul anate (Augmentin) 875-125 MG tablet Indications: Chronic pansinusitis Take 1 tablet (875 mg) by mouth in the morning and 1 tablet (875 mg) before bedtime. 60 tablet 01/12/2025 02/16/2025 Discontinued (Therapy completed) Calcium Carb-Cholecalcifer ol (CALCIUM PLUS VITAMIN D PO) (4 sources) Calcium Carb-Cholecalcifer ol (CALCIUM PLUS VITAMIN D PO) Take by mouth Active Calcium Carbonate / vitamin D3 (14 sources) calcium carbonate/vitamin D3 (CALCIUM 500 + D ORAL) Take by mouth. Active calcium carbonat e/vitamin D3 (CALCIUM 500 + D ORAL) Take by mouth. 0 Active Comment on above: Take by mouth. cetirizine hydrochloride 10 mg oral tablet (4 sources) Histamine-1 Receptor Antagonist Start: 01-13-20 25 End: 01-13-20 26 take 1 tablet by mouth once daily as needed cetirizine (ZyrTEC) 10 MG tablet Indications: Chronic pansinusitis Take 1 tablet (10 mg) by mouth Daily as needed for allergies 30 tablet 11 01/12/2025 01/12/2026 Active famotidine 20 mg oral tablet (2 sources) Histamine-2 Receptor Antagonist Start: 02-17-20 25 End: 05-17-20 25 take 1 tablet by mouth at bedtime famotidine (Pepcid) 20 MG tablet Indications: LPRD (laryngopharyngeal reflux disease) Take 1 tablet (20 mg) by mouth at bedtime 90 tablet 02/16/2025 05/17/2025 Active Fish Oils (4 sources) omega-3 (FISH OI L) 300 MG capsule Take by mouth Daily Active fluticasone propionate 0.05 mg/actuat metered dose nasal spray (4 sources) Corticosteroid Start: 01-13-20 End: 01-13-20 take 2 spray(s) nasal route once daily fluticasone (Flonase) 50 MCG/ACT nasal spray Indications: Chronic pansinusitis Administer 2 sprays into each nostril Daily Shake gently. Before first use, prime pump. After use, clean tip and replace cap. 48 g 3 01/12/2025 01/12/2026 Active levothyroxine sodium 0.025 mg oral tablet (18 sources) l-Thyroxine levothyroxine (Synthroid, Levoxyl) 25 MCG tablet Take by mouth in the morning. Take before meals. Active take 1 capsule by mo uth once daily before breakfast levothyroxine 75 mcg cap Take 75 mcg by mouth daily before breakfast. Active Comment on above: Take 75 mcg by mouth daily before breakfast. liothyronine sodium 0.025 mg oral tablet (19 sources) l-Triiodothyronine liothyronine (Cytomel) 25 MCG tablet Take 12.5 mcg by mouth in the morning. Active take 1 tablet by isi th [...] Active Comment on above: Take by mouth. omeprazole 40 mg delayed release oral capsule (2 sources) Proton Pump Inhibitor Start: 02-16-2025 End: 05-17-2025 take 1 capsule by mouth before mealtime omeprazole (PriLOSEC) [address] capsule Indications: LPRD (laryngopharyngeal reflux disease) Take 1 capsule (40 mg) by mouth in the morning. Take before meals. Do not crush or chew. 90 capsule 02/16/2025 05/17/2025 Active Turmeric extract (4 sources) Turmeric (QC TUMERIC COMPLEX PO) Take by mouth Active TURMERIC, BULK, MISC (14 sources) TURMERIC, BULK, MISC Active TURMERIC, BULK, MISC vit A/vit C/vit E/zinc/coppe r (ICAPS AREDS ORAL) (14 sources) vit A/vit C/vit E/zinc/copper (ICAPS AREDS ORAL) Take by mouth. Active vit A/vit C/vit E/zinc/copper (ICAPS AREDS ORAL) Take by mouth. 0 Active Comment on above: Take by mouth. vitamin b12 0.1 mg oral tablet (4 sources) Vitamin B12 take 1 tablet by mouth once daily cyanocobalamin (Vitamin B-12) 100 MCG tablet Take 100 mcg by mouth Daily Active Problems Active Problems Problem Classification Problem Date Documented Date Episodic/Chronic Administrative/social admission (5 sources) Encounter for pre-employment examination; Translations: [Patient encounter status] Episodic Calculus of urinary tract (2 sources) Calculus of ureter; Translations: [Calculus of kidney and ureter ] Onset: 4 04-08-2019 Episodic Esophageal disorders (2 sources) Laryngopharyngeal reflux; Translations: [Gastro-esophageal reflux disease without esophagitis] 02-16-2025 Chronic Genitourinary symptoms and ill-defined conditions (2 sources) Dysuria; Translations: [Microscopic hematuria] 04-08-2019 Episodic Nonmalignant breast conditions (14 sources) Fibrocystic disease of breast; Translations: [Diffuse cystic mastopathy of unspecified breast] Onset: 4 02-11-2024 Chronic Other nervous system disorders (2 [...] [Ulnar neuropathy of right upper extremity] Onset: 4 Chronic Other nervous system disorders (2 sources) [...] [ENC SCR MAMMO MALIG NEOPLASM BREAST] Onset: 2 Episodic Peripheral and visceral atherosclerosis (20 sources) Peripheral vascular disease, unspecified; Translations: [Peripheral vascular disease, unspecified] Onset: 4 02-11-2024 Chronic Residual codes; unclassified (1 source) Family history of malignant neoplasm of other organs or systems; Translations: [FAM HX MALIG NEOPLASM OTH ORGN/SYS] Onset: 2 Episodic Retinal detachments; defects; vascular occlusion; and retinopathy (18 sources) Degenerative disorder of macula ; Translations: [Unspecified macular degeneration] Onset: 4 02-11-2024 Chronic Thyroid disorders (20 sources) Hypothyroidism; Translations: [Hypothyroidism, unspecified] Onset: 4 02-11-2024 Chronic Unclassified (3 sources) COUGH, UNSPECIFIED; Translations: [COUGH, UNSPECIFIED] Onset: 3 Past or Other Problems Problem Classification Problem Date Documented Date Episodic/Chronic Conditions associated with dizziness or vertigo (18 sources) Peripheral vertigo; Translations: [Other peripheral vertigo, unspecified ear] Onset: 02-11-2024 02-11-2024 Episodic Other lower respiratory disease (14 sources) Cough; Translations: [Cough, unspecified] Onset: 11-30-2022 02-11-2024 Episodic Other nervous system disorders (2 sources) Anesthesia of skin; Translations: [Hand numbness] Onset: 03-31-2024 Episodic Spondylosis; intervertebral disc disorders; other back problems (19 sources) Sciatica; Translations: [Sciatica, unspecified side] Onset: 02-11-2024 02-11-2024 Episodic Unclassified (1 source) COUGH, UNSPECIFIED; Translations: [COUGH, UNSPECIFIED] Onset: 11-30-2022 Urinary tract infections (14 sources) Emphysematous pyelonephritis; Translations: [Tubulo-interstitial nephritis, not specified as acute or chronic] Onset: 02-11-2024 02-11-2024 Episodic Results Test Name Value Interpretation Reference Range Facility CT MAXILLOFACIAL W/O CONTRAS Ton 02-07-2025 Exam Date/Time: 02/06/2025 08:30 EDT Reason for Exam: J32.4 Report IMPRESSION: ESSENTIALLY NEGATIVE PARANASAL SINUS CT. EXAM: CT Maxillofacial w/o Contrast DATE: 02/06/2025 7:52 AM CLINICAL HISTORY: J32.4. Technologist Comments: image guided. right cheek marked. pt states drainage into her throat, sleep apnea, no hx of sinus sx COMPARISON: None available. TECHNIQUE: Spiral imaging was obtained of the paranasal sinuses without contrast with textmetix protocol. Routine multiplanar reconstructions were performed. All CT scans at this facility use dose modulation, iterative reconstruction, and/or weight based dosing when appropriate to reduce radiation dose to as low as reasonably achievable. Unless otherwise stated, incidental findings identified in this report do not require routine follow-up imaging. FINDINGS: Brain: Visualized portions of the brain appear unremarkable. Orbits: Unremarkable. Frontal sinuses: Clear. Ethmoid air cells: Minimal mucosal thickening superiorly and posteriorly on the left. Otherwise, clear. Sphenoid sinus: Developmentally septated. Otherwise, clear. Maxillary sinuses: Clear. Osteomeatal units: Patent. Nasal septum and turbinates: Minimal bony nasal septal deviation apex to the left. The turbinates are unremarkable. Mastoid air cells and middle ear cavities: Clear. Bony structures: No evidence of osseous destruction. Misc: No other significant finding. Ordering Provider: Kenneth Zepeda FINAL REPORT Dictated: 02/07/2025 12:53 pm Michael Rangel MD Signed (Electronic Signature): 02/07/2025 12:53 pm Signed by: Michael Rangel MD Transcribed by: ABDIFATAH Technologist: JULIANNE [facility] Radiology, Radiologist, - 02/08/2025 Exam Date/Time: 02/06/2025 08:30 EDT Reason for Exam: J32.4 Report IMPRESSION: ESSENTIALLY NEGATIVE PARANASAL SINUS CT. EXAM: CT Maxillofacial w/o Contrast DATE: 02/06/2025 7:52 AM CLINICAL HISTORY: J32.4. Technologist Comments: image guided. right cheek marked. pt states drainage into her throat, sleep apnea, no hx of sinus sx COMPARISON: None available. TECHNIQUE: Spiral imaging was obtained of the paranasal sinuses without contrast with textmetix protocol. Routine multiplanar reconstructions were performed. All CT scans at this facility use dose modulation, iterative reconstruction, and/or weight based dosing when appropriate to reduce radiation dose to as low as reasonably achievable. Unless otherwise stated, incidental findings identified in this report do not require routine follow-up imaging. FINDINGS: Brain: Visualized portions of the brain appear unremarkable. Orbits: Unremarkable. Frontal sinuses: Clear. Ethmoid air cells: Minimal mucosal thickening superiorly and posteriorly on the left. Otherwise, clear. Sphenoid sinus: Developmentally septated. Otherwise, clear. Maxillary sinuses: Clear. Osteomeatal units: Patent. Nasal septum and turbinates: Minimal bony nasal septal deviation apex to the left. The turbinates are unremarkable. Mastoid air cells and middle ear cavities: Clear. Bony structures: No evidence of osseous destruction. Misc: No other significant finding. Ordering Provider: Kenneth Zepeda FINAL REPORT Dictated: 02/07/2025 12:53 pm Michael Rangel MD Signed (Electronic Signature): 02/07/2025 12:53 pm Signed by: Michael Rangel MD Transcribed by: ABDIFATAH Technologist: J[facility] [employer] CT MAXILLOFACIAL W/O CONTRAS TOrdered By: Radiologist Radiology on 02-07-2025 [employer] Work Phone: CT Maxillofacial w/o Contras ton 02-07-2025 CT Maxillofacial w/o Contrast Exam Date/Time: 02/06/2025 08:30 EDT Reason for Exam: J32.4 Report IMPRESSION: ESSENTIALLY NEGATIVE PARANASAL SINUS CT. EXAM: CT Maxillofacial w/o Contrast DATE: 02/06/2025 7:52 AM CLINICAL HISTORY: J32.4. Technologist Comments: image guided. right cheek marked. pt states drainage into her throat, sleep apnea, no hx of sinus sx COMPARISON: None available. TECHNIQUE: Spiral imaging was obtained of the paranasal sinuses without contrast with textmetix protocol. Routine multiplanar reconstructions were performed. All CT scans at this facility use dose modulation, iterative reconstruction, and/or weight based dosing when appropriate to reduce radiation dose to as low as reasonably achievable. Unless otherwise stated, incidental findings identified in this report do not require routine follow-up imaging. FINDINGS: Brain: Visualized portions of the brain appear unremarkable. Orbits: Unremarkable. Frontal sinuses: Clear. Ethmoid air cells: Minimal mucosal thickening superiorly and posteriorly on the left. Otherwise, clear. Sphenoid sinus: Developmentally septated. Otherwise, clear. Maxillary sinuses: Clear. Osteomeatal units: Patent. Nasal septum and turbinates: Minimal bony nasal septal deviation apex to the left. The turbinates are unremarkable. Mastoid air cells and middle ear cavities: Clear. Bony structures: No evidence of osseous destruction. Misc: No other significant finding. Ordering Provider: Kenneth Zepeda FINAL REPORT Dictated: 02/07/2025 12:53 pm Michael Rangel MD Signed (Electronic Signature): 02/07/2025 12:53 pm Signed by: Michael Rangel MD Transcribed by: ABDIFATAH Technologist: JULIANNE Wu [facility] CT MAXILLOFACIAL W/O THOM Peterson 02-06-2025 Radiology Study observation (narrative) [facility] 09-21-2024 [facility] Telephone (ORQ) PAT KNOTT ([id number]) 1965 F Date Time Provider Department 09/21/24 TYLER LEVINE ORQ During your visit today, we recorded the following information about you: Kip Schaeffer 09/21/2024 12:07 PM Signed Miller Araya [...] OCCA - Fully Assessed 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 [[id number]] Cmt: [facility] IMAGING REPORT Prescriptions as of 09/22/2024 [...] [M54.30] 02/11/2024 Diagnosed: 02/11/2024 Encounter Status:Closed by KIP SCHAEFFER on 09/21/24 [facility] NIKOSPAT ([id number]) 1965 F Date Time Provider Department 09/21/24 TYLER LEVINE ORTH During your visit today, we recorded the [...] Encounter Status:Closed by MILLER A[facility]A [facility]21/[facility] (NUBIAORR) PAT KNOTT ([id number]) 1965 F Date Time Provider Department 09/08/24 [...] Encounter Status:Closed by MILLER ARAYA on 09/08/24 [facility] CNOVon 05-21-2024 CNOV Office Visit (ORTHAL ) PAT KNOTT ([id number]) 1965 F Date Time Provider Department 05/21/24 [...] ECRB: Negative ROM: full ROM STRENGTH: 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 Follow-up should symptoms persist. Tyler Levine PA-C This note is created with the assistance of a speech-recognition program. Referring Provider: AMBREEN TOTH [[id number]] Allergies As of Date: 05/21/2024 Noted Allergy Reaction BACTRIM (SULFAMETHOXAZOLE-TRI METH*02/11/2024 4 - Hives Date Reviewed: 05/21/2024 Reviewed by: Miller Araya OCCA - Fully Assessed Primary Visit Diagnosis:Ulnar neuritis, right [G56.21] Order(s):CONSULT PANEL TO ORTHOPAEDICS [291372] Order #: [id number]: 1 CONSULT TO BANKING ATTORNEY [[id number]] Order #: [id number]: 1 FUTURE Prescriptions as of 05/21/2024 - [...] Status:Closed by TYLER LEVINE on 05/21/24 Normal [facility] EMG(NEURO/NI)on 05-19-2024 Results can be seen in attached scanned documents. If you are a patient reviewing this test result, call the doctor who ordered the test with any questions. [facility] CNOVon 03-31-2024 CNOV Office Visit (VASSAV ) PAT KNOTT ([id number]) 1965 F Date Time Provider Department 03/31/24 1:30 PM AMBREEN TOTH During your visit today, we recorded the following information about you: Blood pressure Weight Height 149/97 90.7 kg 1.626 m Ambreen Toth MD 03/31/2024 2:07 PM Signed [facility] [place] DEPARTMENT OF VASCULAR SURGERY OUTPATIENT VISIT DATE [...] Cont optimal medical mgmt Prn fu SIGNATURE: Ambreen Toth MD PATIENT NAME: Pat Knott DATE: March 31, 2024 TIME: 1:55 PM Nanette Caruso, LUCHO 03/31/2024 2:04 PM Signed Consult hand surgery [...] for Encounter Date Provider Department Center 03/31/2024 [id number] TOTH Encounter Status:Closed by AMBREEN TOTH on 03/31/24 Normal [facility] CAROTID ARTERIES [facility]SE VAS LABon 03-31-2024 US CAROTID ARTERIES JOSE VAS LAB Non-Invasive Vascular Laboratory [facility] Carotid Duplex Bilateral/Complete Date of service/time: 03/31/2024 [...] antegrade flow noted. Technologist: Jackson Echeverria RVT, [facility] Ordering physician: AMBREEN TOTH Interpreting physician: Bentley Whatley MD, SHRUTHI Final CC [employer] Medical Image : [id number] See Link below for Image Normal [facility] XR HAND 3V PA/LAT/OBL RTon 0 [...] tissues are unremarkable. IMPRESSION: Minimal degenerative changes. Die Fitter: SHE Transcribe Date/Time: Mar 31 2024 4:36P Dictated by : ALEKSANDR BONDS MD This examination was interpreted and the report reviewed and electronically signed by: ALEKSANDR BONDS MD on Mar 31 2024 4:36PM EST [id number] Normal [facility] XR Hand - right PA and Later al and Obliqueon 03-31-2024 IMPRESSION: Minimal degenerative changes. Die Fitter: SHE Transcribe Date/Time: Mar 31 2024 4:36P Dictated by : ALEKSANDR BONDS MD This examination was interpreted and the report reviewed and electronically signed by: ALEKSANDR BONDS MD on Mar 31 2024 4:36PM EST [facility] * * *Final Report* * * [...] No marginal erosion. Soft tissues are unremarkable. [facility] Provider, Jacqueline Mendosa - 03/31/2024 * * *Final Report* * [...] are unremarkable. IMPRESSION IMPRESSION: Minimal degenerative changes. Die Fitter: SHE Transcribe Date/Time: Mar 31 2024 4:36P Dictated by : ALEKSANDR BONDS MD This examination was interpreted and the report reviewed and electronically signed by: ALEKSANDR BONDS MD on Mar 31 2024 4:36PM EST [facility] Radiology Study observation (narrative) [facility] XR Hand - right PA and Later al and ObliqueOrdered By: Ccf Provider on 03-31-2024 [facility] CNCOon 02-11-2024 CNCO Letter Text [facility] CNOVon 02-11-2024 CNOV Office Visit (VASSAV ) KNOTTPAT ([id number]) 1965 F Date Time Provider Department 02/11/24 10:45 AM AMBREEN TOTH During your visit today, we recorded the following information about you: Weight Height 89.4 kg 1.626 m Ambreen Ttoh MD 02/11/2024 11:26 AM Signed [facility] [place] DEPARTMENT OF VASCULAR SURGERY OUTPATIENT VISIT DATE [...] of expertise and scope of practice SIGNATURE: Ambreen Toth MD PATIENT NAME: Pat Knott DATE: [...] Emphysematous pyelonephritis (more content not included)... Normal [facility] Ashleigh 02-07-2024 CNPN Telephone (CARDMN) PAT KNOTT ([id number]) 1965 F Date Time Provider Department 02/07/24 [facility] CARDM[facility] During your visit today, we recorded the following information about you: Cheryle Servin 02/07/2024 3:01 PM Signed RP Patient already scheduled with Dr. Ambreen Moreira at [facility]. Case closed. Allergies As of Date: 02/07/2024 (Not on File) Date Reviewed: Never Reviewed Reason for Visit: Appointment [186] Problem List As Of Date: 02/07/2024 (None) Encounter Status:Closed by CHERYLE SERVIN on 02/07/24 Normal [facility] CBCon 11-09-2023 ABSOLUTE BAS 0.1 10*3/uL Normal 0.0-0.2 [facility] [place] Comment on above: Performed By: #### C MPF, ACBC, LIPA2 #### Testing performed at [address] [address] ABSOLUTE EOS 0.2 10*3/uL Normal 0.0-0.7 [facility] [place] Comment on above: Performed By: #### C MPF, ACBC, LIPA2 #### Testing performed at [address] [address] ABSOLUTE NEUTROPHIL COUNT 5.3 10*3/uL Normal 1.4-6.5 [facility] Comment on above: Performed By: #### C MPF, ACBC, LIPA2 #### Testing performed at [address] [address] Basophils/100 WBC (Bld) 0.9 % Normal 0.0-2.0 [facility] Comment on above: Performed By: #### C MPF, ACBC, LIPA2 #### Testing performed at [address] [address] DTYPE AUTO DIFF Normal [facility] Comment on above: Performed By: #### C MPF, ACBC, LIPA2 #### Testing performed at [address] [address] Eosinophils/100 WBC (Bld) 1.9 % Normal 0.0-11.0 [facility] Comment on above: Performed By: #### C MPF, ACBC, LIPA2 #### Testing performed at [facility] [place] [facility] [address] [place] [address] Lymphocytes (Bld) [#/Vol] 2.6 10*3/uL Normal 1.2-3.4 [facility] Comment on above: Performed By: #### C MPF, ACBC, LIPA2 #### Testing performed at [address] [address] Lymphocytes/100 WBC (Bld) 29.1 % Normal 20.0-55.0 [facility] Comment on above: Performed By: #### C MPF, ACBC, LIPA2 #### Testing performed at [address] [address] Monocytes (Bld) [#/Vol] 0.9 10*3/uL High 0.0-0.7 [facility] Comment on above: Performed By: #### C MPF, ACBC, LIPA2 #### Testing performed at [address] [address] Monocytes/100 WBC (Bld) 10.1 % High 0.0-10.0 [facility] Comment on above: Performed By: #### C MPF, ACBC, LIPA2 #### Testing performed at [address] [address] Neutrophils/100 WBC (Bld) 58.0 % Normal 37.0-75.0 [facility] Comment on above: Performed By: #### C MPF, ACBC, LIPA2 #### Testing performed at [address] [address] Erythrocyte distribution width (RBC) [Ratio] 14.0 % Normal 11.5-14.5 [facility] Comment on above: Performed By: #### C MPF, ACBC, LIPA2 #### Testing performed at [address] [address] Hematocrit (Bld) [Volume fraction] 41.4 % Normal 36.0-48.0 [facility] Comment on above: Performed By: #### C MPF, ACBC, LIPA2 #### Testing performed at [address] [address] Hemoglobin (Bld) [Mass/Vol] 13.3 g/dL Normal 12.0-16.0 [facility] Comment on above: Performed By: #### C MPF, ACBC, LIPA2 #### Testing performed at [address] [address] MCH (RBC) [Entitic mass] 27.3 pg Normal 26.0-35.0 [facility] Comment on above: Performed By: #### C MPF, ACBC, LIPA2 #### Testing performed at [address] [address] MCHC (RBC) [Mass/Vol] 32.2 g/dL Normal 27.0-37.0 [facility] Comment on above: Performed By: #### C MPF, ACBC, LIPA2 #### Testing performed at [address] [address] MCV (RBC) [Entitic vol] 84.7 fL Normal 80.0-100.0 [facility] Comment on above: Performed By: #### C MPF, ACBC, LIPA2 #### Testing performed at [address] [address] Platelet mean volume (Bld) [Entitic vol] 6.9 fL Low 7.4-11.0 [facility] Comment on above: Performed By: #### C MPF, ACBC, LIPA2 #### Testing performed at [address] [address] Platelets (Bld) [#/Vol] 333 10*3/uL Normal 130-400 [facility] Comment on above: Performed By: #### C MPF, ACBC, LIPA2 #### Testing performed at [address] [address] RBC (Bld) [#/Vol] 4.89 10*6/uL Normal 4.0-5.4 [facility] Comment on above: Performed By: #### C MPF, ACBC, LIPA2 #### Testing performed at [address] [address] WBC (Bld) [#/Vol] 9.1 10*3/uL Normal 3.6-11.0 [facility] Comment on above: Performed By: #### C MPF, ACBC, LIPA2 #### Testing performed at [address] [address] CMP FASTINGon 11-09-2023 A:G RATIO 1.[address] [facility] Comment on above: Performed By: #### C MPF, ACBC, LIPA2 #### Testing performed at [address] [address] ALBUMIN 4.5 G/dl Normal 3.5-5.0 [facility] Comment on above: Performed By: #### C MPF, ACBC, LIPA2 #### Testing performed at [address] [address] ALP [Catalytic activity/Vol] 92 U/L Normal 38-126 [facility] Comment on above: Performed By: #### C MPF, ACBC, LIPA2 #### Testing performed at [address] [address] ALT [Catalytic activity/Vol] 64 U/L High <35 [facility] Comment on above: Performed By: #### C MPF, ACBC, LIPA2 #### Testing performed at [address] [address] AST [Catalytic activity/Vol] 51 U/L High 14-36 [facility] Comment on above: Performed By: #### C MPF, ACBC, LIPA2 #### Testing performed at [address] [address] Bilirubin [Mass/Vol] 0.2 mg/dL Normal 0.2-1.3 [facility] Comment on above: Performed By: #### C MPF, ACBC, LIPA2 #### Testing performed at [address] [address] Calcium [Mass/Vol] 9.8 mg/dL Normal 8.4-10.2 [facility] Comment on above: Performed By: #### C MPF, ACBC, LIPA2 #### Testing performed at [address] [address] Chloride [Moles/Vol] 103 mmol/L Normal 98-107 [facility] Comment on above: Result Comment: Plea se note: Triglyceride levels of 600mg/dL or higher may positively bias chloride results by approximately 2.1 mmol Performed By: #### C MPF, ACBC, LIPA2 #### Testing performed at [address] [address] CO2 [Moles/Vol] 24 mmol/L Normal 22-30 [facility] Comment on above: Performed By: #### C MPF, ACBC, LIPA2 #### Testing performed at [address] [address] Creatinine [Mass/Vol] 1.00 mg/dL Normal 0.70-1.20 [facility] Comment on above: Performed By: #### C MPF, ACBC, LIPA2 #### Testing performed at [address] [address] EST. GFR, 73 ml/min/1.73sq.m [facility] Comment on above: Performed By: #### C MPF, ACBC, LIPA2 #### Testing performed at [address] [address] EST. GFR,Non 61 ml/min/1.73sq.m [facility] Comment on above: Performed By: #### C MPF, ACBC, LIPA2 #### Testing performed at [address] [address] GFR Information Average GFR for 50-5 9 years old = 93. Normal [facility] Comment on above: Result Comment: [employer] bren Kidney disease, GFR = <60. Kidney failure, GFR = <15. The GFR estimate is not adjusted for extreme body surface area or acute process, nor has it been validated for women or ethnic groups other than and . Performed By: #### C MPF, ACBC, LIPA2 #### Testing performed at [address] [address] Glucose [Mass/Vol] 121 mg/dL High 70-100 [facility] Comment on above: Result Comment: NORMAL <100 mg/dL PREDIABETES 101-126 mg/dL DIABETES 126 mg/dL or higher Performed By: #### C MPF, ACBC, LIPA2 #### Testing performed at [address] [address] Potassium [Moles/Vol] 3.7 mmol/L Normal 3.5-5.1 [facility] Comment on above: Performed By: #### C MPF, ACBC, LIPA2 #### Testing performed at [address] [address] Protein [Mass/Vol] 7.8 g/dL Normal 6.3-8.2 [facility] Comment on above: Performed By: #### C MPF, ACBC, LIPA2 #### Testing performed at [address] [address] Sodium [Moles/Vol] 137 mmol/L Normal 137-145 [facility] Comment on above: Performed By: #### C MPF, ACBC, LIPA2 #### Testing performed at [address] [address] Urea nitrogen [Mass/Vol] 17 mg/dL Normal 7-20 [facility] Comment on above: Performed By: #### C MPF, ACBC, LIPA2 #### Testing performed at [address] [address] [address] ABDOMEN/PELVIS WITHOUT CO NTRASTon 11-09-2023 CT [...] stone. 2. Small right renal cyst. Normal [facility] LACTATE,BLOODon 11-09-2023 Lactate [Moles/Vol] 3.1 mmol/L Critically high 0.7-2.0 [facility] Comment on above: Result Comment: AYANA NORMAN REPEAT INITIAL CRITICAL IN 3 HOURS IF ED OR INPATIENT SEPSIS PATIENT Result called to read back by: MEL 11/09/2023 @ 19:39 by MARK Performed By: #### L ACTAC #### Testing performed at [address] [address] LIPASE,SERUMon 11-09-2023 LIPASE,SERUM 198 U/L Normal 23-300 [facility] Comment on above: Performed By: #### C MPF, ACBC, LIPA2 #### Testing performed at [address] [address] URINE CULTUREon 11-09-2023 Bacteria identified Cx Nom (U) SPECIMEN DESCRIPTION URINE CLEAN CATCH UA DIPSTICK LEUKOCYTE POSITIVE * Result Note: NITRITE NEGATIVE * CULTURE NO PATHOGENS ISOLATED * Result Note: Testing performed at [place] [address] * REPORT STATUS 11/12/2023 * Result Note: FINAL * Normal [facility] Comment on above: Performed By: #### A URNC #### Testing performed at [address] [place] [address] Testing performed at [address] [address] URINE MACROSCOPICon 11-09-19 24 Bilirubin Ql (U) Negative Normal NEGATIVE [facility] Comment on above: Performed By: #### U MARA, UMAC #### Testing performed at [address] [address] Clarity (U) CLOUDY Abnormal CLEAR [facility] Comment on above: Performed By: #### U MARA, UMAC #### Testing performed at [address] [place] [address] Color (U) YELLOW Normal YELLOW [facility] Comment on above: Performed By: #### U MARA, UMAC #### Testing performed at [address] [place] [address] Glucose Ql (U) Negative Normal NEGATIVE [facility] Comment on above: Performed By: #### U MARA, UMAC #### Testing performed at [address] [address] pH (U) 7.0 [pH] Normal 5.0-7.0 [facility] Comment on above: Performed By: #### U MARA, UMAC #### Testing performed at [address] [place] [address] URINE HEMOGLOBIN LARGE Abnormal NEGATIVE [facility] Comment on above: Performed By: #### U MARA, UMAC #### Testing performed at [address] [address] URINE KETONE Negative Normal NEGATIVE [facility] Comment on above: Performed By: #### U MARA, UMAC #### Testing performed at [address] [address] URINE LEUKOTEST TRACE Abnormal NEGATIVE [facility] Comment on above: Performed By: #### U MARA, UMAC #### Testing performed at [address] [address] URINE NITRATES Negative Normal NEGATIVE [facility] Comment on above: Performed By: #### U MARA, UMAC #### Testing performed at [address] [address] URINE SPEC GRAVITY 1.020 Normal 1.010-1.025 [facility] Comment on above: Performed By: #### U MARA, UMAC #### Testing performed at [address] [address] URINE TOTAL PROTEIN Negative Normal NEGATIVE [facility] Comment on above: Performed By: #### U MARA, UMAC #### Testing performed at [address] [address] Urobilinogen Qn (U) 0.2 {Daphne'U}/dL Normal 0.2-1.0 [facility] Comment on above: Performed By: #### U MARA, UMAC #### Testing performed at [address] [address] URINE MICROSCOPICon 11-09-19 24 BACTERIA 1+ Abnormal NEGATIVE [facility] Comment on above: Performed By: #### U MARA, UMAC #### Testing performed at [address] [address] CASTS [address] Normal NONE [facility] Comment on above: Performed By: #### U MARA, UMAC #### Testing performed at [address] [address] CRYSTAL RARE Abnormal NONE [facility] Comment on above: Result Comment: SUDHA PHOUS URATES Performed By: #### U MARA, UMAC #### Testing performed at [address] [address] Epithelial cells LM Ql (Urine sed) [address] [facility] Comment on above: Performed By: #### U MARA, UMAC #### Testing performed at [address] [address] Mucus Ql (Urine sed) TRACE Abnormal NEGATIVE [facility] Comment on above: Performed By: #### U MARA, UMAC #### Testing performed at [address] [address] URINE COMMENT REFLEX CULTURE PER ESTABLISHED CRITERIA. Normal [facility] Comment on above: Performed By: #### U MARA, UMAC #### Testing performed at [address] [address] URINE RBC'S 20 TO [address] [facility] Comment on above: Performed By: #### U MARA, UMAC #### Testing performed at [address] [address] URINE WBC'S 1 TO [address] [facility] Comment on above: Performed By: #### U MARA, UMAC #### Testing performed at [address] [address] XR CHEST 2 Von 11-30-2022 XR CHEST [...] MONDRAGON Date: 2022-11-30 11:45 Normal [facility] MG MAMM SCREEN 3D JOSE CADon 10-29-2022 MG MAMM SCREEN 3D JOSE CAD Patient: PAT KNOTT Exam Date: 10/29/2022 : 1965 Gender:F Ordering : DR DELVIS LR . Admission #: [id number] Family : Order #: [id number] CLICK HERE TO VIEW EXAM RADIOLOGY REPORT [...] skin cancer at age 70. LOCATION: [facility] BREAST COMPOSITION: Scattered areas fibroglandular density. [...] MD on 10/30/2022 at 11:13 Normal [facility] CBC AUTO DIFFon 06-21-2022 BASO # 0.1 103/ul Normal 0.0-0.1 [facility] Comment on above: Performed By: #### H FPFCBC #### [facility] [address] [place] [address] Dr. Sonya Strickland Basophils/100 WBC (Bld) 0.7 % Normal 0.2-2.0 [facility] Comment on above: Performed By: #### H FPFCBC #### [facility] [address] [place] [address] [address] Sonya Strickland EO # 0.1 103/ul Normal 0.0-0.7 [facility] Comment on above: Performed By: #### H FPFCBC #### [facility] [address] [place] [address] Dr. Sonya Strickland Eosinophils/100 WBC (Bld) 1.9 % Normal 0.9-7.0 [facility] Comment on above: Performed By: #### H FPFCBC #### [facility] [address] [place] [address] Dr. Sonya Strickland Erythrocyte distribution width (RBC) [Ratio] 13.1 % Normal 11.0-15.0 [facility] Comment on above: Performed By: #### H FPFCBC #### [facility] [address] [place] [address] Dr. Sonya Strickland Hematocrit (Bld) [Volume fraction] 41.6 % Normal 36.0-48.0 [facility] Comment on above: Performed By: #### H FPFCBC #### [facility] [address] [place] [address] Dr. Sonya Strickland Hemoglobin (Bld) [Mass/Vol] 13.2 g/dL Normal 12.0-16.0 [facility] Comment on above: Performed By: #### H FPFCBC #### [facility] [address] [place] [address] Dr. Sonya Strickland IG # 0.01 10e3/ul Normal 0.00-0.03 [facility] Comment on above: Performed By: #### H FPFCBC #### [facility] [address] [place] [address] Dr. Sonya Strickland IG % 0.1 % Normal 0.0-0.5 [facility] Comment on above: Performed By: #### H FPFCBC #### [facility] [address] [place] [address] Dr. Sonya Strickland LYMPH # 2.2 103/ul Normal 1.2-3.8 [facility] Comment on above: Performed By: #### H FPFCBC #### [facility] [address] [place] [address] Dr. Sonya Strickland Lymphocytes/100 WBC (Bld) 31.3 % Normal 20.5-60.0 [facility] Comment on above: Performed By: #### H FPFCBC #### [facility] [address] [place] [address] Dr. Sonya Strickland MCH (RBC) [Entitic mass] 28.0 pg Normal 26.7-34.0 [facility] Comment on above: Performed By: #### H FPFCBC #### [facility] [address] [place] [address] Dr. Sonya Strickland MCHC (RBC) [Mass/Vol] 31.7 g/dL Normal 29.9-35.2 [facility] Comment on above: Performed By: #### H FPFCBC #### [facility] [address] [place] [address] Dr. Sonya Strickland MCV (RBC) [Entitic vol] 88.1 fL Normal 81.0-99.0 [facility] Comment on above: Performed By: #### H FPFCBC #### [facility] [address] [place] [address] Dr. Sonya Strickland MONO # 0.7 103/ul Normal 0.3-0.8 [facility] Comment on above: Performed By: #### H FPFCBC #### [facility] [address] [place] [address] Dr. Sonya Strickland Monocytes/100 WBC (Bld) 9.9 % Normal 1.7-12.0 [facility] Comment on above: Performed By: #### H FPFCBC #### [facility] [address] [place] [address] Dr. Sonya Strickland NEUT # 3.9 103/ul Normal 1.4-6.5 [facility] Comment on above: Performed By: #### H FPFCBC #### [facility] [address] [place] [address] Dr. Sonya Strickland Neutrophils/100 WBC (Bld) 56.1 % Normal 43.0-75.0 [facility] Comment on above: Performed By: #### H FPFCBC #### [facility] [address] [place] [address] Dr. Sonya Strickland Platelet mean volume (Bld) [Entitic vol] 9.7 fL Normal 9.5-13.5 [facility] Comment on above: Performed By: #### H FPFCBC #### [facility] [address] [place] [address] Dr. Sonya Strickland PLT 313 103/ul Normal 150-450 [facility] Comment on above: Performed By: #### H FPFCBC #### [facility] [address] [place] [address] Dr. Sonya Strickland RBC 4.72 106/ul Normal 4.20-5.40 [facility] Comment on above: Performed By: #### H FPFCBC #### [facility] [address] [place] [address] Dr. Sonya Strickland WBC 7.0 103/ul Normal 4.0-11.0 [facility] Comment on above: Performed By: #### H FPFCBC #### [facility] [address] [place] [address] Dr. Sonya Strickland [employer]ALTH[employer] PROFILEon 022 Albumin [Mass/Vol] 3.8 g/dL Normal 3.4-5.0 [facility] Comment on above: Performed By: #### H FPF #### [facility] [address] [place] [address] Dr. Sonya Strickland Albumin/Globulin [Mass ratio] 1.0 {ratio} Normal [facility] Comment on above: Performed By: #### H FPF #### [facility] [address] [place] [address] Dr. Sonya Strickland ALP [Catalytic activity/Vol] 87 U/L Normal 46-116 [facility] Comment on above: Performed By: #### H FPF #### [facility] [address] [place] [address] Dr. Sonya Strickland ALT [Catalytic activity/Vol] 25 U/L Normal 14-59 [facility] Comment on above: Performed By: #### H FPF #### [facility] [address] [place] [address] Dr. Sonya Strickland AST [Catalytic activity/Vol] 14 U/L Critically low 15-37 [facility] Comment on above: Performed By: #### H FPF #### [facility] [address] [place] [address] Dr. Sonya Strickland Bilirubin [Mass/Vol] 0.2 mg/dL Normal 0.2-1.0 [facility] Comment on above: Performed By: #### H FPF #### [facility] [address] [place] [address] [address] Sonya Strickland Calcium [Mass/Vol] 8.8 mg/dL Normal 8.5-10.1 [facility] Comment on above: Performed By: #### H FPF #### [facility] [address] [place] [address] [address] Sonya Strickland Chloride [Moles/Vol] 104 mmol/L Normal 98-107 [facility] Comment on above: Performed By: #### H FPF #### [facility] [address] [place] [address] [address] Sonya Strickland CHOL-HDL RATIO NORM SEE BELOW Normal [facility] Comment on above: Result Comment: 3.3 - 4.4 LOW RISK 4.4 - 7.1 AVERAGE RISK 7.1 - 11.0 MODERATE RISK >11.0 HIGH RISK Performed By: #### H FPF #### [facility] [address] [place] [address] Dr. Sonya Strickland Cholesterol [Mass/Vol] 207 mg/dL Critically high <=200 [facility] Comment on above: Performed By: #### H FPF #### [facility] [address] [place] [address] Dr. Sonya Strickland Cholesterol in HDL [Mass/Vol] 63 mg/dL Critically high 40-60 [facility] Comment on above: Performed By: #### H FPF #### [facility] [address] [place] [address] [address] Sonya Strickland Cholesterol in LDL [Mass/Vol] 121.6 mg/dL Normal [facility] Comment on above: Performed By: #### H FPF #### [facility] [address] [place] [address] Dr. Sonya Strickland Cholesterol.total/C holesterol in HDL [Mass ratio] 3.3 {ratio} Normal [facility] Comment on above: Performed By: #### H FPF #### [facility] [address] [place] [address] [address] Sonya Strickland CO2 [Moles/Vol] 26.0 mmol/L Normal 21.0-32.0 [facility] Comment on above: Performed By: #### H FPF #### [facility] [address] [place] [address] [address] Sonya Strickland Creatinine [Mass/Vol] 0.85 mg/dL Normal 0.55-1.02 [facility] Comment on above: Performed By: #### H FPF #### [facility] [address] [place] [address] [address] Sonya Strickland Globulin (S) [Mass/Vol] 3.7 g/dL Normal [facility] Comment on above: Performed By: #### H FPF #### [facility] [address] [address] [address] Sonya Strickland Glucose [Mass/Vol] 87 mg/dL Normal 74-106 [facility] Comment on above: Performed By: #### H FPF #### [facility] [address] [place] [address] [address] Sonya Strickland HDL NORMAL > or = 60 mg/dl - LO W CARDIOVASCULAR RISK <40 mg/dl - HIGH CARDIOVASCULAR RISK Normal [facility] Comment on above: Performed By: #### H FPF #### [facility] [address] [place] [address] Dr. Sonya Strickland LDL CALC NORMAL SEE BELOW Normal [facility] Comment on above: Result Comment: <100 mg/dl OPTIMAL 100 - 129 mg/dl NEAR OR ABOVE OPTIMAL 130 - 159 mg/dl BORDERLINE HIGH 160 - 189 mg/dl HIGH >190 mg/dl VERY HIGH Performed By: #### H FPF #### [facility] [address] [place] [address] [address] Sonya Strickland Potassium [Moles/Vol] 4.3 mmol/L Normal 3.5-5.1 [facility] Comment on above: Performed By: #### H FPF #### [facility] [address] [place] [address] Dr. Sonya Strickland Protein [Mass/Vol] 7.5 g/dL Normal 6.4-8.2 [facility] Comment on above: Performed By: #### H FPF #### [facility] [address] [place] [address] [address] Sonya Strickland Sodium [Moles/Vol] 140 mmol/L Normal 136-145 [facility] Comment on above: Performed By: #### H FPF #### [facility] [address] [address] [address] Sonya Strickland Triglyceride [Mass/Vol] 112 mg/dL Normal <=150 [facility] Comment on above: Performed By: #### H FPF #### [facility] [address] [address] [address] Sonya Strickland TSH 1.111 uIU/mL Normal 0.358-3.740 [facility] Comment on above: Performed By: #### H FPF #### [facility] [address] [address] [address] Sonya Strickland Urea nitrogen [Mass/Vol] 21.0 mg/dL Critically high 7.0-18.0 [facility] Comment on above: Performed By: #### H FPF #### [facility] [address] [place] [address] [address] Sonya Strickland Urea nitrogen/Creatinine [Mass ratio] 24.7 mg/mg Normal [facility] Comment on above: Performed By: #### H FPF #### [facility] [address] [address] [address] Sonya Strickland VLDL CALC 22.4 mg/dL Normal [facility] Comment on above: Performed By: #### H FPF #### [facility] [address] [address] [address] Sonya Strickland Vital Signs Date Time Vital Sign Value Performing Clinician Facility 04-13-2025 [id number] Body height 162.56 cm [facility] 04-13-2025 10:52-0400 Body mass index (BMI) [Ratio] 34.2 kg/m2 [facility] 04-13-2025 10:52-0400 Body weight 90.43 kg [facility] 04-13-2025 10:52-0400 Diastolic blood pressure 85 mm[Hg] [facility] 04-13-2025 10:52-0400 Heart rate 70 /min [facility] 04-13-2025 10:52-0400 Respiratory rate 12 /min [facility] 04-13-2025 10:52-0400 Systolic blood pressure 132 mm[Hg] [facility] 02-16-2025 09:46-0400 Body height 162.6 cm Kenneth Zepeda MD Work Phone: [facility] 02-16-2025 09:46-0400 Body mass index (BMI) [Ratio] 34.5 kg/m2 Kenneth Zepeda MD Work Phone: [facility] 02-16-2025 09:46-0400 Body weight 91.17 kg Kenneth Zepeda MD Work Phone: [facility] 02-16-2025 09:46-0400 Diastolic blood pressure 97 mm[Hg] Kenneth Zepeda MD Work Phone: [facility] 02-16-2025 09:46-0400 Heart rate 75 /min Kenneth Zepeda MD Work Phone: [facility] 02-16-2025 09:46-0400 Systolic blood pressure 152 mm[Hg] Kenneth Zepeda MD Work Phone: [facility] 05-06-2024 09:23-0400 Body height 162.56 cm [facility] 05-06-2024 09:23-0400 Body mass index (BMI) [Ratio] 34.7 kg/m2 [facility] 05-06-2024 09:23-0400 Body weight 91.85 kg [facility] 05-06-2024 09:23-0400 Diastolic blood pressure 90 mm[Hg] [facility] 05-06-2024 09:23-0400 Heart rate 80 /min [facility] 05-06-2024 09:23-0400 Respiratory rate 12 /min [facility] 05-06-2024 09:23-0400 Systolic blood pressure 129 mm[Hg] [facility] 03-31-2024 13:49-0400 Body height 162.6 cm Ambreen Toth MD Work Phone: [facility] 03-31-2024 13:49-0400 Body mass index (BMI) [Ratio] 34.33 kg/m2 Ambreen Toth MD Work Phone: [facility] 03-31-2024 13:49-0400 Body weight 90.72 kg Ambreen Toth MD Work Phone: [facility] 03-31-2024 13:49-0400 Diastolic blood pressure 97 mm[Hg] Ambreen Toth MD Work Phone: [facility] 03-31-2024 13:49-0400 Systolic blood pressure 149 mm[Hg] Ambreen Toth MD Work Phone: [facility] 02-11-2024 11:02-0400 Body height 162.6 cm Ambreen Toth MD Work Phone: [facility] 02-11-2024 11:02-0400 Body weight 89.36 kg Ambreen Toth MD Work Phone: [facility] 05-17-2023 11:30-0400 Body height 162.56 cm Wisam Ball Other [facility] Other 05-17-2023 11:30-0400 Body mass index (BMI) [Ratio] 28.9 kg/m2 Wisam Ball Other [facility] Other 05-17-2023 11:30-0400 Body weight 76.39 kg Wisam Ball Other [facility] Other 05-17-2023 11:30-0400 Diastolic blood pressure 84 mm[Hg] Wisam Ball Other [facility] Other 05-17-2023 11:30-0400 Respiratory rate 12 /min Wisam Ball Other [facility] Other 05-17-2023 11:30-0400 Systolic blood pressure 130 mm[Hg] Wisam Mix Other [employer] Other Encounters Encounter Date Encounter Type Care Provider Facility Start: 04-13-2025 End: 04-13-2025 ambulatory [facility] Work Phone: Start: 04-13-2025 End: 04-13-2025 Patient encounter procedure [facility] Work Phone: Start: 03-30-2025 End: 03-30-2025 ambulatory [facility] Facility:[facility] Start: 02-16-2025 End: 02-16-2025 Bamboo flowsheet Kenneth Zepeda MD Work Phone: [facility] Start: 02-16-2025 End: 02-16-2025 Bamdanielleo flowsheet Kenneth Zepeda MD Work Phone: [facility] Start: 02-16-2025 End: 02-16-2025 Office outpatient visit 25 minutes Kenneth Zepeda MD Work Phone: [facility] Comment on above: LPRD (laryngopharyng eal reflux disease) (Primary Dx) Start: 02-16-2025 End: 02-16-2025 ambulatory KENNETH ZEPEDA Not Available Start: 02-06-2025 End: 02-08-2025 Clinisync Result Encounter Kenneth Zepeda MD Work Phone: [facility] Unsolicited Start: 02-06-2025 End: 02-08-2025 Clinisync Result Encounter Kenneth Zepeda MD Work Phone: [facility] Unsolicited Start: 02-06-2025 End: 02-07-2025 ambulatory Kenneth Zepeda Facility:[facility] Start: 02-06-2025 End: 02-07-2025 Patient encounter procedure Kenneth Zepeda [facility] Start: 01-12-2025 End: 01-12-2025 ambulatory KENNETH ZEPEDA Not Available Start: 09-21-2024 End: 09-21-2024 Telephone encounter Tyler Levine PA-C Work Phone: [facility] [place] Comment on above: [employer] - [employer] keron ([facility]) Appointment (Schedul ing with a hand specialist. ) Start: 09-08-2024 End: 09-09-2024 Orders Only Tyler Levine PA-C Work Phone: Orthopa[facility]ics Comment on above: Regarding ultrasound Ulnar neuritis, righ t (Primary Dx) Start: 05-21-2024 End: 05-21-2024 ambulatory TYLER LEVINE Facility:[facility] Start: 05-21-2024 End: 05-21-2024 Patient encounter procedure Tyler Levine PA-C Work Phone: Orthopaedics Comment on above: Ulnar neuritis, righ t (Primary Dx) Start: 05-19-2024 End: 05-19-2024 ambulatory TYLER LEVINE Neurology Comment on above: EMG Start: 05-19-2024 End: 05-19-2024 Patient encounter procedure Emg 2 Neur [facility] (Max Weight:400) Work Phone: Neurology Start: 05-06-2024 End: 05-06-2024 ambulatory [facility] Work Phone: Start: 05-06-2024 End: 05-06-2024 Patient encounter procedure [facility] Work Phone: Start: 04-07-2024 ambulatory JINA Gunn ty:[place] Deleon Start: 04-01-2024 E-mail encounter fro m caregiver Tyler Levine PA-C Work Phone: Orthopaedics Start: 04-01-2024 Patient encounter procedure Tyler EASON-C Work Phone: Orthopaedics Comment on above: Regarding EMG Start: 03-31-2024 ambulatory AMBREEN TOTH Facility:[facility] Start: 03-31-2024 End: 03-31-2024 Subsequent hospital visit by physician [facility] Work Phone: [facility] Radiology General Comment on above: 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] Start: 03-31-2024 End: 03-31-2024 Patient encounter procedure Ambreen Toth MD Work Phone: Vascular Surgery Comment on above: Peripheral arterial disease (HCC) (Primary Dx) 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 Start: 05-17-2023 End: 05-17-2023 ambulatory [facility] Other [facility] Other Start: 05-17-2023 Office outpatient visit 10 minutes Wisam Mix [facility] Start: 11-30-2022 End: 12-01-[address] DELVIS LR Facility:[facility] Start: 10-29-2022 End: 10-30-[address] DELVIS LR Facility:[facility] Start: 06-21-2022 End: 06-22-[address] DELVIS LR Facility:[facility] Procedures Date Procedure Procedure Detail Performing Clinician Start: 02-06-2025 CT MAXILLOFACIAL W/O CONTRAST Kenneth Zepeda MD Work Phone: Start: 05-19-2024 Nerve conduction мария dies 5-6 studies Tyler Levine PA-C Work Phone: Start: 03-31-2024 Radex hand minimum 3 views Ambreen Toth MD Work Phone: Plan of Treatment Date Care Activity Detail Author Start: 11-09-2026 Diabetes Screening Diabetes Screenin g [facility] Start: 02-16-2025 End: 02-16-2025 Patient encounter procedure [facility] Comment on above: Arrived Start: 07-05-2024 Covid-19 Vaccine ( season) Covid-19 Vaccine ( season) 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 Start: 07-05-2023 Covid-19 Vaccine ( season) Covid-19 Vaccine ( season) [facility] Start: 2015 Shingrix Vaccine (1 of 2) Shingrix Vaccine (1 of 2) [facility] Start: 2010 Diabetes Screening Diabetes Screenin g [facility] Start: 2010 Lipid panel Lipid Screening [facility] Start: 2010 Screening for malign ant neoplasm of colon [facility] Start: 2005 Screening for malign ant neoplasm of breast Mammogram Screening [facility] Start: 1995 Screening for malign ant neoplasm of cervix HPV Testing [facility] Start: 1986 Screening for malign ant neoplasm of cervix [facility] Start: 1984 Hepatitis B Vaccine (1 of 3 - 19+ 3-dose series) Hepatitis B Vaccine (1 of 3 - 19+ 3-dose series) [facility] Start: 1984 Urine microalbumin profile DTaP,Tdap,Td Vaccine (1 - Tdap) 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 Start: 1983 Anxiety Screening Anxiety Screening [facility] Start: 1983 Depression Screening Depression Scre ening [facility] Start: 1983 Hepatitis C screening Hepatitis C Sc reening [facility] Start: 1983 HIV screening HIV Screening [facility] Unlisted procedure hands/fingers HAND/FINGER SURGERY UNLISTED Procedures Routine Numbness Ordered: 02/11/2024 [facility] Work Phone: Comment on above: Ordered: 02/11/2024 End: 02-10-2025 US Carotid arteries - bilateral US CAROTID ARTERIES [facility] Vascular Lab Routine Numbness 1 Occurrences starting 02/11/2024 until 02/10/2025 [facility] Work Phone: Comment on above: 1 Occurrences starti ng 02/11/2024 until 02/10/2025 End: 10-08-2025 US Upper extremity - right US ELBOW RIGHT Radiology Routine Ulnar neuritis, right 1 Occurrences starting 09/09/2024 until 10/08/2025 [facility] Work Phone: Comment on above: 1 Occurrences starti ng 09/09/2024 until 10/08/2025 [facility] Immunizations Immunization Date Immunization Notes Care Provider Sameer paula 07-25-2023 influenza virus vacc ine, unspecified formulation Emg Weight:400) Work Phone: [facility] Payers Date Payer Category Payer Private Health Insurance [employer] [id number] 2023 Unknown [id number] 1965 Unknown [id number] 1965 Unknown [id number] 593 1965 Unknown [id number] 1965 Unknown [id number] 1259 1965 Unknown [id number] 1259 1965 Unknown [id number] 727 1965 Unknown [id number] 727 1959 Self-pay 1959 Unknown [id number] Unknown [id number] 593 Unknown [id number] Unknown [facility] [id number] Unknown [facility] [id number] Social History Date Type Detail Facility Start: 02-11-2024 End: 01-12-2025 Sex Assigned At [facility] Tobacco smoking stat us NHIS Tobacco smoking consumption unknown [facility] Start: 1965 Sex Assigned At Female [facility] Start: 02-06-2024 Gender identity Identifies as female gender (finding) [facility] Start: 02-06-2024 Sexual orientation Heterosexual (finding) [facility] Start: 02-11-2024 End: 01-12-2025 History of Social function [facility] National Score (1-10 0), lower number is lower risk [address] [facility] Tobacco smoking status [facility] Start: 01-23-2019 End: 04-13-2025 Sex Female (finding) [facility] Start: 01-12-2025 Tobacco smoking status NHIS Never smoked tobacco [facility] Start: 01-12-2025 Tobacco use and exposure Smokeless tobacco non-user [facility] Start: 01-12-2025 End: 02-16-2025 Alcoholic beverage intake Lifetime non-drinker (finding) [facility] Start: 1965 Sex assigned at Not on file [facility] Goals Date Patient Goal Desired Activity /State Personal health goal Clinical Notes 05-01-2018 to 02-16-2025 Kenneth Zepeda MD - 02/16/2025 9:50 AM EDTTelephone Encounter - Miller Araya [facility] - 09/21/2024 4:15 PM ESTTelephone Encounter - Miller Araya [facility] - 09/21/2024 4:15 PM EST Note Date & Type Note Facility 02-16-2025 History of Present illness Narrative Subjective Patient ID: Pat Knott is a 59 y.o. female who presents for Sinusitis (Follow up [facility] 02/06/25) CT reviewed and there is no sinonasal abnormality. Tolerating CPAP OK. Still has PND and throat clearing Family History Problem Relation Name Age of Onset Cancer Mother Gill Reardno Rashes / Skin problems Mother Gill Reardon Diabetes Father Tiago Reardon Active Ambulatory Problems Diagnosis Date Noted Hypothyroidism ([facility]) 02/11/2024 Macular degeneration 02/11/2024 Peripheral arterial disease ([facility]) 02/11/2024 Sciatica 02/11/2024 Peripheral vertigo 02/11/2024 Resolved Ambulatory Problems Diagnosis Date Noted No Resolved Ambulatory Problems Past Medical History: Diagnosis Date Headache Obesity Sleep apnea Sleep difficulties Past Surgical History: Procedure Laterality Date TONSILLECTOMY Allergies Allergen Reactions Sulfamethoxazole-Trimethoprim Hives and Rash Current Outpatient Medications on File Prior to Visit Medication Sig Dispense Refill Calcium Carb-Cholecalciferol (CALCIUM PLUS VITAMIN D PO) Take by mouth cetirizine (ZyrTEC) 10 MG tablet Take 1 tablet (10 mg) by mouth Daily as needed for allergies 30 tablet 11 cyanocobalamin (Vitamin B-12) 100 MCG tablet Take 100 mcg by mouth Daily fluticasone (Flonase) 50 MCG/ACT nasal spray Administer 2 sprays into each nostril Daily Shake gently. Before first use, prime pump. After use, clean tip and replace cap. 48 g 3 levothyroxine (Synthroid, Levoxyl) 25 MCG tablet Take by mouth in the morning. Take before meals. liothyronine (Cytomel) 25 MCG tablet Take 12.5 mcg by mouth in the morning. omega-3 (FISH OIL) 300 MG capsule Take by mouth Daily Turmeric (QC TUMERIC COMPLEX PO) Take by mouth [DISCONTINUED] amoxicillin-clavulanate (Augmentin) 875-125 MG tablet Take 1 tablet (875 mg) by mouth in the morning and 1 tablet (875 mg) before bedtime. 60 tablet 0 No current facility-administered medications on file prior to visit. Objective Last Recorded Vitals There were no vitals filed for this visit. ENT Physical Exam Assessment/Plan documented in this encounter [facility] 09-21-2024 Telephone encounter Note I called and left messages in regards to receiving the patients ultrasound. It was normal and the provider wants the patient to get set up with a hand specialist due to the ongoing pain. She can schedule with Pat Ashraf PA-C or Flora Valente PA-C [facility] 09-21-2024 Miscellaneous Notes I called and left messages in regards to receiving the patients ultrasound. It was normal and the provider wants the patient to get set up with a hand specialist due to the ongoing pain. She can schedule with Pat Ashraf PA-C or Flora Valente PA-C documented in this encounter [facility] 09-21-2024 Telephone encounter Note Images from the original note were not included. [facility] 09-21-2024 Miscellaneous Notes Images from the original note were not included. documented in this encounter [facility] 09-08-2024 Telephone encounter Note Called patient and [...] to push the appointment out. [facility] 09-08-2024 Miscellaneous Notes Called patient [...] Thanks! documented in this encounter [facility] 09-08-2024 Telephone encounter Note ----- [...] improve from the OT. Thanks! [facility] 05-21-2024 Note HNO ID: [id number] Author: TYLER LEVINE PA-C Service: ? Author Type: Physician Orthopedic Brace Maker Type: Progress Notes Filed: 05/21/2024 14:52 Note [...] ECRB: Negative ROM: full ROM STRENGTH: 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 Follow-up should symptoms persist. Tyler Levine PA-C This note is created with the assistance of a speech-recognition program. [facility] 05-21-2024 History of Present illness Narrative Images from the original note [...] ECRB: Negative ROM: full ROM STRENGTH: 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 Follow-up should symptoms persist. Tyler Levine PA-C This note is created with the assistance of a speech-recognition program. documented in this encounter [facility] 05-19-2024 Note HNO ID: [id number] Author: VAN GARCIA MD Service: ? Author [...] EMG Tech Van Garcia MD (sign out) [facility] 05-19-2024 History of Present illness Narrative UNIVERSAL PROTOCOL / SAFETY CHECKLIST [...] out) documented in this encounter [facility] 04-01-2024 Telephone encounter Note Patient was working and didn't have anything to write with so they wanted a mychart message instead. [facility] 04-01-2024 Miscellaneous Notes Patient was working and didn't have anything to write with so they wanted a mychart message instead. documented in this encounter [facility] 03-31-2024 Note HNO ID: [id number] Author: ALEXX OCAMPO RT(R) Service: Radiology Author Type: Technologist [...] PATIENT PRESENTS WITH AN IMPLANTABLE OR ATTACHED DISTILLERY WORKER GENERAL: No RADIOLOGY DEPARTMENT: General X-ray: Exam(s) Completed: Upper Extremity X-Ray(s): Hand, right PERIPHERAL IV DATA: Not applicable SIGNED BY: RT Rosalie(R) March 31, 2024 2:44 PM [facility] 03-31-2024 History of Present illness Narrative Radiology Service Progress Note PATIENT [...] PATIENT PRESENTS WITH AN IMPLANTABLE OR ATTACHED DISTILLERY WORKER GENERAL: No RADIOLOGY DEPARTMENT: General X-ray: Exam(s) Completed: Upper Extremity X-Ray(s): Hand, right PERIPHERAL IV DATA: Not applicable SIGNED BY: RT Rosalie(R) March 31, 2024 2:44 PM documented in this encounter [facility] 03-31-2024 Instructions Nanette Caruso RN - 03/31/2024 2:04 PM EDT Consult hand surgery for ulnar neuropathy documented in this encounter [facility] 03-31-2024 Note HNO ID: [id number] Author: AMBREEN TOTH MD Service: ? Author Type: Physician Type: Progress Notes Filed: 03/31/2024 14:07 Note Text: [facility] [place] DEPARTMENT OF VASCULAR SURGERY OUTPATIENT VISIT DATE [...] Cont optimal medical mgmt Prn fu SIGNATURE: Ambreen Toth MD PATIENT NAME: Pat Knott DATE: March 31, 2024 TIME: 1:55 PM [facility] 03-31-2024 History of Present illness Narrative Images from the original note were not included. [facility] [place] DEPARTMENT OF VASCULAR SURGERY OUTPATIENT VISIT DATE [...] Cont optimal medical mgmt Prn fu SIGNATURE: Ambreen Toth MD PATIENT NAME: Pat Knott DATE: March 31, 2024 TIME: 1:55 PM documented in this encounter [facility] 02-11-2024 Instructions Nanette Caruso RN - 02/11/2024 11:22 AM EDT Carotid duplex follow up with lida Hsu hand surgery documented in this encounter [facility] 02-11-2024 Note HNO ID: [id number] Author: AMBREEN TOTH MD Service: ? Author Type: Physician Type: Progress Notes Filed: 02/11/2024 11:26 Note Text: [facility] [place] DEPARTMENT OF VASCULAR SURGERY OUTPATIENT VISIT DATE [...] of expertise and scope of practice SIGNATURE: Ambreen Toth MD PATIENT NAME: Pat Knott DATE: February 11, 2024 TIME: 11:05 AM [facility] 02-11-2024 History of Present illness Narrative Images from the original note were not included. [facility] [place] DEPARTMENT OF VASCULAR SURGERY OUTPATIENT VISIT DATE [...] of expertise and scope of practice SIGNATURE: Ambreen Toth MD PATIENT NAME: Pat Knott DATE: February 11, 2024 TIME: 11:05 AM documented in this encounter [facility] 02-07-2024 Miscellaneous Notes RP Patient already scheduled with Dr. Ambreen Moreira at [facility]. Case closed. documented in this encounter 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 [facility] Other 06-28-2018 History general Narrative - Reported* Type Description Date Medical History Autoimmune thyroiditis Surgical History Appendectomy, [facility] 05/01/2018 Hospitalization History see surgical history [facility] Other Evaluation + Plan note No data available for this section [facility] Evaluation note* Diagnosis Numbness- Primary Disturbance of skin sensation [facility] Diagnosis Peripheral arterial disease (HCC)- Primary Peripheral vascular disease, unspecified documented in this encounter [facility] note* Diagnosis Peripheral arterial disease (HCC)- Primary Peripheral vascular disease, unspecified documented in this encounter [facility] note* Diagnosis 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 Lesion of ulnar nerve Ulnar nerve compression, right Ulnar neuropathy of right upper extremity Lesion of ulnar nerve Ulnar nerve compression, right documented in this encounter [facility]* Diagnosis Ulnar neuropathy of right upper extremity Lesion of ulnar nerve Ulnar nerve compression, right documented in this encounter [facility] note* Diagnosis Onset Date Resolution Status Hypothyroid acute Pre-employment examination a [facility] Work Phone: Evaluation note* Diagnosis Numbness- Primary Disturbance of skin sensation Tingling Disturbance of skin sensation documented in this encounter [facility] note* Diagnosis Ulnar neuritis, right- Primary documented in this encounter [facility] note* Diagnosis Ulnar neuritis, right- Primary documented in this encounter [facility] note* Diagnosis LPRD (laryngopharyngeal reflux disease)- Primary Acute laryngitis, without mention of obstruction [facility]* Diagnosis Onset Date Resolution Status Admit Date Hypothyroid acute April 13 10:45am Pre-employment examination acute April 13, 2025 10:45am [place] Work Phone: Hospital Discharge instructions No data available for this section [facility] Progress note No data available for this section [facility] Reason for referral (narrative)* Outpatient Procedure (Routine) - Authorized Specialty Diagnoses / Procedures Referred By Nathan t Referred To [facility] Diagnoses Numbness Procedures US CAROTID ARTERIES [facility] DUPLEX SCAN EXTRACRANIAL [place] [address] [place] [address] [facility] [place] [address] [place] [address] Referral ID Status Reason Start Date Expiration Date Visits Requested Visits Authorized [id number] Authorized Auto-Generat ed Referral 02/11/2024 02/10/2025 1 1 [facility] for referral (narrative)* Diagnostic Procedure Only (Routine) - Closed Specialty Diagnoses / Procedures Referred By Nathan lomax Referred To Contact XR IMAGING Diagnoses 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, right Procedures XR HAND GENERAL 3V PA/LAT/OBL RIGHT RADEX HAND MINIMUM 3 [place] [address] [place] [address] [place] [address] Referral ID Status Reason Start Date Expiration Date V isits Requested Visits Authorized [id number] Closed Auto-Generate d Referral 03/31/2024 04/30/2025 1 1 [facility] for referral (narrative)* Diagnostic Procedure Only (Routine) - New Request Specialty Diagnoses / Procedures Referred By Nathan lomax Referred To Contact US IMAGING Diagnoses Ulnar neuritis, right Procedures US ELBOW RIGHT US LMTD JOINT/OTH NONVASC XTR STRUX R-T W/IMG Tyler Levine PA-C [address] [place] [address] [place] [address] Referral ID Status Reason Start Date Expiration Date Visits Requested Visits Authorized [id number] New Request Auto-Generat ed Referral 09/09/2024 10/08/2025 1 1 [facility] for visit Narrative* Diagnostic Procedure Only (Routine) - Closed Specialty Diagnoses / Procedures Referred By Nathan lomax Referred To Contact XR IMAGING Diagnoses 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, right Procedures XR HAND GENERAL 3V PA/LAT/OBL RIGHT RADEX HAND MINIMUM [address] [place] [address] [place] [address] [place] [address] Referral ID Status Reason Start Date Expiration Date V isits Requested Visits Authorized [id number] Closed Auto-Generate d Referral 03/31/2024 04/30/2025 [address] [facility] Summary Purpose Family History Relationship Condition Age at Onset Recorded Date/T marcy father Arthritis Unknown Advance Directives Advance Directive Response Recorded Date/ Time Advance Directives No May 06 8:58am Reason for Referral Specialty Diagnoses / Procedures Referred By Contac t Referred To Contact [facility] Diagnoses Ulnar neuritis, right Procedures CONSULT TO BANKING ATTORNEY OCCUPATIONAL THERAPY EVAL HIGH COMPLEX 60 MINS Tyler Levine, PA-C [address] [place] [address] [facility] [address] [place] [address] Referral ID Status Reason Start Date Expiration Date Visits Requested Visits Authorized [id number] Pending Review Auto-Generat ed Referral 05/21/2024 05/21/2025 1 1 Specialty Diagnoses / Procedures Referred By Contac t Referred To Contact Orthopedics Diagnoses Ulnar neuropathy of right upper extremity Procedures CONSULT PANEL TO ORTHOPAEDICS OFFICE/OUTPATIENT [facility] [address] [place] [address] [place] [address] Referral ID Status Reason Start Date Expiration Date Visits Requested Visits Authorized [id number] Authorized PCP Requested Referral 03/31/2024 03/31/2025 1 1 Specialty Diagnoses / Procedures Referred By Contac t Referred To Contact XR IMAGING Diagnoses 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, right Procedures XR HAND GENERAL 3V PA/LAT/OBL RIGHT RADEX HAND MINIMUM [address] [place] [address] [place] [address] [place] [address] Referral ID Status Reason Start Date Expiration Date V isits Requested Visits Authorized [id number] Closed Auto-Generate d Referral 03/31/2024 04/30/2025 1 1 Chief Complaint and Reason for Visit 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 Hypothyroid Pre-employment examination Chief Complaint Admit Date Senior Software Architect Physical April 13, 2025 10:4 5am Reason for Visit Admit Date Hypothyroid April 13, 2025 10:4 5am Pre-employment examination April 13 10:45am Additional Source Comments INFORMATION SOURCE (unrecogn ized section and content) DATE CREATED AUTHOR 12/04/2022 [facility] DATE CREATED AUTHOR AUTHOR'S ORGANIZ ATION 11/13/2023 [facility] DATE CREATED AUTHOR AUTHOR'S ORGANIZ ATION 04/01/2024 [facility] DATE CREATED AUTHOR AUTHOR'S ORGANIZ ATION 09/23/2024 [facility] DATE CREATED AUTHOR AUTHOR'S ORGANIZ ATION 02/17/2025 [facility] DATE CREATED AUTHOR AUTHOR'S ORGANIZ ATION 04/02/2025 [facility] REASON FOR VISIT (unrecogniz ed section and content) Reason Comments Appointment Reason Comments New Patient Reason Comments Follow Up Reason Onset Date Comments EMG 05/19/2024 Specialty Diagnoses / Procedures Referred By Contact [facility]erred To [facility] Diagnoses Hand numbness Procedures EM[facility](NEURO/NI) NERVE CONDUCTION STUDIES 9-10 STUDIES Tyler Levine, ELO [address] [place] [address] [facility] [place] [address] [place] [address] Referral ID Status Reason Start Date Expiration Date V isits Requested Visits Authorized [id number] Closed Auto-Generate d Referral 03/31/2024 03/31/2025 1 1 Specialty Diagnoses / Procedures Referred By Nathan t Referred To Contact Orthopedics Diagnoses Ulnar neuropathy of right upper extremity Procedures CONSULT PANEL TO ORTHOPAEDICS OFFICE/OUTPATIENT [facility] 60 [place] [address] [place] [address] Referral ID Status Reason Start Date Expiration Date V isits Requested Visits Authorized [id number] Closed PCP Requested Referral 03/31/2024 03/31/2025 1 1 Reason Comments 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 Reason Comments Sinusitis Follow up [facility] 02/06/25 Source Comments (unrecognize d section and content) In the event this informatio n is protected by the Federal Confidentiality of Alcohol and Drug Abuse Patient Records regulations: The Federal rules restrict any use of the information to criminally investigate or prosecute any alcohol or drug abuse patient.[facility] the event this information is protected by the Federal Confidentiality of Alcohol and Drug Abuse Patient Records regulations: The Federal rules restrict any use of the information to criminally investigate or prosecute any alcohol or drug abuse patient.[facility] Center[facility] the event this information is protected by the Federal Confidentiality of Alcohol and Drug Abuse Patient Records regulations: The Federal rules restrict any use of the information to criminally investigate or prosecute any alcohol or drug abuse patient.[facility] Center[facility] the event this information is protected by the Federal Confidentiality of Alcohol and Drug Abuse Patient Records regulations: The Federal rules restrict any use of the information to criminally investigate or prosecute any alcohol or drug abuse patient.[facility] Center[facility] the event this information is protected by the Federal Confidentiality of Alcohol and Drug Abuse Patient Records regulations: The Federal rules restrict any use of the information to criminally investigate or prosecute any alcohol or drug abuse patient.[facility] Center[facility] the event this information is protected by the Federal Confidentiality of Alcohol and Drug Abuse Patient Records regulations: The Federal rules restrict any use of the information to criminally investigate or prosecute any alcohol or drug abuse patient.[facility] CenterIn the event this information is protected by the Federal Confidentiality of Alcohol and Drug Abuse Patient Records regulations: The Federal rules restrict any use of the information to criminally investigate or prosecute any alcohol or drug abuse patient.[facility] CenterIn the event this information is protected by the Federal Confidentiality of Alcohol and Drug Abuse Patient Records regulations: The Federal rules restrict any use of the information to criminally investigate or prosecute any alcohol or drug abuse patient.[facility] CenterIn the event this information is protected by the Federal Confidentiality of Alcohol and Drug Abuse Patient Records regulations: The Federal rules restrict any use of the information to criminally investigate or prosecute any alcohol or drug abuse patient.[facility] CenterIn the event this information is protected by the Federal Confidentiality of Alcohol and Drug Abuse Patient Records regulations: The Federal rules restrict any use of the information to criminally investigate or prosecute any alcohol or drug abuse patient.[facility] CenterIn the event this information is protected by the Federal Confidentiality of Alcohol and Drug Abuse Patient Records regulations: The Federal rules restrict any use of the information to criminally investigate or prosecute any alcohol or drug abuse patient.[facility] CenterIn the event this information is protected by the Federal Confidentiality of Alcohol and Drug Abuse Patient Records regulations: The Federal rules restrict any use of the information to criminally investigate or prosecute any alcohol or drug abuse patient.[facility] CenterIn the event this information is protected by the Federal Confidentiality of Alcohol and Drug Abuse Patient Records regulations: The Federal rules restrict any use of the information to criminally investigate or prosecute any alcohol or drug abuse patient.[facility] CenterIn the event this information is protected by the Federal Confidentiality of Alcohol and Drug Abuse Patient Records regulations: The Federal rules restrict any use of the information to criminally investigate or prosecute any alcohol or drug abuse patient.[facility] CenterIn the event this information is protected by the Federal Confidentiality of Alcohol and Drug Abuse Patient Records regulations: The Federal rules restrict any use of the information to criminally investigate or prosecute any alcohol or drug abuse patient.[facility] Care Teams (unrecognized sec tion and content) 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 Specialty Start Date End Date Delvis Lr MD [address] [place] [address] PCP - General Family Medicine 02/07/24 Delvis Lr MD [address] [place] [address] Referring Family Medicine 01/27/24 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 Specialty Start Date End Date Delvis Lr MD [address] [place] [address] PCP - General Family Medicine 02/07/24 Delvis Lr MD [address] [place] [address] Referring Family Medicine 01/27/24 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 Specialty Start Date End Date Delvis Lr MD [address] [place] [address] PCP - General Family Medicine 02/07/24 Delvis Lr MD [address] [place] [address] Referring Family Medicine 01/27/24 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 Specialty Start Date End Date Delvis Lr MD [address] [place] [address] PCP - General Family Medicine 02/07/24 Delvis Lr MD [address] [place] [address] Referring Family Medicine 01/27/24 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 Specialty Start Date End Date Delvis Lr MD [address] [place] [address] PCP - General Family Medicine 02/07/24 Delvis Lr MD [address] [facility] [place] [address] Referring Family Medicine 01/27/24 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 Specialty Start Date End Date Delvis Lr MD [address] [facility] [place] [address] PCP - General Family Medicine 02/07/24 Delvis Lr MD [address] [facility] [place] [address] Referring Family Medicine 01/27/24 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 Specialty Start Date End Date Delvis Lr MD [address] [place] [address] PCP - General Family Medicine 02/07/24 Delvis Lr MD [address] [facility] [place] [address] Referring Family Medicine 01/27/24 Team Status: Active Member Role Status Nain Lr MD Primary Care Provider Active Team Status: Inactive Member Role Status Dates Delvis Lr MD Primary Care Provider Active Start: May 06, 2024 End: May 06, 2024 Wisam Mix DO Attending Provider Active Sta rt: May 06, 2024 End: May 06, 2024 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 Specialty Start Date End Date Delvis Lr MD [address] [facility] [place] [address] PCP - General Family Medicine 02/07/24 Delvis Lr MD [address] [facility] [place] [address] Referring Family Medicine 01/27/24 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 Specialty Start Date End Date Delvis Lr MD [address] [facility] [place] [address] PCP - General Family Medicine 02/07/24 Delvis Lr MD [address] [facility] [place] [address] Referring Family Medicine 01/27/24 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 Specialty Start Date End Date Delvis Lr MD [address] [facility] [place] [address] PCP - General Family Medicine 02/07/24 Delvis Lr MD [address] [facility] [place] [address] Referring Family Medicine 01/27/24 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 Specialty Start Date End Date Delvis Lr MD [address] [facility] [place] [address] PCP - General Family Medicine 02/07/24 Delvis Lr MD [address] [facility] [place] [address] Referring Family Medicine 01/27/24 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 Specialty Start Date End Date Delvis Lr MD [address] [facility] [place] [address] PCP - General Family Medicine 02/07/24 Delvis Lr MD [address] [facility] [place] [address] Referring Family Medicine 01/27/24 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 Specialty Start Date End Date Delvis Lr MD [address] [place] [facility] [place] [address] PCP - General Family Medicine 11/13/24 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 Specialty Start Date End Date Delvis Lr MD [address] [place] [facility] [address] PCP - General Family Medicine 11/13/24 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 Specialty Start Date End Date Delvis Lr MD [address] [place] [facility] [address] PCP - General Family Medicine 11/13/24 Team Status: Inactive Member Role Status Dates Delvis Lr MD Primary Care Provider Active Start: April 13, 2025 End: April 13, 2025 Wisam Mix DO Attending Provider Active Sta rt: April 13, 2025 End: April 13, 2025 Goals (unrecognized section and content) Goals may [...] BE BASED ON THE PRIMARY CLINICAL RECORDS. [facility] [employer] [facility]. provides no warranty or guarantee of the accuracy or completeness of information in this document.
[2025-06-28 11:20] LABS: Free T3 2.00 pg/mL (2.18-3.98); Thyroid Stimulating Hormone 3.719 uIU/mL (0.358-3.740)
== END 2025-06-28 09:07 | disposition home or self-care (01) ==
LOC: LAB 09:06
PROVIDERS: PCP Family Medicine; Visit Provider Family Medicine
DX: M79.642 Pain in left hand (principal); R94.6 Abnormal results of thyroid function studies
CPT/HCPCS: 36415; 73130; 84436; 84443; 84481

== ENCOUNTER 2025-06-28 09:12 | Outpatient (OUT) | payer OTHER, SELFPAY ==
--- OUTSIDE RECORDS SUMMARY | 2025-06-28 09:20 | XMS_ITS | CCD ---
Author Organization [facility] CliniSynh Care Team Providers Care Bed Operator Name Role Phone DR DELVIS LR Consulting [...] 3 Delvis Lr MD Primary Care Provider [phone] AMBREEN TOTH Referring Unavailable DELVIS LR [...] IMETHOPRIM] Drug Allergy 11-09-19 24 Hives, Rash [facility] (1 source) No Known Medication Allergies; Translations: [No Known Medication Allergies] Propensity to adverse reactions (disorder) [facility] Repository Medications Current Medications Medication Drug Class(es) [...] of the paranasal sinuses without contrast with [employer] protocol. Routine multiplanar reconstructions were performed. All [...] Rangel MD Transcribed by: ABDIFATAH Technologist: [facility] Radiology, Radiologist, - 02/08/2025 Exam Date/Time: 02/06/2025 [...] of the paranasal sinuses without contrast with [employer] protocol. Routine multiplanar reconstructions were performed. All [...] Rangel MD Transcribed by: ABDIFATAH Technologist: [facility] [employer]ar[employer] CT MAXILLOFACIAL W/O CONTRAS TOrdered By: Radiologist Radiology on 02-07-2025 [employer] Work Phone: CT Maxillofacial w/o Contras [...] of the paranasal sinuses without contrast with [employer] protocol. Routine multiplanar reconstructions were performed. All [...] MD Transcribed by: ABDIFATAH Technologist: JULIANNE Wu [facility] CT MAXILLOFACIAL W/O THOM Peterson 02-06-2025 Radiology Study observation (narrative) [facility] 09-21-2024 [facility] Telephone (ORQ) PAT KNOTT ([id number]) 1965 F Date Time Provider Department 09/21/24 [...] OCCA - Fully Assessed Reason for Visit: Radiation / Chemistry Technician - Other [3602] Cmt: [facility] IMAGING REPORT Prescriptions as of 09/22/2024 [...] Status:Closed by KIP SCHAEFFER on 09/21/24 [facility] NIKOSPAT ([id number]) 1965 F Date Time Provider Department 09/21/24 [...] Status:Closed by MILLER ARAYA on 09/21/[facility] (NUBIAORR) PAT KNOTT ([id number]) 1965 F Date Time Provider Department 09/08/24 [...] Encounter Status:Closed by MILLER ARAYA on 09/08/24 [facility] CNOVon 05-21-2024 CNOV Office Visit (ORTHAL ) PAT KNOTT ([id number]) 1965 F Date Time Provider Department 05/21/24 [...] ECRB: Negative ROM: full ROM STRENGTH: 5/5 office director CREPITUS: negative NEUROLOGICAL EXAM: Sensory: sensation intact [...] instruct ulnar nerve glides and work on office director strength and mobility. Follow-up should symptoms persist. Tyler Levine PA-C This note is created with the assistance of a speech-recognition program. Referring Provider: AMBREEN TOTH [[id number]] Allergies As of Date: 05/21/2024 Noted Allergy Reaction BACTRIM (SULFAMETHOXAZOLE-TRI METH*02/11/2024 4 - Hives Date Reviewed: 05/21/2024 Reviewed by: Miller Araya OCCA - Fully Assessed Primary Visit Diagnosis:Ulnar neuritis, right [G56.21] Order(s):CONSULT PANEL TO ORTHOPAEDICS [469162] Order #: [id number]: 1 CONSULT TO LOCAL SALES MANAGER [[id number]] Order #: [id number]: 1 FUTURE Prescriptions as of 05/21/2024 - [...] Status:Closed by TYLER LEVINE on 05/21/24 Normal [facility] EMG(NEURO/NI)on 05-19-2024 Results can be seen in attached scanned documents. If you are a patient reviewing this test result, call the doctor who ordered the test with any questions. [facility] CNOVon 03-31-2024 CNOV Office Visit (VASSAV ) PAT KNOTT ([id number]) 1965 F Date Time Provider Department 03/31/24 1:30 PM AMBREEN TOTH During your visit today, we recorded the following information about you: Blood pressure Weight Height 149/97 90.7 kg 1.626 m Ambreen Toth MD 03/31/2024 2:07 PM Signed [facility] [place] DEPARTMENT OF VASCULAR SURGERY OUTPATIENT VISIT DATE [...] for Encounter Date Provider Department Center 03/31/2024 [id number]-BOXURAMBREEN TOTH Encounter Status:Closed by AMBREEN TOTH on 03/31/24 Normal [facility] CAROTID ARTERIES JOSE VAS LABon 03-31-2024 US CAROTID ARTERIES JOSE VAS LAB Non-Invasive Vascular Laboratory [facility] Carotid Duplex Bilateral/Complete Date of service/time: [...] antegrade flow noted. Technologist: Jackson Echeverria RVT, [facility] Ordering physician: AMBREEN TOTH Interpreting physician: Bentley Whatley MD, SHRUTHI Final CC [employer] [facility] Image : [id number] See Link below for Image Normal [facility] XR HAND 3V PA/LAT/OBL RTon 0 [...] tissues are unremarkable. IMPRESSION: Minimal degenerative changes. Head Of Insight: SHE Transcribe Date/Time: Mar 31 2024 4:36P Dictated by : ALEKSANDR BONDS MD This examination was interpreted and the report reviewed and electronically signed by: ALEKSANDR BONDS MD on Mar 31 2024 4:36PM EST [id number] Normal [facility] XR Hand - right PA and Later al and Obliqueon 03-31-2024 IMPRESSION: Minimal degenerative changes. Head Of Insight: SHE Transcribe Date/Time: Mar 31 2024 4:36P Dictated by : ALEKSANDR BONDS MD This examination was interpreted and the report reviewed and electronically signed by: ALEKSANDR BONDS MD on Mar 31 2024 4:36PM EST [facility] * * *Final Report* * * [...] No marginal erosion. Soft tissues are unremarkable. [facility] Provider, Jacqueline Mendosa - 03/31/2024 * [...] are unremarkable. IMPRESSION IMPRESSION: Minimal degenerative changes. Head Of Insight: SHE Transcribe Date/Time: Mar 31 2024 4:36P Dictated by : ALEKSANDR BONDS MD This examination was interpreted and the report reviewed and electronically signed by: ALEKSANDR BONDS MD on Mar 31 2024 4:36PM EST [facility] Radiology Study observation (narrative) [facility] XR Hand - right PA and Later al and ObliqueOrdered By: Ccf Provider on 03-31-2024 [facility] CNCOon 02-11-2024 CNCO Letter Text Normal [facility] CNOVon 02-11-2024 CNOV Office Visit (VASSAV ) KNOTTPAT ([id number]) 1965 F Date Time Provider Department 02/11/24 10:45 AM AMBREEN TOTH During your visit today, we recorded the following information about you: Weight Height 89.4 kg 1.626 m Ambreen Toth MD 02/11/2024 11:26 AM Signed [facility] [place] DEPARTMENT OF VASCULAR SURGERY OUTPATIENT VISIT DATE [...] to requesting physician via US mail. Ms. nKott is a 58 year old female who [...] - Hives Date Reviewed: 02/11/2024 Reviewed by: Nanetet Caruso RN - Fully Assessed Reason for [...] Emphysematous pyelonephritis (more content not included)... Normal [facility] Ashleigh 02-07-2024 CNPN Telephone (CARDMN) PAT KNOTT ([id number]) 1965 F Date Time Provider Department 02/07/[facility] CAR[facility] During your visit today, we recorded the following information about you: Cheryle Servin 02/07/2024 3:01 PM Signed RP Patient already scheduled with Dr. Ambreen Moreira at [facility]. Case closed. Allergies As of Date: 02/07/2024 (Not on File) Date Reviewed: Never Reviewed Reason for Visit: Appointment [186] Problem List As Of Date: 02/07/2024 (None) Encounter Status:Closed by CHERYLE SERVIN on 02/07/24 Normal [facility] CBCon 11-09-2023 ABSOLUTE BAS 0.1 10*3/uL Normal 0.0-0.2 [facility] Comment on above: Performed By: #### C MPF, ACBC, LIPA2 #### Testing performed at [address] [address] ABSOLUTE EOS 0.2 10*3/uL Normal 0.0-0.7 [facility] Comment on above: Performed By: #### C MPF, ACBC, LIPA2 #### Testing performed at [address] [address] ABSOLUTE NEUTROPHIL COUNT 5.3 10*3/uL Normal 1.4-6.5 [facility] Comment on above: Performed By: #### C MPF, ACBC, LIPA2 #### Testing performed at [address] [address] Basophils/100 WBC (Bld) 0.9 % Normal 0.0-2.0 [facility] Comment on above: Performed By: #### C MPF, ACBC, LIPA2 #### Testing performed at [address] [address] DTYPE AUTO DIFF Normal [facility] Comment on above: Performed By: #### C MPF, ACBC, LIPA2 #### Testing performed at [address] [address] Eosinophils/100 WBC (Bld) 1.9 % Normal 0.0-11.0 [facility] Comment on above: Performed By: #### C MPF, ACBC, LIPA2 #### Testing performed at [facility] [place] [facility] [address] [place] [address] Lymphocytes (Bld) [#/Vol] 2.6 10*3/uL Normal 1.2-3.4 [facility] Comment on above: Performed By: #### C MPF, ACBC, LIPA2 #### Testing performed at [address] [address] Lymphocytes/100 WBC (Bld) 29.1 % Normal 20.0-55.0 [facility] Comment on above: Performed By: #### C MPF, ACBC, LIPA2 #### Testing performed at [address] [address] Monocytes (Bld) [#/Vol] 0.9 10*3/uL High 0.0-0.7 [facility] Comment on above: Performed By: #### C MPF, ACBC, LIPA2 #### Testing performed at [address] [address] Monocytes/100 WBC (Bld) 10.1 % High 0.0-10.0 [facility] Comment on above: Performed By: #### C MPF, ACBC, LIPA2 #### Testing performed at [address] [address] Neutrophils/100 WBC (Bld) 58.0 % Normal 37.0-75.0 [facility] Comment on above: Performed By: #### C MPF, ACBC, LIPA2 #### Testing performed at [address] [address] Erythrocyte distribution width (RBC) [Ratio] 14.0 % Normal 11.5-14.5 [facility] Comment on above: Performed By: #### C MPF, ACBC, LIPA2 #### Testing performed at [address] [address] Hematocrit (Bld) [Volume fraction] 41.4 % Normal 36.0-48.0 [facility] Comment on above: Performed By: #### C MPF, ACBC, LIPA2 #### Testing performed at [address] [address] Hemoglobin (Bld) [Mass/Vol] 13.3 g/dL Normal 12.0-16.0 [facility] Comment on above: Performed By: #### C MPF, ACBC, LIPA2 #### Testing performed at [address] [address] MCH (RBC) [Entitic mass] 27.3 pg Normal 26.0-35.0 [facility] Comment on above: Performed By: #### C MPF, ACBC, LIPA2 #### Testing performed at [address] [address] MCHC (RBC) [Mass/Vol] 32.2 g/dL Normal 27.0-37.0 [facility] Comment on above: Performed By: #### C MPF, ACBC, LIPA2 #### Testing performed at [address] [address] MCV (RBC) [Entitic vol] 84.7 fL Normal 80.0-100.0 [facility] Comment on above: Performed By: #### C MPF, ACBC, LIPA2 #### Testing performed at [address] [address] Platelet mean volume (Bld) [Entitic vol] 6.9 fL Low 7.4-11.0 [facility] Comment on above: Performed By: #### C MPF, ACBC, LIPA2 #### Testing performed at [address] [address] Platelets (Bld) [#/Vol] 333 10*3/uL Normal 130-400 [facility] Comment on above: Performed By: #### C MPF, ACBC, LIPA2 #### Testing performed at [address] [address] RBC (Bld) [#/Vol] 4.89 10*6/uL Normal 4.0-5.4 [facility] Comment on above: Performed By: #### C MPF, ACBC, LIPA2 #### Testing performed at [address] [address] WBC (Bld) [#/Vol] 9.1 10*3/uL Normal 3.6-11.0 [facility] Comment on above: Performed By: #### C MPF, ACBC, LIPA2 #### Testing performed at [address] [address] CMP FASTINGon 11-09-2023 A:G RATIO 1.4 RATIO Normal [facility] Comment on above: Performed By: #### C MPF, ACBC, LIPA2 #### Testing performed at [address] [address] ALBUMIN 4.5 G/dl Normal 3.5-5.0 [facility] Comment on above: Performed By: #### C MPF, ACBC, LIPA2 #### Testing performed at [address] [address] ALP [Catalytic activity/Vol] 92 U/L Normal 38-126 [facility] Comment on above: Performed By: #### C MPF, ACBC, LIPA2 #### Testing performed at [address] [address] ALT [Catalytic activity/Vol] 64 U/L High <35 [facility] Comment on above: Performed By: #### C MPF, ACBC, LIPA2 #### Testing performed at [address] [address] AST [Catalytic activity/Vol] 51 U/L High 14-36 [facility] Comment on above: Performed By: #### C MPF, ACBC, LIPA2 #### Testing performed at [address] [address] Bilirubin [Mass/Vol] 0.2 mg/dL Normal 0.2-1.3 [facility] Comment on above: Performed By: #### C MPF, ACBC, LIPA2 #### Testing performed at [address] [address] Calcium [Mass/Vol] 9.8 mg/dL Normal 8.4-10.2 [facility] Comment on above: Performed By: #### C MPF, ACBC, LIPA2 #### Testing performed at [address] [address] Chloride [Moles/Vol] 103 mmol/L Normal 98-107 [facility] Comment on above: Result Comment: Plea se note: Triglyceride levels of 600mg/dL or higher may positively bias chloride results by approximately 2.1 mmol Performed By: #### C MPF, ACBC, LIPA2 #### Testing performed at [address] [address] CO2 [Moles/Vol] 24 mmol/L Normal 22-30 [facility] Comment on above: Performed By: #### C MPF, ACBC, LIPA2 #### Testing performed at [address] [address] Creatinine [Mass/Vol] 1.00 mg/dL Normal 0.70-1.20 [facility] Comment on above: Performed By: #### C MPF, ACBC, LIPA2 #### Testing performed at [address] [address] EST. GFR, 73 ml/min/1.73sq.m [facility] Comment on above: Performed By: #### C MPF, ACBC, LIPA2 #### Testing performed at [address] [address] EST. GFR,Non 61 ml/min/1.73sq.m [facility] Comment on above: Performed By: #### C MPF, ACBC, LIPA2 #### Testing performed at [address] [address] GFR Information Average GFR for 50-5 9 years old = 93. Normal [facility] Comment on above: Result Comment: Distribution Manager bren Kidney disease, GFR = <60. Kidney failure, GFR = <15. The GFR estimate is not adjusted for extreme body surface area or acute process, nor has it been validated for women or ethnic groups other than and . Performed By: #### C MPF, ACBC, LIPA2 #### Testing performed at [address] [address] Glucose [Mass/Vol] 121 mg/dL High 70-100 [facility] Comment on above: Result Comment: NORMAL <100 mg/dL PREDIABETES 101-126 mg/dL DIABETES 126 mg/dL or higher Performed By: #### C MPF, ACBC, LIPA2 #### Testing performed at [address] [address] Potassium [Moles/Vol] 3.7 mmol/L Normal 3.5-5.1 [facility] Comment on above: Performed By: #### C MPF, ACBC, LIPA2 #### Testing performed at [address] [address] Protein [Mass/Vol] 7.8 g/dL Normal 6.3-8.2 [facility] Comment on above: Performed By: #### C MPF, ACBC, LIPA2 #### Testing performed at [address] [address] Sodium [Moles/Vol] 137 mmol/L Normal 137-145 [facility] Comment on above: Performed By: #### C MPF, ACBC, LIPA2 #### Testing performed at [address] [address] Urea nitrogen [Mass/Vol] 17 mg/dL Normal 7-20 [facility] Comment on above: Performed By: #### C MPF, ACBC, LIPA2 #### Testing performed at [address] [address] [address] ABDOMEN/PELVIS WITHOUT CO NTRASTon 11-09-2023 CT [...] stone. 2. Small right renal cyst. Normal [facility] LACTATE,BLOODon 11-09-2023 Lactate [Moles/Vol] 3.1 mmol/L Critically high 0.7-2.0 [facility] Comment on above: Result Comment: AYANA NORMAN REPEAT INITIAL CRITICAL IN 3 HOURS IF ED OR INPATIENT SEPSIS PATIENT Result called to read back by: MEL 11/09/2023 @ 19:39 by MARK Performed By: #### L ACTAC #### Testing performed at [address] [address] LIPASE,SERUMon 11-09-2023 LIPASE,SERUM 198 U/L Normal 23-300 [facility] Comment on above: Performed By: #### C MPF, ACBC, LIPA2 #### Testing performed at [address] [address] URINE CULTUREon 11-09-2023 Bacteria identified Cx Nom (U) SPECIMEN DESCRIPTION URINE CLEAN CATCH UA DIPSTICK LEUKOCYTE POSITIVE * Result Note: NITRITE NEGATIVE * CULTURE NO PATHOGENS ISOLATED * Result Note: Testing performed at [place] [address] * REPORT STATUS 11/12/2023 * Result Note: FINAL * Normal [facility] Comment on above: Performed By: #### A URNC #### Testing performed at [address] [place] [address] Testing performed at [address] [address] URINE MACROSCOPICon 11-09-19 24 Bilirubin Ql (U) Negative [facility] Comment on above: Performed By: #### U MARA, UMAC #### Testing performed at [address] [address] Clarity (U) CLOUDY Abnormal CLEAR [facility] Comment on above: Performed By: #### U MARA, UMAC #### Testing performed at [address] [place] [address] Color (U) YELLOW Normal YELLOW [facility] Comment on above: Performed By: #### U MARA, UMAC #### Testing performed at [address] [place] [address] Glucose Ql (U) Negative Normal NEGATIVE [facility] Comment on above: Performed By: #### U MARA, UMAC #### Testing performed at [address] [address] pH (U) 7.0 [pH] Normal 5.0-7.0 [facility] Comment on above: Performed By: #### U MARA, UMAC #### Testing performed at [address] [place] [address] URINE HEMOGLOBIN LARGE Abnormal NEGATIVE [facility] Comment on above: Performed By: #### U MARA, UMAC #### Testing performed at [address] [address] URINE KETONE Negative Normal NEGATIVE [facility] Comment on above: Performed By: #### U MARA, UMAC #### Testing performed at [address] [address] URINE LEUKOTEST TRACE Abnormal NEGATIVE [facility] Comment on above: Performed By: #### U MARA, UMAC #### Testing performed at [address] [address] URINE NITRATES Negative Normal NEGATIVE [facility] Comment on above: Performed By: #### U MARA, UMAC #### Testing performed at [address] [address] URINE SPEC GRAVITY 1.020 Normal 1.010-1.025 [facility] Comment on above: Performed By: #### U MARA, UMAC #### Testing performed at [address] [address] URINE TOTAL PROTEIN Negative Normal NEGATIVE [facility] Comment on above: Performed By: #### U MARA, UMAC #### Testing performed at [address] [address] Urobilinogen Qn (U) 0.2 {Daphne'U}/dL Normal 0.2-1.0 [facility] Comment on above: Performed By: #### U MARA, UMAC #### Testing performed at [address] [address] URINE MICROSCOPICon 11-09-19 24 BACTERIA 1+ Abnormal NEGATIVE [facility] Comment on above: Performed By: #### U MARA, UMAC #### Testing performed at [address] [address] CASTS NONE Normal NONE [facility] Comment on above: Performed By: #### U MARA, UMAC #### Testing performed at [address] [address] CRYSTAL RARE Abnormal NONE [facility] Comment on above: Result Comment: SUDHA PHOUS URATES Performed By: #### U MARA, UMAC #### Testing performed at [address] [address] Epithelial cells LM Ql (Urine sed) 1 TO 5 Normal [facility] Comment on above: Performed By: #### U MARA, UMAC #### Testing performed at [address] [address] Mucus Ql (Urine sed) TRACE Abnormal NEGATIVE [facility] Comment on above: Performed By: #### U MARA, UMAC #### Testing performed at [address] [address] URINE COMMENT REFLEX CULTURE PER ESTABLISHED CRITERIA. Normal [facility] Comment on above: Performed By: #### U MARA, UMAC #### Testing performed at [address] [address] URINE RBC'S 20 TO 30 Normal NEGATIVE [facility] Comment on above: Performed By: #### U MARA, UMAC #### Testing performed at [address] [address] URINE WBC'S 1 TO 5 Normal NEGATIVE [facility] Comment on above: Performed By: #### U MARA, UMAC #### Testing performed at [address] [address] XR CHEST 2 Von 11-30-2022 XR CHEST [...] : DR DELVIS LR . Admission #: [id number] Family : Order #: [id number] CLICK HERE TO VIEW EXAM RADIOLOGY REPORT [...] skin cancer at age 70. LOCATION: [facility] BREAST COMPOSITION: Scattered areas fibroglandular density. [...] on 10/30/2022 at 11:13 Normal [facility] CBC AUTO DIFFon 06-21-2022 BASO # 0.1 103/ul Normal 0.0-0.1 [facility] Comment on above: Performed By: #### H FPFCBC #### [facility] [address] [place] [address] Dr. Sonya Strickland Basophils/100 WBC (Bld) 0.7 % Normal 0.2-2.0 [facility] Comment on above: Performed By: #### H FPFCBC #### [facility] [address] [address] [address] Sonya Strickland EO # 0.1 103/ul Normal 0.0-0.7 [facility] Comment on above: Performed By: #### H FPFCBC #### [facility] [address] [place] [address] Dr. Sonya Strickland Eosinophils/100 WBC (Bld) 1.9 % Normal 0.9-7.0 [facility] Comment on above: Performed By: #### H FPFCBC #### [facility] [address] [place] [address] Dr. Sonya Strickland Erythrocyte distribution width (RBC) [Ratio] 13.1 % Normal 11.0-15.0 [facility] Comment on above: Performed By: #### H FPFCBC #### [facility] [address] [place] [address] Dr. Sonya Strickland Hematocrit (Bld) [Volume fraction] 41.6 % Normal 36.0-48.0 [facility] Comment on above: Performed By: #### H FPFCBC #### [facility] [address] [place] [address] Dr. Sonya Strickland Hemoglobin (Bld) [Mass/Vol] 13.2 g/dL Normal 12.0-16.0 [facility] Comment on above: Performed By: #### H FPFCBC #### [facility] [address] [place] [address] Dr. Sonya Strickland IG # 0.01 10e3/ul Normal 0.00-0.03 [facility] Comment on above: Performed By: #### H FPFCBC #### [facility] [address] [place] [address] Dr. Sonya Strickland IG % 0.1 % Normal 0.0-0.5 [facility] Comment on above: Performed By: #### H FPFCBC #### [facility] [address] [place] [address] Dr. Sonya Strickland LYMPH # 2.2 103/ul Normal 1.2-3.8 [facility] Comment on above: Performed By: #### H FPFCBC #### [facility] [address] [place] [address] Dr. Sonya Strickland Lymphocytes/100 WBC (Bld) 31.3 % Normal 20.5-60.0 [facility] Comment on above: Performed By: #### H FPFCBC #### [facility] [address] [place] [address] Dr. Sonya Strickland MCH (RBC) [Entitic mass] 28.0 pg Normal 26.7-34.0 [facility] Comment on above: Performed By: #### H FPFCBC #### [facility] [address] [place] [address] Dr. Sonya Strickland MCHC (RBC) [Mass/Vol] 31.7 g/dL Normal 29.9-35.2 [facility] Comment on above: Performed By: #### H FPFCBC #### [facility] [address] [place] [address] Dr. Sonya Strickland MCV (RBC) [Entitic vol] 88.1 fL Normal 81.0-99.0 [facility] Comment on above: Performed By: #### H FPFCBC #### [facility] [address] [place] [address] Dr. Sonya Strickland MONO # 0.7 103/ul Normal 0.3-0.8 [facility] Comment on above: Performed By: #### H FPFCBC #### [facility] [address] [place] [address] Dr. Sonya Strickland Monocytes/100 WBC (Bld) 9.9 % Normal 1.7-12.0 [facility] Comment on above: Performed By: #### H FPFCBC #### [facility] [address] [place] [address] Dr. Sonya Strickland NEUT # 3.9 103/ul Normal 1.4-6.5 [facility] Comment on above: Performed By: #### H FPFCBC #### [facility] [address] [place] [address] Dr. Sonya Strickland Neutrophils/100 WBC (Bld) 56.1 % Normal 43.0-75.0 [facility] Comment on above: Performed By: #### H FPFCBC #### [facility] [address] [place] [address] Dr. Sonya Strickland Platelet mean volume (Bld) [Entitic vol] 9.7 fL Normal 9.5-13.5 [facility] Comment on above: Performed By: #### H FPFCBC #### [facility] [address] [place] [address] Dr. Sonya Strickland PLT 313 103/ul Normal 150-450 [facility] Comment on above: Performed By: #### H FPFCBC #### [facility] [address] [place] [address] Dr. Sonya Strickland RBC 4.72 106/ul Normal 4.20-5.40 [facility] Comment on above: Performed By: #### H FPFCBC #### [facility] [address] [place] [address] Dr. Sonya Strickland WBC 7.0 103/ul Normal 4.0-11.0 [facility] Comment on above: Performed By: #### H FPFCBC #### [facility] [address] [place] [address] Dr. Sonya Strickland [facility] PROFILEon 022 Albumin [Mass/Vol] 3.8 g/dL Normal 3.4-5.0 [facility] Comment on above: Performed By: #### H FPF #### [facility] [address] [place] [address] Dr. Sonya Strickland Albumin/Globulin [Mass ratio] 1.0 {ratio} Normal [facility] Comment on above: Performed By: #### H FPF #### [facility] [address] [place] [address] Dr. Sonya Strickland ALP [Catalytic activity/Vol] 87 U/L Normal 46-116 [facility] Comment on above: Performed By: #### H FPF #### [facility] [address] [place] [address] Dr. Sonya Strickland ALT [Catalytic activity/Vol] 25 U/L Normal 14-59 [facility] Comment on above: Performed By: #### H FPF #### [facility] [address] [place] [address] Dr. Sonya Strickland AST [Catalytic activity/Vol] 14 U/L Critically low 15-37 [facility] Comment on above: Performed By: #### H FPF #### [facility] [address] [place] [address] Dr. Sonya Strickland Bilirubin [Mass/Vol] 0.2 mg/dL Normal 0.2-1.0 [facility] Comment on above: Performed By: #### H FPF #### [facility] [address] [address] [address] Sonya Strickland Calcium [Mass/Vol] 8.8 mg/dL Normal 8.5-10.1 [facility] Comment on above: Performed By: #### H FPF #### [facility] [address] [address] [address] Sonya Strickland Chloride [Moles/Vol] 104 mmol/L Normal 98-107 [facility] Comment on above: Performed By: #### H FPF #### [facility] [address] [address] [address] Sonya Strickland CHOL-HDL RATIO NORM SEE BELOW Normal [facility] Comment on above: Result Comment: 3.3 - 4.4 LOW RISK 4.4 - 7.1 AVERAGE RISK 7.1 - 11.0 MODERATE RISK >11.0 HIGH RISK Performed By: #### H FPF #### [facility] [address] [place] [address] Dr. Sonya Strickland Cholesterol [Mass/Vol] 207 mg/dL Critically high <=200 [facility] Comment on above: Performed By: #### H FPF #### [facility] [address] [place] [address] Dr. Sonya Strickland Cholesterol in HDL [Mass/Vol] 63 mg/dL Critically high 40-60 [facility] Comment on above: Performed By: #### H FPF #### [facility] [address] [address] [address] Sonya Strickland Cholesterol in LDL [Mass/Vol] 121.6 mg/dL Normal [facility] Comment on above: Performed By: #### H FPF #### [facility] [address] [place] [address] Dr. Sonya Strickland Cholesterol.total/C holesterol in HDL [Mass ratio] 3.3 {ratio} Normal [facility] Comment on above: Performed By: #### H FPF #### [facility] [address] [address] [address] Sonya Strickland CO2 [Moles/Vol] 26.0 mmol/L Normal 21.0-32.0 [facility] Comment on above: Performed By: #### H FPF #### [facility] [address] [address] [address] Sonya Strickland Creatinine [Mass/Vol] 0.85 mg/dL Normal 0.55-1.02 [facility] Comment on above: Performed By: #### H FPF #### [facility] [address] [address] [address] Sonya Strickland Globulin (S) [Mass/Vol] 3.7 g/dL Normal [facility] Comment on above: Performed By: #### H FPF #### [facility] [address] [address] [address] Sonya Strickland Glucose [Mass/Vol] 87 mg/dL Normal 74-106 [facility] Comment on above: Performed By: #### H FPF #### [facility] [address] [address] [address] Sonya Strickland HDL NORMAL > or = 60 mg/dl - LO W CARDIOVASCULAR RISK <40 mg/dl - HIGH CARDIOVASCULAR RISK Normal [facility] Comment on above: Performed By: #### H FPF #### [facility] [address] [place] [address] Dr. Sonya Strickland LDL CALC NORMAL SEE BELOW Normal [facility] Comment on above: Result Comment: <100 mg/dl OPTIMAL 100 - 129 mg/dl NEAR OR ABOVE OPTIMAL 130 - 159 mg/dl BORDERLINE HIGH 160 - 189 mg/dl HIGH >190 mg/dl VERY HIGH Performed By: #### H FPF #### [facility] [address] [address] [address] Sonya Strickland Potassium [Moles/Vol] 4.3 mmol/L Normal 3.5-5.1 [facility] Comment on above: Performed By: #### H FPF #### [facility] [address] [place] [address] Dr. Sonya Strickland Protein [Mass/Vol] 7.5 g/dL Normal 6.4-8.2 [facility] Comment on above: Performed By: #### H FPF #### [facility] [address] [address] [address] Sonya Strickland Sodium [Moles/Vol] 140 mmol/L Normal 136-145 [facility] Comment on above: Performed By: #### H FPF #### [facility] [address] [address] [address] Sonya Strickland Triglyceride [Mass/Vol] 112 mg/dL Normal <=150 [facility] Comment on above: Performed By: #### H FPF #### [facility] [address] [address] [address] Sonya Strickland TSH 1.111 uIU/mL Normal 0.358-3.740 [facility] Comment on above: Performed By: #### H FPF #### [facility] [address] [address] [address] Sonya Strickland Urea nitrogen [Mass/Vol] 21.0 mg/dL Critically high 7.0-18.0 [facility] Comment on above: Performed By: #### H FPF #### [facility] [address] [address] [address] Sonya Strickland Urea nitrogen/Creatinine [Mass ratio] 24.7 mg/mg Normal [facility] Comment on above: Performed By: #### H FPF #### [facility] [address] [address] [address] Sonya Strickland VLDL CALC 22.4 mg/dL Normal [facility] Comment on above: Performed By: #### H FPF #### [facility] [address] [address] [address] Sonya Strickland Vital Signs Date Time Vital Sign Value Performing Clinician Facility 04-13-2025 [id number] Body height 162.56 cm [facility] 04-13-2025 10:52-0400 Body mass index (BMI) [Ratio] 34.2 kg/m2 [facility] 04-13-2025 10:52-0400 Body weight 90.43 kg [facility] 04-13-2025 10:52-0400 Diastolic blood pressure 85 mm[Hg] [facility] 04-13-2025 10:52-0400 Heart rate 70 /min [facility] 04-13-2025 10:52-0400 Respiratory rate 12 /min [facility] 04-13-2025 10:52-0400 Systolic blood pressure 132 mm[Hg] [facility] 02-16-2025 09:46-0400 Body height 162.6 cm Kenneth Zepeda MD Work Phone: [facility] 02-16-2025 09:46-0400 Body mass index (BMI) [Ratio] 34.5 kg/m2 Kenneth Zepeda MD Work Phone: [facility] 02-16-2025 09:46-0400 Body weight 91.17 kg Kenneth Zepeda MD Work Phone: [facility] 02-16-2025 09:46-0400 Diastolic blood pressure 97 mm[Hg] Kenneth Zepeda MD Work Phone: [facility] 02-16-2025 09:46-0400 Heart rate 75 /min Kenneth Zepeda MD Work Phone: [facility] 02-16-2025 09:46-0400 Systolic blood pressure 152 mm[Hg] Kenneth Zepeda MD Work Phone: [facility] 05-06-2024 09:23-0400 Body height 162.56 cm [facility] 05-06-2024 09:23-0400 Body mass index (BMI) [Ratio] 34.7 kg/m2 [facility] 05-06-2024 09:23-0400 Body weight 91.85 kg [facility] 05-06-2024 09:23-0400 Diastolic blood pressure 90 mm[Hg] [facility] 05-06-2024 09:23-0400 Heart rate 80 /min [facility] 05-06-2024 09:23-0400 Respiratory rate 12 /min [facility] 05-06-2024 09:23-0400 Systolic blood pressure 129 mm[Hg] [facility] 03-31-2024 13:49-0400 Body height 162.6 cm Ambreen Toth MD Work Phone: [facility] 03-31-2024 13:49-0400 Body mass index (BMI) [Ratio] 34.33 kg/m2 Ambreen Toth MD Work Phone: [facility] 03-31-2024 13:49-0400 Body weight 90.72 kg Ambreen Toth MD Work Phone: [facility] 03-31-2024 13:49-0400 Diastolic blood pressure 97 mm[Hg] Ambreen Toth MD Work Phone: [facility] 03-31-2024 13:49-0400 Systolic blood pressure 149 mm[Hg] Ambreen Toth MD Work Phone: [facility] 02-11-2024 11:02-0400 Body height 162.6 cm Ambreen Toth MD Work Phone: [facility] 02-11-2024 11:02-0400 Body weight 89.36 kg Ambreen Toth MD Work Phone: [facility] 05-17-2023 11:30-0400 Body height 162.56 cm Wisam Ball Other [employer] Other 05-17-2023 11:30-0400 Body mass index (BMI) [Ratio] 28.9 kg/m2 Wisam Ball Other [employer] Other 05-17-2023 11:30-0400 Body weight 76.39 kg Wisam Ball Other [employer] Other 05-17-2023 11:30-0400 Diastolic blood pressure 84 mm[Hg] Wisam Ball Other [employer] Other 05-17-2023 11:30-0400 Respiratory rate 12 /min Wisam Ball Other [employer] Other 05-17-2023 11:30-0400 Systolic blood pressure 130 mm[Hg] [employer] Other [place] Other Encounters Encounter Date Encounter Type Care Provider Facility Start: 04-13-2025 End: 04-13-2025 ambulatory [facility] Work Phone: Start: 04-13-2025 End: 04-13-2025 Patient encounter procedure [facility] Physician [facility] Work Phone: Start: 03-30-2025 End: 03-30-2025 ambulatory [facility] Facility:[facility] Start: 02-16-2025 End: 02-16-2025 Bamboo flowsheet Kenneth [...] Start: 02-06-2025 End: 02-07-2025 ambulatory Kenneth Zepeda Facility:[facility] Start: 02-06-2025 End: 02-07-2025 Patient encounter procedure Kenneth Zepeda [facility] Start: 01-12-2025 End: 01-12-2025 ambulatory KENNETH ZEPEDA Not Available Start: 09-21-2024 End: 09-21-2024 Telephone encounter Tyler Levine PA-C Work Phone: [facility] Comment on above: Radiation / Chemistry Technician - O keron ([facility]) Appointment (Schedul ing with a hand specialist. ) Start: 09-08-2024 End: 09-09-2024 Orders Only Tyler Levine PA-C Work Phone: Orthopaedics Comment on above: Regarding ultrasound Ulnar neuritis, righ t (Primary Dx) Start: 05-21-2024 End: 05-21-2024 ambulatory TYLER LEVINE Facility:[facility] Start: 05-21-2024 End: 05-21-2024 Patient encounter procedure Tyler Levine PA-C Work Phone: Orthopaedics Comment on above: Ulnar neuritis, righ t (Primary Dx) Start: 05-19-2024 End: 05-19-2024 ambulatory TYLER LEVINE Neu[facility] Comment on above: EMG Start: 05-19-2024 End: 05-19-2024 Patient encounter procedure Emg [address] [facility] (Max Weight:400) Work Phone: Neurology Start: 05-06-2024 End: 05-06-2024 ambulatory [facility] Work Phone: Start: 05-06-2024 End: 05-06-2024 Patient encounter procedure [facility] Work Phone: Start: 04-07-2024 ambulatory JINA Gunn ty:[place] [facility] Start: 04-01-2024 E-mail encounter fro m caregiver Tyler Levine PA-C Work Phone: Orthopaedics Start: 04-01-2024 Patient encounter procedure Tyler EASON-C Work Phone: Orthopaedics Comment on above: Regarding EMG Start: 03-31-2024 ambulatory AMBREEN TOTH Facility:[facility] 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); Ulnar nerve compression, right Start: 03-31-2024 End: 03-31-2024 ambulatory AMBREEN TOTH Facility:[facility] Start: 02-11-2024 End: 02-11-2024 Orders Only Ambreen Toth MD Work Phone: Vascular Surgery Comment on above: Numbness (Primary Dx ) Peripheral arterial disease (HCC) (Primary Dx) Start: 02-07-2024 Telephone encounter Cheryle (Pss) Mi tra Cardiology Comment on above: Appointment Start: 11-09-2023 End: 11-09-2023 Emergency department patient visit DELVIS LR [facility] Start: 05-17-2023 End: 05-17-2023 ambulatory [employer]am Mix Other [employer] Other Start: 05-17-2023 Office outpatient visit 10 minutes Wisam Mix [facility] Start: 11-30-2022 End: 12-01-[address] DELVIS LR Facility:[facility] Start: 10-29-2022 End: 10-30-[address] DELVIS LR Facility:[facility] Start: 06-21-2022 End: 06-22-[address] DELVIS LR Facility:[facility] Procedures Date Procedure Procedure Detail Performing Clinician Start: 02-06-2025 CT MAXILLOFACIAL W/O CONTRAST Kenneth Zepeda MD Work Phone: Start: 05-19-2024 Nerve conduction амрия dies 5-6 studies Tyler Levine PA-C Work Phone: Start: 03-31-2024 Radex hand minimum 3 views Ambreen Toth MD Work Phone: Plan of Treatment Date Care Activity Detail Author Start: 11-09-2026 Diabetes Screening Diabetes Screenin g [facility] Start: 02-16-2025 End: 02-16-2025 Patient encounter procedure [facility] Comment on above: Arrived Start: 07-05-2024 Covid-19 Vaccine ( season) Covid-19 Vaccine ( season) [facility] Start: 07-05-2024 Influenza vaccination [facility] Start: 05-21-2024 End: 05-21-2024 Patient encounter procedure 05/21/2024 2:45 PM EDT Office Visit Orthopaedics [address] [place] [address] Tyler Levine PA-C [address] [place] [address] 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] (EMG NORMAL) Orthopaedics Comment on above: 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] (EMG NORMAL) Start: 04-15-2024 End: 04-15-2024 Patient encounter procedure 04/15/2024 1:00 PM EDT Office Visit Orthopaedics [address] [place] [address] Tyler Levine PA-C [address] [place] [address] 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] (EMG order placed) Orthopaedics Comment on above: 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] (EMG order placed) Start: 11-04-2023 Behavioral Health Screening Behavioral Health Screening [facility] Start: 07-05-2023 Covid-19 Vaccine ( season) Covid-19 Vaccine ( season) [facility] Start: 2015 Shingrix Vaccine (1 of 2) Shingrix Vaccine (1 of 2) [facility] Start: 2010 Diabetes Screening Diabetes Screenin g [facility] Start: 2010 Lipid panel Lipid Screening [facility] Start: 2010 Screening for malign ant neoplasm of colon [facility] Start: 2005 Screening for malign ant neoplasm of breast Mammogram Screening [facility] Start: 1995 Screening for malign ant neoplasm of cervix HPV Testing [facility] Start: 1986 Screening for malign ant neoplasm of cervix [facility] Start: 1984 Hepatitis B Vaccine (1 of 3 - 19+ 3-dose series) Hepatitis B Vaccine (1 of 3 - 19+ 3-dose series) [facility] Start: 1984 Urine microalbumin profile DTaP,Tdap,Td Vaccine (1 - Tdap) [facility] Start: 1983 Annual PCP Team Distribution Manager bren Disease Visit Annual PCP Team Chronic Disease Visit [facility] Start: 1983 Anxiety Screening Anxiety Screening [facility] Start: 1983 Depression Screening Depression Scre ening [facility] Start: 1983 Hepatitis C screening Hepatitis C Sc reening [facility] Start: 1983 HIV screening HIV Screening [facility] Unlisted procedure hands/fingers HAND/FINGER SURGERY UNLISTED Procedures Routine Numbness Ordered: 02/11/2024 [facility] Work Phone: Comment on above: Ordered: 02/11/2024 End: 02-10-2025 US Carotid arteries - bilateral US CAROTID ARTERIES [facility] Lab Routine Numbness 1 Occurrences starting 02/11/2024 until 02/10/2025 [facility] Work Phone: Comment on above: 1 Occurrences starti ng 02/11/2024 until 02/10/2025 End: 10-08-2025 US Upper extremity - right US ELBOW RIGHT Radiology Routine Ulnar neuritis, right 1 Occurrences starting 09/09/2024 until 10/08/2025 [facility] Work Phone: Comment on above: 1 Occurrences starti ng 09/09/2024 until 10/08/2025 [facility] Immunizations Immunization Date Immunization Notes Care Provider Sameer paula 07-25-2023 influenza virus vacc ine, unspecified formulation Emg Weight:400) Work Phone: [facility] Payers Date Payer Category Payer Private Health Insurance [employer] [id number] 2023 Unknown [id number] 1965 Unknown [id number] 1965 Unknown [id number] 1965 Unknown [id number] 1965 Unknown [id number] 1259 1965 Unknown [id number] 1259 1965 Unknown [id number] 1965 Unknown [id number] 1959 Self-pay 1959 Unknown [id number] Unknown [id number] Unknown [id number] Unknown [facility] [id number] Unknown [facility] [id number] Social History Date Type Detail Facility Start: 02-11-2024 End: 01-12-2025 Sex Assigned At [facility] Tobacco smoking stat us NHIS Tobacco smoking consumption unknown [facility] Start: 1965 Sex Assigned At Female [facility] Start: 02-06-2024 Gender identity Identifies as female gender (finding) [facility] Start: 02-06-2024 Sexual orientation Heterosexual (finding) [facility] Start: 02-11-2024 End: 01-12-2025 History of Social function [facility] National Score (1-10 0), lower number is lower risk 60 [facility] Tobacco smoking status [facility] Start: 01-23-2019 End: 04-13-2025 Sex Female (finding) [facility] Start: 01-12-2025 Tobacco smoking status NHIS Never smoked tobacco [facility] Start: 01-12-2025 Tobacco use and exposure Smokeless tobacco non-user [facility] Start: 01-12-2025 End: 02-16-2025 Alcoholic beverage intake Lifetime non-drinker (finding) [facility] Start: 1965 Sex assigned at Not [...] who presents for Sinusitis (Follow up CT [facility] 02/06/25) CT reviewed and there is no sinonasal abnormality. Tolerating CPAP OK. Still has PND and throat clearing Family History Problem Relation Name Age of Onset Cancer Mother Gill Reardon Rashes / Skin problems Mother Gill Reardon Diabetes Father Tiago Reardon Active Ambulatory Problems Diagnosis Date Noted Hypothyroidism ([facility]) 02/11/2024 Macular degeneration 02/11/2024 Peripheral arterial disease ([facility]) 02/11/2024 Sciatica 02/11/2024 Peripheral vertigo 02/11/2024 Resolved [...] Physical Exam Assessment/Plan documented in this encounter [facility] 09-21-2024 Telephone encounter Note I called and left messages in regards to receiving the patients ultrasound. It was normal and the provider wants the patient to get set up with a hand specialist due to the ongoing pain. She can schedule with Pat Ashraf PA-C or Flora Valente PA-C [facility] 09-21-2024 Miscellaneous Notes I called and left messages in regards to receiving the patients ultrasound. It was normal and the provider wants the patient to get set up with a hand specialist due to the ongoing pain. She can schedule with Pat Ashraf PA-C or Flora Valente PA-C documented in this encounter [facility] 09-21-2024 Telephone encounter Note Images from the original note were not included. [facility] 09-21-2024 Miscellaneous Notes Images from the original note were not included. documented in this encounter [facility] 09-08-2024 Telephone encounter Note Called patient [...] may need to push the appointment out. [facility] 09-08-2024 Miscellaneous Notes Called patient and [...] the OT. Thanks! documented in this encounter [facility] 09-08-2024 Telephone encounter Note ----- Message [...] does not improve from the OT. Thanks! [facility] 05-21-2024 Note HNO ID: [id number] Author: TYLER LEVINE PA-C Service: ? Author Type: Physician Vest Finisher Type: Progress Notes Filed: 05/21/2024 14:52 Note [...] ECRB: Negative ROM: full ROM STRENGTH: 5/5 office director CREPITUS: negative NEUROLOGICAL EXAM: Sensory: sensation intact [...] instruct ulnar nerve glides and work on office director strength and mobility. Follow-up should symptoms persist. Tyler Levine PA-C This note is created with the assistance of a speech-recognition program. [facility] 05-21-2024 History of Present illness Narrative [...] ECRB: Negative ROM: full ROM STRENGTH: 5/5 office director CREPITUS: negative NEUROLOGICAL EXAM: Sensory: sensation intact [...] instruct ulnar nerve glides and work on office director strength and mobility. Follow-up should symptoms persist. Tyler Levine PA-C This note is created with the assistance of a speech-recognition program. documented in this encounter [facility] 05-19-2024 Note HNO ID: [id number] Author: VAN GARCIA MD Service: ? Author [...] EMG Tech Van Garcia MD (sign out) [facility] 05-19-2024 History of Present illness Narrative [...] MD (sign out) documented in this encounter [facility] 04-01-2024 Telephone encounter Note Patient was working and didn't have anything to write with so they wanted a mychart message instead. [facility] 04-01-2024 Miscellaneous Notes Patient was working and didn't have anything to write with so they wanted a mychart message instead. documented in this encounter [facility] 03-31-2024 Note HNO ID: [id number] Author: ALEXX OCAMPO RT(R) Service: Radiology Author [...] PATIENT PRESENTS WITH AN IMPLANTABLE OR ATTACHED ORACLE TECHNICAL DEVELOPER: No RADIOLOGY DEPARTMENT: General X-ray: Exam(s) Completed: Upper Extremity X-Ray(s): Hand, right PERIPHERAL IV DATA: Not applicable SIGNED BY: RT Rosalie(R) March 31, 2024 2:44 PM [facility] 03-31-2024 History of Present illness Narrative Radiology [...] PATIENT PRESENTS WITH AN IMPLANTABLE OR ATTACHED ORACLE TECHNICAL DEVELOPER: No RADIOLOGY DEPARTMENT: General X-ray: Exam(s) Completed: Upper Extremity X-Ray(s): Hand, right PERIPHERAL IV DATA: Not applicable SIGNED BY: RT Rosalie(R) March 31, 2024 2:44 PM documented in this encounter [facility] 03-31-2024 Instructions Nanette Caruso RN - 03/31/2024 2:04 PM EDT Consult hand surgery for ulnar neuropathy documented in this encounter [facility] 03-31-2024 Note HNO ID: [id number] Author: AMBREEN TOTH MD Service: ? Author Type: Physician Type: Progress Notes Filed: 03/31/2024 14:07 Note Text: [facility] [place] DEPARTMENT OF VASCULAR SURGERY OUTPATIENT VISIT DATE [...] DATE: March 31, 2024 TIME: 1:55 PM [facility] 03-31-2024 History of Present illness Narrative Images from the original note were not included. [facility] [place] DEPARTMENT OF VASCULAR SURGERY OUTPATIENT VISIT DATE [...] TIME: 1:55 PM documented in this encounter [facility] 02-11-2024 Instructions Nanette Caruso RN - 02/11/2024 11:22 AM EDT Carotid duplex follow up with lida Hsu hand surgery documented in this encounter [facility] 02-11-2024 Note HNO ID: [id number] Author: AMBREEN TOTH MD Service: ? Author Type: Physician Type: Progress Notes Filed: 02/11/2024 11:26 Note Text: [facility] [place] DEPARTMENT OF VASCULAR SURGERY OUTPATIENT VISIT DATE [...] DATE: February 11, 2024 TIME: 11:05 AM [facility] 02-11-2024 History of Present illness Narrative Images from the original note were not included. [facility] [place] DEPARTMENT OF VASCULAR SURGERY OUTPATIENT VISIT DATE [...] TIME: 11:05 AM documented in this encounter [facility] 02-07-2024 Miscellaneous Notes RP Patient already scheduled with Dr. Ambreen Moreira at [facility]. Case closed. 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 06-28-2018 History general Narrative - Reported* Type Description Date Medical History Autoimmune thyroiditis Surgical History Appendectomy, [facility] 05/01/2018 Hospitalization History see surgical history [employer] Other Evaluation + Plan note No data available for this section [facility] Evaluation note* Diagnosis Numbness- Primary Disturbance of skin sensation documented [facility]* Diagnosis Peripheral arterial disease (HCC)- Primary Peripheral vascular disease, unspecified documented in this encounter [facility] note* Diagnosis Peripheral arterial disease (HCC)- Primary Peripheral vascular disease, unspecified documented in this encounter [facility] note* Diagnosis 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 Lesion of ulnar nerve Ulnar nerve compression, right Ulnar neuropathy of right upper extremity Lesion of ulnar nerve Ulnar nerve compression, right documented [facility] this encounter [facility]* Diagnosis Ulnar neuropathy of right upper extremity Lesion of ulnar nerve Ulnar nerve compression, right documented in this encounter [facility] note* Diagnosis Onset Date Resolution Status Hypothyroid acute Pre-employment examination a [facility] Work Phone: Evaluation note* Diagnosis Numbness- Primary Disturbance of skin sensation Tingling Disturbance of skin sensation documented in this encounter [facility] note* Diagnosis Ulnar neuritis, right- Primary documented in this encounter [facility] note* Diagnosis Ulnar neuritis, right- Primary documented in this encounter [facility] note* Diagnosis LPRD (laryngopharyngeal reflux disease)- Primary Acute laryngitis, without mention of obstruction [facility]* Diagnosis Onset Date Resolution Status Admit Date Hypothyroid acute April 13 10:45am Pre-employment examination acute April 13, 2025 10:45am [facility] Work Phone: Hospital Discharge instructions No data available for this section [facility] Progress note No data available for this section [facility] Reason for referral (narrative)* Outpatient Procedure (Routine) - Authorized Specialty Diagnoses / Procedures Referred By Nathan t Referred To Contact [facility] Diagnoses Numbness Procedures US CAROTID ARTERIES [facility] DUPLEX SCAN EXTRACRANIAL [place] [address] [place] [address] [facility] [place] [address] [place] [address] Referral ID Status Reason Start Date Expiration Date Visits Requested Visits Authorized [id number] Authorized Auto-Generat ed Referral 02/11/2024 02/10/2025 1 1 [facility] for referral (narrative)* Diagnostic Procedure Only (Routine) - Closed Specialty Diagnoses / Procedures Referred By Nathan lomax Referred To Contact XR IMAGING Diagnoses 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, right Procedures XR HAND GENERAL 3V PA/LAT/OBL RIGHT RADEX HAND MINIMUM 3 [place] [address] [place] [address] [place] [address] Referral ID Status Reason Start Date Expiration Date V isits Requested Visits Authorized [id number] Closed Auto-Generate d Referral 03/31/2024 04/30/2025 1 1 [facility] for referral (narrative)* Diagnostic Procedure Only (Routine) - New Request Specialty Diagnoses / Procedures Referred By Nathan lomax Referred To Contact US IMAGING Diagnoses Ulnar neuritis, right Procedures US ELBOW RIGHT US LMTD JOINT/OTH NONVASC XTR STRUX R-T W/IMG Tyler Levine PA-C [address] [place] [address] [place] [address] Referral ID Status Reason Start Date Expiration Date Visits Requested Visits Authorized [id number] New Request Auto-Generat ed Referral 09/09/2024 10/08/2025 1 1 [facility] for visit Narrative* Diagnostic Procedure Only (Routine) - Closed Specialty Diagnoses / Procedures Referred By Nathan lomax Referred To Contact XR IMAGING Diagnoses 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, right Procedures XR HAND GENERAL 3V PA/LAT/OBL RIGHT RADEX HAND MINIMUM 3 [place] [address] [place] [address] [place] [address] Referral ID Status Reason Start Date Expiration Date V isits Requested Visits Authorized [id number] Closed Auto-Generate d Referral 03/31/2024 04/30/2025 1 1 [facility] Summary Purpose Family History Relationship Condition Age at Onset Recorded Date/T marcy father Arthritis Unknown Advance Directives Advance Directive Response Recorded Date/ Time Advance Directives No May 06 8:58am Reason for Referral Specialty Diagnoses / Procedures Referred By Contac t Referred To Contact [facility] Diagnoses Ulnar neuritis, right Procedures CONSULT TO LOCAL SALES MANAGER OCCUPATIONAL THERAPY EVAL HIGH COMPLEX 60 MINS Tyler Levine, PA-C [address] [place] [address] [facility] [place] [address] [place] [address] Referral ID Status Reason Start Date Expiration Date Visits Requested Visits Authorized [id number] Pending Review Auto-Generat ed Referral 05/21/2024 05/21/2025 1 1 Specialty Diagnoses / Procedures Referred By Contac t Referred To Contact Orthopedics Diagnoses Ulnar neuropathy of right upper extremity Procedures CONSULT PANEL TO ORTHOPAEDICS OFFICE/OUTPATIENT [facility] 60 [place] [address] [place] [address] Referral ID Status Reason Start Date Expiration Date Visits Requested Visits Authorized [id number] Authorized PCP Requested Referral 03/31/2024 03/31/2025 1 1 Specialty Diagnoses / Procedures Referred By Contac t Referred To Contact XR IMAGING Diagnoses 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, right Procedures XR HAND GENERAL 3V PA/LAT/OBL RIGHT RADEX HAND MINIMUM [address] [place] [address] [place] [address] [place] [address] Referral ID Status Reason Start Date Expiration Date V isits Requested Visits Authorized [id number] Closed Auto-Generate d Referral 03/31/2024 04/30/2025 1 1 Chief Complaint and Reason for Visit Chief Complaint [employer] Physical Reason for Visit Hypothyroid Pre-employment examination Chief Complaint Admit Date [employer] Physical April 13, 2025 10:4 5am Reason for Visit Admit Date Hypothyroid April 13, 2025 10:4 5am Pre-employment examination April 13 10:45am Additional Source Comments INFORMATION SOURCE (unrecogn ized section and content) DATE CREATED AUTHOR 12/04/2022 [facility] DATE CREATED AUTHOR AUTHOR'S ORGANIZ ATION 11/13/2023 [facility] DATE CREATED AUTHOR AUTHOR'S ORGANIZ ATION 04/01/2024 [facility] DATE CREATED AUTHOR AUTHOR'S ORGANIZ ATION 09/23/2024 [facility] DATE CREATED AUTHOR AUTHOR'S ORGANIZ ATION 02/17/2025 [facility] dical Specialists [facility] DATE CREATED AUTHOR AUTHOR'S ORGANIZ ATION 04/02/2025 [facility] REASON FOR VISIT (unrecogniz ed section and content) Reason Comments Appointment Reason Comments New Patient Reason Comments Follow Up Reason Onset Date Comments EMG 05/19/2024 Specialty Diagnoses / Procedures Referred By Contact Referred To Contact [facility] Diagnoses Hand numbness Procedures EMG(NEURO/NI) NERVE CONDUCTION STUDIES 9-10 STUDIES Tyler Levine, ELO [address] [place] [address] [facility] [place] [address] [place] [address] Referral ID Status Reason Start Date Expiration Date V isits Requested Visits Authorized [id number] Closed Auto-Generate d Referral 03/31/2024 03/31/2025 1 1 Specialty Diagnoses / Procedures Referred By Nathan t Referred To Contact Orthopedics Diagnoses Ulnar neuropathy of right upper extremity Procedures CONSULT PANEL TO ORTHOPAEDICS OFFICE/OUTPATIENT [facility] [address] [place] [address] [place] [address] Referral ID Status Reason Start Date Expiration Date V isits Requested Visits Authorized [id number] Closed PCP Requested Referral 03/31/2024 03/31/2025 1 1 Reason Comments 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 Reason Comments Sinusitis Follow up [facility] 02/06/25 Source Comments (unrecognize d section and content) In the event this informatio n is protected by the Federal Confidentiality of Alcohol and Drug Abuse Patient Records regulations: The Federal rules restrict any use of the information to criminally investigate or prosecute any alcohol or drug abuse patient.[facility] the event this information is protected by the Federal Confidentiality of Alcohol and Drug Abuse Patient Records regulations: The Federal rules restrict any use of the information to criminally investigate or prosecute any alcohol or drug abuse patient.[facility] the event this information is protected by the Federal Confidentiality of Alcohol and Drug Abuse Patient Records regulations: The Federal rules restrict any use of the information to criminally investigate or prosecute any alcohol or drug abuse patient.[facility] the event this information is protected by the Federal Confidentiality of Alcohol and Drug Abuse Patient Records regulations: The Federal rules restrict any use of the information to criminally investigate or prosecute any alcohol or drug abuse patient.[facility] the event this information is protected by the Federal Confidentiality of Alcohol and Drug Abuse Patient Records regulations: The Federal rules restrict any use of the information to criminally investigate or prosecute any alcohol or drug abuse patient.[facility] the event this information is protected by the Federal Confidentiality of Alcohol and Drug Abuse Patient Records regulations: The Federal rules restrict any use of the information to criminally investigate or prosecute any alcohol or drug abuse patient.[facility] the event this information is protected by the Federal Confidentiality of Alcohol and Drug Abuse Patient Records regulations: The Federal rules restrict any use of the information to criminally investigate or prosecute any alcohol or drug abuse patient.[facility] the event this information is protected by the Federal Confidentiality of Alcohol and Drug Abuse Patient Records regulations: The Federal rules restrict any use of the information to criminally investigate or prosecute any alcohol or drug abuse patient.[facility] the event this information is protected by the Federal Confidentiality of Alcohol and Drug Abuse Patient Records regulations: The Federal rules restrict any use of the information to criminally investigate or prosecute any alcohol or drug abuse patient.[facility] the event this information is protected by the Federal Confidentiality of Alcohol and Drug Abuse Patient Records regulations: The Federal rules restrict any use of the information to criminally investigate or prosecute any alcohol or drug abuse patient.[facility] the event this information is protected by the Federal Confidentiality of Alcohol and Drug Abuse Patient Records regulations: The Federal rules restrict any use of the information to criminally investigate or prosecute any alcohol or drug abuse patient.[facility] the event this information is protected by the Federal Confidentiality of Alcohol and Drug Abuse Patient Records regulations: The Federal rules restrict any use of the information to criminally investigate or prosecute any alcohol or drug abuse patient.[facility] the event this information is protected by the Federal Confidentiality of Alcohol and Drug Abuse Patient Records regulations: The Federal rules restrict any use of the information to criminally investigate or prosecute any alcohol or drug abuse patient.[facility] the event this information is protected by the Federal Confidentiality of Alcohol and Drug Abuse Patient Records regulations: The Federal rules restrict any use of the information to criminally investigate or prosecute any alcohol or drug abuse patient.[facility] the event this information is protected by the Federal Confidentiality of Alcohol and Drug Abuse Patient Records regulations: The Federal rules restrict any use of the information to criminally investigate or prosecute any alcohol or drug abuse patient.[facility] Care Teams (unrecognized sec tion and content) Bed Operator Relationship Specialty Start Date End Date Delvis Lr MD [address] [place] [address] PCP - General Family Medicine 02/07/24 Delvis Lr MD [address] [place] [address] Referring Family Medicine 01/27/24 Bed Operator Relationship Specialty Start Date End Date Delvis Lr MD [address] [place] [address] PCP - General Family Medicine 02/07/24 Delvis Lr MD [address] [place] [address] Referring Family Medicine 01/27/24 Bed Operator Relationship Specialty Start Date End Date Delvis Lr MD [address] [place] [address] PCP - General Family Medicine 02/07/24 Delvis Lr MD [address] [place] [address] Referring Family Medicine 01/27/24 Bed Operator Relationship Specialty Start Date End Date Delvis Lr MD [address] [place] [address] PCP - General Family Medicine 02/07/24 Delvis Lr MD [address] [place] [address] Referring Family Medicine 01/27/24 Bed Operator Relationship Specialty Start Date End Date Delvis Lr MD [address] [place] [address] PCP - General Family Medicine 02/07/24 Delvis Lr MD [address] [place] [facility] [place] [address] Referring Family Medicine 01/27/24 Bed Operator Relationship Specialty Start Date End Date Delvis Lr MD [address] [place] [facility] [place] [address] PCP - General Family Medicine 02/07/24 Delvis Lr MD [address] [place] [facility] [place] [address] Referring Family Medicine 01/27/24 Bed Operator Relationship Specialty Start Date End Date Delvis Lr MD [address] [place] [address] PCP - General Family Medicine 02/07/24 Delvis Lr MD [address] [place] [facility] [place] [address] Referring Family Medicine 01/27/24 Team Status: Active Member Role Status Nain Lr MD Primary Care Provider Active Team Status: Inactive Member Role Status Dates Delvis Lr MD Primary Care Provider Active Start: May 06, 2024 End: May 06, 2024 Wisam Mix DO Attending Provider Active Sta rt: May 06, 2024 End: May 06, 2024 Bed Operator Relationship Specialty Start Date End Date Delvis Lr MD [address] [facility] [place] [address] PCP - General Family Medicine 02/07/24 Delvis Lr MD [address] [place] [facility] [place] [address] Referring Family Medicine 01/27/24 Bed Operator Relationship Specialty Start Date End Date Delvis Lr MD [address] [place] [facility] [place] [address] PCP - General Family Medicine 02/07/24 Delvis Lr MD [address] [place] [facility] [place] [address] Referring Family Medicine 01/27/24 Bed Operator Relationship Specialty Start Date End Date Delvis Lr MD [address] [place] [facility] [place] [address] PCP - General Family Medicine 02/07/24 Delvis Lr MD [address] [place] [facility] [place] [address] Referring Family Medicine 01/27/24 Bed Operator Relationship Specialty Start Date End Date Delvis Lr MD [address] [place] [facility] [place] [address] PCP - General Family Medicine 02/07/24 Delvis Lr MD [address] [place] [facility] [place] [address] Referring Family Medicine 01/27/24 Bed Operator Relationship Specialty Start Date End Date Delvis Lr MD [address] [place] [facility] [place] [address] PCP - General Family Medicine 02/07/24 Delvis Lr MD [address] [place] [facility] [place] [address] Referring Family Medicine 01/27/24 Bed Operator Relationship Specialty Start Date End Date Delvis Lr MD [address] [place] [facility] [address] PCP - General Family Medicine 11/13/24 Bed Operator Relationship Specialty Start Date End Date Delvis Lr MD [address] [place] [facility] [address] PCP - General Family Medicine 11/13/24 Bed Operator Relationship Specialty Start Date End Date Delvis Lr MD [address] [place] [facility] [address] PCP - General Family Medicine 11/13/24 Team [...] BE BASED ON THE PRIMARY CLINICAL RECORDS. [facility] [employer] [facility]. provides no warranty or guarantee of the accuracy or completeness of information in this document.
--- NOTE | 2025-06-28 10:02 | XR_ITS ---
[facility] [place] [id number] Patient Name: CARLINE MATTSON MRN: [id number] date: 1965 Sex: F Assigned Patient Location: [facility] Current Patient Location: [facility] Accession/Order Number: [id number] Exam Date: 06/28/2025 09:55 Report Date: 06/28/2025 11:24 At the request of: STEVEN HENDRIX Procedure: XR hand LT min 3V LEFT HAND - 3 views COMPARISON: None CLINICAL DATA: Pain at the left hand at the first, fourth and fifth metacarpals for the past 2 months. No injury. AP, lateral and oblique views were obtained. There is no acute fracture or dislocation. Minor degenerative change is seen at the thumb and lateral wrist. There are no significant soft tissue abnormalities. XR/XR hand LT min 3V IMPRESSION: NO ACUTE BONY FINDINGS. Impression dictated by: Kaylan Thibodeaux M.D. 06/28/2025 11:24 AM Dictation Location: [employer] Electronically authenticated by: [id number] Date: 06/28/2025 11:24
== END 2025-06-28 09:13 | disposition home or self-care (01) ==
LOC: RAD 09:12
PROVIDERS: PCP Family Medicine; Visit Provider Nurse Practitioner Family
DX: M79.642 Pain in left hand (principal)
CPT/HCPCS: 73130

== ENCOUNTER 2025-07-08 09:14 | Outpatient (OUT) | payer OTHER, SELFPAY ==
--- OUTSIDE RECORDS SUMMARY | 2025-07-08 09:22 | XMS_ITS | CCD ---
Author Organization [facility] CliniSyal Care Team Providers Care Offshore Diver Name Role Phone DR DELVIS LR Consulting [...] Unavailable Delvis Lr MD Primary Care Provider [phone] Delvis Lr MD Primary Care Provider [phone] AMBREEN TOTH Referring Unavailable DELVIS LR [...] Attending Unavailable Delvis Lr Referring Unavailable Timmis, Kneneth H Referring Unavailable Timmis, Kenneth H Admitting Unavailable Kenneth Zepeda Attending Unavailable Allergies Allergy Classification Reported Allergen(s) Allergy Type Date of Onset Reaction(s) Facility (20 sources) Sulfamethoxazole / Trimethoprim; Translations: [SULFAMETHOXAZOLE-TR IMETHOPRIM] Drug Allergy 11-09-19 24 Hives, Rash [facility] (1 source) No Known Medication Allergies; Translations: [No Known Medication Allergies] Propensity to adverse reactions (disorder) [facility] Repository Medications Current Medications Medication Drug [...] of the paranasal sinuses without contrast with [employer] protocol. Routine multiplanar reconstructions were performed. All [...] Rangel MD Transcribed by: ABDIFATAH Technologist: [facility] Radiology, Radiologist, - [...] of the paranasal sinuses without contrast with [employer] protocol. Routine multiplanar reconstructions were performed. All [...] Rangel MD Transcribed by: ABDIFATAH Technologist: [facility] [employer] CT MAXILLOFACIAL W/O CONTRAS TOrdered By: Radiologist Radiology on 02-07-2025 [employer] e Work Phone: CT Maxillofacial w/o Contras [...] of the paranasal sinuses without contrast with [employer] protocol. Routine multiplanar reconstructions were performed. All [...] MD Transcribed by: ABDIFATAH Technologist: JULIANNE [facility] CT MAXILLOFACIAL W/O THOM Peterson 02-06-2025 Radiology Study observation (narrative) Formerly [facility] 09-21-2024 [facility] Telephone (ORQ) PAT KNOTT ([id number]) 1965 F Date Time Provider Department 09/21/24 [...] OCCA - Fully Assessed Reason for Visit: [employer] - Other [3602] Cmt: [facility] IMAGING REPORT Prescriptions as of 09/22/2024 [...] Status:Closed by KIP SCHAEFFER on 09/21/24 [facility] TWILAPAT ([id number]) 1965 F Date Time Provider Department 09/21/24 [...] Encounter Status:Closed by MILLER ARAYA [facility]21/[facility] Tele[facility] (NUBIAORR) PAT KNOTT ([id number]) 1965 F Date Time Provider Department 09/08/24 [...] Encounter Status:Closed by MILLER ARAYA on 09/08/24 [facility] CNOVon 05-21-2024 CNOV Office Visit (ORTHAL ) PAT KNOTT ([id number]) 1965 F Date Time Provider Department 05/21/24 [...] ECRB: Negative ROM: full ROM STRENGTH: 5/5 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 Follow-up should symptoms persist. Tyler Levine PA-C This note is created with the assistance of a speech-recognition program. Referring Provider: AMBREEN TOTH [[id number]] Allergies As of Date: 05/21/2024 Noted Allergy Reaction BACTRIM (SULFAMETHOXAZOLE-TRI METH*02/11/2024 4 - Hives Date Reviewed: 05/21/2024 Reviewed by: Miller Araya OCCA - Fully Assessed Primary Visit Diagnosis:Ulnar neuritis, right [G56.21] Order(s):CONSULT PANEL TO ORTHOPAEDICS [377447] Order #: [id number]: 1 CONSULT TO EYEGLASS LENS CUTTER [516632] Order #: [id number]: 1 FUTURE Prescriptions as of 05/21/2024 - [...] Status:Closed by TYLER LEVINE on 05/21/[address] [facility] EMG(NEURO/NI)on 05-19-2024 Results can be seen in attached scanned documents. If you are a patient reviewing this test result, call the doctor who ordered the test with any questions. [facility] CNOVon 03-31-2024 CNOV Office Visit (VASSAV ) PAT KNOTT ([id number]) 1965 F Date Time Provider Department 03/31/24 1:30 PM AMBREEN TOTH During your visit today, we recorded the following information about you: Blood pressure Weight Height 149/97 90.7 kg 1.626 m Ambreen Toth MD 03/31/2024 2:07 PM Signed [facility] [place] DEPART[facility] OF VASCULAR SURGERY OUTPATIENT VISIT DATE [...] for Encounter Date Provider Department Center 03/31/2024 [id number] TOTH Encounter Status:Closed by AMBREEN TOTH on 03/31/24 Normal [facility] CAROTID ARTERIES JOSE VAS LABon 03-31-2024 US CAROTID ARTERIES JOSE [facility]AS LAB Non-Invasive Vascular Laboratory [facility] Carotid Duplex Bilateral/Complete Date of service/time: 03/31/2024 [...] antegrade flow noted. Technologist: Jackson Echeverria RVT, [facility] Ordering physician: AMBREEN TOTH Interpreting physician: Bentley Whatley MD, SHRUTHI Final CC [employer] [facility] Image : [id number] See Link below for Image Normal [facility] XR HAND 3V PA/LAT/OBL RTon 0 [...] tissues are unremarkable. IMPRESSION: Minimal degenerative changes. Business Consult: SHE Transcribe Date/Time: Mar 31 2024 4:36P Dictated by : ALEKSANDR BONDS MD This examination was interpreted and the report reviewed and electronically signed by: ALEKSANDR BONDS MD on Mar 31 2024 4:36PM EST [id number] Normal [facility] XR Hand - right PA and Later al and Obliqueon 03-31-2024 IMPRESSION: Minimal degenerative changes. Business Consult: SHE Transcribe Date/Time: Mar 31 2024 4:36P Dictated by : ALEKSANDR BONDS MD This examination was interpreted and the report reviewed and electronically signed by: ALEKSANDR BONDS MD on Mar 31 2024 4:36PM EST [facility] * * *Final Report* * * [...] No marginal erosion. Soft tissues are unremarkable. [facility] Provider, Jacqueline Mendosa - 03/31/2024 * [...] are unremarkable. IMPRESSION IMPRESSION: Minimal degenerative changes. Business Consult: SHE Transcribe Date/Time: Mar 31 2024 4:36P Dictated by : ALEKSANDR BONDS MD This examination was interpreted and the report reviewed and electronically signed by: ALEKSANDR BONDS MD on Mar 31 2024 4:36PM EST [facility] Radiology Study observation (narrative) [facility] XR Hand - right PA and Later al and ObliqueOrdered By: Ccf Provider on 03-31-2024 [facility] CNCOon 02-11-2024 CNCO Letter Text Normal [facility] CNOVon 02-11-2024 CNOV Office Visit (VASSAV ) KNOTTPAT ([id number]) 1965 F Date Time Provider Department 02/11/24 10:45 AM AMBREEN TOTH During your visit today, we recorded the following information about you: Weight Height 89.4 kg 1.626 m Ambreen Toth MD 02/11/2024 11:26 AM Signed [facility] [place] DEPARTMENT OF VASCULAR SURGERY OUTPATIENT VISIT DATE [...] Emphysematous pyelonephritis (more content not included)... Normal [facility] Ashleigh 02-07-2024 CNPN Telephone (CARDMN) PAT KNOTT ([id number]) 1965 F Date Time Provider Department 02/07/[address] [facility] CARDMN During your visit today, we recorded the following information about you: Cheryle Servin 02/07/2024 3:01 PM Signed RP Patient already scheduled with Dr. Ambreen Moreira at [facility]. Case closed. Allergies As of Date: 02/07/2024 (Not on File) Date Reviewed: Never Reviewed Reason for Visit: Appointment [[id number]] Problem List As Of Date: 02/07/2024 (None) Encounter Status:Closed by CHERYLE SERVIN on 02/07/[address] [facility] CBCon 11-09-2023 ABSOLUTE BAS 0.1 10*3/uL Normal 0.0-0.2 [facility] Comment on above: Performed By: #### C MPF, ACBC, LIPA2 #### Testing performed at [address] [address] ABSOLUTE EOS 0.2 10*3/uL Normal 0.0-0.7 [facility] Comment on above: Performed By: #### C MPF, ACBC, LIPA2 #### Testing performed at [address] [address] ABSOLUTE NEUTROPHIL COUNT 5.3 10*3/uL Normal 1.4-6.5 [facility] Comment on above: Performed By: #### C MPF, ACBC, LIPA2 #### Testing performed at [address] [address] Basophils/100 WBC (Bld) 0.9 % Normal 0.0-2.0 [facility] Comment on above: Performed By: #### C MPF, ACBC, LIPA2 #### Testing performed at [address] [address] DTYPE AUTO DIFF Normal [facility] Comment on above: Performed By: #### C MPF, ACBC, LIPA2 #### Testing performed at [address] [address] Eosinophils/100 WBC (Bld) 1.9 % Normal 0.0-11.0 [facility] Comment on above: Performed By: #### C MPF, ACBC, LIPA2 #### Testing performed at [facility] [place] [facility] [address] [place] [address] Lymphocytes (Bld) [#/Vol] 2.6 10*3/uL Normal 1.2-3.4 [facility] Comment on above: Performed By: #### C MPF, ACBC, LIPA2 #### Testing performed at [address] [address] Lymphocytes/100 WBC (Bld) 29.1 % Normal 20.0-55.0 [facility] Comment on above: Performed By: #### C MPF, ACBC, LIPA2 #### Testing performed at [address] [address] Monocytes (Bld) [#/Vol] 0.9 10*3/uL High 0.0-0.7 [facility] Comment on above: Performed By: #### C MPF, ACBC, LIPA2 #### Testing performed at [address] [address] Monocytes/100 WBC (Bld) 10.1 % High 0.0-10.0 [facility] Comment on above: Performed By: #### C MPF, ACBC, LIPA2 #### Testing performed at [address] [address] Neutrophils/100 WBC (Bld) 58.0 % Normal 37.0-75.0 [facility] Comment on above: Performed By: #### C MPF, ACBC, LIPA2 #### Testing performed at [address] [address] Erythrocyte distribution width (RBC) [Ratio] 14.0 % Normal 11.5-14.5 [facility] Comment on above: Performed By: #### C MPF, ACBC, LIPA2 #### Testing performed at [address] [address] Hematocrit (Bld) [Volume fraction] 41.4 % Normal 36.0-48.0 [facility] Comment on above: Performed By: #### C MPF, ACBC, LIPA2 #### Testing performed at [address] [address] Hemoglobin (Bld) [Mass/Vol] 13.3 g/dL Normal 12.0-16.0 [facility] Comment on above: Performed By: #### C MPF, ACBC, LIPA2 #### Testing performed at [address] [address] MCH (RBC) [Entitic mass] 27.3 pg Normal 26.0-35.0 [facility] Comment on above: Performed By: #### C MPF, ACBC, LIPA2 #### Testing performed at [address] [address] MCHC (RBC) [Mass/Vol] 32.2 g/dL Normal 27.0-37.0 [facility] Comment on above: Performed By: #### C MPF, ACBC, LIPA2 #### Testing performed at [address] [address] MCV (RBC) [Entitic vol] 84.7 fL Normal 80.0-100.0 [facility] Comment on above: Performed By: #### C MPF, ACBC, LIPA2 #### Testing performed at [address] [address] Platelet mean volume (Bld) [Entitic vol] 6.9 fL Low 7.4-11.0 [facility] Comment on above: Performed By: #### C MPF, ACBC, LIPA2 #### Testing performed at [address] [address] Platelets (Bld) [#/Vol] 333 10*3/uL Normal 130-400 [facility] Comment on above: Performed By: #### C MPF, ACBC, LIPA2 #### Testing performed at [address] [address] RBC (Bld) [#/Vol] 4.89 10*6/uL Normal 4.0-5.4 [facility] Comment on above: Performed By: #### C MPF, ACBC, LIPA2 #### Testing performed at [address] [address] WBC (Bld) [#/Vol] 9.1 10*3/uL Normal 3.6-11.0 [facility] Comment on above: Performed By: #### C MPF, ACBC, LIPA2 #### Testing performed at [address] [address] CMP FASTINGon 11-09-2023 A:G RATIO 1.4 RATIO Normal [facility] Comment on above: Performed By: #### C MPF, ACBC, LIPA2 #### Testing performed at [address] [address] ALBUMIN 4.5 G/dl Normal 3.5-5.0 [facility] Comment on above: Performed By: #### C MPF, ACBC, LIPA2 #### Testing performed at [address] [address] ALP [Catalytic activity/Vol] 92 U/L Normal 38-126 [facility] Comment on above: Performed By: #### C MPF, ACBC, LIPA2 #### Testing performed at [address] [address] ALT [Catalytic activity/Vol] 64 U/L High <35 [facility] Comment on above: Performed By: #### C MPF, ACBC, LIPA2 #### Testing performed at [address] [address] AST [Catalytic activity/Vol] 51 U/L High 14-36 [facility] Comment on above: Performed By: #### C MPF, ACBC, LIPA2 #### Testing performed at [address] [address] Bilirubin [Mass/Vol] 0.2 mg/dL Normal 0.2-1.3 [facility] Comment on above: Performed By: #### C MPF, ACBC, LIPA2 #### Testing performed at [address] [address] Calcium [Mass/Vol] 9.8 mg/dL Normal 8.4-10.2 [facility] Comment on above: Performed By: #### C MPF, ACBC, LIPA2 #### Testing performed at [address] [address] Chloride [Moles/Vol] 103 mmol/L Normal 98-107 [facility] Comment on above: Result Comment: Plea se note: Triglyceride levels of 600mg/dL or higher may positively bias chloride results by approximately 2.1 mmol Performed By: #### C MPF, ACBC, LIPA2 #### Testing performed at [address] [address] CO2 [Moles/Vol] 24 mmol/L Normal 22-30 [facility] Comment on above: Performed By: #### C MPF, ACBC, LIPA2 #### Testing performed at [address] [address] Creatinine [Mass/Vol] 1.00 mg/dL Normal 0.70-1.20 [facility] Comment on above: Performed By: #### C MPF, ACBC, LIPA2 #### Testing performed at [address] [address] EST. GFR, 73 ml/min/1.73sq.m [facility] Comment on above: Performed By: #### C MPF, ACBC, LIPA2 #### Testing performed at [address] [address] EST. GFR,Non 61 ml/min/1.73sq.m [facility] Comment on above: Performed By: #### C MPF, ACBC, LIPA2 #### Testing performed at [address] [address] GFR Information Average GFR for 50-5 9 years old = 93. Normal [facility] Comment on above: Result Comment: Academic Advisor bren Kidney disease, GFR = <60. Kidney failure, GFR = <15. The GFR estimate is not adjusted for extreme body surface area or acute process, nor has it been validated for women or ethnic groups other than and . Performed By: #### C MPF, ACBC, LIPA2 #### Testing performed at [address] [address] Glucose [Mass/Vol] 121 mg/dL High 70-100 [facility] Comment on above: Result Comment: NORMAL <100 mg/dL PREDIABETES 101-126 mg/dL DIABETES 126 mg/dL or higher Performed By: #### C MPF, ACBC, LIPA2 #### Testing performed at [address] [address] Potassium [Moles/Vol] 3.7 mmol/L Normal 3.5-5.1 [facility] Comment on above: Performed By: #### C MPF, ACBC, LIPA2 #### Testing performed at [address] [address] Protein [Mass/Vol] 7.8 g/dL Normal 6.3-8.2 [facility] Comment on above: Performed By: #### C MPF, ACBC, LIPA2 #### Testing performed at [address] [address] Sodium [Moles/Vol] 137 mmol/L Normal 137-145 [facility] Comment on above: Performed By: #### C MPF, ACBC, LIPA2 #### Testing performed at [address] [address] Urea nitrogen [Mass/Vol] 17 mg/dL Normal 7-20 [facility] Comment on above: Performed By: #### C MPF, ACBC, LIPA2 #### Testing performed at [address] [address] [address] ABDOMEN/PELVIS WITHOUT CO NTRASTon 11-09-2023 CT [...] 2. Small right renal cyst. Normal [facility] LACTATE,BLOODon 11-09-2023 Lactate [Moles/Vol] 3.1 mmol/L Critically high 0.7-2.0 [facility] Comment on above: Result Comment: AYANA NORMAN REPEAT INITIAL CRITICAL IN 3 HOURS IF ED OR INPATIENT SEPSIS PATIENT Result called to read back by: MEL 11/09/2023 @ 19:39 by MARK Performed By: #### L ACTAC #### Testing performed at [address] [address] LIPASE,SERUMon 11-09-2023 LIPASE,SERUM 198 U/L Normal 23-300 [facility] Comment on above: Performed By: #### C MPF, ACBC, LIPA2 #### Testing performed at [address] [address] URINE CULTUREon 11-09-2023 Bacteria identified Cx Nom (U) SPECIMEN DESCRIPTION URINE CLEAN CATCH UA DIPSTICK LEUKOCYTE POSITIVE * Result Note: NITRITE NEGATIVE * CULTURE NO PATHOGENS ISOLATED * Result Note: Testing performed at [place] [address] * REPORT STATUS 11/12/2023 * Result Note: FINAL * Normal [facility] Comment on above: Performed By: #### A URNC #### Testing performed at [address] [place] [address] Testing performed at [address] [address] URINE MACROSCOPICon 11-09-19 24 Bilirubin Ql (U) Negative Normal NEGATIVE [facility] Comment on above: Performed By: #### U MARA, UMAC #### Testing performed at [address] [address] Clarity (U) CLOUDY Abnormal CLEAR [facility] Comment on above: Performed By: #### U MARA, UMAC #### Testing performed at [address] [place] [address] Color (U) YELLOW Normal YELLOW [facility] Comment on above: Performed By: #### U MARA, UMAC #### Testing performed at [address] [place] [address] Glucose Ql (U) Negative Normal NEGATIVE [facility] Comment on above: Performed By: #### U MARA, UMAC #### Testing performed at [address] [address] pH (U) 7.0 [pH] Normal 5.0-7.0 [facility] Comment on above: Performed By: #### U MARA, UMAC #### Testing performed at [address] [place] [address] URINE HEMOGLOBIN LARGE Abnormal NEGATIVE [facility] Comment on above: Performed By: #### U MARA, UMAC #### Testing performed at [address] [address] URINE KETONE Negative Normal NEGATIVE [facility] Comment on above: Performed By: #### U MARA, UMAC #### Testing performed at [address] [address] URINE LEUKOTEST TRACE Abnormal NEGATIVE [facility] Comment on above: Performed By: #### U MARA, UMAC #### Testing performed at [address] [address] URINE NITRATES Negative Normal NEGATIVE [facility] Comment on above: Performed By: #### U MARA, UMAC #### Testing performed at [address] [address] URINE SPEC GRAVITY 1.020 Normal 1.010-1.025 [facility] Comment on above: Performed By: #### U MARA, UMAC #### Testing performed at [address] [address] URINE TOTAL PROTEIN Negative Normal NEGATIVE [facility] Comment on above: Performed By: #### U MARA, UMAC #### Testing performed at [address] [address] Urobilinogen Qn (U) 0.2 {Daphne'U}/dL Normal 0.2-1.0 [facility] Comment on above: Performed By: #### U MARA, UMAC #### Testing performed at [address] [address] URINE MICROSCOPICon 11-09-19 24 BACTERIA 1+ Abnormal NEGATIVE [facility] Comment on above: Performed By: #### U MARA, UMAC #### Testing performed at [address] [address] CASTS NONE Normal NONE [facility] Comment on above: Performed By: #### U MARA, UMAC #### Testing performed at [address] [address] CRYSTAL RARE Abnormal NONE [facility] Comment on above: Result Comment: SUDHA PHOUS URATES Performed By: #### U MARA, UMAC #### Testing performed at [address] [address] Epithelial cells LM Ql (Urine sed) 1 TO 5 Normal [facility] Comment on above: Performed By: #### U MARA, UMAC #### Testing performed at [address] [address] Mucus Ql (Urine sed) TRACE Abnormal NEGATIVE [facility] Comment on above: Performed By: #### U MARA, UMAC #### Testing performed at [address] [address] URINE COMMENT REFLEX CULTURE PER ESTABLISHED CRITERIA. Normal [facility] Comment on above: Performed By: #### U MARA, UMAC #### Testing performed at [address] [address] URINE RBC'S 20 TO 30 Normal NEGATIVE [facility] Comment on above: Performed By: #### U MARA, UMAC #### Testing performed at [address] [address] URINE WBC'S 1 TO 5 Normal NEGATIVE [facility] Comment on above: Performed By: #### U MARA, UMAC #### Testing performed at [address] [address] XR CHEST 2 Von 11-30-2022 XR CHEST 2 V EXAM: XR CHEST 2 V HISTORY: . Persistent cough . COMPARISON: None. TECHNIQUE: Frontal and lateral chest FINDINGS: Heart and vascularity are unremarkable. Lungs are expanded and free of focal infiltrates. No acute bony abnormality is appreciated. IMPRESSION: No acute heart or lung disease identified. Electronically authenticated by: BENTLEY MONDRAGON Date: 2022-11-30 11:45 Normal [facility] MG MAMM SCREEN 3D JOSE CADon 10-29-2022 MG MAMM SCREEN 3D JOSE CAD Patient: PAT KNOTT Exam Date: 10/29/2022 : 1965 Gender:F Ordering : DR DELVIS LR . Admission #: [id number] Family : Order #: [id number] CLICK HERE TO VIEW EXAM RADIOLOGY REPORT [...] skin cancer at age 70. LOCATION: [facility] BREAST COMPOSITION: Scattered areas fibroglandular density. FINDINGS: [...] MD on 10/30/2022 at 11:13 Normal [facility] CBC AUTO DIFFon 06-21-2022 BASO # 0.1 103/ul Normal 0.0-0.1 [facility] Comment on above: Performed By: #### H FPFCBC #### [facility] [address] [place] [address] Dr. Sonya Strickland Basophils/100 WBC (Bld) 0.7 % Normal 0.2-2.0 [facility] Comment on above: Performed By: #### H FPFCBC #### [facility] [address] [address] [address] Sonya Strickland EO # 0.1 103/ul Normal 0.0-0.7 [facility] Comment on above: Performed By: #### H FPFCBC #### [facility] [address] [place] [address] Dr. Sonya Strickland Eosinophils/100 WBC (Bld) 1.9 % Normal 0.9-7.0 [facility] Comment on above: Performed By: #### H FPFCBC #### [facility] [address] [place] [address] Dr. Sonya Strickland Erythrocyte distribution width (RBC) [Ratio] 13.1 % Normal 11.0-15.0 [facility] Comment on above: Performed By: #### H FPFCBC #### [facility] [address] [place] [address] Dr. Sonya Strickland Hematocrit (Bld) [Volume fraction] 41.6 % Normal 36.0-48.0 [facility] Comment on above: Performed By: #### H FPFCBC #### [facility] [address] [place] [address] Dr. Sonya Strickland Hemoglobin (Bld) [Mass/Vol] 13.2 g/dL Normal 12.0-16.0 [facility] Comment on above: Performed By: #### H FPFCBC #### [facility] [address] [place] [address] Dr. Sonya Strickland IG # 0.01 10e3/ul Normal 0.00-0.03 [facility] Comment on above: Performed By: #### H FPFCBC #### [facility] [address] [place] [address] Dr. Sonya Strickland IG % 0.1 % Normal 0.0-0.5 [facility] Comment on above: Performed By: #### H FPFCBC #### [facility] [address] [place] [address] Dr. Sonya Strickland LYMPH # 2.2 103/ul Normal 1.2-3.8 [facility] Comment on above: Performed By: #### H FPFCBC #### [facility] [address] [place] [address] Dr. Sonya Strickland Lymphocytes/100 WBC (Bld) 31.3 % Normal 20.5-60.0 [facility] Comment on above: Performed By: #### H FPFCBC #### [facility] [address] [place] [address] Dr. Sonya Strickland MCH (RBC) [Entitic mass] 28.0 pg Normal 26.7-34.0 [facility] Comment on above: Performed By: #### H FPFCBC #### [facility] [address] [place] [address] Dr. Sonya Strickland MCHC (RBC) [Mass/Vol] 31.7 g/dL Normal 29.9-35.2 [facility] Comment on above: Performed By: #### H FPFCBC #### [facility] [address] [place] [address] Dr. Sonya Strickland MCV (RBC) [Entitic vol] 88.1 fL Normal 81.0-99.0 [facility] Comment on above: Performed By: #### H FPFCBC #### [facility] [address] [place] [address] Dr. Sonya Strickland MONO # 0.7 103/ul Normal 0.3-0.8 [facility] Comment on above: Performed By: #### H FPFCBC #### [facility] [address] [place] [address] Dr. Sonya Strickland Monocytes/100 WBC (Bld) 9.9 % Normal 1.7-12.0 [facility] Comment on above: Performed By: #### H FPFCBC #### [facility] [address] [place] [address] Dr. Sonya Strickland NEUT # 3.9 103/ul Normal 1.4-6.5 [facility] Comment on above: Performed By: #### H FPFCBC #### [facility] [address] [place] [address] Dr. Sonya Strickland Neutrophils/100 WBC (Bld) 56.1 % Normal 43.0-75.0 [facility] Comment on above: Performed By: #### H FPFCBC #### [facility] [address] [place] [address] Dr. Sonya Strickland Platelet mean volume (Bld) [Entitic vol] 9.7 fL Normal 9.5-13.5 [facility] Comment on above: Performed By: #### H FPFCBC #### [facility] [address] [place] [address] Dr. Sonya Strickland PLT 313 103/ul Normal 150-450 [facility] Comment on above: Performed By: #### H FPFCBC #### [facility] [address] [place] [address] Dr. Sonya Strickland RBC 4.72 106/ul Normal 4.20-5.40 [facility] Comment on above: Performed By: #### H FPFCBC #### [facility] [address] [place] [address] Dr. Sonya Strickland WBC 7.0 103/ul Normal 4.0-11.0 [facility] Comment on above: Performed By: #### H FPFCBC #### [facility] [address] [place] [address] Dr. Sonya Strickland [employer] PROFILEon 022 Albumin [Mass/Vol] 3.8 g/dL Normal 3.4-5.0 [facility] Comment on above: Performed By: #### H FPF #### [facility] [address] [place] [address] Dr. Sonya Strickland Albumin/Globulin [Mass ratio] 1.0 {ratio} Normal [facility] Comment on above: Performed By: #### H FPF #### [facility] [address] [place] [address] Dr. Sonya Strickland ALP [Catalytic activity/Vol] 87 U/L Normal 46-116 [facility] Comment on above: Performed By: #### H FPF #### [facility] [address] [place] [address] Dr. Sonya Strickland ALT [Catalytic activity/Vol] 25 U/L Normal 14-59 [facility] Comment on above: Performed By: #### H FPF #### [facility] [address] [place] [address] Dr. Sonya Strickland AST [Catalytic activity/Vol] 14 U/L Critically low 15-37 [facility] Comment on above: Performed By: #### H FPF #### [facility] [address] [place] [address] Dr. Sonya Strickland Bilirubin [Mass/Vol] 0.2 mg/dL Normal 0.2-1.0 [facility] Comment on above: Performed By: #### H FPF #### [facility] [address] [address] [address] Sonya Strickland Calcium [Mass/Vol] 8.8 mg/dL Normal 8.5-10.1 [facility] Comment on above: Performed By: #### H FPF #### [facility] [address] [address] [address] Sonya Strickland Chloride [Moles/Vol] 104 mmol/L Normal 98-107 [facility] Comment on above: Performed By: #### H FPF #### [facility] [address] [address] [address] Sonya Strickland CHOL-HDL RATIO NORM SEE BELOW Normal [facility] Comment on above: Result Comment: 3.3 - 4.4 LOW RISK 4.4 - 7.1 AVERAGE RISK 7.1 - 11.0 MODERATE RISK >11.0 HIGH RISK Performed By: #### H FPF #### [facility] [address] [place] [address] Dr. Sonya Strickland Cholesterol [Mass/Vol] 207 mg/dL Critically high <=200 [facility] Comment on above: Performed By: #### H FPF #### [facility] [address] [place] [address] Dr. Sonya Strickland Cholesterol in HDL [Mass/Vol] 63 mg/dL Critically high 40-60 [facility] Comment on above: Performed By: #### H FPF #### [facility] [address] [address] [address] Sonya Strickland Cholesterol in LDL [Mass/Vol] 121.6 mg/dL Normal [facility] Comment on above: Performed By: #### H FPF #### [facility] [address] [place] [address] Dr. Sonya Strickland Cholesterol.total/C holesterol in HDL [Mass ratio] 3.3 {ratio} Normal [facility] Comment on above: Performed By: #### H FPF #### [facility] [address] [address] [address] Sonya Strickland CO2 [Moles/Vol] 26.0 mmol/L Normal 21.0-32.0 [facility] Comment on above: Performed By: #### H FPF #### [facility] [address] [address] [address] Sonya Strickland Creatinine [Mass/Vol] 0.85 mg/dL Normal 0.55-1.02 [facility] Comment on above: Performed By: #### H FPF #### [facility] [address] [address] [address] Sonya Strickland Globulin (S) [Mass/Vol] 3.7 g/dL Normal [facility] Comment on above: Performed By: #### H FPF #### [facility] [address] [address] [address] Sonya Strickland Glucose [Mass/Vol] 87 mg/dL Normal 74-106 [facility] Comment on above: Performed By: #### H FPF #### [facility] [address] [address] [address] Sonya Strickland HDL NORMAL > or = 60 mg/dl - LO W CARDIOVASCULAR RISK <40 mg/dl - HIGH CARDIOVASCULAR RISK Normal [facility] Comment on above: Performed By: #### H FPF #### [facility] [address] [place] [address] Dr. Sonya Strickland LDL CALC NORMAL SEE BELOW Normal [facility] Comment on above: Result Comment: <100 mg/dl OPTIMAL 100 - 129 mg/dl NEAR OR ABOVE OPTIMAL 130 - 159 mg/dl BORDERLINE HIGH 160 - 189 mg/dl HIGH >190 mg/dl VERY HIGH Performed By: #### H FPF #### [facility] [address] [address] [address] Sonya Strickland Potassium [Moles/Vol] 4.3 mmol/L Normal 3.5-5.1 [facility] Comment on above: Performed By: #### H FPF #### [facility] [address] [place] [address] Dr. Sonya Strickland Protein [Mass/Vol] 7.5 g/dL Normal 6.4-8.2 [facility] Comment on above: Performed By: #### H FPF #### [facility] [address] [address] [address] Sonya Strickland Sodium [Moles/Vol] 140 mmol/L Normal 136-145 [facility] Comment on above: Performed By: #### H FPF #### [facility] [address] [address] [address] Sonya Strickland Triglyceride [Mass/Vol] 112 mg/dL Normal <=150 [facility] Comment on above: Performed By: #### H FPF #### [facility] [address] [address] [address] Sonya Strickland TSH 1.111 uIU/mL Normal 0.358-3.740 [facility] Comment on above: Performed By: #### H FPF #### [facility] [address] [address] [address] Sonya Strickland Urea nitrogen [Mass/Vol] 21.0 mg/dL Critically high 7.0-18.0 [facility] Comment on above: Performed By: #### H FPF #### [facility] [address] [address] [address] Sonya Strickland Urea nitrogen/Creatinine [Mass ratio] 24.7 mg/mg Normal [facility] Comment on above: Performed By: #### H FPF #### [facility] [address] [address] [address] Sonya Strickland VLDL CALC 22.4 mg/dL Normal [facility] Comment on above: Performed By: #### H FPF #### [facility] [address] [address] [address] Sonya Strickland Vital Signs Date Time Vital Sign Value Performing Clinician Facility 04-13-2025 [id number] Body height 162.56 cm [facility] 04-13-2025 10:52-0400 Body mass index (BMI) [Ratio] 34.2 kg/m2 [facility] 04-13-2025 10:52-0400 Body weight 90.43 kg [facility] 04-13-2025 10:52-0400 Diastolic blood pressure 85 mm[Hg] [facility] 04-13-2025 10:52-0400 Heart rate 70 /min [facility] 04-13-2025 10:52-0400 Respiratory rate 12 /min [facility] 04-13-2025 10:52-0400 Systolic blood pressure 132 mm[Hg] [facility] 02-16-2025 09:46-0400 Body height 162.6 cm Kenneth Zepeda MD Work Phone: [facility] 02-16-2025 09:46-0400 Body mass index (BMI) [Ratio] 34.5 kg/m2 Kenneth Zepeda MD Work Phone: [facility] 02-16-2025 09:46-0400 Body weight 91.17 kg Kenneth Zepeda MD Work Phone: [facility] 02-16-2025 09:46-0400 Diastolic blood pressure 97 mm[Hg] Kenneth Zepeda MD Work Phone: [facility] 02-16-2025 09:46-0400 Heart rate 75 /min Kenneth Zepeda MD Work Phone: [facility] 02-16-2025 09:46-0400 Systolic blood pressure 152 mm[Hg] Kenneth Zepeda MD Work Phone: [facility] 05-06-2024 09:23-0400 Body height 162.56 cm [facility] 05-06-2024 09:23-0400 Body mass index (BMI) [Ratio] 34.7 kg/m2 [facility] 05-06-2024 09:23-0400 Body weight 91.85 kg [facility] 05-06-2024 09:23-0400 Diastolic blood pressure 90 mm[Hg] [facility] 05-06-2024 09:23-0400 Heart rate 80 /min [facility] 05-06-2024 09:23-0400 Respiratory rate 12 /min [facility] 05-06-2024 09:23-0400 Systolic blood pressure 129 mm[Hg] [facility] 03-31-2024 13:49-0400 Body height 162.6 cm Ambreen Toth MD Work Phone: [facility] 03-31-2024 13:49-0400 Body mass index (BMI) [Ratio] 34.33 kg/m2 Ambreen Toth MD Work Phone: [facility] 03-31-2024 13:49-0400 Body weight 90.72 kg Ambreen Toth MD Work Phone: [facility] 03-31-2024 13:49-0400 Diastolic blood pressure 97 mm[Hg] Ambreen Toth MD Work Phone: [facility] 03-31-2024 13:49-0400 Systolic blood pressure 149 mm[Hg] Ambreen Toth MD Work Phone: [facility] 02-11-2024 11:02-0400 Body height 162.6 cm Ambreen Toth MD Work Phone: [facility] 02-11-2024 11:02-0400 Body weight 89.36 kg Ambreen Toth MD Work Phone: [facility] 05-17-2023 11:30-0400 Body height 162.56 cm Wisam Ball Other [employer] Other 05-17-2023 11:30-0400 Body mass index (BMI) [Ratio] 28.9 kg/m2 Wisam Ball Other [employer] Other 05-17-2023 11:30-0400 Body weight 76.39 kg Wisam Ball Other [employer] Other 05-17-2023 11:30-0400 Diastolic blood pressure 84 mm[Hg] Wisam Ball Other [employer] Other 05-17-2023 11:30-0400 Respiratory rate 12 /min Wisam Ball Other [employer] Other 05-17-2023 11:30-0400 Systolic blood pressure 130 mm[Hg] Wisam Mix Other [employer] Other Encounters Encounter Date Encounter Type Care Provider Facility Start: 04-13-2025 End: 04-13-2025 ambulatory [facility] Work Phone: Start: 04-13-2025 End: 04-13-2025 Patient encounter procedure [facility] Work Phone: Start: 03-30-2025 End: 03-30-2025 ambulatory [facility] Facility:[facility] Start: 02-16-2025 End: 02-16-2025 Bamboo flowsheet [...] Start: 02-06-2025 End: 02-07-2025 ambulatory Kenneth Zepeda Facility:[facility] Start: 02-06-2025 End: 02-07-2025 Patient encounter procedure Kenneth Zepeda [facility] Start: 01-12-2025 End: 01-12-2025 ambulatory KENNETH ZEPEDA Not Available Start: 09-21-2024 End: 09-21-2024 Telephone encounter Tyler Levine PA-C Work Phone: [facility] Comment on above: [employer] [place] ([facility]AG[facility] REPORT) Appointment (Schedul ing with a hand specialist. ) Start: 09-08-2024 End: 09-09-2024 Orders Only Tyler Levine PA-C Work Phone: Orthopaedics Comment on above: Regarding ultrasound Ulnar neuritis, righ t (Primary Dx) Start: 05-21-2024 End: 05-21-2024 ambulatory TYLER LEVINE Facility:[facility] Start: 05-21-2024 End: 05-21-2024 Patient encounter procedure Tyler Levine PA-C Work Phone: Orthopaedics Comment on above: Ulnar neuritis, righ t (Primary Dx) Start: 05-19-2024 End: 05-19-2024 ambulatory TYLER LEVINE Neurology Comment on above: [facility] Start: 05-19-2024 End: 05-19-2024 Patient encounter procedure Emg [address] [facility] (Max Weight:400) Work Phone: Neurology Start: 05-06-2024 End: 05-06-2024 ambulatory [facility] Work Phone: Start: 05-06-2024 End: 05-06-2024 Patient encounter procedure [facility] Work Phone: Start: 04-07-2024 ambulatory JINA Gunn ty:[place] [facility] Start: 04-01-2024 E-mail encounter fro m caregiver Tyler Levine PA-C Work Phone: Orthopaedics Start: 04-01-2024 Patient encounter procedure Tyler EASON-C Work Phone: Orthopaedics Comment on above: Regarding EMG Start: 03-31-2024 ambulatory AMBREEN TOTH Facility:[facility] Start: 03-31-2024 End: 03-31-2024 Subsequent hospital visit by physician [facility] Work Phone: [facility] Rad[facility] General Comment on above: 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] Start: 03-31-2024 End: 03-31-2024 Patient encounter procedure Ambreen Toth MD Work Phone: Vascular Surgery Comment on above: Peripheral arterial disease (HCC) (Primary Dx) 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); Ulnar nerve compression, right Start: 03-31-2024 End: 03-31-2024 ambulatory AMBREEN TOTH Facility:[facility] Start: 02-11-2024 End: 02-11-2024 Orders Only Ambreen Toth MD Work Phone: Vascular Surgery Comment on above: Numbness (Primary Dx ) Peripheral arterial disease (HCC) (Primary Dx) Start: 02-07-2024 Telephone encounter Cheryle (Pss) Mi tra Cardiology Comment on above: Appointment Start: 11-09-2023 End: 11-09-2023 Emergency department patient visit [facility] Start: 05-17-2023 End: 05-17-2023 ambulatory Wisam Mix Other [employer] Other Start: 05-17-2023 Office outpatient visit 10 minutes Wisam Mix [facility] Start: 11-30-2022 End: 12-01-2022 ambulatory [...] Start: 11-09-2026 Diabetes Screening Diabetes Screenin g [facility] Start: 02-16-2025 End: 02-16-2025 Patient encounter procedure [facility] Comment on above: Arrived Start: 07-05-2024 Covid-19 Vaccine ( season) Covid-19 Vaccine ( season) [facility] Start: 07-05-2024 Influenza vaccination [facility] Start: 05-21-2024 End: 05-21-2024 Patient encounter procedure 05/21/2024 2:45 PM EDT Office Visit Orthopaedics [address] [place] [address] Tyler Levine PA-C [address] [place] [address] 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] (EMG NORMAL) Orthopaedics Comment on above: 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] (EMG NORMAL) Start: 04-15-2024 End: 04-15-2024 Patient encounter procedure 04/15/2024 1:00 PM EDT Office Visit Orthopaedics [address] [place] [address] Tyler Levine PA-C [address] [place] [address] 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] (EMG order placed) Orthopaedics Comment on above: 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] (EMG order placed) Start: 11-04-2023 Behavioral Health Screening Behavioral Health Screening [facility] Start: 07-05-2023 Covid-19 Vaccine ( season) Covid-19 Vaccine ( season) [facility] Start: 2015 Shingrix Vaccine (1 of 2) Shingrix Vaccine (1 of 2) [facility] Start: 2010 Diabetes Screening Diabetes Screenin g [facility] Start: 2010 Lipid panel Lipid Screening [facility] Start: 2010 Screening for malign ant neoplasm of colon [facility] Start: 2005 Screening for malign ant neoplasm of breast Mammogram Screening [facility] Start: 1995 Screening for malign ant neoplasm of cervix HPV Testing [facility] Start: 1986 Screening for malign ant neoplasm of cervix [facility] Start: 1984 Hepatitis B Vaccine (1 of 3 - 19+ 3-dose series) Hepatitis B Vaccine (1 of 3 - 19+ 3-dose series) [facility] Start: 1984 Urine microalbumin profile DTaP,Tdap,Td Vaccine (1 - Tdap) [facility] Start: 1983 Annual PCP Team Academic Advisor bren Disease Visit Annual PCP Team Chronic Disease Visit [facility] Start: 1983 Anxiety Screening Anxiety Screening [facility] Start: 1983 Depression Screening Depression Scre ening [facility] Start: 1983 Hepatitis C screening Hepatitis C Sc reening [facility] Start: 1983 HIV screening HIV Screening [facility] Unlisted procedure hands/fingers HAND/FINGER SURGERY UNLISTED Procedures Routine Numbness Ordered: 02/11/2024 [facility] Work Phone: Comment on above: Ordered: 02/11/2024 End: 02-10-2025 US Carotid arteries - bilateral US CAROTID ARTERIES [facility] Lab Routine Numbness 1 Occurrences starting 02/11/2024 until 02/10/2025 [facility] Work Phone: Comment on above: 1 Occurrences starti ng 02/11/2024 until 02/10/2025 End: 10-08-2025 US Upper extremity - right US ELBOW RIGHT Radiology Routine Ulnar neuritis, right 1 Occurrences starting 09/09/2024 until 10/08/2025 [facility] Work Phone: Comment on above: 1 Occurrences starti ng 09/09/2024 until 10/08/2025 [facility] Immunizations Immunization Date Immunization Notes Care Provider Sameer paula 07-25-2023 influenza virus vacc ine, unspecified formulation Emg Weight:400) Work Phone: [facility] Payers Date Payer Category Payer Private Health Insurance [employer] [id number] 2023 Unknown [id number] 1965 Unknown [id number] 1965 Unknown [id number] 1965 Unknown [id number] 1965 Unknown [id number] [id number] 1965 Unknown [id number] 1259 1965 Unknown [id number] 1965 Unknown [id number] 727 1959 Self-pay 1959 Unknown [id number] Unknown [id number] Unknown [id number] Unknown [facility] [id number] Unknown [facility] [id number] Social History Date Type Detail Facility Start: 02-11-2024 End: 01-12-2025 Sex Assigned At [facility] Tobacco smoking stat us NHIS Tobacco smoking consumption unknown [facility] Start: 1965 Sex Assigned At Female [facility] Start: 02-06-2024 Gender identity Identifies as female gender (finding) [facility] Start: 02-06-2024 Sexual orientation Heterosexual (finding) [facility] Start: 02-11-2024 End: 01-12-2025 History of Social function [facility] National Score (1-10 0), lower number is lower risk 60 [facility] Tobacco smoking status [facility] Start: 01-23-2019 End: 04-13-2025 Sex Female (finding) [facility] Start: 01-12-2025 Tobacco smoking status NHIS Never smoked tobacco [facility] Start: 01-12-2025 Tobacco use and exposure Smokeless tobacco non-user [facility] Start: 01-12-2025 End: 02-16-2025 Alcoholic beverage intake Lifetime non-drinker (finding) [facility] Start: 1965 Sex assigned at [...] who presents for Sinusitis (Follow up [facility] 02/06/25) CT reviewed and there is no sinonasal abnormality. Tolerating CPAP OK. Still has PND and throat clearing Family History Problem Relation Name Age of Onset Cancer Mother Gill Reardon Rashes / Skin problems Mother Gill Reardon Diabetes Father Tiago Reardon Active Ambulatory Problems Diagnosis Date Noted Hypothyroidism ([facility]) 02/11/2024 Macular degeneration 02/11/2024 Peripheral arterial disease ([facility]) 02/11/2024 Sciatica 02/11/2024 Peripheral vertigo 02/11/2024 [...] Physical Exam Assessment/Plan documented in this encounter [facility] 09-21-2024 Telephone encounter Note I called and left messages in regards to receiving the patients ultrasound. It was normal and the provider wants the patient to get set up with a hand specialist due to the ongoing pain. She can schedule with Pat Ashraf PA-C or Flora Valente PA-C [facility] 09-21-2024 Miscellaneous Notes I called and left messages in regards to receiving the patients ultrasound. It was normal and the provider wants the patient to get set up with a hand specialist due to the ongoing pain. She can schedule with Pat Ashraf PA-C or Flora Valente PA-C documented in this encounter [facility] 09-21-2024 Telephone encounter Note Images from the original note were not included. [facility] 09-21-2024 Miscellaneous Notes Images from the original note were not included. documented in this encounter [facility] 09-08-2024 Telephone encounter Note Called patient [...] may need to push the appointment out. [facility] 09-08-2024 Miscellaneous Notes Called patient and [...] the OT. Thanks! documented in this encounter [facility] 09-08-2024 Telephone encounter Note ----- Message [...] does not improve from the OT. Thanks! [facility] 05-21-2024 Note HNO ID: [id number] Author: TYLER LEVINE PA-C Service: ? Author Type: Physician Ambulance Officer Type: Progress Notes Filed: 05/21/2024 14:52 Note [...] ECRB: Negative ROM: full ROM STRENGTH: 5/5 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 Follow-up should symptoms persist. Tyler Levine PA-C This note is created with the assistance of a speech-recognition program. [facility] 05-21-2024 History of Present illness Narrative [...] ECRB: Negative ROM: full ROM STRENGTH: 5/5 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 Follow-up should symptoms persist. Tyler Levine PA-C This note is created with the assistance of a speech-recognition program. documented in this encounter [facility] 05-19-2024 Note HNO ID: [id number] Author: VAN GARCIA MD Service: ? Author [...] EMG Tech Van Garcia MD (sign out) [facility] 05-19-2024 History of Present illness Narrative [...] MD (sign out) documented in this encounter [facility] 04-01-2024 Telephone encounter Note Patient was working and didn't have anything to write with so they wanted a mychart message instead. [facility] 04-01-2024 Miscellaneous Notes Patient was working and didn't have anything to write with so they wanted a mychart message instead. documented in this encounter [facility] 03-31-2024 Note HNO ID: [id number] Author: ALEXX OCAMPO RT(R) Service: Radiology Author [...] PATIENT PRESENTS WITH AN IMPLANTABLE OR ATTACHED WEBSITE ADMIN: No RADIOLOGY DEPARTMENT: General X-ray: Exam(s) Completed: Upper Extremity X-Ray(s): Hand, right PERIPHERAL IV DATA: Not applicable SIGNED BY: RT Rosalie(R) March 31, 2024 2:44 PM [facility] 03-31-2024 History of Present illness Narrative [...] PATIENT PRESENTS WITH AN IMPLANTABLE OR ATTACHED WEBSITE ADMIN: No RADIOLOGY DEPARTMENT: General X-ray: Exam(s) Completed: Upper Extremity X-Ray(s): Hand, right PERIPHERAL IV DATA: Not applicable SIGNED BY: RT Rosalie(R) March 31, 2024 2:44 PM documented in this encounter [facility] 03-31-2024 Instructions Nanette Caruso RN - 03/31/2024 2:04 PM EDT Consult hand surgery for ulnar neuropathy documented in this encounter [facility] 03-31-2024 Note HNO ID: [id number] Author: AMBREEN TOTH MD Service: ? Author Type: Physician Type: Progress Notes Filed: 03/31/2024 14:07 Note Text: [facility] DEPARTMENT OF VASCULAR SURGERY OUTPATIENT VISIT DATE [...] DATE: March 31, 2024 TIME: 1:[address] [facility] 03-31-2024 History of Present illness Narrative Images from the original note were not included. [facility]GERY OUTPATIENT VISIT DATE [...] TIME: 1:55 PM documented in this encounter [facility] 02-11-2024 Instructions Nanette Caruso RN - 02/11/2024 11:22 AM EDT Carotid duplex follow up with lida Hsu hand surgery documented in this encounter [facility] 02-11-2024 Note HNO ID: [id number] Author: AMBREEN TOTH MD Service: ? Author Type: Physician Type: Progress Notes Filed: 02/11/2024 11:26 Note Text: [facility]GERY OUTPATIENT VISIT DATE [...] DATE: February 11, 2024 TIME: 11:[address] [facility] 02-11-2024 History of Present illness Narrative Images from the original note were not included. [facility]ASC[facility] SURGERY OUTPATIENT VISIT DATE [...] TIME: 11:05 AM documented in this encounter [facility] 02-07-2024 Miscellaneous Notes RP Patient already scheduled with Dr. Ambreen Moreira at [facility]. Case closed. 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 06-28-2018 History general Narrative - Reported* Type Description Date Medical History Autoimmune thyroiditis Surgical History Appendectomy, [facility] 05/01/2018 Hospitalization History see surgical history [employer] Other Evaluation + Plan note No data available for this section [facility] Evaluation note* Diagnosis Numbness- Primary Disturbance of skin sensation documented [facility]* Diagnosis Peripheral arterial disease (HCC)- Primary Peripheral vascular disease, unspecified documented in this encounter [facility] note* Diagnosis Peripheral arterial disease (HCC)- Primary Peripheral vascular disease, unspecified documented in this encounter [facility] note* Diagnosis 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 Lesion of ulnar nerve Ulnar nerve compression, right Ulnar neuropathy of right upper extremity Lesion of ulnar nerve Ulnar nerve compression, right documented [facility] encounter [facility]* Diagnosis Ulnar neuropathy of right upper extremity Lesion of ulnar nerve Ulnar nerve compression, right documented in this encounter [facility] note* Diagnosis Onset Date Resolution Status Hypothyroid acute Pre-employment examination a [employer] Work Phone: Evaluation note* Diagnosis Numbness- Primary Disturbance of skin sensation Tingling Disturbance of skin sensation documented in this encounter [facility] note* Diagnosis Ulnar neuritis, right- Primary documented in this encounter [facility] note* Diagnosis Ulnar neuritis, right- Primary documented in this encounter [facility] note* Diagnosis LPRD (laryngopharyngeal reflux disease)- Primary Acute laryngitis, without mention of obstruction [facility]* Diagnosis Onset Date Resolution Status Admit Date Hypothyroid acute April 13 10:45am Pre-employment examination acute April 13, 2025 10:45am [facility] Work Phone: Hospital Discharge instructions No data available for this section [facility] Progress note No data available for this section [facility] Reason for referral (narrative)* Outpatient Procedure (Routine) - Authorized Specialty Diagnoses / Procedures Referred By Nathan t Referred To Contact [facility] Diagnoses Numbness Procedures US CAROTID ARTERIES [facility] DUPLEX SCAN EXTRACRANIAL [place] [address] [place] [address] [facility] [address] [place] [address] Referral ID Status Reason Start Date Expiration Date Visits Requested Visits Authorized [id number] Authorized Auto-Generat ed Referral 02/11/2024 02/10/2025 1 1 [facility] for referral (narrative)* Diagnostic Procedure Only (Routine) - Closed Specialty Diagnoses / Procedures Referred By Nathan lomax Referred To Contact XR IMAGING Diagnoses 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, right Procedures XR HAND GENERAL 3V PA/LAT/OBL RIGHT RADEX HAND MINIMUM 3 [place] [address] [place] [address] [place] [id number] Referral ID Status Reason Start Date Expiration Date V isits Requested Visits Authorized [id number] Closed Auto-Generate d Referral 03/31/2024 04/30/2025 1 1 [facility] for referral (narrative)* Diagnostic Procedure Only (Routine) - New Request Specialty Diagnoses / Procedures Referred By Nathan lomax Referred To Contact US IMAGING Diagnoses Ulnar neuritis, right Procedures US ELBOW RIGHT US LMTD JOINT/OTH NONVASC XTR STRUX R-T W/IMG Tyler Levine PA-C [address] [place] [address] [place] [id number] Referral ID Status Reason Start Date Expiration Date Visits Requested Visits Authorized [id number] New Request Auto-Generat ed Referral 09/09/2024 10/08/2025 1 1 [facility] for visit Narrative* Diagnostic Procedure Only (Routine) - Closed Specialty Diagnoses / Procedures Referred By Nathan lomax Referred To Contact XR IMAGING Diagnoses 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, right Procedures XR HAND GENERAL 3V PA/LAT/OBL RIGHT RADEX HAND MINIMUM 3 [place] [address] [place] [address] [place] [id number] Referral ID Status Reason Start Date Expiration Date V isits Requested Visits Authorized [id number] Closed Auto-Generate d Referral 03/31/2024 04/30/2025 1 1 [facility] Summary Purpose Family History Relationship Condition Age at Onset Recorded Date/T marcy father Arthritis Unknown Advance Directives Advance Directive Response Recorded Date/ Time Advance Directives No May 06 8:58am Reason for Referral Specialty Diagnoses / Procedures Referred By Contac t Referred To Contact [facility] Diagnoses Ulnar neuritis, right Procedures CONSULT TO EYEGLASS LENS CUTTER OCCUPATIONAL THERAPY EVAL HIGH COMPLEX 60 MINS Tyler Levine, PA-C [address] [place] [address] [facility] [address] [place] [address] Referral ID Status Reason Start Date Expiration Date Visits Requested Visits Authorized [id number] Pending Review Auto-Generat ed Referral 05/21/2024 05/21/2025 1 1 Specialty Diagnoses / Procedures Referred By Contac t Referred To Contact Orthopedics Diagnoses Ulnar neuropathy of right upper extremity Procedures CONSULT PANEL TO ORTHOPAEDICS OFFICE/OUTPATIENT [facility] [address] [place] [address] [place] [address] Referral ID Status Reason Start Date Expiration Date Visits Requested Visits Authorized [id number] Authorized PCP Requested Referral 03/31/2024 03/31/2025 1 1 Specialty Diagnoses / Procedures Referred By Contac t Referred To Contact XR IMAGING Diagnoses 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, right Procedures XR HAND GENERAL 3V PA/LAT/OBL RIGHT RADEX HAND MINIMUM 3 [place] [address] [place] [address] [place] [id number] Referral ID Status Reason Start Date Expiration Date V isits Requested Visits Authorized [id number] Closed Auto-Generate d Referral 03/31/2024 04/30/2025 1 1 Chief Complaint and Reason for Visit Chief Complaint 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 DATE CREATED AUTHOR AUTHOR'S ORGANIZ ATION 02/17/2025 [facility] dical Specialists [facility] DATE CREATED AUTHOR AUTHOR'S ORGANIZ ATION 04/02/2025 [facility] REASON FOR VISIT (unrecogniz ed section and content) Reason Comments Appointment Reason Comments New Patient Reason Comments Follow Up Reason Onset Date Comments [facility] 05/19/2024 Specialty Diagnoses / Procedures Referred By Contact Referred To Contact [facility] Diagnoses Hand numbness Procedures EMG(NEURO/NI) NERVE CONDUCTION STUDIES 9-10 STUDIES Tyler Levine, ELO [address] [place] [address] [facility] [address] [place] [address] Referral ID Status Reason Start Date Expiration Date V isits Requested Visits Authorized [id number] Closed Auto-Generate d Referral 03/31/2024 03/31/2025 1 1 Specialty Diagnoses / Procedures Referred By Nathan t Referred To Contact Orthopedics Diagnoses Ulnar neuropathy of right upper extremity Procedures CONSULT PANEL TO ORTHOPAEDICS OFFICE/OUTPATIENT [facility] [address] [place] [address] [place] [address] Referral ID Status Reason Start Date Expiration Date V isits Requested Visits Authorized [id number] Closed PCP Requested Referral 03/31/2024 03/31/2025 1 1 Reason Comments [employer] - Other [facility] REPORT Reason Comments Appointment Scheduling with a souza nd specialist. Reason Comments Sinusitis Follow up [facility] 02/06/25 Source Comments (unrecognize d section and content) In the event this informatio n is protected by the Federal Confidentiality of Alcohol and Drug Abuse Patient Records regulations: The Federal rules restrict any use of the information to criminally investigate or prosecute any alcohol or drug abuse patient.[facility] the event this information is protected by the Federal Confidentiality of Alcohol and Drug Abuse Patient Records regulations: The Federal rules restrict any use of the information to criminally investigate or prosecute any alcohol or drug abuse patient.[facility] the event this information is protected by the Federal Confidentiality of Alcohol and Drug Abuse Patient Records regulations: The Federal rules restrict any use of the information to criminally investigate or prosecute any alcohol or drug abuse patient.[facility] the event this information is protected by the Federal Confidentiality of Alcohol and Drug Abuse Patient Records regulations: The Federal rules restrict any use of the information to criminally investigate or prosecute any alcohol or drug abuse patient.[facility] the event this information is protected by the Federal Confidentiality of Alcohol and Drug Abuse Patient Records regulations: The Federal rules restrict any use of the information to criminally investigate or prosecute any alcohol or drug abuse patient.[facility] the event this information is protected by the Federal Confidentiality of Alcohol and Drug Abuse Patient Records regulations: The Federal rules restrict any use of the information to criminally investigate or prosecute any alcohol or drug abuse patient.[facility] the event this information is protected by the Federal Confidentiality of Alcohol and Drug Abuse Patient Records regulations: The Federal rules restrict any use of the information to criminally investigate or prosecute any alcohol or drug abuse patient.[facility] the event this information is protected by the Federal Confidentiality of Alcohol and Drug Abuse Patient Records regulations: The Federal rules restrict any use of the information to criminally investigate or prosecute any alcohol or drug abuse patient.[facility] the event this information is protected by the Federal Confidentiality of Alcohol and Drug Abuse Patient Records regulations: The Federal rules restrict any use of the information to criminally investigate or prosecute any alcohol or drug abuse patient.[facility] the event this information is protected by the Federal Confidentiality of Alcohol and Drug Abuse Patient Records regulations: The Federal rules restrict any use of the information to criminally investigate or prosecute any alcohol or drug abuse patient.[facility] the event this information is protected by the Federal Confidentiality of Alcohol and Drug Abuse Patient Records regulations: The Federal rules restrict any use of the information to criminally investigate or prosecute any alcohol or drug abuse patient.[facility] the event this information is protected by the Federal Confidentiality of Alcohol and Drug Abuse Patient Records regulations: The Federal rules restrict any use of the information to criminally investigate or prosecute any alcohol or drug abuse patient.[facility] the event this information is protected by the Federal Confidentiality of Alcohol and Drug Abuse Patient Records regulations: The Federal rules restrict any use of the information to criminally investigate or prosecute any alcohol or drug abuse patient.[facility] the event this information is protected by the Federal Confidentiality of Alcohol and Drug Abuse Patient Records regulations: The Federal rules restrict any use of the information to criminally investigate or prosecute any alcohol or drug abuse patient.[facility] the event this information is protected by the Federal Confidentiality of Alcohol and Drug Abuse Patient Records regulations: The Federal rules restrict any use of the information to criminally investigate or prosecute any alcohol or drug abuse patient.[facility] Care Teams (unrecognized sec tion and content) Offshore Diver Relationship Specialty Start Date End Date Delvis Lr MD [address] [place] [address] PCP - General Family Medicine 02/07/24 Delvis Lr MD [address] [place] [address] Referring Family Medicine 01/27/24 Offshore Diver Relationship Specialty Start Date End Date Delvis Lr MD [address] [place] [address] PCP - General Family Medicine 02/07/24 Delvis Lr MD [address] [place] [address] Referring Family Medicine 01/27/24 Offshore Diver Relationship Specialty Start Date End Date Delvis Lr MD [address] [place] [address] PCP - General Family Medicine 02/07/24 Delvis Lr MD [address] [place] [address] Referring Family Medicine 01/27/24 Offshore Diver Relationship Specialty Start Date End Date Delvis Lr MD [address] [place] [address] PCP - General Family Medicine 02/07/24 Delvis Lr MD [address] [place] [address] Referring Family Medicine 01/27/24 Offshore Diver Relationship Specialty Start Date End Date Delvis Lr MD [address] [place] [address] PCP - General Family Medicine 02/07/24 Delvis Lr MD [address] [place] [facility] [place] [address] Referring Family Medicine 01/27/24 Offshore Diver Relationship Specialty Start Date End Date Delvis Lr MD [address] [place] [facility] [place] [address] PCP - General Family Medicine 02/07/24 Delvis Lr MD [address] [place] [facility] [place] [address] Referring Family Medicine 01/27/24 Offshore Diver Relationship Specialty Start Date End Date Delvis Lr MD [address] [place] [address] PCP - General Family Medicine 02/07/24 Delvis Lr MD [address] [place] [facility] [place] [address] Referring Family Medicine 01/27/24 Team Status: Active Member Role Status Nain Lr MD Primary Care Provider Active Team Status: Inactive Member Role Status Dates Delvis Lr MD Primary Care Provider Active Start: May 06, 2024 End: May 06, 2024 Wisam Mix DO Attending Provider Active Sta rt: May 06, 2024 End: May 06, 2024 Offshore Diver Relationship Specialty Start Date End Date Delvis Lr MD [address] [place] [facility] [place] [address] PCP - General Family Medicine 02/07/24 Delvis Lr MD [address] [place] [facility] [place] [address] Referring Family Medicine 01/27/24 Offshore Diver Relationship Specialty Start Date End Date Delvis Lr MD [address] [place] [facility] [place] [address] PCP - General Family Medicine 02/07/24 Delvis Lr MD [address] [place] [facility] [place] [address] Referring Family Medicine 01/27/24 Offshore Diver Relationship Specialty Start Date End Date Delvis Lr MD [address] [place] [facility] [place] [address] PCP - General Family Medicine 02/07/24 Delvis Lr MD [address] [place] [facility] [place] [address] Referring Family Medicine 01/27/24 Offshore Diver Relationship Specialty Start Date End Date Delvis Lr MD [address] [place] [facility] [place] [address] PCP - General Family Medicine 02/07/24 Delvis Lr MD [address] [place] [facility] [place] [address] Referring Family Medicine 01/27/24 Offshore Diver Relationship Specialty Start Date End Date Delvis Lr MD [address] [place] [facility] [place] [address] PCP - General Family Medicine 02/07/24 Delvis Lr MD [address] [place] [facility] [place] [address] Referring Family Medicine 01/27/24 Offshore Diver Relationship Specialty Start Date End Date Delvis Lr MD [address] [facility] [place] [address] PCP - General Family Medicine 11/13/24 Offshore Diver Relationship Specialty Start Date End Date Delvis Lr MD [address] [facility] [place] [address] PCP - General Family Medicine 11/13/24 Offshore Diver Relationship Specialty Start Date End Date Delvis Lr MD [address] [facility] [place] [address] PCP - General Family Medicine 11/13/24 Team [...] BE BASED ON THE PRIMARY CLINICAL RECORDS. [facility] [employer] [facility]. provides no warranty or guarantee of the accuracy or completeness of information in this document.
[2025-07-08 10:04] LABS: Uric Acid 4.3 mg/dL (2.6-6.0)
[2025-07-09 15:08] LABS: Antinuclear Antibodies, IFA Positive (.)
== END 2025-07-08 09:15 | disposition home or self-care (01) ==
LOC: LAB 09:15
PROVIDERS: PCP Family Medicine; Visit Provider Family Medicine
DX: M25.50 Pain in unspecified joint (principal)
CPT/HCPCS: 36415; 84550; 85652; 86038; 86060; 86140; 86431

== ENCOUNTER 2025-08-23 10:45 | Outpatient (OUT) | payer OTHER, SELFPAY ==
--- NOTE | 2025-08-23 10:50 | US_ITS ---
The [address] [address] Patient Name: CARLINE MATTSON MRN: [id number] date: 1965 Sex: F Assigned Patient Location: US Current Patient Location: Accession/Order Number: [id number] Exam Date: 08/23/2025 10:51 Report Date: 08/23/2025 14:21 At the request of: NON-STAFF PHYSICIAN Procedure: US right upper quadrant LIMITED RIGHT UPPER QUADRANT ABDOMINAL ULTRASOUND CLINICAL HISTORY: Elevated Liver Transaminase COMPARISON: CT 11/08/2018 and ultrasound 09/24/2019 The gallbladder is physiologically distended without shadowing calculi, wall thickening or pericholecystic fluid. No intra- or extrahepatic biliary dilatation is evident. The common duct measures 2 - 3 mm. The liver shows slight increased echogenicity that may be fatty infiltration. No intrahepatic masses are seen. There is appropriate hepatopetal flow within the main portal vein. The pancreas shows no significant sonographic abnormality. Evaluation of the right kidney reveals no hydronephrosis or fluid within Eid's pouch. There is a small right renal cyst measuring 14 x 18 x 12 mm in size. US/US right upper quadrant IMPRESSION: FATTY LIVER. NO GALLBLADDER PATHOLOGY. INCIDENTAL SMALL RIGHT RENAL CYST. Impression dictated by: Kaylan Thibodeaux M.D. 08/23/2025 2:21 PM Dictation Location: [place] [address] Electronically authenticated by: [id number] Date: 08/23/2025 14:21
--- OUTSIDE RECORDS SUMMARY | 2025-08-23 10:55 | XMS_ITS | CCD ---
Author Organization [facility] Care Team Providers Care Elevator Pilot Name Role Phone DR DELVIS LR Consulting [...] Provider Delvis Lr MD Primary Care Provider [phone] AMBREEN TOTH Referring Unavailable DELVIS LR Primary Care Unavailable Delvis Lr Primary Care Physician [phone] Delvis Lr MD Primary Care Provider MARENMIS, KENNETH H Attending Unavailable MARENMIS, KENNETH H Attending Unavailable Zoran BRODERICK Attending Unavailable JINA FOREMAN Attending Unavailable Delvis Lr Referring Unavailable Timmis, Kenneth H Referring Unavailable Timmis, Kenneth H Admitting Unavailable Timmis, Kenneth H Attending Unavailable NARCISO CENTENO Attending Unavailable DELVIS LR Referring Unavailable DELVIS LR Primary Care Unavailable NARCISO CENTENO Referring Unavailable DELVIS LR Primary Care Unavailable BUCUR NARCISO Referring Unavailable DELVIS LR Primary Care Unavailable Allergies Allergy Classification Reported Allergen(s) Allergy Type Date of Onset Reaction(s) Facility (20 sources) Sulfamethoxazole / Trimethoprim; Translations: [SULFAMETHOXAZOLE-TR IMETHOPRIM] Drug Allergy 11-09-19 24 Hives, Rash [facility] (1 source) No Known Medication Allergies; Translations: [No Known Medication Allergies] Propensity to adverse reactions (disorder) [facility] Repository Medications Current Medications Medication Drug [...] mouth Active Calcium Carbonate / vitamin D3 (15 sources) calcium carbonate/vitamin D3 (CALCIUM 500 + D ORAL) Take by mouth. Active calcium carbonat e/vitamin D3 (CALCIUM 500 + D ORAL) Take by mouth. 0 Active Comment on above: Take by mouth. cetirizine hydrochloride 10 mg oral tablet (4 sources) Histamine-1 Receptor Antagonist Start: End: 026 take 1 tablet by mouth once daily as needed cetirizine (ZyrTEC) 10 MG tablet Indications: Chronic pansinusitis Take 1 tablet (10 mg) by mouth Daily as needed for allergies 30 tablet 11 01/12/2025 01/12/2026 Active famotidine 20 mg oral tablet (2 sources) Histamine-2 Receptor Antagonist Start: End: 025 take 1 tablet by mouth at bedtime famotidine (Pepcid) 20 MG tablet Indications: LPRD (laryngopharyngeal reflux disease) Take 1 tablet (20 mg) by mouth at bedtime 90 tablet 02/16/2025 05/17/2025 Active Fish Oils (4 sources) omega-3 (FISH OI L) 300 MG capsule Take by mouth Daily Active fluticasone propionate 0.05 mg/actuat metered dose nasal spray (4 sources) Corticosteroid Start: 025 End: take 2 spray(s) nasal route once daily fluticasone (Flonase) 50 MCG/ACT nasal spray Indications: Chronic pansinusitis Administer 2 sprays into each nostril Daily Shake gently. Before first use, prime pump. After use, clean tip and replace cap. 48 g 3 01/12/2025 01/12/2026 Active levothyroxine sodium 0.075 mg oral capsule (19 sources) l-Thyroxine take 1 capsule by mouth once daily before breakfast levothyroxine 75 mcg cap Take 75 mcg by mouth daily before breakfast. Active levothyroxine (S ynthroid, Levoxyl) 25 MCG tablet Take by mouth in the morning. Take before meals. Active Comment on above: Take 75 mcg by mouth daily before breakfast. liothyronine sodium 0.025 mg oral tablet (20 sources) l-Triiodothyronine liothyronine (CYTOMEL) 25 mcg tablet Take 12.5 mcg by mouth once daily. Active take 1 tablet by isi th every twenty-four hours Liothyronine Sodium 50 MCG 1 tablet on a n empty stomach Orally Once a day Active Comment on above: Take 12.5 mcg by isi th once daily. meloxicam 15 mg oral tablet (6 sources) Nonsteroidal Anti-inflammatory Drug Start: take 1 tablet by mouth once daily at mealtime meloxicam (MOBIC) 15 mg tablet Take 1 tablet by mouth once daily. with food 30 tablet 1 09/08/2024 Active omega-3/dha/epa/dpa /fish oil (OMEGA-3, WITH DPA, ORAL) (15 sources) omega-3/dha/epa/ dp a/fish oil (OMEGA-3, WITH [...] Take by mouth Active TURMERIC, BULK, MISC (15 sources) TURMERIC, BULK, MISC Active TURMERIC, BULK, MISC vit A/vit C/vit E/zinc/coppe r (ICAPS AREDS ORAL) (15 sources) vit A/vit C/vit E/zinc/copper (ICAPS AREDS [...] sources) Dysuria; Translations: [Microscopic hematuria] 04-08-2019 Episodic Immunizations and screening for infectious disease (4 sources) Anti-nuclear factor positive; Translations: [Other specified abnormal immunological findings in serum] Onset: 5 07-13-2025 Episodic Nonmalignant breast conditions (15 sources) Fibrocystic disease of breast; Translations: [Diffuse cystic mastopathy of unspecified breast] Onset: 4 02-11-2024 Chronic Other aftercare (1 source) Other assisted (current) drug therapy; Translations: [High risk medication use] Onset: 5 Episodic Other bone disease and musculoskeletal deformities (1 source) Other specified disorders of bone density and structure, unspecified site; Translations: [Osteopenia, unspecified location] Onset: 5 Episodic Other connective tissue disease (1 source) Pain in right hand; Translations: [Pain in both hands] Onset: 5 Episodic Other connective tissue disease (1 source) Pain in left hand; Translations: [Pain in both hands] Onset: 5 Episodic Other nervous system disorders (2 sources) Ulnar neuropathy of right arm; Translations: [Lesion of ulnar nerve, right upper limb] 03-31-2024 Chronic Other nervous system disorders (2 sources) Entrapment of right ulnar nerve; Translations: [Lesion of ulnar nerve, right upper limb] 03-31-2024 Chronic Other nervous system disorders (2 sources) Lesion of ulnar nerve, right upper limb; Translations: [Ulnar neuropathy of right upper extremity] Onset: 4 Chronic Other nervous system disorders (2 sources) Neuritis of right ulnar nerve; Translations: [Lesion of ulnar nerve, right upper limb] 05-21-2024 Chronic Other nervous system disorders (1 source) Other chronic pain; Translations: [Chronic pain of right knee] Onset: 5 Chronic Other nervous system disorders (2 sources) Numbness; Translations: [Anesthesia of skin] 02-11-2024 Episodic Other nervous system disorders (1 source) Paresthesia; Translations: [Paresthesia of skin] 05-19-2024 Episodic Other non-traumatic joint disorders (1 source) Pain in right knee; Translations: [Chronic pain of right knee] Onset: 5 Episodic Other non-traumatic joint disorders (1 source) Pain in unspecified ankle and joints of unspecified foot; Translations: [Pain in joint involving ankle and foot, unspecified laterality] Onset: 5 Episodic Other screening for suspected conditions (not [...] Retinal detachments; defects; vascular occlusion; and retinopathy (19 sources) Degenerative disorder of macula ; Translations: [Unspecified macular degeneration] Onset: 4 02-11-2024 Chronic Rheumatoid arthritis and related disease (1 source) Rheumatoid arthritis with rheumatoid factor of multiple sites without organ or systems involvement; Translations: [Rheumatoid arthritis involving multiple sites with positive rheumatoid factor (HCC)] Onset: 5 Chronic Thyroid disorders (20 sources) Hypothyroidism; Translations: [Hypothyroidism, unspecified] Onset: 4 02-11-2024 Chronic Unclassified (3 sources) COUGH, UNSPECIFIED; Translations: [COUGH, UNSPECIFIED] Onset: 3 Unclassified (1 source) Positive LES (antinuclear antibody); Translations: [Positive LES (antinuclear antibody)] Onset: 5 Past or Other Problems Problem Classification Problem Date Documented Date Episodic/Chronic Conditions associated with dizziness or vertigo (19 sources) Peripheral vertigo; Translations: [Other peripheral vertigo, unspecified ear] Onset: 02-11-2024 02-11-2024 Episodic Other lower respiratory disease (15 sources) Cough; Translations: [Cough, unspecified] Onset: 11-30-2022 02-11-2024 Episodic Spondylosis; intervertebral disc disorders; other back problems (20 sources) Sciatica; Translations: [Sciatica, unspecified side] Onset: 02-11-2024 02-11-2024 Episodic Unclassified (1 source) COUGH, UNSPECIFIED; Translations: [COUGH, UNSPECIFIED] Onset: 11-30-2022 Urinary tract infections (15 sources) Emphysematous pyelonephritis; Translations: [Tubulo-interstitial nephritis, not specified as acute or chronic] Onset: 02-11-2024 02-11-2024 Episodic Results Test Name Value Interpretation Reference Range Facility BETA 2 GLYCOPROTEIN, IGGon 1 Beta 2 glycoprotein 1 IgG IA Qn <9 Normal <20 [facility] Comment on above: Order Comment: Speci men Type: BLOOD SPECIMEN [facility]ing Facility[facility] Address: [address] [place] [address] [facility] Result Comment: <20 [facility]U Negative 20-80 [facility] Low Positive >80 [facility] High Positive These results were obtained with the [employer] QUANTA Lite B2 GPI IgG FAREED. B2 GPI IgG values obtained with different manufacturers' assay methods may not be used interchangeably. The magnitude of the reported IgG levels cannot be correlated to an endpoint titer. Performed By: #### 5 076-5, BETA2M, CARDIG, BETA2G, 22380-8 #### [facility] CLIA [id number] [address] [place] [address] [place] BETA 2 GLYCOPROTEIN, IGMon 1 Beta 2 glycoprotein 1 IgM IA Qn <9 Normal <20 [facility] Comment on above: Order Comment: Delphine dowd Type: BLOOD SPECIMEN [facility]ing Facility: [facility] Address: [address] [place] [address] Result Comment: <20 [facility]U Negative 20-80 [facility] Low Positive >80 [facility] High positive These results were obtained with the [employer] QUANTA Lite B2 GPI IgM FAREED. B2 GPI IgM values obtained with different manufacturers' assay methods may not be used interchangeably. The magnitude of the reported IgM levels cannot be correlated to an endpoint titer. Performed By: #### 5 076-5, BETA2M, CARDIG, BETA2G, 56266-6 #### [facility] CLIA [id number] [address] [place] [address] [place] BLOOD TB SCREENon 08-12-2025 M. tuberculosis tuberculin stim IFN-g Ql (Bld) Negative Normal [facility] Comment on above: Order Comment: Speci nile Type: BLOOD SPECIMEN [facility]ing Facility: [facility] Address: [address] [place] [address] Performed By: #### I NFTBP #### [facility] CLIA [id number] [address] [place] [address] [place] MITOGEN MINUS NIL >9.96 Normal >=0.50 [facility] Comment on above: Order Comment: Delphine dowd Type: BLOOD SPECIMEN [facility]ing Facility[facility] Address: [address] [place] [address] Performed By: #### I NFTBP #### [facility] CLIA [id number] [address] [place] [address] [place] TB GAMMA INTERPRETATION Infection with M. tuberculosis complex is unlikely. If latent tuberculosis infection is highly suspected, a negative result does not rule out the infection. Specimens from immunocompromised patients and those <5 years of age may show false negative results. In case of a contact investigation, please repeat 8-12 weeks after a known exposure. Normal [facility] Comment on above: Order Comment: Speci men Type: BLOOD SPECIMEN [facility]: [facility] Address: [address] [place] [address] Performed By: #### I NFTBP #### [facility] CLIA [id number] [address] [place] [address] [place] TB NIL 0.04 IU/mL Normal <=8.00 [facility] Comment on above: Order Comment: Speci men Type: BLOOD SPECIMEN [facility]ing Facility: [facility] Address: [address] [place] [address] Performed By: #### I NFTBP #### [facility] CLIA [id number] [address] [place] [address] [place] TB1 AG MINUS NIL 0.00 IU/mL Normal <0.35 [facility] Comment on above: Order Comment: Speci men Type: BLOOD SPECIMEN [facility] Address: [address] [place] [address] Performed By: #### I NFTBP #### [facility] CLIA [id number] [address] [place] [address] [place] TB2 AG MINUS NIL 0.00 IU/mL Normal <0.35 [facility] Comment on above: Order Comment: Speci men Type: BLOOD SPECIMEN [facility]ing Facility: [facility] Address: [address] [place] [address] Performed By: #### I NFTBP #### [facility] CLIA [id number] [address] [place] [address] [place] C3 SerPl-mCncon 08-12-2025 Complement C3 [Mass/Vol] 164 mg/dL Normal 86-166 [facility] Comment on above: Order Comment: Speci men Type: BLOOD SPECIMEN [facility]ing [facility] Address: [address] [place] [address] Performed By: #### 5 076-5, BETA2M, CARDIG, BETA2G, 73250-3 #### [facility] CLIA [id number] [address] [place] [address] [place] C4 SerPl-mCncon 08-12-2025 Complement C4 [Mass/Vol] 25 mg/dL Normal 13-46 [facility] Comment on above: Order Comment: Speci men Type: BLOOD SPECIMEN [facility]ing [facility]: [facility] Address: [address] [place] [address] Performed By: #### 5 076-5, BETA2M, CARDIG, BETA2G, 23973-0 #### [facility] CLIA [id number] [address] [place] [address] [place] CARDIOLIPIN IGG ABSon 2024 Cardiolipin IgG IA Qn (S) <9.0 Normal <15.0 [facility] Comment on above: Order Comment: Speci [facility] Type: BLOOD SPECIMEN [facility] Address: [address] [place] [address] Result Comment: <15 GPL Negative 15-20 GPL Indeterminate >20 GPL Positive The following results were obtained with the geoladA Lite JOSE IgG III FAREED. Cardiolipin IgG values obtained with the different manufacturers' assay methods may not be used interchangeably. The magnitude of the reported IgG levels cannot be correlated to an endpoint titer. Performed By: #### 5 076-5, BETA2M, CARDIG, BETA2G, 34500-7 #### [facility] CLIA [id number] [address] [place] [address] [place] CARDIOLIPIN IGM ABSon 2024 Cardiolipin IgM IA Qn (S) <9.0 Normal <12.5 [facility] Comment on above: Order Comment: Speci nile Type: BLOOD SPECIMEN Ordering [facility] Address: [address] [place] [address] Result Comment: <12. 5 MPL Negative 12.5-20 MPL Indeterminate >20 MPL Positive The following results were obtained with the geoladA Lite JOSE IgM III FAREED. Cardiolipin IgM values obtained with the different manufacturers' assay methods may not be used interchangeably. The magnitude of the reported IgM levels cannot be correlated to an endpoint titer. ??? Performed By: #### C JORDI #### [facility] [place] [id number] [address] [place] [address] [place] CBC W Auto Differential pane l (Bld)on 08-12-2025 Basophils (Bld) [#/Vol] 0.04 10*3/uL Normal <0.11 [facility] Comment on above: Order Comment: Speci men Type: BLOOD SPECIMEN [facility]ing [facility] Address: [address] [place] [address] Performed By: #### 5 076-5, BETA2M, CARDIG, BETA2G, 37437-8 #### [facility] CLIA [id number] [address] [place] [address] [place] Basophils/100 WBC (Bld) 0.6 % Normal [facility] Comment on above: Order Comment: Speci men Type: BLOOD SPECIMEN [facility] Address: [address] [place] [address] Performed By: #### 5 076-5, BETA2M, CARDIG, BETA2G, 81603-7 #### [facility] CLIA [id number] [address] [place] [address] [place] Differential cell count method Nom (Bld) Auto Normal [facility] Comment on above: Order Comment: Speci men Type: BLOOD SPECIMEN [facility]ing [facility] Address: [address] [place] [address] Performed By: #### 5 076-5, BETA2M, CARDIG, BETA2G, 46494-4 #### [facility] CLIA [id number] [address] [place] [address] [place] Eosinophils (Bld) [#/Vol] 0.12 10*3/uL Normal <0.46 [facility] Comment on above: Order Comment: Speci men Type: BLOOD SPECIMEN [facility]ing [facility] Address: [address] [place] [address] Performed By: #### 5 076-5, BETA2M, CARDIG, BETA2G, 75402-4 #### [facility] CLIA [id number] [address] [place] [address] [place] Eosinophils/100 WBC (Bld) 1.7 % Normal [facility] Comment on above: Order Comment: Speci men Type: BLOOD SPECIMEN [facility] Address: [address] [place] [address] Performed By: #### 5 076-5, BETA2M, CARDIG, BETA2G, 60175-9 #### [facility] CLIA [id number] [address] [place] [address] [place] Erythrocyte distribution width (RBC) [Ratio] 13.3 % Normal 11.5-15.0 [facility] Comment on above: Order Comment: Speci men Type: BLOOD SPECIMEN [facility]ing [facility] Address: [address] [place] [address] Performed By: #### 5 076-5, BETA2M, CARDIG, BETA2G, 22404-6 #### [facility] CLIA [id number] [address] [place] [address] [place] Hematocrit (Bld) [Volume fraction] 41.3 % Normal 36.0-46.0 [facility] Comment on above: Order Comment: Speci men Type: BLOOD SPECIMEN [facility]ing [facility] Address: [address] [place] [address] Performed By: #### 5 076-5, BETA2M, CARDIG, BETA2G, 24705-4 #### [facility] CLIA [id number] [address] [place] [address] [place] Hemoglobin (Bld) [Mass/Vol] 12.9 g/dL Normal 11.5-15.5 [facility] Comment on above: Order Comment: Speci men Type: BLOOD SPECIMEN [facility] Address: [address] [place] [address] Performed By: #### 5 076-5, BETA2M, CARDIG, BETA2G, 01611-1 #### [facility] CLIA [id number] [address] [place] [address] [place] Immature granulocytes (Bld) [#/Vol] 0.03 10*3/uL Normal <0.10 [facility] Comment on above: Order Comment: Speci men Type: BLOOD SPECIMEN [facility] Address: [address] [place] [address] Performed By: #### 5 076-5, BETA2M, CARDIG, BETA2G, 08184-0 #### [facility] CLIA [id number] [address] [place] [address] [place] Immature granulocytes/100 WBC (Bld) 0.4 % Normal [facility] Comment on above: Order Comment: Speci men Type: BLOOD SPECIMEN [facility] Address: [address] [place] [address] Performed By: #### 5 076-5, BETA2M, CARDIG, BETA2G, 74668-8 #### [facility] CLIA [id number] [address] [id number] [address] [place] Lymphocytes (Bld) [#/Vol] 1.25 10*3/uL Normal 1.00-4.00 [facility] Comment on above: Order Comment: Speci men Type: BLOOD SPECIMEN [facility] Address: [address] [place] [address] Performed By: #### 5 076-5, BETA2M, CARDIG, BETA2G, 20668-0 #### [facility] CLIA [id number] [address] [place] [address] [place] Lymphocytes/100 WBC (Bld) 18.0 % Normal [facility] Comment on above: Order Comment: Speci men Type: BLOOD SPECIMEN [facility] Address: [address] [place] [address] Performed By: #### 5 076-5, BETA2M, CARDIG, BETA2G, 13019-8 #### [facility] CLIA [id number] [address] [place] [address] [place] MCH (RBC) [Entitic mass] 27.1 pg Normal 26.0-34.0 [facility] Comment on above: Order Comment: Speci men Type: BLOOD SPECIMEN [facility] Address: [address] [place] [address] Performed By: #### 5 076-5, BETA2M, CARDIG, BETA2G, 31289-8 #### [facility] CLIA [id number] [address] [place] [address] [place] MCHC (RBC) [Mass/Vol] 31.2 g/dL Normal 30.5-36.0 [facility] Comment on above: Order Comment: Speci men Type: BLOOD SPECIMEN [facility] Address: [address] [place] [address] Performed By: #### 5 076-5, BETA2M, CARDIG, BETA2G, 71896-9 #### [facility] CLIA [id number] [address] [place] [address] [place] MCV (RBC) [Entitic vol] 86.8 fL Normal 80.0-100.0 [facility] Comment on above: Order Comment: Speci men Type: BLOOD SPECIMEN [facility] Address: [address] [place] [address] Performed By: #### 5 076-5, BETA2M, CARDIG, BETA2G, 41319-6 #### [facility] CLIA [id number] [address] [place] [address] [place] Monocytes (Bld) [#/Vol] 0.63 10*3/uL Normal <0.87 [facility] Comment on above: Order Comment: Speci men Type: BLOOD SPECIMEN [facility] Address: [address] [place] [address] Performed By: #### 5 076-5, BETA2M, CARDIG, BETA2G, 04033-9 #### [facility] [place] [id number] [address] [place] [address] [place] Monocytes/100 WBC (Bld) 9.1 % Normal [facility] Comment on above: Order Comment: Speci men Type: BLOOD SPECIMEN [facility] Address: [address] [place] [address] Performed By: #### 5 076-5, BETA2M, CARDIG, BETA2G, 77367-2 #### [facility] CLIA [id number] [address] [place] [address] [place] Neutrophils (Bld) [#/Vol] 4.87 10*3/uL Normal 1.45-7.50 [facility] Comment on above: Order Comment: Speci men Type: BLOOD SPECIMEN [facility] Address: [address] [place] [address] Performed By: #### 5 076-5, BETA2M, CARDIG, BETA2G, 55705-1 #### [facility] CLIA [id number] [address] [place], [place] [address] [place] Neutrophils/100 WBC (Bld) 70.2 % Normal [facility] Comment on above: Order Comment: Speci men Type: BLOOD SPECIMEN [facility] Address: [address] [place] [address] Performed By: #### 5 076-5, BETA2M, CARDIG, BETA2G, 08250-4 #### [facility] CLIA [id number] [address] [place] [address] [place] Nucleated RBC (Bld) [#/Vol] 10*3/uL Normal <0.01 [facility] Comment on above: Order Comment: Speci men Type: BLOOD SPECIMEN [facility] Address: [address] [place] [address] Performed By: #### 5 076-5, BETA2M, CARDIG, BETA2G, 39942-9 #### [facility] IA [id number] [address] [place] [address] [place] Nucleated RBC/100 WBC (Bld) [Ratio] 0.0 /[address] [facility] Comment on above: Order Comment: Speci men Type: BLOOD SPECIMEN [facility] Address: [address] [place] [address] Performed By: #### 5 076-5, BETA2M, CARDIG, BETA2G, 66736-2 #### [facility] CLIA [id number] [address] [place], [place] [address] [place] Platelet mean volume (Bld) [Entitic vol] 9.3 fL Normal 9.0-12.7 [facility] Comment on above: Order Comment: Speci men Type: BLOOD SPECIMEN [facility] Address: [address] [place] [address] Performed By: #### 5 076-5, BETA2M, CARDIG, BETA2G, 72791-9 #### [facility] CLIA [id number] [address] [place] [address] [place] Platelets (Bld) [#/Vol] 319 10*3/uL Normal 150-400 [facility] Comment on above: Order Comment: Speci men Type: BLOOD SPECIMEN [facility] Address: [address] [place] [address] Performed By: #### 5 076-5, BETA2M, CARDIG, BETA2G, 77410-8 #### [facility] CLIA [id number] [address] [place] [address] [place] RBC (Bld) [#/Vol] 4.76 10*6/uL Normal 3.90-5.20 [facility] Comment on above: Order Comment: Speci men Type: BLOOD SPECIMEN [facility] Address: [address] [place] [address] Performed By: #### 5 076-5, BETA2M, CARDIG, BETA2G, 77576-8 #### [facility] CLIA [id number] [address] [place] [address] [place] WBC (Bld) [#/Vol] 6.94 10*3/uL Normal 3.70-11.00 [facility] Comment on above: Order Comment: Speci men Type: BLOOD SPECIMEN [facility] Address: [address] [place] [address] Performed By: #### 5 076-5, BETA2M, CARDIG, BETA2G, 08158-2 #### [facility] CLIA [id number] [address] [place] [address] OF [place] CNOVon 08-12-2025 CNOV Office Visit (RHEUMN ) PAT KNOTT ([id number]) 1965 F Date Time Provider Department 08/12/25 11:00 AM NARCISO CENTENO RHEUMN During your visit today, we recorded the following information about you: Temperature Pulse Blood pressure Weight 97.2 degrees 78/minute 129/84 95.8 kg Height 1.626 m Narciso Centeno, 08/12/2025 2:33 PM Signed Rheumatology CONSULTATION Date of Service: 08/12/2025 Patient: Pat Knott Medical Record: [id number] Primary Care Physician: Delvis Lr MD Last Rheumatology visit: None at [facility] Referring Provider: Delvis Lr [address] [facility] [address] Pat Knott is here today at request of Dr. Lr specifically for consultation of my opinion in regards to the chief complaint listed below. Correspondence will be shared today via the [employer] electronic health record or through regular mail, where applicable. Recording using [employer] software for draft documentation of the visit was discussed with the patient/authorized food service sales representatives; all questions welcomed and answered. Patient/authorized food service sales representatives agreed to proceed History of Present Illness Pat Knott is a 59 year old White female who presents on 08/12/2025 for an in-person visit for evaluation of Joint Pain. Pat reports a current pain level of 5 (Hand-Right). She describes the pain as Aching, Cramping, Numbness, Stiffness, Throbbing. The pain is Intermittent . Interventions tried include Medication, Reposition, Relaxation, Cold, Heat. The pain is not constant. Stiffness and some times painful. She is currently taking diclofenac sodium, meloxicam, methotrexate sodium. Onset of symptoms began at age 59. Pat is RF positive. She does not have erosive disease. There are no rheumatoid nodules present. Pat has mild joint swelling. She reports morning stiffness . HISTORY OF PRESENT ILLNESS Review of outside labs from November 2023 shows CBC with normal cell lines, CMP with normal creatinine elevation of ALT of 64 units/L. Reviewed additional lab results on her phone from Jul 08, 2025: ESR elevated to 53 mm/hr, Rheumatoid factor positive 65 unit/mL (normal <14), LES postiive 1:160 speckled, CRP elevated to 0.95 The patient is a 59-year-old female with a history of hypothyroidism, sleep apnea, and osteopenia, presenting with bilateral hand pain and swelling. The patient reports a history of bilateral hand pain and swelling, with the right hand being more affected. Symptoms began prior to March 2024, with worsening pain and swelling over time. In early May, she experienced severe pain and limited mobility in her left hand and wrist. She was evaluated by a nurse practitioner, who ordered x-rays and prescribed a possible Medrol Dosepak, which provided relief. In late May or early June 2025, the patient sustained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 mg/mg is considered moderately increased >0.50 mg/mg is considered severely increased KDIGO. (2013). KDIGO 2012 Clinical Practice Guideline for the Evaluation and Management of Chronic Kidney Disease. Official Journal of the International Society of Nephrology, 3(1), 1-150. Performed By: #### 5 076-5, BETA2M, CARDIG, BETA2G, 72168-0 #### [facility] CLIA [id number] [address] [place] [address] [place] Protein/Creatinine (U) [Mass ratio]on 08-12-2025 Creatinine (U) [Mass/Vol] 64.8 mg/dL Normal 20.0-300.0 [facility] Comment on above: Order Comment: Speci men Type: BLOOD SPECIMEN [facility] Address: [address] [place] [address] Performed By: #### 5 076-5, BETA2M, CARDIG, BETA2G, 47280-0 #### [facility] CLIA [id number] [address] [place] [address] [place] Protein (U) [Mass/Vol] 5 mg/dL Normal 0-20 [facility] Comment on above: Order Comment: Delphine dowd Type: BLOOD SPECIMEN [facility] Address: [address] [place] [address] Performed By: #### 5 076-5, BETA2M, CARDIG, BETA2G, 19116-2 #### [facility] CLIA [id number] [address] [place] [address] [place] Ribonucleoprotein extractabl e nuclear Ab Qn (S)on 08-12-2025 ANTI-LAUNCH OPERATOR QUAL Negative Normal Negative [facility] Comment on above: Order Comment: Delphine dowd Type: BLOOD SPECIMEN [facility] Address: [address] [place] [address] Performed By: #### 5 076-5, BETA2M, CARDIG, BETA2G, 65475-6 #### [facility] CLIA [id number] [address] [place] [address] [place] RIBOSOMAL LAUNCH OPERATOR QUAL Negative Normal Negative [facility] Comment on above: Order Comment: Delphine dowd Type: BLOOD SPECIMEN [facility] Address: [address] [place] [address] Result Comment: Anti -Ribosomal RNA (Ribosomal P) antibody is used as an aid in diagnosis of systemic autoimmune diseases especially systemic lupus erythematosus and mixed connective tissue disease. Cross-reactivity with Anti-ty antibody is not uncommon. Clinical correlation is required. Test Methodology: Multiplex flow immunoassay. Performed By: #### 4 7322-3, 18826-8, 42269-7, 36833-8, 26710-8, 53636-2, 53627-7, 64768-9 #### [facility] CLIA [id number] [address] [place] [address] [place] SCL-70 extractable nuclear I gG IA Qn (S)on 08-12-2025 SCLERODERMA AB QUAL Negative Normal Negative [facility] Comment on above: Order Comment: Speci men Type: BLOOD SPECIMEN [facility] Address: [address] [place] [address] Performed By: #### 5 076-5, BETA2M, CARDIG, BETA2G, 95020-0 #### [facility] CLIA [id number] [address] [place] [address] [place] SCLERODERMA IGG AB <0.2 Normal <1.0 [facility] Comment on above: Order Comment: Speci men Type: BLOOD SPECIMEN [facility] Address: [address] [place] [address] Result Comment: Scl- 70/Scleroderma antibody test is used as an aid in diagnosis of systemic sclerosis especially the diffuse cutaneous form. A negative result cannot rule out systemic sclerosis. The final interpretation should consider clinical picture and other test results such as anti-centromere antibody. Test Methodology: Multiplex flow immunoassay. Performed By: #### 5 076-5, BETA2M, CARDIG, BETA2G, 83266-9 #### [facility] CLIA [id number] [address] [place] [address] [place] Sjogrens syndrome-A extracta ble nuclear Ab Qn (S)on 08-12-2025 SSA ANTIBODY QUAL Negative Normal Negative [facility] Comment on above: Order Comment: Speci men Type: BLOOD SPECIMEN [facility] Address: [address] [place] [address] Performed By: #### 5 076-5, BETA2M, CARDIG, BETA2G, 92839-8 #### [facility] CLIA [id number] [address] [place] [address] [place] Sjogrens syndrome-B extracta ble nuclear Ab Qn (S)on 08-12-2025 SSB ANTIBODY QUAL Negative Normal Negative [facility] Comment on above: Order Comment: Speci men Type: BLOOD SPECIMEN [facility] Address: [address] [place] [address] Performed By: #### 5 076-5, BETA2M, CARDIG, BETA2G, 74202-5 #### [facility] CLIA [id number] [address] [place] [address] [place] Ty extractable nuclear Ig G Qn (S)on 08-12-2025 SM ANTIBODY QUAL Negative Normal Negative [facility] Comment on above: Order Comment: Speci men Type: BLOOD SPECIMEN [facility] Address: [address] [place] [address] Result Comment: Anti -Sm (Ty) antibody is used as an aid in diagnosis of systemic lupus erythematosus and its presence is associated with renal disease. A negative result cannot rule out systemic lupus erythematosus. Clinical correlation is required. Test Methodology: Multiplex flow immunoassay. Performed By: #### 5 076-5, BETA2M, CARDIG, BETA2G, 35816-4 #### [facility] CLIA [id number] [address] [place] [address] [place] Urinalysis complete panel (U )on 08-12-2025 Bacteria LM.HPF (Urine sed) [#/Area] Negative Normal Negative [facility] Comment on above: Order Comment: Speci men Type: URINE SPECIMEN [facility] Address: [address] [place] [address] Performed By: #### 2 4356-8 #### [facility] CLIA [id number] [address] [place] [address] [place] Bilirubin Ql (U) Negative Normal Negative [facility] Comment on above: Order Comment: Speci men Type: URINE SPECIMEN [facility] Address: [address] [place] [address] Performed By: #### 2 4356-8 #### [facility] CLIA [id number] [address] [place] [address] [place] Clarity (Unsp spec) Clear Normal Clear [facility] Comment on above: Order Comment: Speci men Type: URINE SPECIMEN [facility] Address: [address] [place] [address] Performed By: #### 2 4356-8 #### [facility] CLIA [id number] [address] [place] [address] [place] Color (U) Yellow Normal Yellow [facility] Comment on above: Order Comment: Speci men Type: URINE SPECIMEN [facility] Address: [address] [place] [address] Performed By: #### 2 4356-8 #### [facility] CLIA [id number] [address] [place] [address] [place] Epithelial cells LM.HPF (Urine sed) [#/Area] None Seen Normal [facility] Comment on above: Order Comment: Speci men Type: URINE SPECIMEN [facility] Address: [address] [place] [address] Performed By: #### 2 4356-8 #### [facility] CLIA [id number] [address] [place] [address] [place] Glucose Test strip (U) [Mass/Vol] Negative Normal Negative [facility] Comment on above: Order Comment: Speci men Type: URINE SPECIMEN [facility] Address: [address] [place] [address] Performed By: #### 2 4356-8 #### [facility] CLIA [id number] [address] [place] [address] [place] Hemoglobin Ql (U) Negative Normal Negative [facility] Comment on above: Order Comment: Speci men Type: URINE SPECIMEN [facility] Address: [address] [place] [address] Performed By: #### 2 4356-8 #### [facility] CLIA [id number] [address] [place] [address] [place] Hyaline casts (Urine sed) [#/Area] 0 /[LPF] Normal 0 /LPF [facility] Comment on above: Order Comment: Speci men Type: URINE SPECIMEN [facility] Address: [address] [place] [address] Performed By: #### 2 4356-8 #### [facility] CLIA [id number] [address] [place] [address] [place] Ketones Ql (U) Negative Normal Negative [facility] Comment on above: Order Comment: Speci men Type: URINE SPECIMEN [facility] Address: [address] [place] [address] Performed By: #### 2 4356-8 #### [facility] CLIA [id number] [address] [place] [address] [place] Leukocyte esterase Test strip Ql (U) 2+ Abnormal Negative [facility] Comment on above: Order Comment: Speci men Type: URINE SPECIMEN [facility] Address: [address] [place] [address] Performed By: #### 2 4356-8 #### [facility] CLIA [id number] [address] [place] [address] [place] Nitrite Ql (U) Negative Normal Negative [facility] Comment on above: Order Comment: Speci men Type: URINE SPECIMEN [facility] Address: [address] [place] [address] Performed By: #### 2 4356-8 #### [facility] CLIA [id number] [address] [place] [address] [place] pH (U) 7.5 [pH] Normal 5.0-8.0 [facility] Comment on above: Order Comment: Speci men Type: URINE SPECIMEN [facility] Address: [address] [place] [address] Performed By: #### 2 4356-8 #### [facility] CLIA [id number] [address] [place] [address] [place] Protein (U) [Mass/Vol] Negative Normal Negative [facility] Comment on above: Order Comment: Speci men Type: URINE SPECIMEN [facility] Address: [address] [place] [address] Performed By: #### 2 4356-8 #### [facility] CLIA [id number] [address] [place] [address] [place] RBC LM.HPF (Urine sed) [#/Area] 0-2 /HPF Normal 0-2 /HPF [facility] Comment on above: Order Comment: Speci men Type: URINE SPECIMEN [facility] Address: [address] [place] [address] Performed By: #### 2 4356-8 #### [facility] CLIA [id number] [address] [place] [address] [place] Specific gravity (U) [Rel density] 1.015 Normal 1.005-1.030 [facility] Comment on above: Order Comment: Speci men Type: URINE SPECIMEN [facility] Address: [address] [place] [address] Performed By: #### 2 4356-8 #### [facility] CLIA [id number] [address] [place] [address] [place] Urobilinogen Ql (U) 0.2 EU/dL Normal 0.2-1.0 EU/dL [facility] Comment on above: Order Comment: Speci men Type: URINE SPECIMEN [facility] Address: [address] [place] [address] Performed By: #### 2 4356-8 #### [facility] CLIA [id number] [address] [place] [address] [place] WBC LM.HPF (Urine sed) [#/Area] 11-20 /HPF Abnormal 0-5 /HPF [facility] Comment on above: Order Comment: Speci men Type: URINE SPECIMEN [facility] Address: [address] [place] [address] Performed By: #### 2 4356-8 #### [facility] CLIA [id number] [address] [place] [address] [place] [address] [place] [facility] XR CHEST 2V FRONTAL/LATon XR CHEST 2V FRONTAL/LAT * * *Final Report* * * DATE OF EXAM: Aug 12 2025 2:31PM IVET [id number] - XR CHEST 2V FRONTAL/LAT / PROCEDURE REASON: Rheumatoid factor positive * * * * Physician Interpretation * * * * EXAMINATION: CHEST RADIOGRAPH (2 VIEW FRONTAL and LATERAL) CLINICAL HISTORY: Rheumatoid factor positive MQ: XC2_6 EXAM DATE/TIME: 08/12/2025 2:31 PM COMPARISON: No relevant prior studies available. RESULT: Lines, tubes, and devices: None. Lungs and pleura: No consolidation. No lung mass. No pleural effusion. No pneumothorax. Cardiomediastinal silhouette: Normal cardiomediastinal silhouette. Bones and soft tissues: Degenerative changes are present within the thoracic spine. IMPRESSION: No acute radiographic abnormality. 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 XR FOOT 3V AP/LAT/OBL BILon 08-12-2025 XR FOOT 3V AP/LAT/OBL JOSE * * *Final Report* * * DATE OF EXAM: Aug 12 2025 2:31PM IVET 5555 - XR FOOT 3V AP/LAT/OBL JOSE / PROCEDURE REASON: Pain in joint involving ankle and foot, unspecified laterality * * * * Physician Interpretation * * * * EXAMINATION / TECHNIQUE: XR HAND 3V PA/LAT/OBL JOSE, XR FOOT 3V AP/LAT/OBL JOSE, XR KNEE 2V AP/LAT RT PATIENT/TECHNOLOGIST PROVIDED HISTORY: Chronic JOSE hand pain and stiffness, no injury. (accession [id number]), Chronic JOSE foot pain and stiffness, no recent injury. (accession [id number]), Chronic pain in R knee, recent fall off a bike caused more pain. (accession [id number]) CLINICAL INFORMATION ( PROVIDED BY ORDERING CLINICIAN) : Chronic pain of right knee Chronic pain of right knee COMPARISON: RESULT: Bilateral hands: No erosions. No malalignment. Mild degenerative changes throughout the hands with areas of joint space narrowing and early osteophytes most prominent at the first MCP joints bilaterally but also present elsewhere. Small posttraumatic ossicle at the left ulnar styloid. No acute fracture or dislocation. Bilateral feet: Juxta articular erosions along the medial aspect of the right first interphalangeal joint with some adjacent soft tissue swelling suggestive of gout. Alternatively, this may represent degenerative or reactive subcortical cystic changes given the atypical focal appearance. No definite other erosions are identified. No acute fracture or dislocation. Minimal first MTP joint degenerative changes bilaterally with early osteophytic lipping and relatively maintained joint spaces. Remaining joint spaces are relatively maintained. Small plantar and posterior calcaneal enthesophytes bilaterally. No acute fracture or dislocation. Right knee: Medial Compartment: Subjective: No degenerative changes. KL Grade 0: No radiographic features of OA are present. Lateral Compartment: Subjective: No degenerative changes. KL Grade 0: No radiographic features of OA are present. Patellofemoral Compartment: Subjective: Mild degenerative changes, with a subchondral cyst in the patella. KL Grade 2: Definite osteophytes and/or possible joint space narrowing. Other: No acute fracture or dislocation. No erosions are sizable joint effusion. Left knee is unremarkable. IMPRESSION: 1. No radiographic evidence for inflammatory arthritis. 2. Suspected juxta articular erosions at the right great toe first interphalangeal joint raises suspicion for gout; these may alternatively represent reactive/degenerative changes given atypical focal appearance. 3. Mild scattered degenerative changes, as described. Grain Broker And Market Operator: PSCB Transcribe Date/Time: Aug 13 2025 8:43A Dictated by : SHILOH HERNANDEZ MD This examination was interpreted and the report reviewed and electronically signed by: SHILOH HERNANDEZ MD on Aug 13 2025 8:49AM EST [id number] N Normal [facility] XR HAND 3V PA/LAT/OBL BILon 08-12-2025 XR HAND 3V PA/LAT/OBL JOSE * * *Final Report* * * DATE OF EXAM: Aug 12 2025 2:31PM IVET [id number] - XR HAND 3V PA/LAT/OBL JOSE / PROCEDURE REASON: multiple diagnoses * * * * Physician Interpretation * * * * EXAMINATION / TECHNIQUE: XR HAND 3V PA/LAT/OBL JOSE, XR FOOT 3V AP/LAT/OBL JOSE, XR KNEE 2V AP/LAT RT PATIENT/TECHNOLOGIST PROVIDED HISTORY: Chronic JOSE hand pain and stiffness, no injury. (accession [id number]), Chronic JOSE foot pain and stiffness, no recent injury. (accession [id number]), Chronic pain in R knee, recent fall off a bike caused more pain. (accession [id number]) CLINICAL INFORMATION ( PROVIDED BY ORDERING CLINICIAN) : Chronic pain of right knee Chronic pain of right knee COMPARISON: RESULT: Bilateral hands: No erosions. No malalignment. Mild degenerative changes throughout the hands with areas of joint space narrowing and early osteophytes most prominent at the first MCP joints bilaterally but also present elsewhere. Small posttraumatic ossicle at the left ulnar styloid. No acute fracture or dislocation. Bilateral feet: Juxta articular erosions along the medial aspect of the right first interphalangeal joint with some adjacent soft tissue swelling suggestive of gout. Alternatively, this may represent degenerative or reactive subcortical cystic changes given the atypical focal appearance. No definite other erosions are identified. No acute fracture or dislocation. Minimal first MTP joint degenerative changes bilaterally with early osteophytic lipping and relatively maintained joint spaces. Remaining joint spaces are relatively maintained. Small plantar and posterior calcaneal enthesophytes bilaterally. No acute fracture or dislocation. Right knee: Medial Compartment: Subjective: No degenerative changes. KL Grade 0: No radiographic features of OA are present. Lateral Compartment: Subjective: No degenerative changes. KL Grade 0: No radiographic features of OA are present. Patellofemoral Compartment: Subjective: Mild degenerative changes, with a subchondral cyst in the patella. KL Grade 2: Definite osteophytes and/or possible joint space narrowing. Other: No acute fracture or dislocation. No erosions are sizable joint effusion. Left knee is unremarkable. IMPRESSION: 1. No radiographic evidence for inflammatory arthritis. 2. Suspected juxta articular erosions at the right great toe first interphalangeal joint raises suspicion for gout; these may alternatively represent reactive/degenerative changes given atypical focal appearance. 3. Mild scattered degenerative changes, as described. Grain Broker And Market Operator: PSCB Transcribe Date/Time: Aug 13 2025 8:43A Dictated by : SHILOH HERNANDEZ MD This examination was interpreted and the report reviewed and electronically signed by: SHILOH HERNANDEZ MD on Aug 13 2025 8:49AM EST [id number] N Normal [facility] XR KNEE 2V AP/LAT RTon 08-12 XR KNEE 2V AP/LAT RT * * *Final Report* * * DATE OF EXAM: Aug 12 2025 2:31PM IVET [id number] - XR KNEE 2V AP/LAT RT / PROCEDURE REASON: multiple diagnoses * * * * Physician Interpretation * * * * EXAMINATION / TECHNIQUE: XR HAND 3V PA/LAT/OBL JOSE, XR FOOT 3V AP/LAT/OBL JOSE, XR KNEE 2V AP/LAT RT PATIENT/TECHNOLOGIST PROVIDED HISTORY: Chronic JOSE hand pain and stiffness, no injury. (accession [id number]), Chronic JOSE foot pain and stiffness, no recent injury. (accession [id number]), Chronic pain in R knee, recent fall off a bike caused more pain. (accession [id number]) CLINICAL INFORMATION ( PROVIDED BY ORDERING CLINICIAN) : Chronic pain of right knee Chronic pain of right knee COMPARISON: RESULT: Bilateral hands: No erosions. No malalignment. Mild degenerative changes throughout the hands with areas of joint space narrowing and early osteophytes most prominent at the first MCP joints bilaterally but also present elsewhere. Small posttraumatic ossicle at the left ulnar styloid. No acute fracture or dislocation. Bilateral feet: Juxta articular erosions along the medial aspect of the right first interphalangeal joint with some adjacent soft tissue swelling suggestive of gout. Alternatively, this may represent degenerative or reactive subcortical cystic changes given the atypical focal appearance. No definite other erosions are identified. No acute fracture or dislocation. Minimal first MTP joint degenerative changes bilaterally with early osteophytic lipping and relatively maintained joint spaces. Remaining joint spaces are relatively maintained. Small plantar and posterior calcaneal enthesophytes bilaterally. No acute fracture or dislocation. Right knee: Medial Compartment: Subjective: No degenerative changes. KL Grade 0: No radiographic features of OA are present. Lateral Compartment: Subjective: No degenerative changes. KL Grade 0: No radiographic features of OA are present. Patellofemoral Compartment: Subjective: Mild degenerative changes, with a subchondral cyst in the patella. KL Grade 2: Definite osteophytes and/or possible joint space narrowing. Other: No acute fracture or dislocation. No erosions are sizable joint effusion. Left knee is unremarkable. IMPRESSION: 1. No radiographic evidence for inflammatory arthritis. 2. Suspected juxta articular erosions at the right great toe first interphalangeal joint raises suspicion for gout; these may alternatively represent reactive/degenerative changes given atypical focal appearance. 3. Mild scattered degenerative changes, as described. 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 cCP IgG SerPl-aCncon 025 Cyclic citrullinated peptide IgG Qn >250 High <20 [facility] Comment on above: Order Comment: Speci men Type: BLOOD SPECIMEN Ordering Facility: [facility] Address: [address] [place] [address] Performed By: #### 5 076-5, BETA2M, CARDI, BETA2G, 20819-3 #### [facility] CLIA [id number] [address] [place] [address] [place] [address] MAXILLOFACIAL W/O CONTRAS Ton 02-07-2025 Exam [...] of the paranasal sinuses without contrast with Sprink[employer] protocol. Routine multiplanar reconstructions were performed. All [...] Rangel MD Transcribed by: ABDIFATAH Technologist: JULIANNE [facility], Radiologist, - 02/08/2025 Exam Date/Time: 02/06/2025 [...] of the paranasal sinuses without contrast with Sprinklr protocol. Routine multiplanar reconstructions were performed. All [...] Michael Rangel MD Transcribed by: ABDIFATAH Technologist: [facility] [employer] CT MAXILLOFACIAL W/O CONTRAS TOrdered By: Radiologist Radiology on 02-07-2025 [employer] Work Phone: CT Maxillofacial w/o Contras ton [...] of the paranasal sinuses without contrast with [employer] protocol. Routine multiplanar reconstructions were performed. All [...] Rangel MD Transcribed by: ABDIFATAH Technologist: JULIANNE [facility] CT MAXILLOFACIAL W/O THOM Peterson 02-06-2025 Radiology Study observation (narrative) [facility] 09-21-2024 [facility] Telephone (ORQ) PAT KNOTT ([id number]) 1965 F Date Time Provider Department 09/21/24 [...] OCCA - Fully Assessed Reason for Visit: [employer]ug [employer] Operator - Other [[id number]] Cmt: [facility] IMAGING REPORT Prescriptions as of 09/22/2024 - [...] Status:Closed by KIP SCHAEFFER [facility] 09[facility]21/24 [facility] ([id number]) 1965 F Date Time Provider Department 09/21/24 [...] Encounter Status:Closed by MILLER ARAYA on 09/21/24 [facility] [place] 09-08-2024 LENNIE Telephone ([facility]) PAT KNOTT ([id number]) 1965 F Date Time Provider Department 09/08/24 [...] Status:Closed by MILLER ARAYA on 09/08/[address] [facility] EMG(NEURO/NI)on 05-19-2024 Results can be seen in attached scanned documents. If you are a patient reviewing this test result, call the doctor who ordered the test with any questions. [facility] XR HAND 3V PA/LAT/OBL RTon 0 [...] tissues are unremarkable. IMPRESSION: Minimal degenerative changes. 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 Soft tissues are unremarkable. [facility] Provider, [facility] - 03/31/2024 * * *Final Report* [...] are unremarkable. IMPRESSION IMPRESSION: Minimal degenerative changes. Grain Broker And Market Operator: SHE Transcribe Date/Time: Mar 31 2024 4:36P Dictated by : ALEKSANDR BONDS MD This examination was interpreted and the report reviewed and electronically signed by: ALEKSANDR BONDS MD on Mar 31 2024 4:36PM EST [facility] Radiology Study observation (narrative) [facility] XR Hand - right PA and Later al and ObliqueOrdered By: Ccf Provider on 03-31-2024 [facility] CBCon 11-09-2023 ABSOLUTE BAS 0.1 10*3/uL Normal 0.0-0.2 [facility] Comment on above: Performed By: #### C MPF, ACBC, LIPA2 #### Testing performed at [address] [address] ABSOLUTE EOS 0.2 10*3/uL Normal 0.0-0.7 [facility] Comment on above: Performed By: #### C MPF, ACBC, LIPA2 #### Testing performed at [address] [address] ABSOLUTE NEUTROPHIL COUNT 5.3 10*3/uL Normal 1.4-6.5 [facility] Comment on above: Performed By: #### C MPF, ACBC, LIPA2 #### Testing performed at [address] [address] Basophils/100 WBC (Bld) 0.9 % Normal 0.0-2.0 [facility] Comment on above: Performed By: #### C MPF, ACBC, LIPA2 #### Testing performed at [address] [address] DTYPE AUTO DIFF Normal [facility] Comment on above: Performed By: #### C MPF, ACBC, LIPA2 #### Testing performed at [address] [address] Eosinophils/100 WBC (Bld) 1.9 % Normal 0.0-11.0 [facility] Comment on above: Performed By: #### C MPF, ACBC, LIPA2 #### Testing performed at [address] [address] Lymphocytes (Bld) [#/Vol] 2.6 10*3/uL Normal 1.2-3.4 [facility] Comment on above: Performed By: #### C MPF, ACBC, LIPA2 #### Testing performed at [address] [address] Lymphocytes/100 WBC (Bld) 29.1 % Normal 20.0-55.0 [facility] Comment on above: Performed By: #### C MPF, ACBC, LIPA2 #### Testing performed at [address] [address] Monocytes (Bld) [#/Vol] 0.9 10*3/uL High 0.0-0.7 [facility] Comment on above: Performed By: #### C MPF, ACBC, LIPA2 #### Testing performed at [address] [address] Monocytes/100 WBC (Bld) 10.1 % High 0.0-10.0 [facility] Comment on above: Performed By: #### C MPF, ACBC, LIPA2 #### Testing performed at [address] [address] Neutrophils/100 WBC (Bld) 58.0 % Normal 37.0-75.0 [facility] Comment on above: Performed By: #### C MPF, ACBC, LIPA2 #### Testing performed at [address] [address] Erythrocyte distribution width (RBC) [Ratio] 14.0 % Normal 11.5-14.5 [facility] Comment on above: Performed By: #### C MPF, ACBC, LIPA2 #### Testing performed at [address] [address] Hematocrit (Bld) [Volume fraction] 41.4 % Normal 36.0-48.0 [facility] Comment on above: Performed By: #### C MPF, ACBC, LIPA2 #### Testing performed at [address] [address] Hemoglobin (Bld) [Mass/Vol] 13.3 g/dL Normal 12.0-16.0 [facility] Comment on above: Performed By: #### C MPF, ACBC, LIPA2 #### Testing performed at [address] [address] MCH (RBC) [Entitic mass] 27.3 pg Normal 26.0-35.0 [facility] Comment on above: Performed By: #### C MPF, ACBC, LIPA2 #### Testing performed at [address] [address] MCHC (RBC) [Mass/Vol] 32.2 g/dL Normal 27.0-37.0 [facility] Comment on above: Performed By: #### C MPF, ACBC, LIPA2 #### Testing performed at [address] [address] MCV (RBC) [Entitic vol] 84.7 fL Normal 80.0-100.0 [facility] Comment on above: Performed By: #### C MPF, ACBC, LIPA2 #### Testing performed at [address] [address] Platelet mean volume (Bld) [Entitic vol] 6.9 fL Low 7.4-11.0 [facility] Comment on above: Performed By: #### C MPF, ACBC, LIPA2 #### Testing performed at [address] [address] Platelets (Bld) [#/Vol] 333 10*3/uL Normal 130-400 [facility] Comment on above: Performed By: #### C MPF, ACBC, LIPA2 #### Testing performed at [address] [address] RBC (Bld) [#/Vol] 4.89 10*6/uL Normal 4.0-5.4 [facility] Comment on above: Performed By: #### C MPF, ACBC, LIPA2 #### Testing performed at [address] [address] WBC (Bld) [#/Vol] 9.1 10*3/uL Normal 3.6-11.0 [facility] Comment on above: Performed By: #### C MPF, ACBC, LIPA2 #### Testing performed at [address] [address] CMP FASTINGon 11-09-2023 A:G RATIO 1.4 RATIO Normal [facility] Comment on above: Performed By: #### C MPF, ACBC, LIPA2 #### Testing performed at [address] [address] ALBUMIN 4.5 G/dl Normal 3.5-5.0 [facility] Comment on above: Performed By: #### C MPF, ACBC, LIPA2 #### Testing performed at [address] [address] ALP [Catalytic activity/Vol] 92 U/L Normal 38-126 [facility] Comment on above: Performed By: #### C MPF, ACBC, LIPA2 #### Testing performed at [address] [address] ALT [Catalytic activity/Vol] 64 U/L High <35 [facility] Comment on above: Performed By: #### C MPF, ACBC, LIPA2 #### Testing performed at [address] [address] AST [Catalytic activity/Vol] 51 U/L High 14-36 [facility] Comment on above: Performed By: #### C MPF, ACBC, LIPA2 #### Testing performed at [address] [address] Bilirubin [Mass/Vol] 0.2 mg/dL Normal 0.2-1.3 [facility] Comment on above: Performed By: #### C MPF, ACBC, LIPA2 #### Testing performed at [address] [address] Calcium [Mass/Vol] 9.8 mg/dL Normal 8.4-10.2 [facility] Comment on above: Performed By: #### C MPF, ACBC, LIPA2 #### Testing performed at [address] [address] Chloride [Moles/Vol] 103 mmol/L Normal 98-107 [facility] Comment on above: Result Comment: Plea se note: Triglyceride levels of 600mg/dL or higher may positively bias chloride results by approximately 2.1 mmol Performed By: #### C MPF, ACBC, LIPA2 #### [place] [address] CO2 [Moles/Vol] 24 mmol/L Normal 22-30 [facility] Comment on above: Performed By: #### C MPF, ACBC, LIPA2 #### Testing performed at [place] [id number] Creatinine [Mass/Vol] 1.00 mg/dL Normal 0.70-1.20 [facility] Comment on above: Performed By: #### C MPF, ACBC, LIPA2 #### Testing performed at [address] [address] EST. GFR, 73 ml/min/1.73sq.m [facility] Comment on above: Performed By: #### C MPF, ACBC, LIPA2 #### Testing performed at [place] [id number] EST. GFR,Non 61 ml/min/1.73sq.m [facility] Comment on above: Performed By: #### C MPF, ACBC, LIPA2 #### Testing performed at [address] [address] GFR Information Average GFR for 50-5 9 years old = 93. Normal [facility] Comment on above: Result Comment: Launch Steward bren Kidney disease, GFR = <60. Kidney failure, GFR = <15. The GFR estimate is not adjusted for extreme body surface area or acute process, nor has it been validated for women or ethnic groups other than and . Performed By: #### C MPF, ACBC, LIPA2 #### Testing performed at [place] [id number] Glucose [Mass/Vol] 121 mg/dL High 70-100 [facility] Comment on above: Result Comment: NORMAL <100 mg/dL PREDIABETES 101-126 mg/dL DIABETES 126 mg/dL or higher Performed By: #### C MPF, ACBC, LIPA2 #### Testing performed at [address] [address] Potassium [Moles/Vol] 3.7 mmol/L Normal 3.5-5.1 [facility] Comment on above: Performed By: #### C MPF, ACBC, LIPA2 #### Testing performed at [address] [address] Protein [Mass/Vol] 7.8 g/dL Normal 6.3-8.2 [facility] Comment on above: Performed By: #### C MPF, ACBC, LIPA2 #### Testing performed at [address] [address] Sodium [Moles/Vol] 137 mmol/L Normal 137-145 [facility] Comment on above: Performed By: #### C MPF, ACBC, LIPA2 #### Testing performed at [address] [address] Urea nitrogen [Mass/Vol] 17 mg/dL Normal 7-20 [facility] Comment on above: Performed By: #### C MPF, ACBC, LIPA2 #### Testing performed at [address] [address] [address] ABDOMEN/PELVIS WITHOUT CO NTRASTon 11-09-2023 CT [...] stone. 2. Small right renal cyst. Normal [facility] LACTATE,BLOODon 11-09-2023 Lactate [Moles/Vol] 3.1 mmol/L Critically high 0.7-2.0 [facility] Comment on above: Result Comment: AYANA NORMAN REPEAT INITIAL CRITICAL IN 3 HOURS IF ED OR INPATIENT SEPSIS PATIENT Result called to read back by: MEL 11/09/2023 @ 19:39 by MARK Performed By: #### L ACTAC #### Testing performed at [address] [address] LIPASE,SERUMon 11-09-2023 LIPASE,SERUM 198 U/L Normal 23-300 [facility] Comment on above: Performed By: #### C MPF, ACBC, LIPA2 #### Testing performed at [address] [address] URINE CULTUREon 11-09-2023 Bacteria identified Cx Nom (U) SPECIMEN DESCRIPTION URINE CLEAN CATCH UA DIPSTICK LEUKOCYTE POSITIVE * Result Note: NITRITE NEGATIVE * CULTURE NO PATHOGENS ISOLATED * Result Note: Testing performed at [place] [address] * REPORT STATUS 11/12/2023 * Result Note: FINAL * Normal [facility] Comment on above: Performed By: #### A URNC #### Testing performed at [address] [address] Testing performed at [address] [address] URINE MACROSCOPICon 11-09-19 24 Bilirubin Ql (U) Negative Normal NEGATIVE [facility] Comment on above: Performed By: #### U MARA, UMAC #### Testing performed at [address] [address] Clarity (U) CLOUDY Abnormal CLEAR [facility] Comment on above: Performed By: #### U MARA, UMAC #### Testing performed at [address] [address] Color (U) YELLOW Normal YELLOW [facility] Comment on above: Performed By: #### U MARA, UMAC #### Testing performed at [address] [address] Glucose Ql (U) Negative Normal NEGATIVE [facility] Comment on above: Performed By: #### U MARA, UMAC #### Testing performed at [address] [address] pH (U) 7.0 [pH] Normal 5.0-7.0 [facility] Comment on above: Performed By: #### U MARA, UMAC #### Testing performed at [address] [address] URINE HEMOGLOBIN LARGE Abnormal NEGATIVE [facility] Comment on above: Performed By: #### U MARA, UMAC #### Testing performed at [address] [address] URINE KETONE Negative Normal NEGATIVE [facility] Comment on above: Performed By: #### U MARA, UMAC #### Testing performed at [address] [address] URINE LEUKOTEST TRACE Abnormal NEGATIVE [facility] Comment on above: Performed By: #### U MARA, UMAC #### Testing performed at [address] [address] URINE NITRATES Negative Normal NEGATIVE [facility] Comment on above: Performed By: #### U MARA, UMAC #### Testing performed at [address] [address] URINE SPEC GRAVITY 1.020 Normal 1.010-1.025 [facility] Comment on above: Performed By: #### U MARA, UMAC #### Testing performed at [address] [address] URINE TOTAL PROTEIN Negative Normal NEGATIVE [facility] Comment on above: Performed By: #### U MARA, UMAC #### Testing performed at [address] [address] Urobilinogen Qn (U) 0.2 {Daphne'U}/dL Normal 0.2-1.0 [facility] Comment on above: Performed By: #### U MARA, UMAC #### Testing performed at [address] [address] URINE MICROSCOPICon 11-09-19 24 BACTERIA 1+ Abnormal NEGATIVE [facility] Comment on above: Performed By: #### U MARA, UMAC #### Testing performed at [address] [address] CASTS NONE Normal NONE [facility] Comment on above: Performed By: #### U MARA, UMAC #### Testing performed at [address] [address] CRYSTAL RARE Abnormal NONE [facility] Comment on above: Result Comment: SUDHA PHOUS URATES Performed By: #### U MARA, UMAC #### Testing performed at [address] [address] Epithelial cells LM Ql (Urine sed) 1 TO 5 Normal [facility] Comment on above: Performed By: #### U MARA, UMAC #### Testing performed at [address] [address] Mucus Ql (Urine sed) TRACE Abnormal NEGATIVE [facility] Comment on above: Performed By: #### U MARA, UMAC #### Testing performed at [address] [address] URINE COMMENT REFLEX CULTURE PER ESTABLISHED CRITERIA. Normal [facility] Comment on above: Performed By: #### U MARA, UMAC #### Testing performed at [address] [address] URINE RBC'S 20 TO 30 Normal NEGATIVE [facility] Comment on above: Performed By: #### U MARA, UMAC #### Testing performed at [address] [address] URINE WBC'S 1 TO 5 Normal NEGATIVE [facility] Comment on above: Performed By: #### U MARA, UMAC #### Testing performed at [address] [address] XR CHEST 2 Von 11-30-2022 XR CHEST 2 V EXAM: XR CHEST 2 V HISTORY: . Persistent cough . COMPARISON: None. TECHNIQUE: Frontal and lateral chest FINDINGS: Heart and vascularity are unremarkable. Lungs are expanded and free of focal infiltrates. No acute bony abnormality is appreciated. IMPRESSION: No acute heart or lung disease identified. Electronically authenticated by: BENTLEY MONDRAGON Date: 2022-11-30 11:45 [facility] MAMM SCREEN 3D JOSE CADon 10-29-2022 MG MAMM SCREEN 3D JOSE CAD Patient: KNOTT PAT L. Exam Date: 10/29/2022 : 1965 Gender:F Ordering : DR DELVIS LR . Admission #: [id number] Family : Order #: [id number] CLICK HERE TO VIEW EXAM RADIOLOGY REPORT [...] skin cancer at age 70. LOCATION: [facility] BREAST COMPOSITION: Scattered areas fibroglandular density. [...] MD on 10/30/2022 at 11:13 Normal [facility] CBC AUTO DIFFon 06-21-2022 BASO # 0.1 103/ul Normal 0.0-0.1 [facility] Comment on above: Performed By: #### H FPFCBC #### [facility] [address] [place] [address] Dr. Sonya Strickland Basophils/100 WBC (Bld) 0.7 % Normal 0.2-2.0 [facility] Comment on above: Performed By: #### H FPFCBC #### [facility] [address] [place] [address] Dr. Sonya Strickland EO # 0.1 103/ul Normal 0.0-0.7 [facility] Comment on above: Performed By: #### H FPFCBC #### [facility] [address] [place] [address] Dr. Sonya Strickland Eosinophils/100 WBC (Bld) 1.9 % Normal 0.9-7.0 [facility] Comment on above: Performed By: #### H FPFCBC #### [facility] [address] [place] [address] Dr. Sonya Strickland Erythrocyte distribution width (RBC) [Ratio] 13.1 % Normal 11.0-15.0 [facility] Comment on above: Performed By: #### H FPFCBC #### [facility] [address] [place] [address] Dr. Sonya Strickland Hematocrit (Bld) [Volume fraction] 41.6 % Normal 36.0-48.0 [facility] Comment on above: Performed By: #### H FPFCBC #### [facility] [address] [place] [address] Dr. Sonya Strickland Hemoglobin (Bld) [Mass/Vol] 13.2 g/dL Normal 12.0-16.0 [facility] Comment on above: Performed By: #### H FPFCBC #### [facility] [address] [place] [address] Dr. Sonya Strickland IG # 0.01 10e3/ul Normal 0.00-0.03 [facility] Comment on above: Performed By: #### H FPFCBC #### [facility] [address] [place] [address] Dr. Sonya Strickland IG % 0.1 % Normal 0.0-0.5 [facility] Comment on above: Performed By: #### H FPFCBC #### [facility] [address] [place] [address] Dr. Sonya Strickland LYMPH # 2.2 103/ul Normal 1.2-3.[address] [facility] Comment on above: Performed By: #### H FPFCBC #### [facility] [address] [place] [address] Dr. Sonya Strickland Lymphocytes/100 WBC (Bld) 31.3 % Normal 20.5-60.0 [facility] Comment on above: Performed By: #### H FPFCBC #### [facility] [address] [place] [address] Dr. Sonya Strickland MCH (RBC) [Entitic mass] 28.0 pg Normal 26.7-34.[address] [facility] Comment on above: Performed By: #### H FPFCBC #### [facility] [address] [place] [address] Dr. Sonya Strickland MCHC (RBC) [Mass/Vol] 31.7 g/dL Normal 29.9-35.[address] [facility] Comment on above: Performed By: #### H FPFCBC #### [facility] [address] [place] [address] Dr. Sonya Strickland MCV (RBC) [Entitic vol] 88.1 fL Normal 81.0-99.[address] [facility] Comment on above: Performed By: #### H FPFCBC #### [facility] [address] [place] [address] Dr. Sonya Strickland MONO # 0.7 103/ul Normal 0.3-0.[address] [facility] Comment on above: Performed By: #### H FPFCBC #### [facility] [address] [place] [address] Dr. Sonya Strickland Monocytes/100 WBC (Bld) 9.9 % Normal 1.7-12.[address] [facility] Comment on above: Performed By: #### H FPFCBC #### [facility] [address] [place] [address] Dr. Sonya Strickland NEUT # 3.9 103/ul Normal 1.4-6.[address] [facility] Comment on above: Performed By: #### H FPFCBC #### [facility] [address] [place] [address] Dr. Sonya Strickland Neutrophils/100 WBC (Bld) 56.1 % Normal 43.0-75.[address] [facility] Comment on above: Performed By: #### H FPFCBC #### [facility] [address] [place] [address] Dr. Sonya Srtickland Platelet mean volume (Bld) [Entitic vol] 9.7 fL Normal 9.5-13.[address] [facility] Comment on above: Performed By: #### H FPFCBC #### [facility] [address] [place] [address] Dr. Sonya Strickland PLT 313 103/ul Normal 150-450 [facility] Comment on above: Performed By: #### H FPFCBC #### [facility] [address] [place] [address] Dr. Sonya Strickland RBC 4.72 106/ul Normal 4.20-5.40 [facility] Comment on above: Performed By: #### H FPFCBC #### [facility] [address] [place] [address] Dr. Sonya Strickland WBC 7.0 103/ul Normal 4.0-11.0 [facility] Comment on above: Performed By: #### H FPFCBC #### [facility] [address] [place] [address] Dr. Sonya Strickland [facility] PROFILEon 022 Albumin [Mass/Vol] 3.8 g/dL Normal 3.4-5.0 [facility] Comment on above: Performed By: #### H FPF #### [facility] [address] [place] [address] Dr. Sonya Strickland Albumin/Globulin [Mass ratio] 1.0 {ratio} Normal [facility] Comment on above: Performed By: #### H FPF #### [facility] [address] [place] [address] Dr. Sonya Strickland ALP [Catalytic activity/Vol] 87 U/L Normal 46-[address] [facility] Comment on above: Performed By: #### H FPF #### [facility] [address] [place] [address] Dr. Sonya Strickland ALT [Catalytic activity/Vol] 25 U/L Normal 14-59 [facility] Comment on above: Performed By: #### H FPF #### [facility] [address] [place] [address] Dr. Sonya Strickland AST [Catalytic activity/Vol] 14 U/L Critically low 15-37 [facility] Comment on above: Performed By: #### H FPF #### [facility] [address] [address] [address] Sonya Strickland Bilirubin [Mass/Vol] 0.2 mg/dL Normal 0.2-1.0 [facility] Comment on above: Performed By: #### H FPF #### [facility] [address] [address] [address] Sonya Strickland Calcium [Mass/Vol] 8.8 mg/dL Normal 8.5-10.1 [facility] Comment on above: Performed By: #### H FPF #### [facility] [address] [address] [address] Sonya Strickland Chloride [Moles/Vol] 104 mmol/L Normal 98-107 [facility] Comment on above: Performed By: #### H FPF #### [facility] [address] [place] [address] Dr. Sonya Strickland CHOL-HDL RATIO NORM SEE BELOW Normal [facility] Comment on above: Result Comment: 3.3 - 4.4 LOW RISK 4.4 - 7.1 AVERAGE RISK 7.1 - 11.0 MODERATE RISK >11.0 HIGH RISK Performed By: #### H FPF #### [facility] [address] [address] [address] Sonya Strickland Cholesterol [Mass/Vol] 207 mg/dL Critically high <=200 [facility] Comment on above: Performed By: #### H FPF #### [facility] [address] [address] [address] Sonya Strickland Cholesterol in HDL [Mass/Vol] 63 mg/dL Critically high 40-60 [facility] Comment on above: Performed By: #### H FPF #### [facility] [address] [address] [address] Sonya Strickland Cholesterol in LDL [Mass/Vol] 121.6 mg/dL Normal [facility] Comment on above: Performed By: #### H FPF #### [facility] [address] [place] [address] Dr. Sonya Strickland Cholesterol.total/Cho lesterol in HDL [Mass ratio] 3.3 {ratio} Normal [facility] Comment on above: Performed By: #### H FPF #### [facility] [address] [address] [address] Sonya Strickland CO2 [Moles/Vol] 26.0 mmol/L Normal 21.0-32.0 [facility] Comment on above: Performed By: #### H FPF #### [facility] [address] [address] [address] Sonya Strickland Creatinine [Mass/Vol] 0.85 mg/dL Normal 0.55-1.02 [facility] Comment on above: Performed By: #### H FPF #### [facility] [address] [address] [address] Sonya Strickland Globulin (S) [Mass/Vol] 3.7 g/dL Normal [facility] Comment on above: Performed By: #### H FPF #### [facility] [address] [address] [address] Sonya Strickland Glucose [Mass/Vol] 87 mg/dL Normal 74-106 [facility] Comment on above: Performed By: #### H FPF #### [facility] [address] [address] [address] Sonya Strickland HDL NORMAL > or = 60 mg/dl - LO W CARDIOVASCULAR RISK <40 mg/dl - HIGH CARDIOVASCULAR RISK Normal [facility] Comment on above: Performed By: #### H FPF #### [facility] [address] [address] [address] Sonya Strickland LDL CALC NORMAL SEE BELOW Normal [facility] Comment on above: Result Comment: <100 mg/dl OPTIMAL 100 - 129 mg/dl NEAR OR ABOVE OPTIMAL 130 - 159 mg/dl BORDERLINE HIGH 160 - 189 mg/dl HIGH >190 mg/dl VERY HIGH Performed By: #### H FPF #### [facility] [address] [address] [address] Sonya Strickland Potassium [Moles/Vol] 4.3 mmol/L Normal 3.5-5.1 [facility] Comment on above: Performed By: #### H FPF #### [facility] [address] [address] [address] Sonya Strickland Protein [Mass/Vol] 7.5 g/dL Normal 6.4-8.2 [facility] Comment on above: Performed By: #### H FPF #### [facility] [address] [address] [address] Sonya Strickland Sodium [Moles/Vol] 140 mmol/L Normal 136-145 [facility] Comment on above: Performed By: #### H FPF #### [facility] [address] [address] [address] Sonya Strickland Triglyceride [Mass/Vol] 112 mg/dL Normal <=150 [facility] Comment on above: Performed By: #### H FPF #### [facility] [address] [address] [address] Sonya Strickland TSH 1.111 uIU/mL Normal 0.358-3.[address] [facility] Comment on above: Performed By: #### H FPF #### [facility] [address] [address] [address] Sonya Strickland Urea nitrogen [Mass/Vol] 21.0 mg/dL Critically high 7.0-18.0 [facility] Comment on above: Performed By: #### H FPF #### [facility] [address] [place] [address] Dr. Sonya Strickland Urea nitrogen/Creatinine [Mass ratio] 24.7 mg/mg Normal [facility] Comment on above: Performed By: #### H FPF #### [facility] [address] [address] [address] Sonya Strickland VLDL CALC 22.4 mg/dL Normal [facility] Comment on above: Performed By: #### H FPF #### [facility] [address] [place] [address] Dr. Sonya Strickland Vital Signs Date Time Vital Sign Value Performing Clinician Facility 04-13-2025 10:52-0400 Body height 162.56 cm [facility] 04-13-2025 10:52-0400 Body mass index (BMI) [Ratio] 34.2 kg/m2 [facility] 04-13-2025 10:52-0400 Body weight 90.43 kg [facility] 04-13-2025 10:52-0400 Diastolic blood pressure 85 mm[Hg] [facility] 04-13-2025 10:52-0400 Heart rate 70 /min [facility] 04-13-2025 10:52-0400 Respiratory rate 12 /min [facility] 04-13-2025 10:52-0400 Systolic blood pressure 132 mm[Hg] [facility] 02-16-2025 09:46-0400 Body height 162.6 cm Kenneth Zepeda MD Work Phone: [facility] 02-16-2025 09:46-0400 Body mass index (BMI) [Ratio] 34.5 kg/m2 Kenneth Zepeda MD Work Phone: [facility] 02-16-2025 09:46-0400 Body weight 91.17 kg Kenneth Zepeda MD Work Phone: [facility] 02-16-2025 09:46-0400 Diastolic blood pressure 97 mm[Hg] Kenneth Zepeda MD Work Phone: [facility] 02-16-2025 09:46-0400 Heart rate 75 /min Kenneth Zepeda MD Work Phone: [facility] 02-16-2025 09:46-0400 Systolic blood pressure 152 mm[Hg] Kenneth Zepeda MD Work Phone: [facility] 05-06-2024 09:23-0400 Body height 162.56 cm [facility] 05-06-2024 09:23-0400 Body mass index (BMI) [Ratio] 34.7 kg/m2 [facility] 05-06-2024 09:23-0400 Body weight 91.85 kg [facility] 05-06-2024 09:23-0400 Diastolic blood pressure 90 mm[Hg] [facility] 05-06-2024 09:23-0400 Heart rate 80 /min [facility] 05-06-2024 09:23-0400 Respiratory rate 12 /min [facility] 05-06-2024 09:23-0400 Systolic blood pressure 129 mm[Hg] [facility] 03-31-2024 13:49-0400 Body height 162.6 cm Ambreen Toth MD Work Phone: [facility] 03-31-2024 13:49-0400 Body mass index (BMI) [Ratio] 34.33 kg/m2 Ambreen Toth MD Work Phone: [facility] 03-31-2024 13:49-0400 Body weight 90.72 kg Ambreen Toth MD Work Phone: [facility] 03-31-2024 13:49-0400 Diastolic blood pressure 97 mm[Hg] Ambreen Toth MD Work Phone: [facility] 03-31-2024 13:49-0400 Systolic blood pressure 149 mm[Hg] Ambreen Toth MD Work Phone: [facility] 02-11-2024 11:02-0400 Body height 162.6 cm Ambreen Toth MD Work Phone: [facility] 02-11-2024 11:02-0400 Body weight 89.36 kg Ambreen Toth MD Work Phone: [facility] 05-17-2023 11:30-0400 Body height 162.56 cm Wisam Ball Other [employer] Other 05-17-2023 11:30-0400 Body mass index (BMI) [Ratio] 28.9 kg/m2 Wisam Ball Other [employer] Other 05-17-2023 11:30-0400 Body weight 76.39 kg Wisam Ball Other [employer] Other 05-17-2023 11:30-0400 Diastolic blood pressure 84 mm[Hg] Wisam Ball Other [employer] Other 05-17-2023 11:30-0400 Respiratory rate 12 /min Wisam Mix Other [employer] Other 05-17-2023 11:30-0400 Systolic blood pressure 130 mm[Hg] Wisam Mix Other [employer] Other Encounters Encounter Date Encounter Type Care Provider Facility Start: 08-12-2025 ambulatory [facility] Facility:[facility] Start: 08-12-2025 End: 08-12-2025 [facility] Facility:[facility] Start: 08-12-2025 End: 08-12-2025 [facility] Facility:[facility] Start: 07-13-2025 End: 07-13-2025 Transcribe Orders Delvis Lr MD Work Phone: Referring Physician Comment on above: Positive LES (antinu clear antibody) (Primary Dx) Start: 04-13-2025 End: 04-13-2025 ambulatory [facility] Work Phone: Start: 04-13-2025 End: 04-13-2025 Patient encounter procedure [facility] Work Phone: Start: 03-30-2025 End: 03-30-2025 ambulatory [facility] Facility:[facility] Start: 02-16-2025 End: 02-16-2025 Bamboo flowsheet Kenneth Zepeda MD Work Phone: [facility] Start: 02-16-2025 End: 02-16-2025 Bamboo flowsheet Kenneth [...] Start: 02-06-2025 End: 02-07-2025 ambulatory Kenneth Zepeda Facility:[facility] Start: 02-06-2025 End: 02-07-2025 Patient encounter procedure Kenneth H Sudhakar [facility] Start: 01-12-2025 End: 01-12-2025 ambulatory KENNETH Renate NORTHJoanne Not Available Start: 09-21-2024 End: 09-21-2024 Telephone encounter Tyler Levine PA-C Work Phone: [facility] Comment on above: [place] [place] Operator - O ther ([facility] REPORT) Appointment (Schedul ing with a hand specialist. ) Start: 09-08-2024 End: 09-09-2024 Orders Only Tyler Levine PA-C Work Phone: Orthopaedics Comment on above: Regarding ultrasound Ulnar neuritis, righ t (Primary Dx) Start: 05-21-2024 End: 05-21-2024 Patient encounter procedure Tyler Levine PA-C Work Phone: Orthopaedics Comment on above: Ulnar neuritis, righ t (Primary Dx) Start: 05-19-2024 End: 05-19-2024 ambulatory Emg Weight:400) Work Phone: Neurology Comment on above: EMG Start: 05-19-2024 End: 05-19-2024 Patient encounter procedure Emg 2 Neur [facility] (Max Weight:400) Work Phone: Neurology Start: 05-06-2024 End: 05-06-2024 ambulatory [facility] Work Phone: Start: 05-06-2024 End: 05-06-2024 [facility] encounter [facility] Work Phone: Start: 04-07-2024 ambulatory JINA FOREMAN Minaprosper ty:[place] XavierTavares Start: 04-01-2024 E-mail encounter fro m caregiver Tyler Levine PA-C Work Phone: Orthopaedics Start: 04-01-2024 Patient encounter procedure Tyler Levine PA-C Work Phone: Orthopaedics Comment on above: Regarding EMG Start: 03-31-2024 ambulatory AMBREEN TOTH Facility:[facility] Start: 03-31-2024 End: 03-31-2024 Subsequent hospital visit by physician [facility] Work Phone: [facility] General Comment on above: 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] Start: 03-31-2024 End: 03-31-2024 Patient encounter procedure Ambreen Toth MD Work Phone: Vascular Surgery Comment on above: Peripheral arterial disease (HCC) (Primary Dx) 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); Ulnar nerve compression, right Start: 02-11-2024 End: 02-11-2024 Orders Only Ambreen Toth MD Work Phone: Vascular Surgery Comment on above: Numbness (Primary Dx ) Peripheral arterial disease (HCC) (Primary Dx) Start: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 investigate or prosecute any alcohol or drug abuse patient.[facility] the event this information is protected by the Federal Confidentiality of Alcohol and Drug Abuse Patient Records regulations: The Federal rules restrict any use of the information to criminally investigate or prosecute any alcohol or drug abuse patient.[facility] the event this information is protected by the Federal Confidentiality of Alcohol and Drug Abuse Patient Records regulations: The Federal rules restrict any use of the information to criminally investigate or prosecute any alcohol or drug abuse patient.[facility] the event this information is protected by the Federal Confidentiality of Alcohol and Drug Abuse Patient Records regulations: The Federal rules restrict any use of the information to criminally investigate or prosecute any alcohol or drug abuse patient.[facility] the event this information is protected by the Federal Confidentiality of Alcohol and Drug Abuse Patient Records regulations: The Federal rules restrict any use of the information to criminally investigate or prosecute any alcohol or drug abuse patient.[facility] the event this information is protected by the Federal Confidentiality of Alcohol and Drug Abuse Patient Records regulations: The Federal rules restrict any use of the information to criminally investigate or prosecute any alcohol or drug abuse patient.[facility] the event this information is protected by the Federal Confidentiality of Alcohol and Drug Abuse Patient Records regulations: The Federal rules restrict any use of the information to criminally investigate or prosecute any alcohol or drug abuse patient.[facility] the event this information is protected by the Federal Confidentiality of Alcohol and Drug Abuse Patient Records regulations: The Federal rules restrict any use of the information to criminally investigate or prosecute any alcohol or drug abuse patient.[facility] the event this information is protected by the Federal Confidentiality of Alcohol and Drug Abuse Patient Records regulations: The Federal rules restrict any use of the information to criminally investigate or prosecute any alcohol or drug abuse patient.[facility] the event this information is protected by the Federal Confidentiality of Alcohol and Drug Abuse Patient Records regulations: The Federal rules restrict any use of the information to criminally investigate or prosecute any alcohol or drug abuse patient.[facility] the event this information is protected by the Federal Confidentiality of Alcohol and Drug Abuse Patient Records regulations: The Federal rules restrict any use of the information to criminally investigate or prosecute any alcohol or drug abuse patient.[facility] the event this information is protected by the Federal Confidentiality of Alcohol and Drug Abuse Patient Records regulations: The Federal rules restrict any use of the information to criminally investigate or prosecute any alcohol or drug abuse patient.[facility] the event this information is protected by the Federal Confidentiality of Alcohol and Drug Abuse Patient Records regulations: The Federal rules restrict any use of the information to criminally investigate or prosecute any alcohol or drug abuse patient.[facility] the event this information is protected by the Federal Confidentiality of Alcohol and Drug Abuse Patient Records regulations: The Federal rules restrict any use of the information to criminally investigate or prosecute any alcohol or drug abuse patient.[facility] the event this information is protected by the Federal Confidentiality of Alcohol and Drug Abuse Patient Records regulations: The Federal rules restrict any use of the information to criminally investigate or prosecute any alcohol or drug abuse patient.[facility] Care Teams (unrecognized sec tion and content) Elevator Pilot Relationship Specialty Start Date End Date Delvis Lr MD [address] [place] [phone] PCP - General Family Medicine 02/07/24 Delvis Lr MD [address] [place] [address] Referring Family Medicine 01/27/24 Elevator Pilot Relationship Specialty Start Date End Date Delvis Lr MD [address] [place] [address] PCP - General Family Medicine 02/07/24 Delvis Lr MD [address] [place] [address] Referring Family Medicine 01/27/24 Elevator Pilot Relationship Specialty Start Date End Date Delvis Lr MD [address] [place] [address] PCP - General Family Medicine 02/07/24 Delvis Lr MD [address] [place] [address] Referring Family Medicine 01/27/24 Elevator Pilot Relationship Specialty Start Date End Date Delvis Lr MD [address] [place] [address] PCP - General Family Medicine 02/07/24 Delvis Lr MD [address] [place] [address] Referring Family Medicine 01/27/24 Elevator Pilot Relationship Specialty Start Date End Date Delvis Lr MD [address] [place] [address] PCP - General Family Medicine 02/07/24 Delvis Lr MD [address] [place] [address] Referring Family Medicine 01/27/24 Elevator Pilot Relationship Specialty Start Date End Date Delvis Lr MD [address] [place] [address] PCP - General Family Medicine 02/07/24 Delvis Lr MD [address] [place] [address] Referring Family Medicine 01/27/24 Elevator Pilot Relationship Specialty Start Date End Date Delvis Lr MD [address] [place] [address] PCP - General Family Medicine 02/07/24 Delvis Lr MD [address] [place] [address] Referring Family Medicine 01/27/24 Team Status: Active Member Role Status Dates Delvis Lr MD Primary Care Provider Active Team Status: Inactive Member Role Status Dates Delvis Lr MD Primary Care Provider Active Start: May 06, 2024 End: May 06, 2024 Wisam Mix DO Attending Provider Active Sta rt: May 06, 2024 End: May 06, 2024 Elevator Pilot Relationship Specialty Start Date End Date Delvis Lr MD [address] [place] [phone] PCP - General Family Medicine 02/07/24 Delvis Lr MD [address] [place] [address] Referring Family Medicine 01/27/24 Elevator Pilot Relationship Specialty Start Date End Date Delvis Lr MD [address] [place] [address] PCP - General Family Medicine 02/07/24 Delvis Lr MD [address] [place] [address] Referring Family Medicine 01/27/24 Elevator Pilot Relationship Specialty Start Date End Date Delvis Lr MD [address] [place] [address] PCP - General Family Medicine 02/07/24 Delvis Lr MD [address] [place] [address] Referring Family Medicine 01/27/24 Elevator Pilot Relationship Specialty Start Date End Date Delvis Lr MD [address] [place] [address] PCP - General Family Medicine 02/07/24 Delvis Lr MD [address] [facility] [address] Referring Family Medicine 01/27/24 Elevator Pilot Relationship Specialty Start Date End Date Delvis Lr MD [address] [place] [address] PCP - General Family Medicine 02/07/24 Delvis Lr MD [address] [facility] [address] Referring Family Medicine 01/27/24 Elevator Pilot Relationship Specialty Start Date End Date Delvis Lr MD [address] [place] [address] PCP - General Family Medicine 11/13/24 Elevator Pilot Relationship Specialty Start Date End Date Delvis Lr MD [address] [place] [facility] [address] PCP - General Family Medicine 11/13/24 Elevator Pilot Relationship Specialty Start Date End Date Delvis Lr MD [address] [place] [address] PCP - General Family Medicine 11/13/24 Team [...] BE BASED ON THE PRIMARY CLINICAL RECORDS. [employer] provides no warranty or guarantee of the accuracy or completeness of information in this document.
== END 2025-08-23 10:46 | disposition home or self-care (01) ==
LOC: US 10:45
PROVIDERS: PCP Family Medicine
DX: R74.01 Elevation of levels of liver transaminase levels (principal); K76.0 Fatty (change of) liver, not elsewhere classified; N28.1 Cyst of kidney, acquired
CPT/HCPCS: 76705